=== PATIENT | male | born 1975 ===

== ENCOUNTER 2020-02-17 14:05 | Outpatient (REF) | payer OTHER, SELFPAY ==
--- NOTE | 2020-02-17 14:13 | XR_ITS ---
EXAMINATION: XR CHEST CLINICAL INFORMATION: Shortness of breath COMPARISON: None TECHNIQUE: 2 views of the chest were obtained. FINDINGS: No significant abnormality is noted involving the heart, lungs, mediastinum, bony thorax or soft tissues. XR/XR chest 2V IMPRESSION: Unremarkable examination.
--- NOTE | 2020-02-17 14:17 | US_ITS ---
EXAMINATION: US VENOUS ULTRASOUND WITH DOPPLER LOWER EXTREMITY, BILATERAL CLINICAL INFORMATION: Swelling and pain COMPARISON: None TECHNIQUE: Ultrasound of the deep veins is performed from the hip to the calf with compression sonography and color and pulse Doppler assessment. Spectral analysis with color-flow imaging is performed. FINDINGS: RIGHT: There is normal venous compression and respiratory variation and augmented flow. The visualized common femoral vein, superficial femoral vein, profunda femoral vein, popliteal vein, and the trifurcation region shows no evidence of deep venous thrombosis. There is no significant popliteal fossa cyst. There is a right inguinal lymph node. LEFT: There is normal venous compression and respiratory variation and augmented flow. The visualized common femoral vein, superficial femoral vein, profunda femoral vein, popliteal vein, and the trifurcation region shows no evidence of deep venous thrombosis. There is no significant popliteal fossa cyst. US/US venous duplex LE BI IMPRESSION: No evidence of DVT.
--- NOTE | 2020-02-17 15:27 | US_ITS ---
EXAMINATION: US ABDOMEN LIMITED CLINICAL INFORMATION: Gaseous abdominal distention. Evaluate liver and ascites. COMPARISON: None TECHNIQUE: Real-time imaging of the liver and 4 quadrants. FINDINGS: LIVER: The liver is echogenic. The liver is enlarged, right lobe measuring 24 cm and left lobe measuring 16 cm in length. No focal liver lesion is seen. There is no biliary duct dilatation. FREE FLUID: There is a small to moderate amount of ascites. US/US abdomen limited IMPRESSION: Enlarged echogenic liver. [id number] amount of ascites.
[2020-02-17 16:56] LABS: MANUAL DIFF FLAG NO
[2020-02-17 17:10] LABS: Basophils Absolute Auto 0.1 X10*3/uL (0.0-0.2); Basophils Percent Auto 1.2 % (0-2); Eosinophils Absolute Auto 0.1 X10*3/uL (0.0-0.4); Eosinophils Percent Auto 0.6 % (0-4); Hematocrit 36.4 % (42-52); Hemoglobin 13.2 g/dl (14.0-18.0); Imm Gran Abs Auto 0.04 X10*3/uL (0.00-0.03); Imm Gran Pct Auto 0.4 % (0.0-0.4); Lymphocytes Absolute Auto 2.4 X10*3/uL (1.2-4.9); Lymphocytes Percent Auto 25.3 % (20-40); Mean Corpuscular HGB Conc 36.3 g/dl (31.0-36.0); Mean Corpuscular Hemoglobin 41.6 pg (27.0-33.0); Monocytes Absolute Auto 1.1 X10*3/uL (0.1-1.2); Monocytes Percent Auto 11.5 % (2-11); Neutrophils Absolute Auto 5.7 X10*3/uL (2.0-8.3); Platelet Count 291 X10*3/uL (160-400); Red Blood Count 3.17 X10*6/uL (4.60-5.80); Red Cell Distribution Width 15.9 % (11.0-16.0); White Blood Count 9.4 X10*3/uL (4.8-10.8)
[2020-02-17 17:17] LABS: Glucose Urine UA 100 MG/DL (NEG); Leukocyte Esterase Urine NEG (NEG); Nitrite Urine POS (NEG); PH 5.5 (5.0-8.0); Specific Gravity - Urine >= 1.030 (1.005-1.025); Urine Blood NEG (NEG); Urine Ketones 5 MG/DL (NEG); Urine Protein 1+ MG/DL (NEG-TRACE)
[2020-02-17 17:24] LABS: Color Urine AMBER
[2020-02-17 17:25] LABS: Appearance Urine HAZY
[2020-02-17 17:35] LABS: Mean Corpuscular Volume 114.8 fL (80-98)
[2020-02-17 17:38] LABS: Alanine Aminotransferase 68 U/L (0-40); Albumin Level 2.6 g/dL (3.5-5.0); Alkaline Phosphatase 308 U/L (39-117); Anion Gap 19 (12-20); Aspartate Amino Transferase 209 U/L (5-37); Bilirubin Total 4.8 mg/dL (0.0-1.0); Blood Urea Nitrogen 6 mg/dL (9-16); Calcium 7.6 mg/dL (8.4-10.2); Carbon Dioxide 23 mmol/L (22-29); Chloride 94 mmol/L (96-108); Cholesterol 135 mg/dL; Estimated Glomerular Filt Rate > 60; Glucose Random 91 mg/dL (60-115); HDL Cholesterol 9 mg/dL; LDL Cholesterol Calculated 99 mg/dl; Potassium 3.5 mmol/l (3.3-5.1); Sodium 132 mmol/L (135-145); Total Protein 7.3 g/dL (6.5-8.0); Triglycerides 136 mg/dL
[2020-02-17 17:41] LABS: B Type Natriuretic Peptide 50 pg/mL (<100)
[2020-02-17 17:42] LABS: D Dimer 3513 NG/ML
[2020-02-17 17:59] LABS: Thyroid Stimulating Hormone 3.48 mIU/mL (0.32-4.0)
[2020-02-17 18:00] LABS: Bacteria Urine TRACE /LPF; Mucus Urine 3+ /LPF; RBC Urine 0 /HPF (0); Squamous Epithelial Cell Urine 1+ /LPF; WBC Urine 0 /HPF (0-4)
[2020-02-18 04:17] LABS: HBsAGNum1 0.19 S/CO (0.00-0.99); Hepatitis B Surface Antigen Negative (Negative)
[2020-02-18 04:24] LABS: Hepatitis B Core Antibody Nonreactive (Nonreactive); ~HepC Num1 0.16 S/CO (0.00-0.79); ~Hepatitis B Surface Antibody NONREACTIVE (Nonreactive); ~Hepatitis C Antibody Nonreactive (Nonreactive)
== END 2020-02-17 14:06 | disposition home or self-care (01) ==
LOC: HO.HMGCX 14:05
PROVIDERS: PCP Internal Medicine; Visit Provider Internal Medicine
DX: E78.00 Pure hypercholesterolemia, unspecified (principal); M79.89 Other specified soft tissue disorders; R06.02 Shortness of breath; R09.89 Other specified symptoms and signs involving the circulatory and respiratory systems; R18.8 Other ascites
CPT/HCPCS: 36415; 71046; 76705; 80053; 80061; 81001; 83880; 84443; 85025; 85060; 85379; 86704; 86706; 86803; 87340; 93970

== ENCOUNTER → 2020-03-07 13:00 | Outpatient (REF) | payer OTHER, SELFPAY | LOC: HO.SL 13:00 | PROVIDERS: PCP Internal Medicine; Visit Provider Internal Medicine | DX: R06.81 Apnea, not elsewhere classified (principal) | CPT/HCPCS: 95806 ==

== ENCOUNTER 2020-03-09 15:44 | Inpatient (IN) | payer OTHER, SELFPAY ==
--- NOTE | 2020-03-09 16:14 | ED_ITS ---
HPI - Abdominal Pain General Chief Complaint: Abdominal Pain Stated Complaint: abdominal pain Time Seen by Provider: 03/09/20 16:12 Source: patient and old records reviewed Mode of arrival: ambulatory Limitations: no limitations History of Present Illness HPI narrative: has been seeing his PCP for LE edema had US on 02/16 Enlarged echogenic liver. [id number] amount of ascites., negative DVT study, elevated LFTs and bili 4.8, hepatitis panel negative, patient states he is still drinking but not much took two shots before I came for nerves. notes his swelling has worsened MD elicited complaint: other (swelling of abdomen and LE) Pertinent past history: other (ETOH abuse) Onset (ago): month(s) (months) Pain Consistency: intermittent Location: none Severity: mild Radiation: none Migration to: no migration Exacerbating factors: nothing Relieving factors: nothing Associated symptoms: other (dark urine, LE swelling, fatigue, yellow eyes) Treatments prior to arrival: other (takes tylenol) Related Data Home Medications Medication Instructions Recorded Confirmed multivitamin 1 tab PO DAILY 02/15/20 03/09/20 Allergies Allergy/AdvReac Type Severity Reaction Status Date / Time No Known Allergies Allergy Verified 03/08/20 15:25 Review of Systems Review of Systems Constitutional : No Weight loss, No Fever, No Chills ENT/Mouth : No sore throat, No Rhinorrhea Eyes: No Swelling, No Redness, yellow eyes Cardiovascular : No Chest Pain, No SOB, NoEdema Respiratory : No Cough, No Sputum, No Wheezing Gastrointestinal : Positive Nausea, no Vomiting, no Diarrhea, positive abdominal Pain due to swelling, No Hematochezia, No Melena Genitourinary : No Dysuria, No Urinary Frequency, No Hematuria, No Urgency Musculoskeletal : No joint pain, No Myalgias, No Joint Swelling Skin : No Skin Lesions, pos rash Neuro : No Weakness, No Numbness, No Dizziness, No Headache Psych : No Anxiety/Panic, No Depression Heme/Lymph: No Bruising, No Lymphadenopathy Endocrine : No Polyuria, No Polydipsia All other systems reviewed and are negative. Physical Exam Vital Signs: Vital Signs: Last Vital Signs Temp 98.2 F 03/09/20 17:12 Pulse 98 03/09/20 19:10 Resp 16 03/09/20 19:10 BP 130/79 03/09/20 19:10 Pulse Ox 95 03/09/20 19:10 Body Mass Index 41.0 Appearance: Alert. Oriented X3. No acute distress. Eyes: Pupils equal, round and reactive to light. + scleral icterus ENT: Pharynx normal. Neck: Normal inspection. Neck supple. CVS: Normal heart rate and rhythm. Pulses normal. Respiratory: No respiratory distress. Breath sounds normal. Abdomen: Soft and non tender but moderate to large ascites Skin: Skin warm and dry. jaundice skin color. Normal skin turgor. Extremities: pos 4+ lower extremity edema. No calf ttp Neuro: Oriented X 3. No motor deficit. No sensory deficit. Procedures Paracentesis Time Out Performed: Yes Indication: Ascites Procedure: diagnostic paracentesis Location: RLQ Local Anesthetic: lidocaine 2% Amount of anesthesia used (mL): 5 Bedside Ultrasound Used: yes, Ascites confirmed and location marked Preparation: sterile prep and drape Fluid: clear and sent to lab for analysis Post Procedure Exam: awake, alert Patient Tolerated Procedure: well Complications: none Additional Comments: only removed 100cc of fluid, area stopped draining Course Course Course Narrative: elevated WBC count, lactic acidosis, abnormal LFTs and elevated bili are due to liver failure and not infection or severe sepsis will admit for further workup c/o nausea and anxiety - IV zofran and ativan ordered added on ceftriaxone at this time for SBP prophylaxis. MDM - Abdominal Pain MDM Narrative Medical decision making narrative: 44 yo male with regular ETOH use comes in with jaundice, LE edema, ascites concerning for worsening liver ds, he has no fevers and no overt pain to suggest SBP, just had start of workup 02/16 and he seems to have progressed - at this time will need labs, cultures, paracentesis, call to GI and admit for further workup, patient denies withdrawals or hx of seizures. Lab Data Result diagrams: 03/09/20 17:03 03/09/20 18:33 Labs: Lab Results 03/09/20 03/09/20 03/09/20 Range/Units 17:03 17:03 17:03 WBC 13.5 H (4.8-10.8) X10*3/uL RBC 2.77 L (4.60-5.80) X10*6/uL Hgb 11.9 L (14.0-18.0) g/dl Hct 31.8 L (42-52) % MCV 114.8 H (80-98) fL MCH 43.0 H (27.0-33.0) pg MCHC 37.4 H (31.0-36.0) g/dl RDW 20.7 H (11.0-16.0) % Plt Count 223 (160-400) X10*3/uL MPV 10.8 (9.4-12.4) fL Immature Gran % (Auto) 1.0 H (0.0-0.4) % Neut % (Auto) 73.9 H (45-73) % Lymph % (Auto) 15.3 L (20-40) % [place] % (Auto) 8.9 (2-11) % Eos % (Auto) 0.4 (0-4) % Baso % (Auto) 0.5 (0-2) % Lymph # (Auto) 2.1 (1.2-4.9) X10*3/uL [place] # (Auto) 1.2 (0.1-1.2) X10*3/uL Eos # (Auto) 0.1 (0.0-0.4) X10*3/uL Baso # (Auto) 0.1 (0.0-0.2) X10*3/uL Abs Immat Gran (auto) 0.14 H (0.00-0.03) X10*3/uL Absolute Neuts (auto) 10.0 H (2.0-8.3) X10*3/uL Absolute Nucleated RBC 0.050 H (0.0-0.012) X10*3/uL Nucleated RBC % (auto) 0.4 H (0.0-0.2) /100WBC PT Cancelled INR Cancelled APTT Cancelled Sodium Cancelled Potassium Cancelled Chloride Cancelled Carbon Dioxide Cancelled Anion Gap Cancelled BUN Cancelled Creatinine Cancelled Estim Creat Clear Calc Cancelled Estimated GFR Cancelled Random Glucose Cancelled Lactic Acid (0.5-2.0) mmol/L Calcium Cancelled Magnesium Cancelled Total Bilirubin Cancelled Direct Bilirubin Cancelled AST Cancelled ALT Cancelled Alkaline Phosphatase Cancelled Ammonia (13-55) umol/L Total Protein Cancelled Albumin Cancelled Lipase Cancelled Acetaminophen Ethyl Alcohol COVID-19 ([facility]IP[facility]) (Negative) COVID-19 Clin Com 11/03/09/20 03/09/20 Range/Units 17:03 17:03 17:03 WBC (4.8-10.8) X10*3/uL RBC (4.60-5.80) X10*6/uL Hgb (14.0-18.0) g/dl Hct (42-52) % MCV (80-98) fL MCH (27.0-33.0) pg MCHC (31.0-36.0) g/dl RDW (11.0-16.0) % Plt Count (160-400) X10*3/uL MPV (9.4-12.4) fL Immature Gran % (Auto) (0.0-0.4) % Neut % (Auto) (45-73) % Lymph % (Auto) (20-40) % [place] % (Auto) (2-11) % Eos % (Auto) (0-4) % Baso % (Auto) (0-2) % Lymph # (Auto) (1.2-4.9) X10*3/uL [place] # (Auto) (0.1-1.2) X10*3/uL Eos # (Auto) (0.0-0.4) X10*3/uL Baso # (Auto) (0.0-0.2) X10*3/uL Abs Immat Gran (auto) (0.00-0.03) X10*3/uL Absolute Neuts (auto) (2.0-8.3) X10*3/uL Absolute Nucleated RBC (0.0-0.012) X10*3/uL Nucleated RBC % (auto) (0.0-0.2) /100WBC PT INR APTT Sodium Potassium Chloride Carbon Dioxide Anion Gap BUN Creatinine Estim Creat Clear Calc Estimated GFR Random Glucose Lactic Acid (0.5-2.0) mmol/L Calcium Magnesium Total Bilirubin Direct Bilirubin AST ALT Alkaline Phosphatase Ammonia 79 H (13-55) umol/L Total Protein Albumin Lipase Acetaminophen Cancelled Ethyl Alcohol Cancelled COVID-19 ([facility]IP[facility]) (Negative) COVID-19 Clin Com 03/09/20 03/09/20 03/09/20 Range/Units 17:03 17:09 18:33 WBC (4.8-10.8) X10*3/uL RBC (4.60-5.80) X10*6/uL Hgb (14.0-18.0) g/dl Hct (42-52) % MCV (80-98) fL MCH (27.0-33.0) pg MCHC (31.0-36.0) g/dl RDW (11.0-16.0) % Plt Count (160-400) X10*3/uL MPV (9.4-12.4) fL Immature Gran % (Auto) (0.0-0.4) % Neut % (Auto) (45-73) % Lymph % (Auto) (20-40) % [place] % (Auto) (2-11) % Eos % (Auto) (0-4) % Baso % (Auto) (0-2) % Lymph # (Auto) (1.2-4.9) X10*3/uL [place] # (Auto) (0.1-1.2) X10*3/uL Eos # (Auto) (0.0-0.4) X10*3/uL Baso # (Auto) (0.0-0.2) X10*3/uL Abs Immat Gran (auto) (0.00-0.03) X10*3/uL Absolute Neuts (auto) (2.0-8.3) X10*3/uL Absolute Nucleated RBC (0.0-0.012) X10*3/uL Nucleated RBC % (auto) (0.0-0.2) /100WBC PT INR APTT Sodium 125 L Potassium 3.0 L Chloride 82 L Carbon Dioxide 29 Anion Gap 17 BUN 9 Creatinine 0.82 Estim Creat Clear Calc 163.5 Estimated GFR > 60 Random Glucose 104 Lactic Acid 4.6 H* (0.5-2.0) mmol/L Calcium 7.3 L Magnesium Total Bilirubin Direct Bilirubin AST ALT Alkaline Phosphatase Ammonia (13-55) umol/L Total Protein Albumin Lipase Acetaminophen 3 Ethyl Alcohol COVID-19 (PIPPA) Negative (Negative) COVID-19 Clin Com See Note 03/09/20 03/09/20 03/09/20 Range/Units 18:33 18:33 18:33 WBC (4.8-10.8) X10*3/uL RBC (4.60-5.80) X10*6/uL Hgb (14.0-18.0) g/dl Hct (42-52) % MCV (80-98) fL MCH (27.0-33.0) pg MCHC (31.0-36.0) g/dl RDW (11.0-16.0) % Plt Count (160-400) X10*3/uL MPV (9.4-12.4) fL Immature Gran % (Auto) (0.0-0.4) % Neut % (Auto) (45-73) % Lymph % (Auto) (20-40) % [place] % (Auto) (2-11) % Eos % (Auto) (0-4) % Baso % (Auto) (0-2) % Lymph # (Auto) (1.2-4.9) X10*3/uL [place] # (Auto) (0.1-1.2) X10*3/uL Eos # (Auto) (0.0-0.4) X10*3/uL Baso # (Auto) (0.0-0.2) X10*3/uL Abs Immat Gran (auto) (0.00-0.03) X10*3/uL Absolute Neuts (auto) (2.0-8.3) X10*3/uL Absolute Nucleated RBC (0.0-0.012) X10*3/uL Nucleated RBC % (auto) (0.0-0.2) /100WBC PT Cancelled INR Cancelled APTT Cancelled Sodium Potassium Chloride Carbon Dioxide Anion Gap BUN Creatinine Estim Creat Clear Calc Estimated GFR Random Glucose Lactic Acid (0.5-2.0) mmol/L Calcium Magnesium 2.1 Total Bilirubin 12.5 H Direct Bilirubin 8.8 H AST 249 H ALT 96 H Alkaline Phosphatase 218 H D Ammonia (13-55) umol/L Total Protein 7.0 Albumin 2.2 L Lipase 91 H Acetaminophen Ethyl Alcohol 10 COVID-19 (PIPPA) (Negative) COVID-19 Clin Com ECG Data Attestation: I personally reviewed and interpreted this ECG as follows: ECG interpretation date: 03/09/20 ECG interpretation time: 17:18 Interpretation: Rate: 95 Rhythm: NSR Benge: normal Normal P waves. Normal [place]. Normal QRS complex. ST T wave : non specific qTC: prolonged prior studies: no acute ischemia but artifact present The study has been interpreted contemporaneously by me. . Discharge Plan Discharge Clinical Impression: Acute alcoholic hepatitis, Elevated liver function tests, Acidosis, lactic, Hepatic encephalopathy Ascites Qualifiers: Ascites type: due to alcoholic hepatitis Qualified Code(s): K70.11 - Alcoholic hepatitis with ascites Patient Disposition: Admitted As Inpatient [facility] Past Medical History Attestation statement: The following information was validated with the patient. Medical History Obesity Tobacco abuse Family History Family History (Updated 02/15/20 @ 10:18 by Heidy Mojica MD) Maternal Grandfather CVA (cerebral vascular accident) Maternal Grandmother Pancreatic cancer Social History Social History Alcohol intake: current Smoking Status: Current every day smoker Packs Per Day: 0.5 Cigarettes Per Day: 10.0 Years Smoked: smoking since 20 years old Use of substances other than those prescribed or required for medical reasons: Yes Substance Use Type: Marijuana Advance Directives: No Advance Directives Information Provided: No
--- NOTE | 2020-03-09 16:17 | ECG_ITS ---
Test Reason : ABDOMINAL PAIN Blood Pressure : / mmHG Vent. Rate : 095 BPM Atrial Rate : 095 BPM P-R Int : 198 ms QRS Dur : 096 ms QT Int : 442 ms P-R-T Axes : 037 007 007 degrees QTc Int : 555 ms Poor data quality Normal sinus rhythm Nonspecific T wave abnormality Prolonged QT Abnormal ECG No previous ECGs available Referred By: Quin Cantor Electronically Signed By:ROHITH DOLAN MD
[2020-03-09 16:20] VITALS: BP 114/63; PULSE 97; RESP 18; TEMP 37.1; O2SAT 97; BMI 41.0
[2020-03-09 17:12] VITALS: BP 116/68; PULSE 93; RESP 21; TEMP 36.8; O2SAT 94
[2020-03-09 17:38] LABS: Basophils Absolute Auto 0.1 X10*3/uL (0.0-0.2); Basophils Percent Auto 0.5 % (0-2); Eosinophils Absolute Auto 0.1 X10*3/uL (0.0-0.4); Eosinophils Percent Auto 0.4 % (0-4); Hematocrit 31.8 % (42-52); Hemoglobin 11.9 g/dl (14.0-18.0); Imm Gran Abs Auto 0.14 X10*3/uL (0.00-0.03); Lymphocytes Absolute Auto 2.1 X10*3/uL (1.2-4.9); Lymphocytes Percent Auto 15.3 % (20-40); MANUAL DIFF FLAG NO; Mean Corpuscular HGB Conc 37.4 g/dl (31.0-36.0); Mean Platelet Volume 10.8 fL (9.4-12.4); Monocytes Absolute Auto 1.2 X10*3/uL (0.1-1.2); Monocytes Percent Auto 8.9 % (2-11); NRBC Pct Auto 0.4 /100WBC (0.0-0.2); Neutrophils Percent Auto 73.9 % (45-73); Platelet Count 223 X10*3/uL (160-400); Red Blood Count 2.77 X10*6/uL (4.60-5.80); Red Cell Distribution Width 20.7 % (11.0-16.0); White Blood Count 13.5 X10*3/uL (4.8-10.8)
[2020-03-09 17:39] LABS: Mean Corpuscular Volume 114.8 fL (80-98)
[2020-03-09 17:55] LABS: Ammonia 79 umol/L (13-55)
[2020-03-09 17:58] LABS: IDNOW Serial# 9DD0AD1C
[2020-03-09 17:59] LABS: COVID-19 Test Negative (Negative)
[2020-03-09 18:00] LABS: Lactic Acid 4.6 mmol/L (0.5-2.0)
[2020-03-09 19:02] LABS: Lipase 91 U/L (8-78)
[2020-03-09 19:03] LABS: Alanine Aminotransferase 96 U/L (0-40); Albumin Level 2.2 g/dL (3.5-5.0); Alkaline Phosphatase 218 U/L (39-117); Aspartate Amino Transferase 249 U/L (5-37); Bilirubin Direct 8.8 mg/dL (0.0-0.5); Bilirubin Total 12.5 mg/dL (0.0-1.0); Ethanol 10 mg/dL; Magnesium 2.1 mg/dL (1.6-2.6)
[2020-03-09 19:08] LABS: Acetaminophen LAB 3 mcg/mL (<30); Anion Gap 17 (12-20); Blood Urea Nitrogen 9 mg/dL (9-16); Calcium 7.3 mg/dL (8.4-10.2); Carbon Dioxide 29 mmol/L (22-29); Chloride 82 mmol/L (96-108); Creatinine Clr Calc Pharmacy 163.5; Estimated Glomerular Filt Rate > 60; Glucose Random 104 mg/dL (60-115); Sodium 125 mmol/L (135-145)
[2020-03-09 19:10] VITALS: BP 130/79; PULSE 98; RESP 16; O2SAT 95
[2020-03-09 19:21] LABS: MN% 74.2 %; PMN% 25.8 %; RBC Peritoneal Fluid < 0.002 X10*6/uL; WBC Peritoneal Fluid 0.121 X10*3/uL
[2020-03-09 19:37] LABS: Reflex Lactate? Lactic Acid Added
[2020-03-09 19:44] LABS: INTERNATIONAL NORM RATIO 1.5 (0.9-1.1); Prothrombin Time 18.2 SEC (10.8-13.0)
[2020-03-09] MEDS: Lidocaine HCl 2 % MPF 5 ML VIAL SUBCUT (19:45)
[2020-03-09] MEDS: ondansetron HCL 4 MG/2 ML VIAL IVPUSH (19:45)
[2020-03-09 19:46] LABS: BF Shift QC OK YES; Man Diluent Bkgrd OK YES
[2020-03-09 19:47] LABS: Partial Thromboplastin Time 31.1 SEC (24.1-38.0)
[2020-03-09] MEDS: LORazepam 2 MG/ML VIAL 0.5 MG IVPUSH (19:51)
[2020-03-09] MEDS: Albumin Human 25 % 100 ML IV (19:57)
[2020-03-09] MEDS: Potassium Chloride ER 20 MEQ TAB.ER.PRT 40 MEQ PO (19:58)
--- NOTE | 2020-03-09 19:59 | PM.IMHP ---
History of Present Illness Date of Service: 03/09/20 Chief Complaint: abdominal pain, distension 44-year-old male with history of alcohol abuse who presents to the hospital with complaints of abdominal pain and session. Patient reports that he started developing abdominal distension for the past 6 weeks to 2 months and started developing abdominal pain past 4 weeks. Both have been progressively Worsening over the past 3 weeks. He denies any fever, no chills. He has no diarrhea but has some sort of constipation due to the pressure of the abdominal distension. On he is also complaining of significant leg swelling this been going on for few weeks now. He has no chest pain, he has some mild shortness of breath specially when he lays down due to the abdominal pressure, he has occasional nonbloody vomiting. he also noticed skin changes for the past 3 weeks. Progressively worsened. He has no urinary symptoms, no weakness numbness or tingling. He reports that he presented to his primary care physician on the and was worked up for this distension. He was started on multivitamins at that time. He returned to his doctor's office yesterday and was told to return to the ED for the management of distension. he has been checking his temperature is daily with no fever. On arrival to the ED hemodynamically stable with Heart rate of heart rate of 97, respiratory rate of 18, blood pressure of 114/63 and 97% on room air labs are significant for WBC count of 13.5, hemoglobin of 11.9, MCV of 114, PT of 18.2, INR of 1.5, sodium of 125, potassium of 3.0, chloride of 82, lactic acid of 4.6, calcium 7.3, total bilirubin of 12.5, direct bili of 8.8, AST of 249, ALT of 96, alk-phos of 218, ammonia of 79, albumin of 2.2 paracentesis therapeutic and diagnostic was attempted but only 100 cc of fluid was able to be drained by the ED physician. Fluid has been sent to the lab with results pending past medical history: Denies Surgical history: Denies Family history: mother has diabetes, father had COPD and of visited missed disease, brother of heart disease social history: Comes from home, lives at home with his mother, smokes about half a pack a day, drinks about 2 drinks daily,denies any history of withdrawals, denies any drug use Review of Systems Review of Systems: Yes all other systems are reviewed and are negative [facility] Medical History Obesity Tobacco abuse Family History Maternal Grandfather CVA (cerebral vascular accident) Maternal Grandmother Pancreatic cancer Social History Alcohol intake: current Smoking Status: Current every day smoker Packs Per Day: 0.5 Cigarettes Per Day: 10.0 Years Smoked: smoking since 20 years old Use of substances other than those prescribed or required for medical reasons: Yes Substance Use Type: Marijuana Advance Directives: No Advance Directives Information Provided: No Meds Allergies Allergy/AdvReac Type Severity Reaction Status Date / Time No Known Allergies Allergy Verified 03/08/20 15:25 Home Medications Medication Instructions Recorded Confirmed Type multivitamin 1 tab PO DAILY 02/15/20 03/09/20 History Physical Exam Vital Signs and Narrative: Vital Signs: Last Vital Signs Temp 98.2 F 03/09/20 17:12 Pulse 98 03/09/20 19:10 Resp 16 03/09/20 19:10 BP 130/79 03/09/20 19:10 Pulse Ox 95 03/09/20 19:10 Body Mass Index 41.0 Const: General: cooperative and no acute distress Orientation/consciousness: patient oriented x3 Eyes: General: appearance normal, both eyes and all related structures Pupils: Equal, round and reactive pupils present Resp: Effort & Inspection: normal respiratory effort and able to speak in complete sentences Auscultation: clear to auscultation bilaterally Cardio: Rate: regular rate Rhythm: regular rhythm GI: Other: 3+ ascites, diffuse tenderness, worse on the right upper quadrant, Skin: General skin exam: no rashes or lesions noted and jaundice Neuro: General: patient oriented x3 Cranial nerves: Yes Equal, round and reactive pupils present Cognition (Neuro): normal cognition Extrem: Other: 3+ pitting edema bilaterally General: Yes normal to inspection Results Labs CBC and Chem 7: 03/09/20 17:03 03/09/20 18:33 Labs: Laboratory Results - last 24 hr 03/09/20 03/09/20 03/09/20 17:03 17:03 17:03 MCV 114.8 H MCH 43.0 H MCHC 37.4 H RDW 20.7 H Plt Count 223 MPV 10.8 Immature Gran % (Auto) 1.0 H Neut % (Auto) 73.9 H Lymph % (Auto) 15.3 L [place] % (Auto) 8.9 Eos % (Auto) 0.4 Baso % (Auto) 0.5 Lymph # (Auto) 2.1 [place] # (Auto) 1.2 Eos # (Auto) 0.1 Baso # (Auto) 0.1 Abs Immat Gran (auto) 0.14 H Absolute Neuts (auto) 10.0 H Absolute Nucleated RBC 0.050 H Nucleated RBC % (auto) 0.4 H PT Cancelled INR Cancelled APTT Cancelled Anion Gap Cancelled Estim Creat Clear Calc Cancelled Estimated GFR Cancelled Random Glucose Cancelled Lactic Acid Calcium Cancelled Magnesium Cancelled Total Bilirubin Cancelled Direct Bilirubin Cancelled AST Cancelled ALT Cancelled Alkaline Phosphatase Cancelled Ammonia Total Protein Cancelled Albumin Cancelled Lipase Cancelled Peritoneal WBC Peritoneal RBC Acetaminophen Ethyl Alcohol COVID-19 (PIPPA) COVID-[employer] 03/09/20 03/09/20 03/09/20 17:03 17:03 17:03 MCV MCH MCHC RDW Plt Count MPV Immature Gran % (Auto) Neut % (Auto) Lymph % (Auto) [place] % (Auto) Eos % (Auto) Baso % (Auto) Lymph # (Auto) [place] # (Auto) Eos # (Auto) Baso # (Auto) Abs Immat Gran (auto) Absolute Neuts (auto) Absolute Nucleated RBC Nucleated RBC % (auto) PT INR APTT Anion Gap Estim Creat Clear Calc Estimated GFR Random Glucose Lactic Acid Calcium Magnesium Total Bilirubin Direct Bilirubin AST ALT Alkaline Phosphatase Ammonia 79 H Total Protein Albumin Lipase Peritoneal WBC Peritoneal RBC Acetaminophen Cancelled Ethyl Alcohol Cancelled COVID-19 (PIPPA) COVID-[employer] 03/09/20 03/09/20 03/09/20 17:03 17:09 18:33 MCV MCH MCHC RDW Plt Count MPV Immature Gran % (Auto) Neut % (Auto) Lymph % (Auto) [place] % (Auto) Eos % (Auto) Baso % (Auto) Lymph # (Auto) [place] # (Auto) Eos # (Auto) Baso # (Auto) Abs Immat Gran (auto) Absolute Neuts (auto) Absolute Nucleated RBC Nucleated RBC % (auto) PT INR APTT Anion Gap 17 Estim Creat Clear Calc 163.5 Estimated GFR > 60 Random Glucose 104 Lactic Acid 4.6 H* Calcium 7.3 L Magnesium Total Bilirubin Direct Bilirubin AST ALT Alkaline Phosphatase Ammonia Total Protein Albumin Lipase Peritoneal WBC Peritoneal RBC Acetaminophen 3 Ethyl Alcohol COVID-19 (PIPPA) Negative COVID-19 Clin Com See Note 03/09/20 03/09/20 03/09/20 18:33 18:33 18:33 MCV MCH MCHC RDW Plt Count MPV Immature Gran % (Auto) Neut % (Auto) Lymph % (Auto) [place] % (Auto) Eos % (Auto) Baso % (Auto) Lymph # (Auto) [place] # (Auto) Eos # (Auto) Baso # (Auto) Abs Immat Gran (auto) Absolute Neuts (auto) Absolute Nucleated RBC Nucleated RBC % (auto) PT Cancelled INR Cancelled APTT Cancelled Anion Gap Estim Creat Clear Calc Estimated GFR Random Glucose Lactic Acid Calcium Magnesium 2.1 Total Bilirubin 12.5 H Direct Bilirubin 8.8 H AST 249 H ALT 96 H Alkaline Phosphatase 218 H D Ammonia Total Protein 7.0 Albumin 2.2 L Lipase 91 H Peritoneal WBC Peritoneal RBC Acetaminophen Ethyl Alcohol 10 COVID-19 (PIPPA) COVID-19 [employer] Com 03/09/20 03/09/20 19:03 19:29 MCV MCH MCHC RDW Plt Count MPV Immature Gran % (Auto) Neut % (Auto) Lymph % (Auto) [place] % (Auto) Eos % (Auto) Baso % (Auto) Lymph # (Auto) [place] # (Auto) Eos # (Auto) Baso # (Auto) Abs Immat Gran (auto) Absolute Neuts (auto) Absolute Nucleated RBC Nucleated RBC % (auto) PT 18.2 H INR 1.5 H APTT 31.1 Anion Gap Estim Creat Clear Calc Estimated GFR Random Glucose Lactic Acid Calcium Magnesium Total Bilirubin Direct Bilirubin AST ALT Alkaline Phosphatase Ammonia Total Protein Albumin Lipase Peritoneal WBC 0.121 Peritoneal RBC < 0.002 Acetaminophen Ethyl Alcohol COVID-19 (PIPPA) COVID-19 Clin Com Assessment and Plan (1) Alcoholic cirrhosis of liver: Status: Acute (2) Acidosis, lactic: Status: Acute (3) Transaminitis: Status: Acute (4) Coagulopathy: Status: Acute (5) Acute alcoholic hepatitis: Status: Acute (6) Ascites: Qualifiers: Ascites type: due to alcoholic hepatitis Qualified Code(s): K70.11 - Alcoholic hepatitis with ascites Status: Acute (7) Alcohol abuse: Status: Acute (8) Abdominal pain: Status: Acute (9) Leukocytosis: Status: Acute (10) Hyponatremia: Status: Acute (11) Hyperammonemia: Status: Acute this is a 44-year-old male who presents to the hospital with complaints of abdominal distension and abdominal pain found to have ascites and lower extremity edema most likely secondary to alcoholic liver cirrhosis # alcoholic liver cirrhosis - patient has significant ascites - has chronic history of alcohol abuse - workup by his PCP on 02/17/2020 shows negative hepatitis C antibody, hep B and hep a are negative - ultrasound shows enlarged echogenic liver which is most likely cirrhotic - has albumin of 2.2, transaminitis including elevated bilirubin of 12, significant ascites, coagulopathy, lactic acidosis all suggestive liver cirrhosis - Child Saxena class C with life expectancy of 1-3 years Plan: - Given his significant ascites a paracentesis was attempted in the ED but only 100 cc was obtained - will start him on furosemide and Aldactone - GI consult # ascites - has significant ascites which is most likely in the setting of alcoholic liver cirrhosis - as above therapeutic paracentesis was attempted in the ED but only 100 cc was obtained which was sent for diagnostic - patient has difficulty breathing as a result of his ascites, he also has significant lower extremity edema which is most likely secondary to low albumin / oncotic pressure plan: - Will start him on Aldactone as well as furosemide and monitor blood pressure - GI consult - IR can attempt ultrasound-guided paracentesis in am as ED was not successful # lactic acidosis - most likely in setting of acute liver cirrhosis - has abdominal pain, but afebrile, leukocytosis possibly reactive - started on ceftriaxone in the ED and cultures have been drawn - continue ceftriaxone pending results of paracentesis - will trend lactic acid # transaminitis, #coagulopathy, #hyponatremia # hyperbilirubinemia - all secondary to liver cirrhosis/ acute alcoholic hepatitis - will trend LFTs, monitor for any acute bleed, and follow BMP for the hyponatremia - given his significant ascites will hold off starting him on IV fluids at this time # hyperammonemia - patient has no confusion, no asterixis plan: - start him on lactulose t.i.d. with a goal of 3 BMs daily # leukocytosis - possibly secondary to SBP although it can also be reactive - patient received ceftriaxone in the ED, diagnostic paracentesis was done and awaiting result - will continue ceftriaxone at this time pending paracentesis results - will follow CBC DVT prophylaxis: Lovenox
[2020-03-09] MEDS: cefTRIAXone sodium 1 GM in 0.9 % Sodium Chloride 50 ML IV (20:31)
[2020-03-09 21:56] VITALS: BP 128/67; PULSE 104; RESP 18; TEMP 37.2; O2SAT 96
[2020-03-09 22:15] VITALS: BP 128/67; PULSE 104
[2020-03-09] MEDS: Folic Acid 1 MG TABLET PO (22:15)
[2020-03-09] MEDS: Spironolactone 25 MG TABLET 100 MG PO (22:15)
[2020-03-09] MEDS: Thiamine HCL 100 MG TABLET PO (22:15)
[2020-03-09] MEDS: Lactulose 20 GM/30 ML SOLUTION 30 GM PO (22:17)
[2020-03-09] MEDS: Furosemide 40 MG/4 ML VIAL IVPUSH (22:20)
[2020-03-09] MEDS: Heparin Sodium,Porcine 5,000 UNIT/ML VIAL 5000 UNIT SUBCUT (22:22)
[2020-03-09 23:09] LABS: ~Lactic Acid-LAB USE ONLY 2.6 mmol/L (0.5-2.0)
[2020-03-09 23:27] VITALS: BP 118/61; PULSE 100; RESP 17; TEMP 37.1; O2SAT 96
[2020-03-10] VITALS (8 sets, daily range): BP systolic 109–130; BP diastolic 55–75; PULSE 56–100; RESP 17–20; TEMP 36.4–37.1; O2SAT 90–95
[2020-03-10] MEDS: 0.9 % Sodium Chloride Flush 3 ML SYRINGE IVFLUSH ×3 (00:50→16:29)
[2020-03-10 00:53] LABS: Reflex Lactate? 2 Y
[2020-03-10 02:27] LABS: ~Lactic Acid-LAB USE ONLY 2.8 mmol/L (0.5-2.0)
[2020-03-10 06:59] LABS: Albumin Peritoneal Fluid 0.4; LDH Peritoneal Fluid 109; Total Protein Peritoneal Fluid 0.9
[2020-03-10 07:00] LABS: Glucose Peritoneal Fluid 126
[2020-03-10 07:02] LABS: pH Peritoneal Fluid 7.71
[2020-03-10 07:30] LABS: MANUAL DIFF FLAG NO
[2020-03-10 07:54] LABS: Blood Urea Nitrogen 11 mg/dL (9-16); Calcium 7.3 mg/dL (8.4-10.2); Creatinine Clr Calc Pharmacy 132.7; Estimated Glomerular Filt Rate > 60; Glucose Random 92 mg/dL (60-115)
[2020-03-10] MEDS: Lactulose 20 GM/30 ML SOLUTION 30 GM PO ×3 (08:12→20:01)
[2020-03-10] MEDS: Thiamine HCL 100 MG TABLET PO (08:12)
[2020-03-10] MEDS: Folic Acid 1 MG TABLET PO (08:12)
[2020-03-10] MEDS: Spironolactone 25 MG TABLET 100 MG PO (08:12)
[2020-03-10] MEDS: Furosemide 40 MG/4 ML VIAL IVPUSH (08:12)
[2020-03-10 08:35] LABS: Basophils Absolute Auto 0.1 X10*3/uL (0.0-0.2); Basophils Percent Auto 0.7 % (0-2); Eosinophils Absolute Auto 0.1 X10*3/uL (0.0-0.4); Eosinophils Percent Auto 0.8 % (0-4); Hematocrit 26.9 % (42-52); Imm Gran Abs Auto 0.11 X10*3/uL (0.00-0.03); Imm Gran Pct Auto 0.9 % (0.0-0.4); Lymphocytes Absolute Auto 2.4 X10*3/uL (1.2-4.9); Mean Corpuscular HGB Conc 37.2 g/dl (31.0-36.0); Mean Corpuscular Hemoglobin 42.7 pg (27.0-33.0); Mean Platelet Volume 10.5 fL (9.4-12.4); Monocytes Absolute Auto 1.3 X10*3/uL (0.1-1.2); Monocytes Percent Auto 10.4 % (2-11); NRBC Pct Auto 0.5 /100WBC (0.0-0.2); Neutrophils Absolute Auto 8.1 X10*3/uL (2.0-8.3); Neutrophils Percent Auto 67.2 % (45-73); Platelet Count 206 X10*3/uL (160-400); Red Blood Count 2.34 X10*6/uL (4.60-5.80); Red Cell Distribution Width 21.2 % (11.0-16.0)
[2020-03-10 08:56] LABS: Anion Gap 13 (12-20); Carbon Dioxide 34 mmol/L (22-29); Chloride 83 mmol/L (96-108); Potassium 2.7 mmol/l (3.3-5.1); Sodium 127 mmol/L (135-145)
--- NOTE | 2020-03-10 10:08 | MHC.CM.PN ---
CM met with Patient. Patient lives in a house with his Mother and he is functionally independent. Patient's goal is to return home and CM has initiated and will follow for dc planning. Patient has a diagnosis of ETOH and may benefit from a Care Team Consult. Patient's PCP is Dr. Heidy PINO.
--- NOTE | 2020-03-10 11:06 | P.PNIM_ITS ---
Subjective Subjective Date of Service: 03/10/20 Interval History: abd distension Cardiovascular Cardiovascular: Reports no additional cardiovascular complaints Respiratory Respiratory: Reports no additional respiratory complaints Physical Exam Vital Signs: Vital Signs: Last Vital Signs Temp 98.2 F 03/10/20 07:31 Pulse 92 03/10/20 07:31 Resp 20 03/10/20 07:31 BP 118/63 03/10/20 07:31 Pulse Ox 92 03/10/20 07:31 Body Mass Index 41.0 General: AO X 3, no acute distress, juandice Resp: CTA bilateral CVS: S1,S2,RRR GI: soft, distended, non tender Neuro: motor grossly intact Psych: appropriate affect Objective Data Current Medications Generic Name Dose Route Start Last Admin Trade Name Freq PRN Reason Stop Dose Admin Acetaminophen 650 mg 03/09/20 22:01 Acetaminophen 325 Mg Tablet PO Q6H PRN Pain, Mild (Pain Scale 1-3) Docusate Sodium 100 mg 03/09/20 22:01 Docusate Sodium 100 Mg Capsule PO DAILY PRN Constipation Folic Acid 1 mg 03/09/20 22:01 03/10/20 08:12 Folic Acid 1 Mg Tablet PO 1 mg DAILY [facility] Administration Heparin Sodium (Porcine) 5,000 unit 03/09/20 23:00 03/09/20 22:22 Heparin Sodium,Porcine 5,000 Unit/Ml Vial SUBCUT 5,000 unit Q12H [facility] Administration Ceftriaxone Sodium 1 gm/ 50 mls @ 100 mls/hr 03/10/20 22:00 Sodium Chloride IV Q24H [facility] Lactulose 30 gm 03/09/20 22:01 03/10/20 08:12 Lactulose 20 Gm/30 Ml Solution PO 30 gm TID SPEEDY Administration Medication 1 each 03/11/20 09:00 No Benzodiazepines MISCELLANE DAILY SPE[facility] Nicotine 14 mg 03/11/20 09:00 Nicotine 14 Mg Patch.Td24 TRANSDERMA DAILY SPEEDY Ondansetron HCl 4 mg 03/09/20 22:01 Ondansetron Hcl 4 Mg/2 Ml Vial IVPUSH Q8H PRN Nausea and Vomiting Pharmacy Consult 1 each 03/09/20 16:23 Consult Rx Perform Med Rec MISCELLANE ONCE PRN Consult order Phenobarbital 30 mg 03/12/20 21:00 Phenobarbital 30 Mg Tablet PO 03/14/20 09:01 BID [facility] Protocol Phenobarbital 30 mg 03/15/20 09:00 Phenobarbital 30 Mg Tablet PO 03/16/20 09:01 DAILY [facility] Protocol Phenobarbital 60 mg 03/10/20 21:00 Phenobarbital 30 Mg Tablet PO 03/12/20 09:01 BID [facility] Protocol Phenobarbital Sodium 181 mg 03/10/20 14:00 Phenobarbital Sodium 130 Mg/Ml Vial IM 03/10/20 17:01 1400,1700 [facility] Protocol Prednisone 40 mg 03/10/20 09:00 Prednisone 20 Mg Tablet PO DAILY [facility] Sodium Chloride 3 ml 03/10/20 00:00 03/10/20 08:13 0.9 % Sodium Chloride Flush 3 Ml Syringe IVFLUSH 3 ml QSHIFT [facility] Administration Spironolactone 100 mg 03/09/20 22:01 03/10/20 08:12 Spironolactone 25 Mg Tablet PO 100 mg DAILY [facility] Administration Protocol Thiamine HCl 100 mg 03/09/20 22:01 03/10/20 08:12 Thiamine Hcl 100 Mg Tablet PO 100 mg DAILY [facility] Administration Labs CBC & Chem 7: 03/10/20 06:03 03/10/20 06:03 Microbiology Microbiology Results: Microbiology 03/09/20 19:03 Ascites Fluid Gram Stain - Final 03/09/20 19:03 Ascites Fluid Body Fluid Culture - Preliminary No growth after 1 day Assessment and Plan (1) Alcohol dependence with uncomplicated withdrawal: Status: Acute (2) Acute alcoholic hepatitis: Status: Acute (3) Hyponatremia: Status: Acute (4) Ascites: Status: Acute Assessment and Plan: 44M presented with abdominal pain and distension acute alcoholic hepatitis with ascites, alcohol withdrawl, hyponatremia DF>32 will start prednisone check US for possible therapeutic drain continue aldactone, lasix dced for hyponatremia fluid restrict, monitor lytes mild encephalopathy, continue lactulose empiric ceftriaxone GI eval phenobarb for mild withdrawl monitor lfts
[2020-03-10] MEDS: PHENobarbitaL sodium 130 MG/ML VIAL 241 MG IM (11:22)
[2020-03-10] MEDS: Heparin Sodium,Porcine 5,000 UNIT/ML VIAL 5000 UNIT SUBCUT ×2 (11:22→22:22)
[2020-03-10] MEDS: predniSONE 20 MG TABLET 40 MG PO (11:25)
[2020-03-10] MEDS: Nicotine 14 MG PATCH.TD24 TRANSDERMA (11:42)
[2020-03-10] MEDS: PHENobarbitaL sodium 130 MG/ML VIAL 181 MG IM ×2 (14:48→17:48)
--- NOTE | 2020-03-10 16:47 | PC.NURSE ---
pt was sleeping soundly. He was woken when IV was flushed. HE reports 9/10 pain in abdomen. contacted MD, no new orders. pt has returned to sleep.
--- NOTE | 2020-03-10 18:08 | PC.NURSE ---
pt sleeping, woke with med administration. Discussed pt's drinking pattern. He states he drank significant amounts of alcohol when he was younger but only drinks a little now. He states he has 2-3 drinks a day. Pt reports he has anxiety and drinking heps. He states he has only occasional depression. Pt states understanding that he needs to stop drinking alcohol. He states he would be interrested in getting help for anxiety.
[2020-03-10] MEDS: PHENobarbitaL 30 MG TABLET 60 MG PO (20:00)
[2020-03-10] MEDS: cefTRIAXone sodium 1 GM in 0.9 % Sodium Chloride 50 ML IV (22:22)
[2020-03-11] VITALS (11 sets, daily range): BP systolic 98–131; BP diastolic 61–79; PULSE 88–97; RESP 18–20; TEMP 36.4–37; O2SAT 90–99
--- NOTE | 2020-03-11 | US_ITS ---
EXAMINATION: ULTRASOUND GUIDED PARACENTESIS. CLINICAL INFORMATION: Symptomatic ascites. COMPARISON: None TECHNIQUE: Following explaining ultrasound-guided paracentesis procedure, benefits and risk, a written consent was obtained. Preliminary ultrasound imaging was obtained through the abdomen in the right midabdomen area was selected and marked. The marked site was cleaned and draped in usual sterile manner. Lidocaine was injected puncture site. Through a small skin incision a 5 Swedish Yueh catheter was advanced into the peritoneal space. After observing fluid return, stylet was withdrawn and catheter connected to vacuum bottle via connecting cannula. After obtaining all fluid and observing no more fluid return, the Yueh catheter was removed and complete hemostasis achieved at puncture site. Simple dressing applied postprocedure. Patient tolerated procedure very well. FINDINGS: On preliminary ultrasound imaging there is moderate stool seen throughout the abdomen most localized in the right upper quadrant and right mid quadrant. Approximately 7.8 L of clear yellow fluid drained. None of this fluid was removed. US/US paracentesis abd w/image IMPRESSION: Successful ultrasound-guided paracentesis performed without immediate competitions. None of this fluid was sent to lab.
--- NOTE | 2020-03-11 | US_ITS ---
EXAMINATION: US ABDOMEN LIMITED CLINICAL INFORMATION: Evaluate for ascites. COMPARISON: Previous exam 02/17/2020 TECHNIQUE: Real-time imaging of the right upper quadrant abdominal viscera. FINDINGS: There is a moderate amount of ascites. US/US abdomen limited IMPRESSION: Moderate amount of ascites.
[2020-03-11] MEDS: 0.9 % Sodium Chloride Flush 3 ML SYRINGE IVFLUSH ×4 (00:47→23:24)
[2020-03-11 06:29] LABS: MANUAL DIFF FLAG NO
[2020-03-11 07:19] LABS: Basophils Percent Auto 0.1 % (0-2); Eosinophils Percent Auto 0.1 % (0-4); Imm Gran Abs Auto 0.18 X10*3/uL (0.00-0.03); Imm Gran Pct Auto 1.3 % (0.0-0.4); Mean Corpuscular HGB Conc 36.7 g/dl (31.0-36.0); Mean Corpuscular Hemoglobin 42.1 pg (27.0-33.0); Mean Platelet Volume 10.7 fL (9.4-12.4); Monocytes Absolute Auto 1.2 X10*3/uL (0.1-1.2); Monocytes Percent Auto 8.8 % (2-11); NRBC Pct Auto 0.3 /100WBC (0.0-0.2); Neutrophils Absolute Auto 10.1 X10*3/uL (2.0-8.3); Neutrophils Percent Auto 74.7 % (45-73); Platelet Count 242 X10*3/uL (160-400); Red Blood Count 2.61 X10*6/uL (4.60-5.80); White Blood Count 13.5 X10*3/uL (4.8-10.8)
[2020-03-11 07:26] LABS: Mean Corpuscular Volume 114.9 fL (80-98)
[2020-03-11 07:28] LABS: INTERNATIONAL NORM RATIO 1.6 (0.9-1.1); Prothrombin Time 18.6 SEC (10.8-13.0)
[2020-03-11 08:00] LABS: Alanine Aminotransferase 84 U/L (0-40); Albumin Level 2.3 g/dL (3.5-5.0); Alkaline Phosphatase 196 U/L (39-117); Anion Gap 14 (12-20); Aspartate Amino Transferase 215 U/L (5-37); Bilirubin Direct 9.4 mg/dL (0.0-0.5); Bilirubin Total 12.3 mg/dL (0.0-1.0); Blood Urea Nitrogen 13 mg/dL (9-16); Calcium 7.5 mg/dL (8.4-10.2); Carbon Dioxide 33 mmol/L (22-29); Chloride 82 mmol/L (96-108); Estimated Glomerular Filt Rate > 60; Glucose Fasting 123 mg/dL (60-99); Potassium 2.8 mmol/l (3.3-5.1); Sodium 126 mmol/L (135-145); Total Protein 6.8 g/dL (6.5-8.0)
[2020-03-11 08:38] LABS: Magnesium 2.2 mg/dL (1.6-2.6)
[2020-03-11] MEDS: Lactulose 20 GM/30 ML SOLUTION 30 GM PO ×3 (08:39→23:26)
[2020-03-11] MEDS: Nicotine 14 MG PATCH.TD24 TRANSDERMA (08:39)
[2020-03-11] MEDS: Potassium Chloride Packet 20 MEQ PACKET 40 MEQ PO (08:40)
[2020-03-11] MEDS: Spironolactone 25 MG TABLET 100 MG PO (08:40)
[2020-03-11] MEDS: PHENobarbitaL 30 MG TABLET 60 MG PO ×2 (08:40→21:32)
[2020-03-11] MEDS: Thiamine HCL 100 MG TABLET PO (08:40)
[2020-03-11] MEDS: Folic Acid 1 MG TABLET PO (08:41)
[2020-03-11] MEDS: predniSONE 20 MG TABLET 40 MG PO (08:41)
--- NOTE | 2020-03-11 09:40 | P.CDIC_ITS ---
CDI Concurrent Query Service Date: 03/11/20 Documentation Clarification: Please clarify if you are treating a proba ble/suspected/likely or confirmed: Hepatic Encephalopathy Metabolic and/or Toxic Encephalopathy Please specify if known or other Provider Response: Hepatic Encephalopathy PLEASE DO NOT DELETE/MODIFY EXISTING CONTENT Additional information is needed in order to code to the highest accuracy and appropriate Severity of Illness (SOI). Please clarify the information noted below in your progress notes and discharge summary. Risk Factors/Clinical Indicators/Treatments ED: Clinical impression Hepatic encephalopathy PN: Mild encephalopathy, continue Lactulose Ascites Alcoholic Cirrhosis of liver. Hyponatremia, hyperammonemia GI Eval. CDS: [facility], [facility] Contact Number: [phone] Please Review the information above and exercise your independent professional judgment in responding to the query. If you concur, pleas document in the PROGRESS NOTES and DISCHARGE SUMMARY. If you do not agree with the query, please document in the query above. THIS QUERY IS PART OF THE PERMANENT MEDICAL RECORD
--- NOTE | 2020-03-11 10:17 | HO.PM.IMPN ---
Subjective Subjective Date of Service: 03/11/20 Interval History: still with some pain Cardiovascular Cardiovascular: Reports no additional cardiovascular complaints Respiratory Respiratory: Reports no additional respiratory complaints Physical Exam Vital Signs: Vital Signs: Last Vital Signs Temp 97.8 F 03/11/20 08:00 Pulse 97 03/11/20 08:00 Resp 18 03/11/20 08:00 BP 131/73 03/11/20 08:00 Pulse Ox 98 03/11/20 08:00 Body Mass Index 41.0 General: AO X 3, no acute distress, juandiced Resp: CTA bilateral CVS: S1,S2,RRR GI: soft, non tender, distended but not tight Neuro: motor grossly intact Psych: appropriate affect Objective Data Current Medications Generic Name Dose Route Start Last Admin Trade Name Freq PRN Reason Stop Dose Admin Acetaminophen 650 mg 03/09/20 22:01 Acetaminophen 325 Mg Tablet PO Q6H PRN Pain, Mild (Pain Scale 1-3) Docusate Sodium 100 mg 03/09/20 22:01 Docusate Sodium 100 Mg Capsule PO DAILY PRN Constipation Folic Acid 1 mg 03/09/20 22:01 03/11/20 08:41 Folic Acid 1 Mg Tablet PO 1 mg DAILY [facility] Administration Heparin Sodium (Porcine) 5,000 unit 03/09/20 23:00 03/10/20 22:22 Heparin Sodium,Porcine 5,000 Unit/Ml Vial SUBCUT 5,000 unit Q12H [facility] Administration Ceftriaxone Sodium 1 gm/ 50 mls @ 100 mls/hr 03/10/20 22:00 03/10/20 23:50 Sodium Chloride IV Infused Q24H [facility] Infusion Lactulose 30 gm 03/09/20 22:01 03/11/20 08:39 Lactulose 20 Gm/30 Ml Solution PO 30 gm TID SPEEDY Administration Medication 1 each 03/11/20 09:00 No Benzodiazepines MISCELLANE DAILY [facility] Nicotine 14 mg 03/11/20 09:00 03/11/20 08:39 Nicotine 14 Mg Patch.Td24 TRANSDERMA 14 mg DAILY [facility] Administration Ondansetron HCl 4 mg 03/09/20 22:01 Ondansetron Hcl 4 Mg/2 Ml Vial IVPUSH Q8H PRN Nausea and Vomiting Pharmacy Consult 1 each 03/09/20 16:23 Consult Rx Perform Med Rec MISCELLANE ONCE PRN Consult order Phenobarbital 30 mg 03/12/20 21:00 Phenobarbital 30 Mg Tablet PO 03/14/20 09:01 BID [facility] Protocol Phenobarbital 30 mg 03/15/20 09:00 Phenobarbital 30 Mg Tablet PO 03/16/20 09:01 DAILY [facility] Protocol Phenobarbital 60 mg 03/10/20 21:00 03/11/20 08:40 Phenobarbital 30 Mg Tablet PO 03/12/20 09:01 60 mg BID [facility] Administration Protocol Prednisone 40 mg 03/10/20 09:00 03/11/20 08:41 Prednisone 20 Mg Tablet PO 40 mg DAILY [facility] Administration Sodium Chloride 3 ml 03/10/20 00:00 03/11/20 08:41 0.9 % Sodium Chloride Flush 3 Ml Syringe IVFLUSH 3 ml QSHIFT [facility] Administration Spironolactone 100 mg 03/09/20 22:01 03/11/20 08:40 Spironolactone 25 Mg Tablet PO 100 mg DAILY [facility] Administration Protocol Thiamine HCl 100 mg 03/09/20 22:01 03/11/20 08:40 Thiamine Hcl 100 Mg Tablet PO 100 mg DAILY [facility] Administration Labs CBC & Chem 7: 03/11/20 05:56 03/11/20 05:56 Microbiology Microbiology Results: Microbiology 03/09/20 17:20 Blood - Venous Blood Culture - Preliminary No growth after 24 hours. 03/09/20 17:20 Blood - Venous Blood Culture - Preliminary No growth after 24 hours. 03/09/20 19:03 Ascites Fluid Gram Stain - Final 03/09/20 19:03 Ascites Fluid Body Fluid Culture - Preliminary No growth after 1 day Assessment and Plan (1) Alcohol dependence with uncomplicated withdrawal: Status: Acute (2) Acute alcoholic hepatitis: Status: Acute (3) Hyponatremia: Status: Acute (4) Ascites: Status: Acute Assessment and Plan: 44M presented with abdominal pain and distension acute alcoholic hepatitis with ascites, alcohol withdrawl, hyponatremia DF>32 continue prednisone follow up US for possible therapeutic drain continue aldactone, lasix dced for hyponatremia fluid restrict mild hepatic encephalopathy, continue lactulose empiric ceftriaxone GI eval phenobarb for mild withdrawl monitor lfts hypokalemia replace and monitor
[2020-03-11] MEDS: Heparin Sodium,Porcine 5,000 UNIT/ML VIAL 5000 UNIT SUBCUT ×2 (11:17→23:26)
--- NOTE | 2020-03-11 12:25 | CONS_ITS ---
DATE OF SERVICE: 03/11/2020 REFERRING PHYSICIAN: Mookie Valle MD REASON FOR CONSULTATION: Alcoholic hepatitis and ascites. HISTORY OF PRESENT ILLNESS: The patient is a 44-year-old man with a history of alcohol abuse, who was admitted to the hospital on March 09 after presenting to the emergency room with complaints of abdominal pain and distention. He states this happened over 6 week period prior to admission and became uncomfortable. This was associated with weakness and constipation. He has also noted some lower abdominal swelling. He has a history of heavy alcohol use, drinking liquor on a daily basis. He did not quantify this, but states he has cut back. He was evaluated in the emergency room and laboratory studies showed elevations of his liver function tests with a bilirubin of 12.5, AST of 249, and ALT of 96. Paracentesis of 100 mL of fluid was done. He is scheduled for paracentesis for therapeutic relief later today. His laboratory studies on the ascites fluid showed no evidence of SBP. PAST MEDICAL HISTORY: 1. Alcohol abuse. 2. Elevated body mass index. CURRENT MEDICATIONS: Current medication list is reviewed in the chart. ALLERGIES: THERE ARE NONE REPORTED. FAMILY HISTORY: This is reviewed with the patient and is noncontributory. SOCIAL HISTORY: There is no current intravenous drug usage. He does smoke and alcohol use is as noted above. REVIEW OF SYSTEMS: SKIN: No pruritus. HEENT: Negative. CARDIOPULMONARY: He denies shortness of breath or chest pain. GASTROINTESTINAL: As above. GENITOURINARY: Negative. NEUROPSYCHIATRIC: Negative. PHYSICAL EXAMINATION: GENERAL: Shows a pleasant male, ambulating somewhat unsteadily on his feet. VITAL SIGNS: Stable. SKIN: Mild icteric. HEENT: Shows no scleral icterus. NECK: Without lymphadenopathy or thyromegaly. LUNGS: Clear. HEART: Regular rate and rhythm. S1, S2. No murmur. ABDOMEN: Obese, soft, and nontender. Bowel sounds are present. No organomegaly is noted. EXTREMITIES: Large edema. LABORATORY DATA: Reviewed. IMPRESSION: Alcoholic hepatitis with ascites. I discussed with the patient that alcohol has caused his liver to become inflamed and this is also the cause of his ascites. I discussed with him the need to avoid alcohol and if he continues to drink, he will likely . I agree with obtaining therapeutic paracentesis for relief, pending his clinical course. Diuretics can be adjusted to produce negative fluid balance by about 250 to 500 mL per day. This could include Lasix 40 mg daily along with his Aldactone 100 mg daily. If his renal function and electrolyte balance allows this, he does not have asterixis on examination today, but I would recommend continuing to watch withdrawal and continuing phenobarbital. Thanks for asking me to see him. I will follow him in the hospital with you. MD HARINDER Rich/SARI / [phone]
--- NOTE | 2020-03-11 12:33 | MHC.CM.PN ---
Home continues to be the goal for dc. Patient is here with Alcoholic Cirrhosis and Ascites and is receiving IV Ceftriaxone. CM will continue to follow for dc planning and possible need to adjust the dc plan.
[2020-03-11] MEDS: Lidocaine HCl 1 % MPF 5 ML VIAL SUBCUT (15:10)
--- NOTE | 2020-03-11 15:14 | HO.RADPN ---
RADIOLOGY Narrative Narrative: 7.7 liters of ascitic fluid drained. No fluid sent to lab.
--- NOTE | 2020-03-11 17:30 | PC.NURSE ---
Pt O2 sat 88-92% RA, c/o SOB, able to speak full sentences. Pt nearing completion of strict bedrest following paracentesis. Lung sounds clear throughout. No tenderness noted to chest. Deep breathing encouraged. SPO2 increased to 93-94%. Pt requested Oxygen. NC @ 1.5LPM started. Dr Valle notified. No new orders. Pt states that he recently had a sleep study ?Sleep apnea. Pt was sleeping prior to VS check. HOB raised. Continue to monitor.
[2020-03-11] MEDS: cefTRIAXone sodium 1 GM in 0.9 % Sodium Chloride 50 ML IV (21:31)
[2020-03-11] MEDS: ondansetron HCL 4 MG/2 ML VIAL IVPUSH (21:40)
[2020-03-12 03:48] VITALS: BP 100/54; PULSE 88; RESP 18; TEMP 36.8; O2SAT 94
[2020-03-12 06:00] VITALS: BMI 39.0
[2020-03-12 07:33] VITALS: BP 105/56; PULSE 91; RESP 18; TEMP 36.7; O2SAT 92
[2020-03-12 07:45] LABS: INTERNATIONAL NORM RATIO 1.6 (0.9-1.1); Prothrombin Time 18.9 SEC (10.8-13.0)
[2020-03-12 08:19] LABS: Basophils Percent Auto 0.2 % (0-2); Eosinophils Percent Auto 0.2 % (0-4); Hematocrit 27.8 % (42-52); Hemoglobin 10.4 g/dl (14.0-18.0); Imm Gran Abs Auto 0.18 X10*3/uL (0.00-0.03); Imm Gran Pct Auto 1.3 % (0.0-0.4); Lymphocytes Absolute Auto 2.6 X10*3/uL (1.2-4.9); Lymphocytes Percent Auto 19.2 % (20-40); MANUAL DIFF FLAG SCAN; Mean Corpuscular HGB Conc 37.4 g/dl (31.0-36.0); Mean Corpuscular Hemoglobin 43.5 pg (27.0-33.0); Mean Platelet Volume 10.7 fL (9.4-12.4); Monocytes Absolute Auto 1.5 X10*3/uL (0.1-1.2); Monocytes Percent Auto 11.5 % (2-11); NRBC Pct Auto 0.3 /100WBC (0.0-0.2); Neutrophils Absolute Auto 9.1 X10*3/uL (2.0-8.3); Neutrophils Percent Auto 67.6 % (45-73); Platelet Count 234 X10*3/uL (160-400); Red Blood Count 2.39 X10*6/uL (4.60-5.80); Red Cell Distribution Width 21.7 % (11.0-16.0); SCAN SMEAR FLAG 1; White Blood Count 13.4 X10*3/uL (4.8-10.8)
[2020-03-12 08:32] LABS: Mean Corpuscular Volume 116.3 fL (80-98)
[2020-03-12] MEDS: Lactulose 20 GM/30 ML SOLUTION 30 GM PO (08:44)
[2020-03-12] MEDS: predniSONE 20 MG TABLET 40 MG PO (08:44)
[2020-03-12] MEDS: Spironolactone 25 MG TABLET 100 MG PO (08:45)
[2020-03-12] MEDS: PHENobarbitaL 30 MG TABLET 60 MG PO (08:45)
[2020-03-12] MEDS: Nicotine 14 MG PATCH.TD24 TRANSDERMA (08:46)
[2020-03-12] MEDS: Folic Acid 1 MG TABLET PO (08:46)
[2020-03-12] MEDS: 0.9 % Sodium Chloride Flush 3 ML SYRINGE IVFLUSH (08:47)
[2020-03-12] MEDS: Thiamine HCL 100 MG TABLET PO (08:47)
[2020-03-12 09:20] LABS: Alanine Aminotransferase 67 U/L (0-40); Albumin Level 2.1 g/dL (3.5-5.0); Alkaline Phosphatase 166 U/L (39-117); Anion Gap 13 (12-20); Aspartate Amino Transferase 162 U/L (5-37); Bilirubin Direct 7.1 mg/dL (0.0-0.5); Bilirubin Total 9.6 mg/dL (0.0-1.0); Blood Urea Nitrogen 13 mg/dL (9-16); Calcium 7.4 mg/dL (8.4-10.2); Carbon Dioxide 33 mmol/L (22-29); Chloride 88 mmol/L (96-108); Creatinine Clr Calc Pharmacy 150.2; Estimated Glomerular Filt Rate > 60; Glucose Fasting 96 mg/dL (60-99); Potassium 2.8 mmol/l (3.3-5.1); Sodium 131 mmol/L (135-145)
[2020-03-12] MEDS: Potassium Chloride Packet 20 MEQ PACKET 40 MEQ PO (10:21)
[2020-03-12] MEDS: Heparin Sodium,Porcine 5,000 UNIT/ML VIAL 5000 UNIT SUBCUT (10:21)
[2020-03-12 11:26] VITALS: BP 140/57; PULSE 91; RESP 17; TEMP 36.9; O2SAT 93
--- NOTE | 2020-03-12 11:26 | PM.DS ---
DS: Providers Provider Date of admission: 03/09/20 19:58 Primary care physician: Heidy Mojica MD Consults: 03/09/20 22:01 Consult to Gastroenterology Routine Consulting Provider: Wilber Castillo Reason for consultation: Liver cirrhosis Has provider been notified: No DS: Diagnosis Discharge Diagnosis (1) Alcohol dependence with uncomplicated withdrawal: Status: Acute (2) Acute alcoholic hepatitis: Status: Acute (3) Hyponatremia: Status: Acute (4) Ascites: Status: Acute DS: Medications Discharge Medications Home Medications: Home Medications Medication Instructions Recorded Confirmed multivitamin 1 tab PO DAILY 02/15/20 03/09/20 Previous Rx's Medication Instructions Recorded furosemide [Lasix] 40 mg PO DAILY #30 tab 03/12/20 prednisone 40 mg PO DAILY #126 tab 03/12/20 spironolactone 100 mg PO DAILY #30 tab 03/12/20 DS: Summary Hospital Course Hospital Course: patient was admitted for acute alcoholic hepatitis complicated by hyponatremia, hepatic encephalopathy, hypokalemia, symptomatic ascites, alcohol dependence with withdrawal. He was treated with prednisone, fluid restriction, potassium, phenobarbital, lactulose. Patient underwent paracentesis with Interventional Radiology, 7.7 L of fluid was removed. Patient felt much better after procedure. He was given albumin with procedure. His fluid analysis was negative for SBP. Patient's sodium improved to 131 at discharge, his encephalopathy improved as well, as did his withdrawal symptoms. Patient's total bilirubin is down trending from 12 down to 9 at discharge. His INR stable at 1.6. He will be discharged on prednisone taper, Lasix, Aldactone, he should have repeat labs in 1 week and will follow-up with Gastroenterology. Time Spent with Patient Time attestation: Total time spent providing and/or coordinating discharge services: Physical Exam Vital Signs: Vital Signs: Last Vital Signs Temp 98.1 F 03/12/20 07:33 Pulse 91 03/12/20 07:33 Resp 18 03/12/20 07:33 BP 105/56 L 03/12/20 07:33 Pulse Ox 92 03/12/20 07:33 Body Mass Index 39.0 General: AO X 3, no acute distress, juadniced Resp: CTA bilateral CVS: S1,S2,RRR GI: soft, non tender, non distended Neuro: motor grossly intact Psych: appropriate affect DS: Data Data Completed and Pending Labs on day of discharge: 03/09/20 16:17 ECG 12 lead EKG Stat EKG Documentation DIRECTED 03/09/20 16:23 Albumin Human 25 % [Kedbumin 25 %] 100 ml IV ONCE 03/09/20 17:03 Ammonia Stat COVID-19 ID NOW ([place]) Stat Complete Blood Count Auto Diff Stat 03/09/20 17:09 Lactic Acid Stat 03/09/20 18:03 Lidocaine HCl 2 % MPF [Xylocaine 2 % MPF] 5 ml SUBCUT ONCE ONE 03/09/20 18:33 Acetaminophen LAB Stat Basic Metabolic Panel Stat Ethanol Stat Lipase Stat Liver Panel Stat Magnesium Stat 03/09/20 19:03 Albumin Peritoneal Fluid Stat Cell Ct wDiff Peritoneal FL Stat Glucose Peritoneal Fluid Stat LDH Peritoneal Fluid Stat Total Protein Peritoneal Fluid Stat pH Peritoneal Fluid Stat Fluid Culture + GS Stat 03/09/20 19:04 LORazepam [Ativan] 0.5 mg IVPUSH ONCE ONE ondansetron HCL [Zofran] 4 mg IVPUSH ONCE ONE 03/09/20 19:13 Potassium Chloride ER [Klor-con] 40 meq PO ONCE ONE cefTRIAXone sodium [Rocephin] 1 gm 0.9 % Sodium Chloride [Ns] 50 ml IV ONCE 03/09/20 19:29 Partial Thromboplastin Time Stat Prothrombin Time INR Stat 03/09/20 19:44 Transfer Order Routine 03/09/20 20:28 cefTRIAXone sodium [Rocephin] 1 gm .ROUTE .STK-MED ONE 03/09/20 22:01 Furosemide [Lasix] 40 mg IVPUSH DAILY 03/09/20 22:33 ~Lactic Acid-LAB USE ONLY Stat 03/10/20 01:13 ~Lactic Acid-LAB USE ONLY Stat 03/10/20 06:03 Basic Metabolic Panel Routine Complete Blood Count Auto Diff Routine 03/10/20 09:55 Consult Rx EtOH Phenob Dosing 1 each MISCELLANE ONCE ONE 03/10/20 Breakfast Regular Diet 03/10/20 10:36 PHENobarbitaL sodium 241 mg IM NOW STA 03/10/20 14:00 PHENobarbitaL sodium 181 mg IM 1400,1700 03/10/20 21:00 PHENobarbitaL 60 mg PO BID 03/10/20 22:14 cefTRIAXone sodium [Rocephin] 1 gm .ROUTE .STK-MED ONE 03/11/20 US abdomen limited Routine US paracentesis abd w/image Routine 03/11/20 05:56 BMP [Basic Metabolic Panel Fasting] Routine Complete Blood Count Auto Diff Routine Liver Panel Routine Magnesium Routine Prothrombin Time INR Routine 03/11/20 08:03 Potassium Chloride Packet [Klor-Con Packet] 40 meq PO ONCE ONE 03/11/20 08:20 Add Laboratory Test Routine 03/11/20 13:32 Lidocaine HCl 1 % MPF [Xylocaine 1 % MPF] 5 ml .ROUTE .STK-MED ONE 03/11/20 14:33 Albumin Human 25 % [Kedbumin 25 %] 100 ml IV As directed 03/11/20 14:40 Lidocaine HCl 1 % MPF [Xylocaine 1 % MPF] 5 ml SUBCUT ONCE ONE 03/11/20 21:16 cefTRIAXone sodium [Rocephin] 1 gm .ROUTE .STK-MED ONE 03/12/20 06:07 BMP [Basic Metabolic Panel Fasting] Routine Liver Panel Routine 03/12/20 06:08 Prothrombin Time INR Routine 03/12/20 09:24 Potassium Chloride Packet [Klor-Con Packet] 40 meq PO ONCE ONE Laboratory Last Values WBC 13.4 X10*3/uL (4.8-10.8) H 03/12/20 06:08 RBC 2.39 X10*6/uL (4.60-5.80) L 03/12/20 06:08 Hgb 10.4 g/dl (14.0-18.0) L 03/12/20 06:08 Hct 27.8 % (42-52) L 03/12/20 06:08 MCV 116.3 fL (80-98) H 03/12/20 06:08 MCH 43.5 pg (27.0-33.0) H 03/12/20 06:08 MCHC 37.4 g/dl (31.0-36.0) H 03/12/20 06:08 RDW 21.7 % (11.0-16.0) H 03/12/20 06:08 Plt Count 234 X10*3/uL (160-400) 03/12/20 06:08 MPV 10.7 fL (9.4-12.4) 03/12/20 06:08 Immature Gran % (Auto) 1.3 % (0.0-0.4) H 03/12/20 06:08 Neut % (Auto) 67.6 % (45-73) 03/12/20 06:08 Lymph % (Auto) 19.2 % (20-40) L 03/12/20 06:08 [place] % (Auto) 11.5 % (2-11) H 03/12/20 06:08 Eos % (Auto) 0.2 % (0-4) 03/12/20 06:08 Baso % (Auto) 0.2 % (0-2) 03/12/20 06:08 Lymph # (Auto) 2.6 X10*3/uL (1.2-4.9) 03/12/20 06:08 [place] # (Auto) 1.5 X10*3/uL (0.1-1.2) H 03/12/20 06:08 Eos # (Auto) 0.0 X10*3/uL (0.0-0.4) 03/12/20 06:08 Baso # (Auto) 0.0 X10*3/uL (0.0-0.2) 03/12/20 06:08 Abs Immat Gran (auto) 0.18 X10*3/uL (0.00-0.03) H 03/12/20 06:08 Absolute Neuts (auto) 9.1 X10*3/uL (2.0-8.3) H 03/12/20 06:08 Absolute Nucleated RBC 0.040 X10*3/uL (0.0-0.012) H 03/12/20 06:08 Nucleated RBC % (auto) 0.3 /100WBC (0.0-0.2) H 03/12/20 06:08 PT 18.9 SEC (10.8-13.0) H 03/12/20 06:08 INR 1.6 (0.9-1.1) H 03/12/20 06:08 APTT 31.1 SEC (24.1-38.0) 03/09/20 19:29 Sodium 131 mmol/L (135-145) L 03/12/20 06:07 Potassium 2.8 mmol/l (3.3-5.1) L 03/12/20 06:07 Chloride 88 mmol/L (96-108) L 03/12/20 06:07 Carbon Dioxide 33 mmol/L (22-29) H 03/12/20 06:07 Anion Gap 13 (12-20) 03/12/20 06:07 BUN 13 mg/dL (9-16) 03/12/20 06:07 Creatinine 0.87 mg/dL (0.5-1.4) 03/12/20 06:07 Estim Creat Clear Calc 150.2 03/12/20 06:07 Estimated GFR > 60 03/12/20 06:07 Random Glucose 92 mg/dL (60-115) 03/10/20 06:03 Fasting Glucose 96 mg/dL (60-99) 03/12/20 06:07 Lactic Acid 4.6 mmol/L (0.5-2.0) H* 03/09/20 17:09 Lactic Acid Fup @ 2Hr 2.6 mmol/L (0.5-2.0) H* 03/09/20 22:33 Lactic Acid Fup @ 4Hr 2.8 mmol/L (0.5-2.0) H* 03/10/20 01:13 Calcium 7.4 mg/dL (8.4-10.2) L 03/12/20 06:07 Magnesium 2.2 mg/dL (1.6-2.6) 03/11/20 05:56 Total Bilirubin 9.6 mg/dL (0.0-1.0) H 03/12/20 06:07 Direct Bilirubin 7.1 mg/dL (0.0-0.5) H 03/12/20 06:07 AST 162 U/L (5-37) H 03/12/20 06:07 ALT 67 U/L (0-40) H 03/12/20 06:07 Alkaline Phosphatase 166 U/L (39-117) H 03/12/20 06:07 Ammonia 79 umol/L (13-55) H 03/09/20 17:03 Total Protein 6.0 g/dL (6.5-8.0) L 03/12/20 06:07 Albumin 2.1 g/dL (3.5-5.0) L 03/12/20 06:07 Lipase 91 U/L (8-78) H 03/09/20 18:33 Peritoneal pH 7.71 03/09/20 19:03 Peritoneal WBC 0.121 X10*3/uL 03/09/20 19:03 Peritoneal RBC < 0.002 X10*6/uL 03/09/20 19:03 Peritoneal Tot Protein 0.9 03/09/20 19:03 Peritoneal Albumin 0.4 03/09/20 19:03 Peritoneal LDH 109 03/09/20 19:03 Peritoneal Glucose 126 03/09/20 19:03 Acetaminophen 3 mcg/mL (<30) 03/09/20 18:33 Ethyl Alcohol 10 mg/dL 03/09/20 18:33 COVID-19 (PIPPA) Negative (Negative) 03/09/20 17:03 COVID-19 Clin Com See Note 03/09/20 17:03 Preliminary micro results at discharge 03/09/20 17:20 Blood Culture - Preliminary Blood - Venous No growth after 48 hours. 03/09/20 17:20 Blood Culture - Preliminary Blood - Venous No growth after 48 hours. Discharge Plan Discharge Patient Disposition: Home, Self-Care Referrals: Wilber Castillo [Physician] - Po,Heidy Bird MD [Primary Care Provider] - Discharge Medications: New spironolactone 25 mg Tablet 100 mg PO DAILY Qty: 30 RF: 0 prednisone 10 mg tablet 40 mg PO DAILY Qty: 126 RF: 0 furosemide [Lasix] 40 mg tablet 40 mg PO DAILY Qty: 30 RF: 0 Continued multivitamin Tablet 1 tab PO DAILY RF: 0 Discharge Orders: Discharge Order (Routine); Ordered 03/12/20 Ordered By: Mookie Valle Activity on Discharge: As tolerated Other Ambulatory Orders: Comprehensive Met. Panel (Routine) Timeframe: 1 Week Facility: [facility] - Location: Laboratory Ordered By: Mookie Valle Prothrombin Time INR (Routine) Timeframe: 1 Week Facility: [facility] - Location: Laboratory Ordered By: Mookie Valle Visit Report Forms: Patient Portal Discharge page Care Plan Goals: recovery Health Concerns: alcoholic hepatitis Plan of Treatment: quit alcohol, prednisone taper, start aldactone and lasix, follow up labs in one week, follow up with GI
--- NOTE | 2020-03-12 12:01 | MHC.CM.PN ---
PT DISCHARGING HOME TODAY WITH NO SERVICES
[2020-03-12 14:23] LABS: SLIDE REVIEW VERIFIED
--- NOTE | 2020-03-12 15:16 | PM.GIPN ---
Subjective Subjective Date of Service: 03/12/20 Interval History: seen today at 11:30 feels better after paracentesis some mild discomfort at puncture site Physical Exam Vital Signs: Vital Signs: Last Vital Signs Temp 98.5 F 03/12/20 11:26 Pulse 91 03/12/20 11:26 Resp 17 03/12/20 11:26 BP 140/57 H 03/12/20 11:26 Pulse Ox 93 03/12/20 11:26 Body Mass Index 39.0 Const: General: comfortable Eyes: Other: scleral icterus Sclerae: scleral abnormal Resp: Other: lungs clear Cardio: Other: s1 s2 no murmur GI: Other: less distended, nontender Skin: Other: sallow, mild icterus Extrem: Other: edema Objective Data Labs CBC & Chem 7: 03/12/20 06:08 03/12/20 06:07 Labs: Laboratory Results - last 24 hr 03/12/20 03/12/20 03/12/20 06:07 06:08 06:08 WBC 13.4 H RBC 2.39 L Hgb 10.4 L Hct 27.8 L MCV 116.3 H MCH 43.5 H MCHC 37.4 H RDW 21.7 H Plt Count 234 MPV 10.7 Immature Gran % (Auto) 1.3 H Neut % (Auto) 67.6 Lymph % (Auto) 19.2 L [place] % (Auto) 11.5 H Eos % (Auto) 0.2 Baso % (Auto) 0.2 Lymph # (Auto) 2.6 [place] # (Auto) 1.5 H Eos # (Auto) 0.0 Baso # (Auto) 0.0 Abs Immat Gran (auto) 0.18 H Absolute Neuts (auto) 9.1 H Absolute Nucleated RBC 0.040 H Nucleated RBC % (auto) 0.3 H Smear Tech's Comments VERIFIED PT 18.9 H INR 1.6 H Sodium 131 L Potassium 2.8 L Chloride 88 L Carbon Dioxide 33 H Anion Gap 13 BUN 13 Creatinine 0.87 Estim Creat Clear Calc 150.2 Estimated GFR > 60 Fasting Glucose 96 Calcium 7.4 L Total Bilirubin 9.6 H Direct Bilirubin 7.1 H AST 162 H ALT 67 H Alkaline Phosphatase 166 H Total Protein 6.0 L Albumin 2.1 L Microbiology Microbiology Results: Microbiology 11/25/20 19:03 Ascites Fluid Gram Stain - Final 03/09/20 19:03 Ascites Fluid Body Fluid Culture - Final No growth after 2 days 03/09/20 17:20 Blood - Venous Blood Culture - Preliminary No growth after 48 hours. 03/09/20 17:20 Blood - Venous Blood Culture - Preliminary No growth after 48 hours. Progress Note: A&P Assessment and plan (1) Acute alcoholic hepatitis: Status: Acute Assessment and Plan: clinically improved no asterixis on exam discussed with patient limting Na to less than 2g/d and fluids to 1/5-2L/d add furosemide as serum Na tolerates. f/u labs as outpt with PCP pt states GI f/u already arranged. Time Spent With Patient Time: Total time spent is greater than 50% in coordination of care (as documented) at patient's floor/unit and/or counseling patient: Time with patient: 15 - 24 minutes
== END 2020-03-12 15:03 | disposition home or self-care (01) | DRG 280 ==
LOC: HO.ED 16:43 → HO.IMC 20:43
PROVIDERS: Admitting Provider Internal Medicine; Emergency Provider Emergency Medicine; PCP Internal Medicine; Visit Provider Internal Medicine
DX: K70.11 Alcoholic hepatitis with ascites (principal); K70.31 Alcoholic cirrhosis of liver with ascites; K72.90 Hepatic failure, unspecified without coma; E87.2 Acidosis; E87.1 Hypo-osmolality and hyponatremia; F17.210 Nicotine dependence, cigarettes, uncomplicated; R74.01 Elevation of levels of liver transaminase levels; Z20.828 Contact with and (suspected) exposure to other viral communicable diseases; Z71.6 Tobacco abuse counseling; Z79.899 Other long term (current) drug therapy; F10.239 Alcohol dependence with withdrawal, unspecified
CPT/HCPCS: 36415; 49083; 76705; 80048; 80076; 80320; 82042; 82140; 82945; 83605; 83615; 83690; 83735; 83986; 84157; 85025; 85610; 85730; 87040; 87070; 87205; 87635; 89051; 93005; 96365; 96367; 96375; 99285; G0480; J0696; J1940; J2060; J2405; J2560; P9047

== ENCOUNTER 2020-03-19 09:24 | Outpatient (REF) | payer OTHER, SELFPAY ==
[2020-03-19 10:40] LABS: Alanine Aminotransferase 112 U/L (0-40); Albumin Level 2.6 g/dL (3.5-5.0); Alkaline Phosphatase 246 U/L (39-117); Anion Gap 16 (12-20); Aspartate Amino Transferase 224 U/L (5-37); Bilirubin Direct 6.8 mg/dL (0.0-0.5); Bilirubin Total 9.3 mg/dL (0.0-1.0); Blood Urea Nitrogen 20 mg/dL (9-16); Calcium 8.2 mg/dL (8.4-10.2); Carbon Dioxide 26 mmol/L (22-29); Chloride 95 mmol/L (96-108); Estimated Glomerular Filt Rate > 60; Glucose Fasting 88 mg/dL (60-99); Potassium 4.9 mmol/l (3.3-5.1); Sodium 132 mmol/L (135-145); Total Protein 7.8 g/dL (6.5-8.0)
[2020-03-19 11:17] LABS: INTERNATIONAL NORM RATIO 1.1 (0.9-1.1); Prothrombin Time 13.3 SEC (10.8-13.0)
== END 2020-03-19 09:25 | disposition home or self-care (01) ==
LOC: HO.LAB 09:24
PROVIDERS: Physician Assistant; PCP Internal Medicine; Visit Provider Internal Medicine
DX: K70.10 Alcoholic hepatitis without ascites (principal); M79.89 Other specified soft tissue disorders
CPT/HCPCS: 36415; 80053; 80076; 82248; 85610

== ENCOUNTER 2020-03-30 15:57 | Outpatient (REF) | payer OTHER, SELFPAY ==
[2020-03-30 16:32] LABS: INTERNATIONAL NORM RATIO 1.1 (0.9-1.1); Prothrombin Time 13.6 SEC (10.8-13.0)
[2020-03-30 16:36] LABS: Ammonia 38 umol/L (13-55)
[2020-03-30 16:51] LABS: Alanine Aminotransferase 148 U/L (0-40); Albumin Level 2.8 g/dL (3.5-5.0); Alkaline Phosphatase 183 U/L (39-117); Anion Gap 10 (12-20); Aspartate Amino Transferase 137 U/L (5-37); Bilirubin Total 3.8 mg/dL (0.0-1.0); Blood Urea Nitrogen 13 mg/dL (9-16); Calcium 7.8 mg/dL (8.4-10.2); Carbon Dioxide 27 mmol/L (22-29); Chloride 104 mmol/L (96-108); Estimated Glomerular Filt Rate > 60; Glucose Random 145 mg/dL (60-115); Potassium 4.2 mmol/l (3.3-5.1); Sodium 137 mmol/L (135-145); Total Protein 6.7 g/dL (6.5-8.0)
[2020-03-30 17:00] LABS: Lipase 80 U/L (8-78)
[2020-03-30 17:21] LABS: Glucose Urine UA NEG (NEG); Leukocyte Esterase Urine NEG (NEG); Nitrite Urine NEG (NEG); PH 6.5 (5.0-8.0); Specific Gravity - Urine 1.015 (1.005-1.025); Urine Blood NEG (NEG); Urine Ketones NEG (NEG); Urine Protein NEG (NEG-TRACE)
[2020-03-30 17:25] LABS: Color Urine YELLOW
[2020-03-30 17:26] LABS: Appearance Urine CLEAR
[2020-03-30 17:59] LABS: RBC Urine 0 /HPF (0); WBC Urine 0 /HPF (0-4)
== END 2020-03-30 15:58 | disposition home or self-care (01) ==
LOC: HO.LAB 15:57
PROVIDERS: PCP Internal Medicine; Visit Provider Physician Assistant
DX: K70.11 Alcoholic hepatitis with ascites (principal); K72.90 Hepatic failure, unspecified without coma; R10.9 Unspecified abdominal pain; M79.89 Other specified soft tissue disorders
CPT/HCPCS: 36415; 80048; 80076; 81001; 82140; 83690; 85610

== ENCOUNTER 2020-04-29 16:50 | Outpatient (REF) | payer OTHER, SELFPAY ==
[2020-04-29 17:26] LABS: Glucose Urine UA NEG (NEG); Leukocyte Esterase Urine NEG (NEG); Nitrite Urine NEG (NEG); PH 7.5 (5.0-8.0); Specific Gravity - Urine 1.015 (1.005-1.025); Urine Blood NEG (NEG); Urine Ketones NEG (NEG); Urine Protein NEG (NEG-TRACE)
[2020-04-29 17:29] LABS: INTERNATIONAL NORM RATIO 1.2 (0.9-1.1)
[2020-04-29 17:31] LABS: Appearance Urine CLEAR; Color Urine YELLOW
[2020-04-29 17:33] LABS: Ammonia 45 umol/L (13-55)
[2020-04-29 17:55] LABS: Alanine Aminotransferase 43 U/L (0-40); Albumin Level 3.8 g/dL (3.5-5.0); Alkaline Phosphatase 159 U/L (39-117); Anion Gap 17 (12-20); Aspartate Amino Transferase 54 U/L (5-37); Bilirubin Direct 1.5 mg/dL (0.0-0.5); Bilirubin Total 2.5 mg/dL (0.0-1.0); Blood Urea Nitrogen 12 mg/dL (9-16); Calcium 8.8 mg/dL (8.4-10.2); Carbon Dioxide 26 mmol/L (22-29); Chloride 97 mmol/L (96-108); Estimated Glomerular Filt Rate > 60; Glucose Random 117 mg/dL (60-115); Sodium 136 mmol/L (135-145)
== END 2020-04-29 16:51 | disposition home or self-care (01) ==
LOC: HO.LAB 16:50
PROVIDERS: PCP Internal Medicine; Visit Provider Physician Assistant
DX: K70.10 Alcoholic hepatitis without ascites (principal); K72.90 Hepatic failure, unspecified without coma; R30.0 Dysuria
CPT/HCPCS: 36415; 80048; 80076; 81003; 82140; 85610

== ENCOUNTER 2020-07-13 10:20 | Outpatient (REF) | payer OTHER, SELFPAY ==
--- NOTE | 2020-07-13 | EMG_ITS ---
HISTORY OF PRESENT ILLNESS: This is a 44-year-old man with a 2-year history of pain and numbness from the knees down. He is currently on gabapentin and furosemide. PHYSICAL EXAMINATION: On examination, he is alert and oriented with normal intellectual functions. Cranial nerves II through XII are normal. Muscle tone and strength are normal in all 4 extremities. Deep tendon reflexes are hypoactive. IMPRESSION: Peripheral neuropathy. 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 Normal EMG of the left L4-S1 innervated muscles. MD ROSE Shah/SARI / [id number]
== END 2020-07-13 10:21 | disposition home or self-care (01) ==
LOC: HO.NEURO 10:20
PROVIDERS: Visit Provider Physician Assistant
DX: G57.90 Unspecified mononeuropathy of unspecified lower limb (principal)
CPT/HCPCS: 95885; 95912

== ENCOUNTER 2020-07-25 14:42 | Outpatient (REF) | payer OTHER, SELFPAY ==
[2020-07-25 15:19] LABS: MANUAL DIFF FLAG NO
[2020-07-25 15:32] LABS: Basophils Absolute Auto 0.1 X10*3/uL (0.0-0.2); Basophils Percent Auto 0.6 % (0-2); Eosinophils Absolute Auto 0.2 X10*3/uL (0.0-0.4); Eosinophils Percent Auto 1.9 % (0-4); Hematocrit 45.2 % (42-52); Hemoglobin 15.4 g/dl (14.0-18.0); Imm Gran Abs Auto 0.03 X10*3/uL (0.00-0.03); Imm Gran Pct Auto 0.4 % (0.0-0.4); Immature Retic Fraction 6.3 % (2.3-13.4); Lymphocytes Absolute Auto 2.3 X10*3/uL (1.2-4.9); Lymphocytes Percent Auto 27.6 % (20-40); Mean Corpuscular HGB Conc 34.1 g/dl (31.0-36.0); Mean Corpuscular Hemoglobin 33.7 pg (27.0-33.0); Mean Corpuscular Volume 98.9 fL (80-98); Mean Platelet Volume 10.6 fL (9.4-12.4); Monocytes Absolute Auto 0.9 X10*3/uL (0.1-1.2); Monocytes Percent Auto 10.5 % (2-11); Neutrophils Absolute Auto 4.9 X10*3/uL (2.0-8.3); Platelet Count 244 X10*3/uL (160-400); Red Blood Count 4.57 X10*6/uL (4.60-5.80); Red Cell Distribution Width 15.7 % (11.0-16.0); Reticulocyte Percent 1.2 % (0.5-1.8); Reticulocytes Absolute 0.055 X10*6/uL (0.026-0.095); White Blood Count 8.3 X10*3/uL (4.8-10.8)
[2020-07-25 15:41] LABS: INTERNATIONAL NORM RATIO 1.1 (0.9-1.1); Prothrombin Time 12.6 SEC (10.8-13.0)
[2020-07-25 15:53] LABS: Alanine Aminotransferase 22 U/L (0-40); Albumin Level 3.9 g/dL (3.5-5.0); Alkaline Phosphatase 90 U/L (39-117); Anion Gap 14 (12-20); Aspartate Amino Transferase 31 U/L (5-37); Bilirubin Total 1.5 mg/dL (0.0-1.0); Blood Urea Nitrogen 10 mg/dL (9-16); Calcium 9.2 mg/dL (8.4-10.2); Carbon Dioxide 26 mmol/L (22-29); Chloride 103 mmol/L (96-108); Cholesterol 179 mg/dL; Estimated Glomerular Filt Rate > 60; Glucose Random 111 mg/dL (60-115); HDL Cholesterol 51 mg/dL; Iron 171 mcg/dL (45-160); LDL Cholesterol Calculated 109 mg/dl; Percent Iron Saturation 54 % (15-50); Potassium 4.6 mmol/L (3.3-5.1); Sodium 138 mmol/L (135-145); Total Iron Binding Capacity 318 mcg/dL (228-428); Total Protein 7.5 g/dL (6.5-8.0); Triglycerides 96 mg/dL; Unsaturated Iron Binding 147 ug/dL
[2020-07-25 16:14] LABS: Ferritin 135 ng/mL (20-250); Free T4 (Free Thyroxine) 0.84 ng/dL (0.71-1.85); Thyroid Stimulating Hormone 1.27 uIU/mL (0.32-4.0)
[2020-07-25 16:27] LABS: Folate 2.1 ng/mL (> or = 4.0); Vitamin B12 < 146 pg/mL (200-900)
[2020-07-29 11:37] LABS: Testosterone, Total 1385 ng/dL (250-1100)
== END 2020-07-25 14:43 | disposition home or self-care (01) ==
LOC: HO.LAB 14:42
PROVIDERS: Absent Provider Internal Medicine; PCP Internal Medicine; Visit Provider Internal Medicine Gastroenterology
DX: D64.9 Anemia, unspecified (principal); E78.00 Pure hypercholesterolemia, unspecified; G57.93 Unspecified mononeuropathy of bilateral lower limbs; K70.11 Alcoholic hepatitis with ascites
CPT/HCPCS: 36415; 80053; 80061; 82607; 82728; 82746; 83540; 84403; 84439; 84443; 85025; 85045; 85610

== ENCOUNTER 2020-07-26 07:47 | Day surgery (SDC) | payer OTHER, SELFPAY ==
--- NOTE | ~2020-07-26 | US_ITS ---
EXAMINATION: US ABDOMEN LIMITED CLINICAL INFORMATION: Alcoholic hepatitis. COMPARISON: Ultrasound abdomen limited 03/11/2020 and 02/17/2020. TECHNIQUE: 4 quadrant abdominal ultrasound FINDINGS: No ascites is seen. US/US abdomen limited IMPRESSION: No ascites is seen.
[2020-07-26 07:40] VITALS: BMI 31.8
[2020-07-26 07:58] VITALS: BP 130/81; PULSE 89; RESP 18; TEMP 36.1; O2SAT 97
[2020-07-26 08:17] LABS: MANUAL DIFF FLAG NO
[2020-07-26 08:21] LABS: Basophils Absolute Auto 0.1 X10*3/uL (0.0-0.2); Basophils Percent Auto 0.8 % (0-2); Eosinophils Absolute Auto 0.3 X10*3/uL (0.0-0.4); Eosinophils Percent Auto 2.9 % (0-4); Hematocrit 45.1 % (42-52); Hemoglobin 15.3 g/dl (14.0-18.0); Imm Gran Abs Auto 0.03 X10*3/uL (0.00-0.03); Imm Gran Pct Auto 0.3 % (0.0-0.4); Lymphocytes Absolute Auto 4.2 X10*3/uL (1.2-4.9); Lymphocytes Percent Auto 40.2 % (20-40); Mean Corpuscular HGB Conc 33.9 g/dl (31.0-36.0); Mean Corpuscular Hemoglobin 33.6 pg (27.0-33.0); Mean Corpuscular Volume 98.9 fL (80-98); Mean Platelet Volume 10.2 fL (9.4-12.4); Monocytes Absolute Auto 1.2 X10*3/uL (0.1-1.2); Monocytes Percent Auto 11.1 % (2-11); Neutrophils Absolute Auto 4.6 X10*3/uL (2.0-8.3); Neutrophils Percent Auto 44.7 % (45-73); Platelet Count 268 X10*3/uL (160-400); Red Blood Count 4.56 X10*6/uL (4.60-5.80); Red Cell Distribution Width 15.6 % (11.0-16.0); White Blood Count 10.4 X10*3/uL (4.8-10.8)
[2020-07-26 08:27] LABS: Prothrombin Time 12.3 SEC (10.8-13.0)
[2020-07-26 08:30] LABS: Partial Thromboplastin Time 25.8 SEC (24.1-38.0)
[2020-07-26 09:38] VITALS: BP 109/63; PULSE 82; RESP 16; O2SAT 98
== END 2020-07-26 09:47 | disposition home or self-care (01) ==
LOC: HO.SSS 07:47
PROVIDERS: Radiology Diagnostic Radiology; PCP Internal Medicine; Visit Provider Radiology Diagnostic Radiology
DX: K70.11 Alcoholic hepatitis with ascites (principal); Z53.8 Procedure and treatment not carried out for other reasons; Z79.899 Other long term (current) drug therapy
CPT/HCPCS: 36415; 76705; 85025; 85610; 85730

== ENCOUNTER 2020-08-18 14:35 | Outpatient (REF) | payer OTHER, SELFPAY ==
--- NOTE | ~2020-08-18 | MM_ITS ---
EXAMINATION: MM DIAGNOSTIC DIGITAL BREAST TOMOSYNTHESIS, BILATERAL US DIAGNOSTIC ULTRASOUND BREAST, LEFT CLINICAL INFORMATION: 45-year-old male with pain in fullness subareolar left breast for months. No discharge. No prior breast imaging. COMPARISON: None (current study represents initial baseline exam). TECHNIQUE: Digital breast tomosynthesis is performed in both the craniocaudal and mediolateral oblique views along with computer-aided detection (CAD). Synthesized 2D images are generated from the tomosynthesis. Additional left spot CC and left spot ML views are obtained. Ultrasound left breast is targeted to the retroareolar and periareolar region. Grayscale imaging and color Doppler are performed without and with harmonics. FINDINGS: There are scattered areas of fibroglandular density (ACR BI-RADS breast composition Category b). There is asymmetric retroareolar gynecomastia type parenchymal pattern, mild right and moderate to prominent on the left. There is no focal mass or architectural abnormality. No abnormal calcifications. No skin thickening or coarsening of the stromal markings. No adenopathy. Ultrasound left breast demonstrates typical retroareolar gynecomastia type ultrasound pattern. There is no cystic or solid mass or architectural abnormality. No skin thickening or edema tracking in soft tissue planes. No hyperemia on color Doppler. Results are discussed with the patient at time of visit. Findings appear to represent asymmetric gynecomastia, more prominent on left. Clinical follow-up discussed. If findings are progressive or suspicious, then surgical consult would be recommended. MM/MM tomosynthesis diagnostic BI IMPRESSION: Asymmetric retroareolar gynecomastia parenchymal pattern, mild on right and moderate to prominent on left. ASSESSMENT: BI-RADS 2: Benign RECOMMENDATION: Patient should be managed based on the clinical impression with clinical follow-up as needed. If clinically indicated, further evaluation may be considered with surgical consult. Decision to proceed with biopsy should be based on clinical grounds and degree of clinical concern.
== END 2020-08-18 14:36 | disposition home or self-care (01) ==
LOC: HO.MAMMO 14:35
PROVIDERS: PCP Internal Medicine; Visit Provider Internal Medicine
DX: N64.4 Mastodynia (principal)
CPT/HCPCS: 76642; 77062; 77066

== ENCOUNTER → 2020-09-22 15:17 | Outpatient (BNVA) | payer OTHER, SELFPAY | PROVIDERS: PCP Internal Medicine; Referring Provider Internal Medicine; Visit Provider Surgery | DX: R10.31 Right lower quadrant pain (principal) | CPT/HCPCS: 99202 ==

== ENCOUNTER 2020-10-12 14:07 | Outpatient (REF) | payer OTHER, SELFPAY ==
--- NOTE | ~2020-10-12 | CT_ITS ---
EXAMINATION: CT ABDOMEN AND PELVIS WITHOUT CONTRAST CLINICAL INFORMATION: Right lower quadrant pain COMPARISON: None TECHNIQUE: Multidetector volumetric imaging was performed from the superior aspect of the liver through the pubic symphysis. Sagittal and coronal reformatted images were obtained on the technologist's workstation. This CT examination was performed using dose optimization techniques as appropriate, variously including the following: *Automated exposure control *Adjustment of mA and/or kV according to patient size (this includes techniques or standardized protocols for targeted exams where dose is matched to indication/reason for exam; i.e. extremities or head) *Use of iterative reconstruction technique DLP: 932 mGy-cm FINDINGS: LUNG BASES: The visualized lung bases are unremarkable. LIVER, GALLBLADDER, AND BILIARY TREE: The liver is low in attenuation suggestive of fatty infiltration. There are 2 focal low-attenuation areas in the liver in the caudate lobe measuring 3.5 cm and in the medial segment of the left lobe and anterior the gallbladder measuring 2 x 3 cm axial image 12 and 24 series 3. It is uncertain what these areas represent an areas of more focal fatty infiltration. The contour of the liver is appears slightly irregular and there is hypertrophy of the left lobe and caudate lobe questionable for mild cirrhosis. There are gallstones in the gallbladder. There is no biliary duct dilatation. PANCREAS: Unremarkable. SPLEEN: Unremarkable. ADRENAL GLANDS: Unremarkable. KIDNEYS AND URETERS: The kidneys are normal in size, shape, and attenuation. No hydronephrosis, hydroureter, or calculi seen. No perinephric stranding. BLADDER: Not distended. GASTROINTESTINAL TRACT: There is diverticulosis of the colon. The small and large bowel are otherwise unremarkable. The appendix is unremarkable. ABDOMINAL WALL: No significant hernia is appreciated. LYMPH NODES: There are small periportal lymph nodes. No enlarged lymph nodes are seen. There is no ascites. VASCULAR: Unremarkable. PELVIC VISCERA: Unremarkable. OSSEOUS STRUCTURES: There is degenerative disc disease at L5-S1 and degenerative change at the hip joints. CT/CT abdomen pelvis wo con IMPRESSION: Fatty liver with question of cirrhosis. There are 2 focal low-attenuation areas in the caudate lobe and in the medial segment of the left lobe anterior to the gallbladder questionable for areas of focally focal fatty infiltration. Follow-up liver MRI should be considered. Gallstones. Diverticulosis.
== END 2020-10-12 14:08 | disposition home or self-care (01) ==
LOC: HO.CT 14:07
PROVIDERS: Visit Provider Surgery
DX: R10.31 Right lower quadrant pain (principal)
CPT/HCPCS: 74176

== ENCOUNTER → 2020-11-07 14:54 | Outpatient (BNVA) | payer OTHER, SELFPAY | PROVIDERS: PCP Internal Medicine; Visit Provider Surgery | DX: R10.31 Right lower quadrant pain (principal); E66.01 Morbid (severe) obesity due to excess calories; F17.210 Nicotine dependence, cigarettes, uncomplicated | CPT/HCPCS: 99212 ==

== ENCOUNTER 2020-12-27 12:05 | Outpatient (REF) | payer OTHER, SELFPAY ==
[2020-12-27 13:33] LABS: COVID-19 Test Negative (Negative)
== END 2020-12-27 12:06 | disposition home or self-care (01) ==
LOC: HO.LAB 12:05
PROVIDERS: PCP Internal Medicine; Visit Provider Internal Medicine
DX: Z20.822 Contact with and (suspected) exposure to COVID-19 (principal)
CPT/HCPCS: 36415; 87635; C9803

== ENCOUNTER 2021-04-19 14:14 | Outpatient (RCR) | payer OTHER, SELFPAY ==
--- NOTE | 2021-05-03 08:51 | MHC.PT.EP ---
[facility] [place] Office [place] Office [place] Office [address] Terri Guy [address] [phone] F: [phone] F: [phone] F: [phone] F: [phone] Physical Therapy Plan of Care Date of Evaluation: Date of Surgery: n/a Diagnosis: R lower quadrant pain Assessment: Patient is a 45 year old R handed male who presents with s/s consistent with R lower flank pain. 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 He lost 70 lbs in the last year and wants to get healthier. Patient past medical history includes alcholocism, anxiety, obesity. Current impairments include pain, posture, ROM, strength, activity tolerance and functional mobility. Functional limitations include decreased ability to walk, stand, lift, push, carry, transfer, and exercise. Patient is motivated with good rehab potential. Skilled PT will address impairments and functional limitations in order to achieve goals. Frequency and Duration: The patient will be seen 2x/week for 5 weeks Short Term Goals: I with HEP - 2 weeks Able to bike/walk > 20 minutes without increased pain - 3 weeks Intermediate Goals: LE strength 4+/5 grossly - 5 weeks LEFS 54/80 - 5 weeks Able to perform 30 minutes of aerobic activity 4x/week - 5 weeks Treatment Plan: Modalities to reduce pain, spasms and effusion. Manual therapy to restore motion and function. Therapeutic exercise to improve strength and flexibility. Neuromuscular re-education for posture and balance. Therapeutic activities to return to functional activities of daily living. Electronically signed by: Pako Siegel, PT Please sign and return to therapist. Thank you for your referral.
--- NOTE | 2022-01-04 08:22 | MHC.PT.DC ---
[facility] [place] Office [place] Office [place] Office [address] Terri Guy [address] [phone] F: [phone] F: [phone] F: [phone] F: [phone] Physical Therapy Discharge Report Diagnosis: R lower quadrant pain Date of Surgery: n/a Date of Evaluation: 04/19/21 Date of Discharge: 06/08/21 Treatments to Date: 1 Cancellations to Date: 0 No Shows to Date: 0 Discharge Status: Patient Elected to Stop Discharge Summary: Pt did not return after evaluation. Patient is a 45 year old R handed male who presents with s/s consistent with R lower flank pain. 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 He lost 70 lbs in the last year and wants to get healthier. Patient past medical history includes alcholocism, anxiety, obesity. Current impairments include pain, posture, ROM, strength, activity tolerance and functional mobility. Functional limitations include decreased ability to walk, stand, lift, push, carry, transfer, and exercise. Patient is motivated with good rehab potential. Skilled PT will address impairments and functional limitations in order to achieve goals. Electronically signed by: Pkao Siegel, PT Please sign and return to therapist. Thank you for your referral.
== END 2022-01-04 08:23 | disposition home or self-care (01) ==
LOC: HO.PTCHIC 14:14
PROVIDERS: PCP Internal Medicine; Visit Provider Internal Medicine
DX: R10.31 Right lower quadrant pain (principal)
CPT/HCPCS: 97110; 97162

== ENCOUNTER 2022-01-05 09:27 | Outpatient (REF) | payer OTHER, SELFPAY ==
--- NOTE | ~2022-01-05 | US_ITS ---
EXAMINATION: US COMPLETE ABDOMEN WITH LIVER ELASTOGRAPHY CLINICAL INFORMATION: Alcoholic hepatitis and ascites COMPARISON: Previous CT of the abdomen and pelvis September 2020 and limited abdominal ultrasound most recent July 2020 TECHNIQUE: Real-time imaging of the abdominal viscera. Noninvasive ultrasound liver fibrosis assessment is performed using Lepidio ElastPQ point quantification shear wave elastography (2D-SWE) with a C5-2 MHz transducer. Multiple elastography samples are obtained. FINDINGS: PANCREAS: Not well visualized due to overlying bowel gas. ABDOMINAL AORTA: The proximal, middle, and distal aortic segments are normal in caliber. INFERIOR VENA CAVA: Not well visualized. LIVER: Liver echotexture is increased and heterogeneous suggestive of hepatocellular disease. The contour of the liver is slightly irregular suggestive of mild cirrhosis. No focal liver lesion or biliary duct dilatation. The right lobe measures 19 cm in length. The left lobe measures 14 cm in length. Portal flow is normal/hepatopedal Shear wave liver elastography median stiffness is 2.1 m/s (reference: normal median stiffness is 1.3 m/s or less). IQR/median stiffness to assess sampling precision is 0.07 (reference: good quality data set is IQR/median stiffness of 0.15 or less). GALLBLADDER: The gallbladder is normal in size. There are gallstones. The gallbladder wall appears thickened measuring 6 mm. This may be related to liver disease. COMMON BILE DUCT: Normal in caliber measuring 0.4 cm in diameter. RIGHT KIDNEY: Normal. No hydronephrosis. No renal calculi or focal parenchymal lesions. The kidney measures 9.5 cm in maximum dimension. LEFT KIDNEY: Normal. No hydronephrosis. No renal calculi or focal parenchymal lesions. The kidney measures 11.2 cm in maximum dimension. SPLEEN: Normal. The spleen measures 10.8 cm in maximum dimension. FREE FLUID: None. US/US abdomen comp w elastography IMPRESSION: 1. Impression: Slightly enlarged heterogeneous liver with mild cirrhotic changes. Gallstones. Thickened gallbladder wall. This may be related to liver disease. No ascites. Pancreas not visualized. 2. Liver elastography: Adequate liver sampling. Increased liver stiffness suggestive of compensated advanced chronic liver disease. REFERENCE: Society of Radiologists in Ultrasound Liver Stiffness Thresholds (2020): LIVER STIFFNESS THRESHOLDS: *Liver Stiffness equal or less than 1.3 m/s: High probability of being normal. *Liver Stiffness less than 1.7 m/s: In the absence of other known clinical signs, rules out compensated advanced chronic liver disease. *Liver Stiffness 1.7-2.1 m/s: Suggestive of compensated advanced chronic liver disease but need further test for confirmation. *Liver Stiffness over 2.1 m/s: Rules in compensated advanced chronic liver disease. *Liver Stiffness over 2.4 m/s: Suggestive of clinically significant portal hypertension. QUALITY OF DATA SET: *IQR/Median value equal or less than 0.15 implies a quality data set. *IQR/Median value over 0.15 implies a poor quality data set. SIGNIFICANT CHANGE FROM PRIOR EXAM: Significant change if liver stiffness measurement is 10% or greater from prior exam. OTHER CONSIDERATIONS: The stage of liver fibrosis may be overestimated in the setting of acute hepatitis, liver inflammation, elevated liver function tests, hepatic vascular congestion, obstructive cholestasis, non-fasting state, and infiltrative diseases such as amyloidosis and lymphoma. In some patients with NAFLD, the liver stiffness thresholds for compensated advanced chronic liver disease may be lower. In causes other than viral hepatitis and NAFLD, liver stiffness thresholds are not well established.
== END 2022-01-05 09:28 | disposition home or self-care (01) ==
LOC: HO.US 09:27
PROVIDERS: Visit Provider Internal Medicine Gastroenterology
DX: K70.11 Alcoholic hepatitis with ascites (principal)
CPT/HCPCS: 76705; 76981

== ENCOUNTER 2022-01-18 10:40 | Outpatient (REF) | payer OTHER, SELFPAY ==
[2022-01-18 12:25] LABS: Estimated Average Glucose 100 mg/dL; Hemoglobin A1c % 5.1 %
[2022-01-18 12:57] LABS: Alanine Aminotransferase 67 U/L (0-40); Alkaline Phosphatase 101 U/L (39-117); Anion Gap 16 (12-20); Aspartate Amino Transferase 114 U/L (5-37); Bilirubin Total 0.9 mg/dL (0.0-1.0); Blood Urea Nitrogen 10 mg/dL (9-16); Calcium 8.9 mg/dL (8.4-10.2); Carbon Dioxide 28 mmol/L (22-29); Chloride 95 mmol/L (96-108); Cholesterol 172 mg/dL; Estimated Glomerular Filt Rate > 60; Glucose Random 114 mg/dL (60-115); HDL Cholesterol 73 mg/dL; Iron 53 mcg/dL (45-160); LDL Cholesterol Calculated 84 mg/dl; Percent Iron Saturation 19 % (15-50); Potassium 3.2 mmol/L (3.3-5.1); Sodium 136 mmol/L (135-145); Total Iron Binding Capacity 277 mcg/dL (228-428); Total Protein 7.6 g/dL (6.5-8.0); Triglycerides 77 mg/dL; Unsaturated Iron Binding 224 ug/dL
[2022-01-18 13:21] LABS: Folate 12.8 ng/mL (> or = 4.0); Vitamin B12 987 pg/mL (200-900)
[2022-01-18 13:22] LABS: Ferritin 380 ng/mL (20-250); Free T4 (Free Thyroxine) 1.18 ng/dL (0.71-1.85); Thyroid Stimulating Hormone 1.64 uIU/mL (0.32-4.0)
[2022-01-18 19:33] LABS: Basophils Absolute Auto 0.1 X10*3/uL (0.0-0.2); Eosinophils Absolute Auto 0.3 X10*3/uL (0.0-0.4); Eosinophils Percent Auto 3.1 % (0-4); Hematocrit 39.4 % (42.0-52.0); Hemoglobin 13.4 g/dl (14.0-18.0); Imm Gran Abs Auto 0.02 X10*3/uL (0.00-0.03); Imm Gran Pct Auto 0.3 % (0.0-0.4); Immature Retic Fraction 13.9 % (2.3-13.4); Lymphocytes Absolute Auto 2.9 X10*3/uL (1.2-4.9); Lymphocytes Percent Auto 36.8 % (20-40); MANUAL DIFF FLAG SCAN; Mean Corpuscular Hemoglobin 34.9 pg (27.0-33.0); Mean Corpuscular Volume 102.6 fL (80.0-98.0); Mean Platelet Volume 11.8 fL (9.4-12.4); Monocytes Absolute Auto 0.9 X10*3/uL (0.1-1.2); Monocytes Percent Auto 10.7 % (2-11); Neutrophils Absolute Auto 3.8 x10*3/uL (2.0-8.3); Neutrophils Percent Auto 48.1 % (45-73); PLT CLUMP 1; Red Blood Count 3.84 X10*6/uL (4.60-5.80); Red Cell Distribution Width 14.4 % (11.0-16.0); Retic HGB Equivalent 39.7 pg (30.0-35.0); Reticulocyte Percent 2.3 % (0.5-1.8); Reticulocytes Absolute 0.087 X10*6/uL (0.026-0.095); SCAN SMEAR FLAG 1
[2022-01-18 20:14] LABS: SLIDE REVIEW VERIFIED
[2022-01-20 08:26] LABS: Follicle Stimulating Hormone 3.9 mIU/mL (1.6-8.0); Lutenizing Hormone 4.3 mIU/mL (1.5-9.3)
[2022-01-22 20:52] LABS: Intrinsic Factor Antibodies Negative (Negative)
[2022-01-23 18:11] LABS: Testosterone, Free 29.9 pg/mL (35.0-155.0); Testosterone, Total 398 ng/dL (250-1100)
[2022-01-25 22:56] LABS: Parietal Cell Antibody <=20.0 Unit (<=20.0)
== END 2022-01-18 10:41 | disposition home or self-care (01) ==
LOC: HO.LAB 10:40
PROVIDERS: PCP Internal Medicine; Visit Provider Internal Medicine
DX: E53.8 Deficiency of other specified B group vitamins (principal); M79.673 Pain in unspecified foot; R73.01 Impaired fasting glucose; E78.00 Pure hypercholesterolemia, unspecified; D64.9 Anemia, unspecified
CPT/HCPCS: 36415; 80053; 80061; 82607; 82728; 82746; 83001; 83002; 83036; 83516; 83540; 84146; 84402; 84403; 84439; 84443; 85025; 85045; 86340

== ENCOUNTER 2022-03-28 14:17 | Outpatient (REF) | payer OTHER, SELFPAY ==
--- NOTE | ~2022-03-28 | XR_ITS ---
EXAMINATION: XR LUMBOSACRAL SPINE CLINICAL INFORMATION: Pain COMPARISON: None TECHNIQUE: Three views of the lumbosacral spine. FINDINGS: The vertebral bodies and posterior elements are normal. The disc spaces are preserved and the vertebral alignment is normal. The paraspinal soft tissues are normal. XR/XR lumbar spine 2-3V IMPRESSION: Unremarkable examination.
--- NOTE | ~2022-03-28 | XR_ITS ---
EXAMINATION: XR HIP, LEFT CLINICAL INFORMATION: Left hip effusion COMPARISON: None TECHNIQUE: Two views of the left hip and one view of the pelvis. FINDINGS: No fracture or dislocation. Bilateral hip arthritis with joint space narrowing and osteophyte formation, right greater than left. No left hip joint effusion is evident by x-ray. Bones of the pelvis are normal. Soft tissues are normal. XR/XR hip LT w PEL1V IMPRESSION: Bilateral hip arthritis, right greater than left.
== END 2022-03-28 14:18 | disposition home or self-care (01) ==
LOC: HO.XRAY 14:17
PROVIDERS: PCP Internal Medicine; Visit Provider Internal Medicine
DX: M25.452 Effusion, left hip (principal); M54.50 Low back pain, unspecified
CPT/HCPCS: 72100; 73502

== ENCOUNTER 2022-04-06 16:22 | Outpatient (REF) | payer OTHER, SELFPAY | END 2022-04-06 16:23 | disposition home or self-care (01) | LOC: HO.US 16:22 | PROVIDERS: PCP Internal Medicine; Visit Provider Internal Medicine | DX: R60.0 Localized edema (principal); M79.89 Other specified soft tissue disorders | CPT/HCPCS: 93971 ==

== ENCOUNTER 2022-04-24 13:41 | Outpatient (REF) | payer OTHER, SELFPAY ==
[2022-04-24 13:50] LABS: MANUAL DIFF FLAG NO
[2022-04-24 15:12] LABS: Basophils Absolute Auto 0.1 X10*3/uL (0.0-0.2); Basophils Percent Auto 0.8 % (0-2); Eosinophils Absolute Auto 0.2 X10*3/uL (0.0-0.4); Eosinophils Percent Auto 1.8 % (0-4); Hematocrit 42.4 % (42.0-52.0); Hemoglobin 14.1 g/dl (14.0-18.0); Imm Gran Abs Auto 0.02 X10*3/uL (0.00-0.03); Imm Gran Pct Auto 0.2 % (0.0-0.4); Lymphocytes Absolute Auto 2.5 X10*3/uL (1.2-4.9); Lymphocytes Percent Auto 25.6 % (20-40); Mean Corpuscular HGB Conc 33.3 g/dl (31.0-36.0); Mean Corpuscular Hemoglobin 33.3 pg (27.0-33.0); Mean Platelet Volume 10.8 fL (9.4-12.4); Monocytes Absolute Auto 1.3 X10*3/uL (0.1-1.2); Monocytes Percent Auto 13.1 % (2-11); Neutrophils Absolute Auto 5.7 x10*3/uL (2.0-8.3); Neutrophils Percent Auto 58.5 % (45-73); Platelet Count 218 X10*3/uL (160-400); Red Blood Count 4.24 X10*6/uL (4.60-5.80); Red Cell Distribution Width 12.7 % (11.0-16.0); White Blood Count 9.7 X10*3/uL (4.8-10.8)
[2022-04-24 16:13] LABS: Alanine Aminotransferase 49 U/L (0-40); Albumin Level 4.3 g/dL (3.5-5.0); Alkaline Phosphatase 104 U/L (39-117); Anion Gap 15 (12-20); Aspartate Amino Transferase 67 U/L (5-37); Bilirubin Total 1.1 mg/dL (0.0-1.0); Blood Urea Nitrogen 11 mg/dL (9-16); Calcium 9.7 mg/dL (8.4-10.2); Carbon Dioxide 29 mmol/L (22-29); Chloride 99 mmol/L (96-108); Estimated Glomerular Filt Rate > 60; Glucose Random 118 mg/dL (60-115); Potassium 4.2 mmol/L (3.3-5.1); Sodium 139 mmol/L (135-145); Total Protein 8.4 g/dL (6.5-8.0)
== END 2022-04-24 13:42 | disposition home or self-care (01) ==
LOC: HO.LAB 13:41
PROVIDERS: PCP Internal Medicine; Visit Provider Internal Medicine
DX: E87.6 Hypokalemia (principal)
CPT/HCPCS: 36415; 80053; 85025

== ENCOUNTER 2022-08-07 14:45 | Outpatient (RCR) | payer OTHER, SELFPAY | END 2022-09-21 14:11 | disposition home or self-care (01) | LOC: HO.WCC 14:45 | PROVIDERS: PCP Internal Medicine; Visit Provider Physician Assistant | DX: T21.21XD Burn of second degree of chest wall, subsequent encounter (principal); T20.27XD Burn of second degree of neck, subsequent encounter; T20.21 Burn of second degree of ear [any part, except ear drum]; T31.0 Burns involving less than 10% of body surface; F17.210 Nicotine dependence, cigarettes, uncomplicated; G62.9 Polyneuropathy, unspecified | CPT/HCPCS: 16020; 99212; 99213 ==

== ENCOUNTER 2023-01-10 13:41 | Outpatient (AMB) | payer OTHER, SELFPAY ==
[2023-01-10 13:49] VITALS: BP 130/72; PULSE 77; O2SAT 96; BMI 33.7
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
== END 2023-01-10 14:17 | disposition home or self-care (01) ==
PROVIDERS: PCP Internal Medicine; Visit Provider Internal Medicine
DX: R73.01 Impaired fasting glucose (principal); E66.01 Morbid (severe) obesity due to excess calories; F33.9 Major depressive disorder, recurrent, unspecified; Z68.41 Body mass index [BMI] 40.0-44.9, adult; Z12.11 Encounter for screening for malignant neoplasm of colon; F10.10 Alcohol abuse, uncomplicated; F41.1 Generalized anxiety disorder; Z72.0 Tobacco use
CPT/HCPCS: 99214

== ENCOUNTER 2023-05-27 14:27 | Outpatient (AMB) | payer OTHER, SELFPAY ==
--- NOTE | 2023-05-27 14:28 | MHC.PC.OV ---
Vital Signs 05/27/23 14:31 Height 5 ft 11 in Weight 235 lb BMI 32.8 Intake Visit Reasons: depression 6 week f/u, Visual Training Aide Required: No Allergies No Known Allergies Allergy (Verified 01/10/23 13:50) Tobacco use date assessed: 05/27/23 Dental Screening Dental Screen Date: 05/27/23 Was dental information given to patient?: Patient has dentist HPI depression 6 week f/u, HPI Details 47-year-old obese male smoker with a history of alcohol abuse generalized anxiety disorder impaired glucose tolerance recurrent depression last seen in December 2022. Patient was advised to get blood work done. Otherwise has not heard anything from counseling and would like to have a counselor. As for blood work reminded patient about the blood work. No nausea no vomiting no chest pains right PFSH Medical History (Updated 05/27/23 @ 15:09 by Heidy Mojica MD) Abdominal pain Lower extremity edema Tinea pedis Chemical burn Cellulitis of right leg Right leg swelling Swelling of left hip joint Right groin pain Tobacco abuse Obesity Family History (Updated 09/24/22 @ 17:15 by Erendira Mckeon CMA) Maternal Grandfather CVA (cerebral vascular accident) Maternal Grandmother Pancreatic cancer Social History Household Members: Family Housing: House Alcohol intake: former Comment: pt refuses bed alarm Patient Tobacco Use Status: Current everyday Tobacco user Tobacco use type: Cigarette Cigarette Packs Per Day: 0.5 Cigarettes Per Day: 13.0 Years Smoked: smoking since 20 years old e-Cigarette/Vaping Use: Never Used Second Hand Smoke Exposure: Yes Substance Use Type: Marijuana service: No Current occupational status: unemployed Cognitive needs: No Hearing needs: No Vision needs: No Questionnaire PHQ-9 Over the last 2 weeks, how often have you been bothered by any of the following problems? 1. Little interest or pleasure in doing things: several days 2. Feeling down, depressed, or hopeless: more than half the days 3. Trouble falling or staying asleep, or sleeping too much: more than half the days 4. Feeling tired or having little energy: several days 5. Poor appetite or overeating: several days (poor appetite ) 6. Feeling bad about yourself - or that you are a failure or have let yourself or your family down: not at all 7. Trouble concentrating on things, such as reading the newspaper or watching television: several days 8. Moving or speaking so slowly that other people could have noticed. Or the opposite - being so fidgety or restless that you have been moving around a lot more than usual: not at all 9. Thoughts that you would be better off or of hurting yourself in some way: not at all Total score: 8 Depression Screening Interpretation: Positive Depression Screening Follow-up: Existing condition Depression Screening Done: Yes Source: Developed by Drs. Errol Hull, Morenita Harrison, Lance Kothari and colleagues, with an educational edward from [employer]. Thrive Questionnaire Date Thrive assessed: 05/27/23 I am a: Patient What is your living situation today?: I have a steady place to live Within the past 12 months, did the food you bought not last and you didn't have the money to get more?: Never true Within the past 12 months, did you worry whether your food would run out before you got money to buy more?: Never true Do you have trouble paying for medicines?: No Do you have trouble getting transportation to medical appointments?: No Do you have trouble paying your heating and electricity bill?: No Do you have trouble taking care of your child, family member or friend?: No Do you have trouble with day-to-day activities such as bathing, preparing meals, shopping, managing finances, etc.?: No Are you currently unemployed and looking for a job?: No Are you interested in more education?: No Please select the resources that you would like help with: None THRIVE Score: 0 WINIFRED-7 AMB Questionnaire WINIFRED-7 Date WINIFRED - 7 assessed: 05/27/23 Feeling nervous, anxious, or on edge: 0 = Not at all Not being able to stop or control worryin = Several days Worrying too much about different things: 1 = Several days Trouble relaxin = Several days Being so restless that it is hard to sit still: 1 = Several days Becoming easily annoyed or irritable: 1 = Several days Feeling afraid as if something awful might happen: 1 = Several days Total WINIFRED-7 score (0-4 normal; 5-9 mild; 10-14 moderate; 15-21 severe): 6 Source: Developed by Drs. Errol Hull, Morenita Harrison, Lance Kothari and colleagues, with an educational edward from [employer]. Physical exam (Primary Care) BMI result Body Mass Index 32.8 Tobacco/Smoking Status: Tobacco use Status Tobacco use date assessed 05/27/23 05/27/23 14:34 Patient Tobacco Use Status Current everyday Tobacco 05/27/23 14:34 Tobacco use type Cigarette 05/27/23 14:34 e-Cigarette/Vaping Use Never Used 05/27/23 14:34 PHQ-9: PHQ-9 Score PHQ-9: Total score 8 05/27/23 14:34 Depression Screening Interpretation: Positive Depression Screening Follow-up: Existing condition Thrive Assessment: Date of Thrive Assessment Date Thrive assessed 05/27/23 05/27/23 14:34 Telehealth Telehealth Location of provider rendering services: practice address Location of patient: address on file Patient Identification confirmed using: Name, : Yes Telehealth method: voice only (android // [phone]) Patient verbally consented to treatment: Yes Patient verbally consented to billing insurance company: Yes Patient informed of any privacy concerns related to visit: Yes Minutes spent on Phone/Video with Pt.: 25 Assessment and Plan Assessment & Plan (1) Tobacco abuse: Code(s): Z72.0 - Tobacco use Plan: Patient has been strongly advised to stop smoking (2) Obesity: Code(s): E66.9 - Obesity, unspecified Qualifiers: Obesity type: due to excess calories Obesity classification: adult class 3 (BMI >= 40) Serious obesity comorbidity presence: unspecified whether serious comorbidity present Body mass index: BMI 40.0-44.9 Qualified Code(s): E66.01 - Morbid (severe) obesity due to excess calories; Z68.41 - Body mass index [BMI]40.0-44.9, adult Plan: Diet and exercise (3) Impaired fasting blood sugar: Code(s): R73.01 - Impaired fasting glucose Plan: Decrease the amount of carbohydrate intake, pasta, bread, rice and potatoes are all sugar and that is aside from all the sweet stuff, remember that fruits are good but they are Sweet also. (4) Recurrent depression: Code(s): F33.9 - Major depressive disorder, recurrent, unspecified (5) Colon cancer screening: Code(s): Z12.11 - Encounter for screening for malignant neoplasm of colon Plan: Reminded about colonoscopy (6) Nasal congestion: Code(s): R09.81 - Nasal congestion Plan: having coughing on walking up, adivsed to take allergy problem Coding Level of Care Code Tele Est Pt Level 4 (52712) Diagnoses Tobacco abuse Z72.0 Class 3 severe obesity due to excess calories with body mass index (BMI) of 40.0 to 44.9 in adult, unspecified whether serious comorbidity present E66.01; Z68.41 Obesity type: due to excess calories Obesity classification: adult class 3 (BMI >= 40) Serious obesity comorbidity presence: unspecified whether serious comorbidity present Body mass index: BMI 40.0-44.9 Impaired fasting blood sugar R73.01 Recurrent depression F33.9 Colon cancer screening Z12.11 Nasal congestion R09.81
[2023-05-27 14:31] VITALS: BMI 32.8
== END 2023-05-27 17:44 | disposition home or self-care (01) ==
LOC: HO.HMGH 14:27
PROVIDERS: PCP Internal Medicine; Visit Provider Internal Medicine
DX: F33.9 Major depressive disorder, recurrent, unspecified (principal); E66.01 Morbid (severe) obesity due to excess calories; Z68.41 Body mass index [BMI] 40.0-44.9, adult; R73.01 Impaired fasting glucose; R09.81 Nasal congestion
CPT/HCPCS: 99214

== ENCOUNTER 2023-08-23 13:33 | Outpatient (AMB) | payer OTHER, SELFPAY ==
--- NOTE | 2023-08-23 13:33 | A.OFFPC_ITS ---
Intake Visit Reasons: IGT, depression , WINIFRED Allergies No Known Allergies Allergy (Verified 08/23/23 13:34) Tobacco use date assessed: 05/27/23 Dental Screening Dental Screen Date: 05/27/23 HPI IGT, depression , WINIFRED HPI Details 48-year-old obese male with impaired glu cose tolerance recurrent depression last seen in May 2023 comes in for follow-up through Telehealth patient is wanting refill on some of the medications. With the can depression did approve of getting psychiatry referral. And as for the water pills needed refill discussed with the patient that with this though will need blood work to monitor electrolytes and kidney function. Patient continues to smoke. Has occasional constipation but does have senna. [facility] Medical History (Updated 08/23/23 @ 16:43 by Heidy Mojica MD) Abdominal pain Lower extremity edema Tinea pedis Chemical burn Cellulitis of right leg Right leg swelling Swelling of left hip joint Right groin pain Tobacco abuse Obesity Family History (Updated 09/24/22 @ 17:15 by Erendira Mckeon CMA) Maternal Grandfather CVA (cerebral vascular accident) Maternal Grandmother Pancreatic cancer Social History Household Members: Family Housing: House Alcohol intake: former Comment: pt refuses bed alarm Patient Tobacco Use Status: Current everyday Tobacco user Tobacco use type: Cigarette Cigarette Packs Per Day: 0.5 Cigarettes Per Day: 13.0 Years Smoked: smoking since 20 years old e-Cigarette/Vaping Use: Never Used Second Hand Smoke Exposure: Yes Substance Use Type: Marijuana service: No Current occupational status: unemployed Cognitive needs: No Hearing needs: No Vision needs: No Questionnaire PHQ-9 Over the last 2 weeks, how often have you been bothered by any of the following problems? 1. Little interest or pleasure in doing things: several days 2. Feeling down, depressed, or hopeless: more than half the days 3. Trouble falling or staying asleep, or sleeping too much: more than half the days 4. Feeling tired or having little energy: several days 5. Poor appetite or overeating: several days (poor appetite ) 6. Feeling bad about yourself - or that you are a failure or have let yourself or your family down: not at all 7. Trouble concentrating on things, such as reading the newspaper or watching television: several days 8. Moving or speaking so slowly that other people could have noticed. Or the opposite - being so fidgety or restless that you have been moving around a lot more than usual: not at all 9. Thoughts that you would be better off or of hurting yourself in some way: not at all Total score: 8 Depression Screening Interpretation: Positive Depression Screening Follow-up: Existing condition Depression Screening Done: Yes Source: Developed by Drs. Errol Hull, Lance Hall and colleagues, with an educational edward from [employer]. Thrive Questionnaire Date Thrive assessed: 05/27/23 AUDIT C Alcohol Use Questionnaire (AUDIT-C) 1. How often do you have a drink containing alcohol?: Never 2. How many drinks containing alcohol do you have on a typical day when you are drinking?: 1 or 2 3. How often do you have six or more drinks on one occasion?: Never Total Score: 0 WINIFRED-7 AMB Questionnaire WINIFRED-7 Date WINIFRED - 7 assessed: 05/27/23 Source: Developed by Drs. Errol Hull, Lance Hall and colleagues, with an educational edward from [employer]. Physical exam (Primary Care) Tobacco/Smoking Status: Tobacco use Status Tobacco use date assessed 05/27/23 08/23/23 13:35 Patient Tobacco Use Status Current everyday Tobacco 08/23/23 13:35 Tobacco use type Cigarette 08/23/23 13:35 e-Cigarette/Vaping Use Never Used 08/23/23 13:35 PHQ-9: PHQ-9 Score PHQ-9: Total score 8 08/23/23 13:35 Depression Screening Interpretation: Positive Depression Screening Follow-up: Existing condition Thrive Assessment: Date of Thrive Assessment Date Thrive assessed 05/27/23 08/23/23 13:35 Telehealth Telehealth Location of provider rendering services: practice address Location of patient: address on file Patient Identification confirmed using: Name, : Yes Telehealth method: voice only (android // [phone]) Patient verbally consented to treatment: Yes Patient verbally consented to billing insurance company: Yes Patient informed of any privacy concerns related to visit: Yes Minutes spent on Phone/Video with Pt.: 25 Assessment and Plan Assessment & Plan (1) Recurrent depression: Code(s): F33.9 - Major depressive disorder, recurrent, unspecified Plan: referral to psychiatry (2) Tobacco abuse: Code(s): Z72.0 - Tobacco use Plan: advised to stop smoking 1/2 pack a day (3) Colon cancer screening: Code(s): Z12.11 - Encounter for screening for malignant neoplasm of colon Plan: cologuard testing requested again (4) Leg swelling: Code(s): M79.89 - Other specified soft tissue disorders Plan: on diuretics and advisd to get blood work Orders: Referrals Cologuard Test Z12.11 - Encounter for screening for malignant neoplasm of colon, Z12.12 - Encounter for screening for malignant neoplasm of rectum Psychiatry Referral F33.9 - Major depressive disorder, recurrent, unspecified Medications: Refilled furosemide 40 mg PO DAILY 90 tabs 1RF K70.11 - Alcoholic hepatitis with ascites spironolactone 25 mg PO DAILY 90 tabs 1RF K70.11 - Alcoholic hepatitis with ascites cyanocobalamin (vitamin B-12) 1,000 mcg PO DAILY 90 caps 1RF E53.8 - Deficiency of other specified B group vitamins folic acid 1 mg PO DAILY 90 tabs 2RF E53.8 - Deficiency of other specified B group vitamins gabapentin 300 mg PO BID 90 days 180 caps 1RF G57.90 - Unspecified mononeuropathy of unspecified lower limb Coding Level of Care Code Tele Est Pt Level 4 (66795) Diagnoses Recurrent depression F33.9 Tobacco abuse Z72.0 Colon cancer screening Z12.11 Leg swelling M79.89
== END 2023-08-23 16:51 | disposition home or self-care (01) ==
LOC: HO.HMGH 13:33
PROVIDERS: PCP Internal Medicine; Visit Provider Internal Medicine
DX: F33.9 Major depressive disorder, recurrent, unspecified (principal); Z72.0 Tobacco use; Z12.11 Encounter for screening for malignant neoplasm of colon; M79.89 Other specified soft tissue disorders
CPT/HCPCS: 99214

== ENCOUNTER 2023-12-04 13:50 | Outpatient (AMB) | payer OTHER, SELFPAY ==
[2023-12-04 14:04] VITALS: BP 148/88; PULSE 80; O2SAT 98; BMI 32.6
--- NOTE | 2023-12-04 14:04 | MHC.PC.OV ---
Vital Signs 12/04/23 14:04 12/04/23 14:16 Height 5 ft 11 in Weight 106.141 kg BMI 32.6 BP 148/88 H 128/70 Blood Pressure Location Lt brachial Lt brachial Position Sitting Sitting Pulse 80 Pulse Source Pulse Oximeter Pulse Oximetry (%) 98 Oxygen Delivery Method Room Air Intake Visit Reasons: DEPRESSION 3 MONTH Allergies No Known Allergies Allergy (Verified 08/23/23 13:34) Medication List - Last Reconciled 12/04/23 by Heidy Mojica MD comp.stocking,thigh,long,large As directed cyanocobalamin (vitamin B-12) 1,000 mcg PO DAILY folic acid 1 mg PO DAILY furosemide 40 mg PO DAILY gabapentin 300 mg PO BID 90 days lidocaine 5% 1 appl topical DAILY PRN multivitamin 1 tab PO DAILY sennosides-docusate sodium 8.6-50 mg (Senna-S) 2 tab-caps (2 x 8.6-50 mg) PO BEDTIME 30 days spironolactone 25 mg PO DAILY triamcinolone acetonide 0.5% 1 appl topical DAILY 5 days Tobacco use date assessed: 05/27/23 Dental Screening Dental Screen Date: 05/27/23 HPI DEPRESSION 3 MONTH HPI Details 48-year-old obese male smoker with depression coming in for follow-up. Last seen in 09/02/2023. Patient was advised Cologuard testing for colon cancer screening.. This was not done. Patient has seen gastroenterology before has alcoholic hepatitis and fatty liver. counselling - wait list for psychiatrist [facility] Medical History (Updated 12/04/23 @ 14:10 by Heidy Mojica MD) Abdominal pain Lower extremity edema Tinea pedis Chemical burn Cellulitis of right leg Right leg swelling Swelling of left hip joint Right groin pain Tobacco abuse Obesity Family History (Updated 09/24/22 @ 17:15 by Erendira Mckeon CMA) Maternal Grandfather CVA (cerebral vascular accident) Maternal Grandmother Pancreatic cancer Social History Household Members: Family Housing: House Alcohol intake: former Comment: pt refuses bed alarm Patient Tobacco Use Status: Current everyday Tobacco user Tobacco use type: Cigarette Cigarette Packs Per Day: 0.5 Cigarettes Per Day: 13.0 Years Smoked: smoking since 20 years old e-Cigarette/Vaping Use: Never Used Second Hand Smoke Exposure: Yes Substance Use Type: Marijuana service: No Current occupational status: unemployed Cognitive needs: No Hearing needs: No Vision needs: No Questionnaire PHQ-9 Over the last 2 weeks, how often have you been bothered by any of the following problems? 1. Little interest or pleasure in doing things: several days 2. Feeling down, depressed, or hopeless: more than half the days 3. Trouble falling or staying asleep, or sleeping too much: more than half the days 4. Feeling tired or having little energy: several days 5. Poor appetite or overeating: several days (poor appetite ) 6. Feeling bad about yourself - or that you are a failure or have let yourself or your family down: not at all 7. Trouble concentrating on things, such as reading the newspaper or watching television: several days 8. Moving or speaking so slowly that other people could have noticed. Or the opposite - being so fidgety or restless that you have been moving around a lot more than usual: not at all 9. Thoughts that you would be better off or of hurting yourself in some way: not at all Total score: 8 Depression Screening Interpretation: Positive Depression Screening Follow-up: Existing condition Depression Screening Done: Yes Source: Developed by Drs. Errol Hull, Morenita Harrison, Lance Kothari and colleagues, with an educational edward from [employer]. Thrive Questionnaire Date Thrive assessed: 05/27/23 AUDIT C Alcohol Use Questionnaire (AUDIT-C) 1. How often do you have a drink containing alcohol?: Never 2. How many drinks containing alcohol do you have on a typical day when you are drinking?: 1 or 2 3. How often do you have six or more drinks on one occasion?: Never Total Score: 0 WINIFRED-7 AMB Questionnaire WINIFRED-7 Date WINIFRED - 7 assessed: 05/27/23 Source: Developed by Drs. Errol Hull, Morenita Harrison, Lance Kothari and colleagues, with an educational edward from [employer]. Physical exam (Primary Care) Vital Signs: Last Vital Signs Pulse 80 12/04/23 14:04 BP 128/70 12/04/23 14:16 Pulse Ox 98 12/04/23 14:04 Oxygen Delivery Method Room Air 12/04/23 14:04 BMI result Body Mass Index 32.6 Tobacco/Smoking Status: Tobacco use Status Tobacco use date assessed 05/27/23 12/04/23 14:08 Patient Tobacco Use Status Current everyday Tobacco 12/04/23 14:08 Tobacco use type Cigarette 12/04/23 14:08 e-Cigarette/Vaping Use Never Used 12/04/23 14:08 PHQ-9: PHQ-9 Score PHQ-9: Total score 8 12/04/23 14:08 Depression Screening Interpretation: Positive Depression Screening Follow-up: Existing condition Thrive Assessment: Date of Thrive Assessment Date Thrive assessed 05/27/23 12/04/23 14:08 Const General: alert; No acute distress Eyes Conjunctivae: conjunctivae normal Resp Auscultation: clear to auscultation bilaterally Cardio Rate: regular rate Rhythm: regular rhythm GI Inspection: Yes normal to inspection Extrem General: Yes normal to inspection and No edema Immunizations pneumoc 20-christopher conj-dip cr(PF) 0.5 mL IM syringe Performing Provider: Heidy Mojica MD Performing Location: [facility] Administered by: Erendira Mckeon CMA on 12/04/23 14:29 Dose Route Admin Location Dispensed Lot Number Expiration Date NDC Shipping Supervisor 0.5 mL IM Left Deltoid 0.5 mL [id number] 09/13/24 7292-6430-09 [employer] VIS Given Date VIS Provided VIS Publication Date 12/04/23 Single Vaccine 21 Eligibility Eligibility Date Funding Source Not [facility] Eligible 12/04/23 Private Assessment and Plan Assessment & Plan (1) Cirrhosis: Code(s): K74.60 - Unspecified cirrhosis of liver Plan: Continue to abstain from alcohol, eat healthy (2) Tobacco abuse: Code(s): Z72.0 - Tobacco use Plan: Strongly advised to stop smoking! (3) Obesity: Code(s): E66.9 - Obesity, unspecified Qualifiers: Body mass index: BMI 40.0-44.9 Obesity classification: adult class 3 (BMI >= 40) Obesity type: due to excess calories Serious obesity comorbidity presence: unspecified whether serious comorbidity present Qualified Code(s): E66.01 - Morbid (severe) obesity due to excess calories; Z68.41 - Body mass index [BMI]40.0-44.9, adult Plan: Diet and exercise (4) Impaired fasting blood sugar: Code(s): R73.01 - Impaired fasting glucose Plan: Decrease the amount of carbohydrate intake, pasta, bread, rice and potatoes are all sugar and that is aside from all the sweet stuff, remember that fruits are good but they are Sweet also. (5) Generalized anxiety disorder: Code(s): F41.1 - Generalized anxiety disorder Plan: Discussed about counseling and therapy. (6) Colon cancer screening: Code(s): Z12.11 - Encounter for screening for malignant neoplasm of colon Plan: Will repeat request for Cologuard Orders: Orders Complete Blood Count Auto Diff Today K74.60 - Unspecified cirrhosis of liver Free T4 (Free Thyroxine) Today K74.60 - Unspecified cirrhosis of liver Pneumococcal 20 Immunization Today Z23 - Encounter for immunization Hemoglobin A1c Today R73.01 - Impaired fasting glucose Comprehensive Met. Panel Today R73.01 - Impaired fasting glucose Lipid Panel Today E78.00 - Pure hypercholesterolemia, unspecified, K74.60 - Unspecified cirrhosis of liver Thyroid Stimulating Hormone Today K74.60 - Unspecified cirrhosis of liver Vitamin B12 and Folate Today K74.60 - Unspecified cirrhosis of liver Referrals Cologuard Test Z12.11 - Encounter for screening for malignant neoplasm of colon Medications: New sertraline 25 mg PO DAILY 30 tabs 3RF F41.1 - Generalized anxiety disorder nicotine 1 patch transdermal DAILY 28 ea 0RF Z72.0 - Tobacco use pneumoc 20-christopher conj-dip cr(PF) 0.5 mL IM ONCE 0.5 mL 0RF Z23 - Encounter for immunization Refilled comp.stocking,thigh,long,large As directed 2 ea 0RF R60.0 - Localized edema Coding Level of Care Code Est Pt Level 4 (30731) Complex EM visit Add On G2211 Diagnoses Cirrhosis K74.60 Tobacco abuse Z72.0 Class 3 severe obesity due to excess calories with body mass index (BMI) of 40.0 to 44.9 in adult, unspecified whether serious comorbidity present E66.01; Z68.41 Body mass index: BMI 40.0-44.9 Obesity classification: adult class 3 (BMI >= 40) Obesity type: due to excess calories Serious obesity comorbidity presence: unspecified whether serious comorbidity present Impaired fasting blood sugar R73.01 Generalized anxiety disorder F41.1 Colon cancer screening Z12.11
[2023-12-04 14:16] VITALS: BP 128/70
== END 2023-12-04 14:38 | disposition home or self-care (01) ==
PROVIDERS: PCP Internal Medicine; Visit Provider Internal Medicine
DX: K74.60 Unspecified cirrhosis of liver (principal); E66.01 Morbid (severe) obesity due to excess calories; F17.210 Nicotine dependence, cigarettes, uncomplicated; Z23 Encounter for immunization; Z68.41 Body mass index [BMI] 40.0-44.9, adult; R73.01 Impaired fasting glucose; F41.1 Generalized anxiety disorder; Z12.11 Encounter for screening for malignant neoplasm of colon
CPT/HCPCS: 90471; 90677; 99214

== ENCOUNTER 2024-03-18 14:15 | Outpatient (REF) | payer OTHER, SELFPAY ==
[2024-03-18 14:36] LABS: MANUAL DIFF FLAG NO
[2024-03-18 15:29] LABS: Basophils Absolute Auto 0.1 X10*3/uL (0.0-0.2); Basophils Percent Auto 1.5 % (0-2); Eosinophils Absolute Auto 0.2 X10*3/uL (0.0-0.4); Eosinophils Percent Auto 2.1 % (0-4); Hematocrit 40.3 % (42.0-52.0); Hemoglobin 13.9 g/dl (14.0-18.0); Imm Gran Abs Auto 0.03 X10*3/uL (0.00-0.03); Imm Gran Pct Auto 0.4 % (0.0-0.4); Lymphocytes Absolute Auto 2.2 X10*3/uL (1.2-4.9); Lymphocytes Percent Auto 30.9 % (20-40); Mean Corpuscular HGB Conc 34.5 g/dl (31.0-36.0); Mean Corpuscular Volume 101.5 fL (80.0-98.0); Monocytes Absolute Auto 0.8 X10*3/uL (0.1-1.2); Monocytes Percent Auto 11.1 % (2-11); Neutrophils Absolute Auto 3.9 x10*3/uL (2.0-8.3); Red Blood Count 3.97 X10*6/uL (4.60-5.80); Red Cell Distribution Width 15.6 % (11.0-16.0); White Blood Count 7.2 X10*3/uL (4.8-10.8)
[2024-03-18 15:32] LABS: Platelet Count 84 X10*3/uL (160-400)
[2024-03-18 15:34] LABS: Estimated Average Glucose 97 mg/dL; Hemoglobin A1C 109.3139 umol/L; Total Hemoglobin (HGBA1C) 3543.7147 umol/L
[2024-03-18 15:44] LABS: Alanine Aminotransferase 57 U/L (0-40); Albumin Level 3.3 g/dL (3.5-5.0); Alkaline Phosphatase 154 U/L (39-117); Anion Gap 18 (12-20); Aspartate Amino Transferase 182 U/L (5-37); Bilirubin Total 6.3 mg/dL (0.0-1.0); Blood Urea Nitrogen 6 mg/dL (9-16); Calcium 8.9 mg/dL (8.4-10.2); Carbon Dioxide 23 mmol/L (22-29); Chloride 100 mmol/L (96-108); Cholesterol 102 mg/dL (<200); Estimated Glomerular Filt Rate > 60; Glucose Random 105 mg/dL (60-115); HDL Cholesterol 24 mg/dL (>40); LDL Cholesterol Calculated 61 mg/dL (<100); Magnesium 1.5 mg/dL (1.6-2.6); Potassium 3.1 mmol/L (3.3-5.1); Sodium 138 mmol/L (135-145); Total Protein 8.3 g/dL (6.5-8.0); Triglycerides 87 mg/dL (<150)
[2024-03-18 16:00] LABS: Free T4 (Free Thyroxine) 1.29 ng/dL (0.71-1.85); Thyroid Stimulating Hormone 2.24 uIU/mL (0.32-4.0)
[2024-03-18 16:32] LABS: Folate 4.3 ng/mL (> or = 4.0); Vitamin B12 > 2000 pg/mL (200-900)
--- OUTSIDE RECORDS SUMMARY | 2024-03-24 20:45 | XMS_ITS ---
Author Organization [facility] Address [address] [place] [phone] Care Team Providers Care Learning And Development Associate Name Role Phone Po Heidy PALMER Primary Care Provider Wilber Prater Jr REASON FOR VISIT Patient presents today for liver Encounters Encounter Location Date Provider Diagnosis [facility] [address] [place] [phone] 12/03/2022 Wilber Castillo Jr PLAN OF TREATMENT No Information
--- OUTSIDE RECORDS SUMMARY | 2024-03-24 20:45 | XMS_ITS ---
Author Organization [facility] Address [address] [place] [phone] Care Team Providers Care Sinker Winder Name Role Phone Po Heidy PALMER Primary Care Provider Wilber Prater Jr [phone] REASON FOR VISIT liver Encounters Encounter Location Date Provider Diagnosis [facility] [address] [place] [phone] 11/26/2022 Wilber Castillo Jr PLAN OF TREATMENT No Information
--- OUTSIDE RECORDS SUMMARY | 2024-03-24 20:45 | XMS_ITS ---
Author Organization [facility] Address [address] [place] [phone] Care Team Providers Care Asbestos Coverer Name Role Phone Po Heidy PALMER Primary Care Provider Wilber Prater Jr REASON FOR VISIT canceling todays appt Encounters Encounter Location Date Provider Diagnosis [facility] [address] [place] [phone] 12/03/2022 Wilber Castillo Jr PLAN OF TREATMENT No Information
--- OUTSIDE RECORDS SUMMARY | 2024-03-24 20:46 | XMS_ITS | Patient Health Record ---
Author Organization [facility] Address [address] [place] [phone] Care Team Providers Care Outsole Paraffiner Name Role Phone Heidy Mojica MD Primary Care Provider Wilber Prater Jr Unavailable [phone] ALLERGIES No Known Allergies REASON FOR REFERRAL No Information MEDICATIONS Medication SIG (Take, Route, Fr equency, Duration) Notes Start Date End Date Status Furosemide 40 MG 1 tablet Orally Once a day for 30 day(s) Active Vitamin B-12 1000 MCG TAKE 1 TABLET BY M OUTH EVERY DAY Oral for 30 Active Gabapentin 300 MG TAKE 1 CAPSULE BY MO UTH TWICE A DAY Oral three times a day Act julia Multivitamin Adults - as directed Orally Active Spironolactone 25 MG 1 tablet Orally for 30 day(s) Active Folic Acid 1 MG TAKE 1 TABLET BY MUKUND TH EVERY DAY Oral for 90 Active IMMUNIZATIONS Vaccine Route Administration Date Status Comme nts Influenza Unknown 01/14/2020 Administered Influenza Unknown 12/14/2020 Administered SOCIAL HISTORY Tobacco Use: Social History Observation Description Date Details (start date - stop date) Current Smoker NA - NA Sex Assigned At : Social History Observation Description Sex Assigned At Unknown Tobacco Use/Smoking Question Answer Notes Patient is a current smoker How often do you smoke cigarettes? every day How many cigarettes a day do you smoke? 11-20 Alcohol Screen Question Answer Notes Did you have a drink containing alcohol in the p ast year? No Points 0 Interpretation Negative PROBLEMS Problem Type ICD Code Onset Dates Problem Status W/U Status Risk SNOMED Code Notes Problem Alcoholic hepatitis with ascites (K70.11) Active confirmed [id number] PLAN OF TREATMENT Pending Test Test Name Order Date CHEM 7 PROFILE 11/16/2021 LIVER PROFILE 11/16/2021 CBC with MANUAL DIFFERENTIAL 11/16/2021 CBC w/o DIFF 07/13/2020 PROTHROMBIN TIME (PT, INR) 11/16/2021 PROTHROMBIN TIME (PT, INR) 07/13/2020 HEMOCHROMATOSIS (C282Y) 11/16/2021 PARACENTESIS W GUIDANCE 07/13/2020 US ABDOMEN COMP WITH ELASTOGRAPHY 2021 Liver Fibrosis Pnl 11/16/2021 Insurance Providers Payer Name Payer Address Payer Phone Subscriber Number Group Number Insured Name Patient Relationship to Insured Coverage Start Date Coverage End Date [facility] [address] [address] [place], [place] [id number] ANA TREJO Self - patient is the insured MEDICAL (GENERAL) HISTORY Medical History History ICD Code alcoholic hepatitis with ascites nephrolithiasis childhood asthma Neuropathy Surgical History Surgery Date(Month/Year) susan put in shoulder right 2011
== END 2024-03-18 14:16 | disposition home or self-care (01) ==
LOC: HO.LAB 14:15
PROVIDERS: PCP Internal Medicine; Visit Provider Internal Medicine
DX: K70.10 Alcoholic hepatitis without ascites (principal); K74.60 Unspecified cirrhosis of liver; R73.01 Impaired fasting glucose; E78.00 Pure hypercholesterolemia, unspecified
CPT/HCPCS: 36415; 80053; 80061; 82607; 82746; 83036; 83735; 84439; 84443; 85025

== ENCOUNTER 2024-03-19 16:08 | Outpatient (AMB) | payer OTHER, SELFPAY ==
--- NOTE | 2024-03-19 16:13 | MHC.PC.OV ---
Vital Signs 03/19/24 16:14 Height 5 ft 11 in Weight 224 lb 8 oz BMI 31.3 BP 132/60 Blood Pressure Location Lt brachial Position Sitting Pulse 86 Pulse Source Pulse Oximeter Pulse Oximetry (%) 98 Oxygen Delivery Method Room Air Intake Visit Reasons: cirrhosis, tobacco abuse Intake Note: Patient is here to follow up on Cirrhosis, Tobacco abuse. Claim Benefit Specialist Required: No Sander Machine: Not Required per policy Accompanied by: Self / Same As Patient Allergies No Known Allergies Allergy (Verified 03/19/24 16:14) Tobacco use date assessed: 03/19/24 Dental Screening Dental Screen Date: 05/27/23 HPI cirrhosis, tobacco abuse HPI Details bilateral eye discharge, feeling dizzy and nausea, vomiting, concern on getting dehydrated as patient is on diuretics. The patient is a 48-year-old male presenting for follow-up on multiple chronic conditions and discussion of recent laboratory findings. Notably, the patient has a history of obesity and is an active smoker. He has been previously diagnosed with alcoholic hepatitis and cirrhosis, with a history of stopping but recently consuming alcohol again due to stress related to personal circumstances. The patient has obstructive sleep apnea, reportedly mild according to a 2020 sleep study, although no formal CPAP therapy has been established since the study. Previously noted conditions include cholelithiasis and impaired glucose tolerance with current laboratory findings indicating slightly elevated blood glucose at 105, while hemoglobin A1c remains normal. Alcoholic hepatitis and cirrhosis persist, evidenced by abnormal liver function tests; AST is elevated at 182, and ALT is 57, alongside an alkaline phosphatase level of 154. Thrombocytopenia is new, reported with a platelet count of 84. The patient experiences hypokalemia, recently presenting at 3.1, likely related to medication management with diuretics, spironolactone, and furosemide. The patient reports migraines, for which he has been prescribed medication, and complains of waking with caked eyes and congestion, suspected allergy-related. There is expressed concern about recent nausea episodes upon waking, which are associated with dizziness. Osteoarthritis of the hips is an established condition, acknowledged as persistent with pain symptoms, and currently managed with non-pharmacological measures. Laboratory findings highlight mild anemia with a hemoglobin of 13.9 and signs of macrocytosis, as well as an excessive level of vitamin B12 over 1999, leading to recommendations for adjustment in supplementation frequency. [facility] Medical History (Updated 03/19/24 @ 17:46 by Heidy Mojica MD) Abdominal pain Lower extremity edema Tinea pedis Chemical burn Cellulitis of right leg Right leg swelling Swelling of left hip joint Right groin pain Tobacco abuse Obesity Surgical History (Updated 03/19/24 @ 16:18 by JOEY Bermudez) No pertinent past surgical history Family History Maternal Grandfather CVA (cerebral vascular accident) Maternal Grandmother Pancreatic cancer Social History Household Members: Family Housing: House Alcohol intake: former Comment: pt refuses bed alarm Patient Tobacco Use Status: Current everyday Tobacco user Tobacco use type: Cigarette Cigarette Packs Per Day: 0.5 Cigarettes Per Day: 9 Years Smoked: smoking since 20 years old e-Cigarette/Vaping Use: Never Used Second Hand Smoke Exposure: Yes Substance Use Type: Marijuana service: No Current occupational status: unemployed Cognitive needs: No Hearing needs: No Vision needs: No Questionnaire Thrive Questionnaire Date Thrive assessed: 05/27/23 WINIFRED-7 AMB Questionnaire WINIFRED-7 Date WINIFRED - 7 assessed: 05/27/23 Source: Developed by Drs. Errol Hull, Morenita Harrison, Lance Kothari and colleagues, with an educational edward from [employer]. Physical exam (Primary Care) Vital Signs: Last Vital Signs Pulse 86 03/19/24 16:14 BP 132/60 03/19/24 16:14 Pulse Ox 98 03/19/24 16:14 Oxygen Delivery Method Room Air 03/19/24 16:14 BMI result Body Mass Index 31.3 Tobacco/Smoking Status: Tobacco use Status Tobacco use date assessed 03/19/24 03/19/24 16:19 Patient Tobacco Use Status Current everyday Tobacco 03/19/24 16:19 Tobacco use type Cigarette 03/19/24 16:19 e-Cigarette/Vaping Use Never Used 03/19/24 16:19 Thrive Assessment: Date of Thrive Assessment Date Thrive assessed 05/27/23 03/19/24 16:19 Const General: alert; No acute distress Eyes Conjunctivae: conjunctivae normal Resp Auscultation: clear to auscultation bilaterally Cardio Rate: regular rate Rhythm: regular rhythm GI Inspection: Yes normal to inspection Extrem General: Yes normal to inspection and No edema Office Procedures Flu Questionnaire Does the patient have a severe egg allergy?: No Does the patient have severe life threatening allergies?: No Does the patient have a fever or illness today?: No Has the patient ever had Guillain-Brantley Syndrome?: No Has the patient ever had any past reaction to a flu shot?: No Immunizations Fluarix Triv [id number] (PF) 45 mcg (15 mcg x 3)/0.5 mL IM syringe Performing Provider: Heidy Mojica MD [facility] Administered by: JOEY Echevarria on 03/19/24 17:06 Dose Route Admin Location Dispensed Lot Number Expiration Date [facility] Track Inspector 0.5 mL IM Left Deltoid 0.5 mL [id number] 10/12/24 [id number] [employer] VIS Given Date VIS Provided VIS Publication Date 03/19/24 Single Vaccine 20 Eligibility Eligibility Date Funding Source Not [facility] Eligible 03/19/24 Private Coding Level of Care Code Est Pt Level 4 (34630) Complex EM visit Add On G2211 Diagnoses Alcoholic cirrhosis of liver with ascites K70.31 Hepatic cirrhosis type: alcoholic cirrhosis Ascites presence: with ascites Alcohol abuse F10.10 Tobacco abuse Z72.0 Class 3 severe obesity due to excess calories with body mass index (BMI) of 40.0 to 44.9 in adult, unspecified whether serious comorbidity present E66.01; Z68.41 Body mass index: BMI 40.0-44.9 Obesity classification: adult class 3 (BMI >= 40) Obesity type: due to excess calories Serious obesity comorbidity presence: unspecified whether serious comorbidity present Ascites K70.11 Ascites type: due to alcoholic hepatitis Impaired fasting blood sugar R73.01 Obstructive sleep apnea G47.33 Colon cancer screening Z12.11 Recurrent depression F33.9 Hypokalemia E87.6 Bilateral hip pain M25.551; M25.552 Erectile dysfunction, unspecified erectile dysfunction type N52.9 Erectile dysfunction type: unspecified Thrombocytopenia D69.6 Assessment & Plan Assessment & Plan (1) Cirrhosis: Code(s): K74.60 - Unspecified cirrhosis of liver Category: Medical Qualifiers: Hepatic cirrhosis type: alcoholic cirrhosis Ascites presence: with ascites Qualified Code(s): K70.31 - Alcoholic cirrhosis of liver with ascites Plan: Patient is strongly advised to abstain from alcohol. Continue with diuretics presently. Long discussion about the problem of continuing to drink alcohol (2) Alcohol abuse: Comment: quit 02/2020 Code(s): F10.10 - Alcohol abuse, uncomplicated Category: Social Hx Plan: Patient was advised to abstain from alcohol (3) Tobacco abuse: Code(s): Z72.0 - Tobacco use Category: Medical Plan: Patient was advised to stop smoking! (4) Obesity: Code(s): E66.9 - Obesity, unspecified Category: Medical Qualifiers: Body mass index: BMI 40.0-44.9 Obesity classification: adult class 3 (BMI >= 40) Obesity type: due to excess calories Serious obesity comorbidity presence: unspecified whether serious comorbidity present Qualified Code(s): E66.01 - Morbid (severe) obesity due to excess calories; Z68.41 - Body mass index [BMI]40.0-44.9, adult Plan: Continue with diet and exercise (5) Ascites: Code(s): R18.8 - Other ascites Category: Medical Qualifiers: Ascites type: due to alcoholic hepatitis Qualified Code(s): K70.11 - Alcoholic hepatitis with ascites Plan: Continuing with the diuretic but needs to have blood work done (6) Impaired fasting blood sugar: Code(s): R73.01 - Impaired fasting glucose Category: Medical Plan: Decrease the amount of carbohydrate intake, pasta, bread, rice and potatoes are all sugar and that is aside from all the sweet stuff, remember that fruits are good but they are Sweet also. (7) Obstructive sleep apnea: Code(s): G47.33 - Obstructive sleep apnea (adult) (pediatric) Category: Medical Plan: Discussed about sleep apnea treatments. willget sleep medicine (8) Colon cancer screening: Code(s): Z12.11 - Encounter for screening for malignant neoplasm of colon Category: Medical Plan: Reminded about the Cologuard testing (9) Recurrent depression: Code(s): F33.9 - Major depressive disorder, recurrent, unspecified Category: Medical Plan: Patient has been placed on sertraline and advised to have counseling (10) Hypokalemia: Code(s): E87.6 - Hypokalemia Category: Medical Plan: Replacement done and will continue to monitor (11) Bilateral hip pain: Code(s): M25.551 - Pain in right hip; M25.552 - Pain in left hip Category: Medical Plan: will send in NSAID and take with food (12) Erectile dysfunction: Code(s): N52.9 - Male erectile dysfunction, unspecified Category: Medical Qualifiers: Erectile dysfunction type: unspecified Qualified Code(s): N52.9 - Male erectile dysfunction, unspecified Plan: Sildenafil script sent (13) Thrombocytopenia: Code(s): D69.6 - Thrombocytopenia, unspecified Category: Medical Plan: referral to hematology done Plan 1. Obesity and Smoking: Continue to encourage lifestyle modifications including weight management and smoking cessation. 2. Alcoholic Hepatitis and Cirrhosis: Advise on abstaining from alcohol consumption. Monitor liver function with a repeat test in one month. 3. Obstetric Sleep Apnea: Refer to a sleep specialist for further evaluation of apnea and possible CPAP setup. 4. Anemia and Thrombocytopenia: Referral to a fine chemicals operator is warranted for further evaluation of thrombocytopenia. Continue monitoring complete blood count. 5. Hypokalemia: Adjust furosemide dosage with reduction and initiate potassium supplements for five days, advising the inclusion of potassium-rich foods. 6. Elevated Blood Glucose and Impaired Glucose Tolerance: Maintain regular monitoring; no pharmacological intervention necessary at present. 7. Migraine: Continue prescribed medication for management. Report if symptoms persist. 8. Congestive Symptoms: Consider trial of non-sedating antihistamines like Claritin or Melisa for presumed allergy-related congestion and eye symptoms. 9. Osteoarthritis of the Hips: Prescribe Celebrex for pain management, ensuring administration with food. Avoid NSAIDs with liver concerns. 10. Preventative Care: Schedule pneumonia and flu vaccines as discussed, and patient to arrange COVID-19 booster dose with a pharmacy. Orders: Orders Complete Blood Count Auto Diff Today K70.10 - Alcoholic hepatitis without ascites Comprehensive Met. Panel Today K70.10 - Alcoholic hepatitis without ascites Thyroid Stimulating Hormone Today K70.10 - Alcoholic hepatitis without ascites Free T4 (Free Thyroxine) Today K70.10 - Alcoholic hepatitis without ascites Influenza 8200-1205 Immunization Today Z23 - Encounter for immunization Referrals Podiatry Referral M79.673 - Pain in unspecified foot Hematology & Oncology Referral D69.6 - Thrombocytopenia, unspecified Sleep Medicine Referral G47.33 - Obstructive sleep apnea (adult) (pediatric) Medications: New potassium chloride ER (Klor-Con M) 20 mEq PO BID 10 tabs 0RF E87.6 - Hypokalemia celecoxib (Celebrex) 200 mg PO DAILY 30 caps 0RF M25.551 - Pain in right hip, M25.552 - Pain in left hip sildenafil administer 30 minutes to 4 hours before activity 50 mg PO DAILY PRN 10 tabs 0RF sexual activity N52.9 - Male erectile dysfunction, unspecified Changed From furosemide 40 mg PO DAILY 90 tabs 1RF K70.11 - Alcoholic hepatitis with ascites To furosemide 20 mg (1/2 x 40 mg) PO DAILY 90 tabs 1RF K70.11 - Alcoholic hepatitis with ascites
[2024-03-19 16:14] VITALS: BP 132/60; PULSE 86; O2SAT 98; BMI 31.3
--- OUTSIDE RECORDS SUMMARY | 2024-03-25 04:24 | XMS_ITS ---
Author Organization [facility] Address [address] [place] [phone] Care Team Providers Care Employment Law Attorney Name Role Phone Po Heidy PALMER Primary Care Provider Wilber Prater Jr REASON FOR VISIT canceling todays appt Encounters Encounter Location Date Provider Diagnosis [facility] [address] [place] [phone] 12/03/2022 Wilber Castillo Jr PLAN OF TREATMENT No Information
--- OUTSIDE RECORDS SUMMARY | 2024-03-25 04:25 | XMS_ITS | Patient Health Record ---
Author Organization [facility] Address [address] [place] [phone] Care Team Providers Care Dredge Deckhand Name Role Phone Heidy Mojica MD Primary Care Provider Wilber Prater Jr Unavailable [phone] ALLERGIES No Known Allergies REASON FOR REFERRAL [...] Alcoholic hepatitis with ascites (K70.11) Active confirmed [id number] PLAN OF TREATMENT Pending Test Test Name [...] Insured Coverage Start Date Coverage End Date [facility] [address] [address] [place], [place] [id number] ANA TREJO Self - patient is the insured MEDICAL (GENERAL) HISTORY Medical History History ICD Code alcoholic hepatitis with ascites nephrolithiasis childhood asthma Neuropathy Surgical History Surgery Date(Month/Year) susan put in shoulder right 2011
--- OUTSIDE RECORDS SUMMARY | 2024-03-25 04:25 | XMS_ITS ---
Author Organization [facility] Address [address] [place] [phone] Care Team Providers Care Transportation Aide Name Role Phone Po Heidy PALMER Primary Care Provider Wilber Prater Jr [phone] REASON FOR VISIT Patient presents today for liver Encounters Encounter Location Date Provider Diagnosis [facility] [address] [place] [phone] 12/03/2022 Wilber Castillo Jr PLAN OF TREATMENT No Information
--- OUTSIDE RECORDS SUMMARY | 2024-03-25 04:25 | XMS_ITS ---
Author Organization [facility] Address [address] [place] [phone] Care Team Providers Care Well Logger Name Role Phone Po Heidy PALMER Primary Care Provider Wilber Prater Jr REASON FOR VISIT liver Encounters Encounter Location Date Provider Diagnosis [facility] [address] [place] [phone] 11/26/2022 Wilber Castillo Jr PLAN OF TREATMENT No Information
== END 2024-03-19 16:58 | disposition home or self-care (01) ==
PROVIDERS: PCP Internal Medicine; Visit Provider Internal Medicine
DX: K70.31 Alcoholic cirrhosis of liver with ascites (principal); E66.01 Morbid (severe) obesity due to excess calories; Z68.41 Body mass index [BMI] 40.0-44.9, adult; K70.11 Alcoholic hepatitis with ascites; F33.9 Major depressive disorder, recurrent, unspecified; D69.6 Thrombocytopenia, unspecified; F10.10 Alcohol abuse, uncomplicated; Z72.0 Tobacco use; R73.01 Impaired fasting glucose; G47.33 Obstructive sleep apnea (adult) (pediatric); Z12.11 Encounter for screening for malignant neoplasm of colon

== ENCOUNTER → 2024-03-19 16:08 | Outpatient (BNVA) | payer OTHER, SELFPAY | PROVIDERS: PCP Internal Medicine; Visit Provider Internal Medicine | DX: Z23 Encounter for immunization (principal); K70.31 Alcoholic cirrhosis of liver with ascites; F10.10 Alcohol abuse, uncomplicated; E66.01 Morbid (severe) obesity due to excess calories; Z68.41 Body mass index [BMI] 40.0-44.9, adult; K70.11 Alcoholic hepatitis with ascites; R73.01 Impaired fasting glucose; F33.9 Major depressive disorder, recurrent, unspecified; E87.6 Hypokalemia; M25.552 Pain in left hip; M25.551 Pain in right hip; N52.9 Male erectile dysfunction, unspecified; D69.6 Thrombocytopenia, unspecified; Z72.0 Tobacco use | CPT/HCPCS: 90471; 90656; 99212 ==

== ENCOUNTER 2024-06-10 14:06 | Outpatient (AMB) | payer OTHER, SELFPAY ==
--- NOTE | 2024-06-10 14:18 | MHC.PC.OV ---
Vital Signs 06/10/24 14:21 Height 5 ft 11 in Weight 216 lb 4 oz BMI 30.2 BP 120/64 Blood Pressure Location Lt brachial Position Sitting Pulse 91 Pulse Source Pulse Oximeter Temp 97.5 F Temp Source Temporal Artery Scan Pulse Oximetry (%) 97 Oxygen Delivery Method Room Air Intake Visit Reasons: swelling of legs, bilateral Intake Note: Patient is here to follow up on Bilateral leg swelling, unsteady gait. Pricing/Signage Team Member Required: No Seafood Fisherman: Not Required per policy Accompanied by: Self / Same As Patient Allergies No Known Allergies Allergy (Verified 06/10/24 14:20) Medication List - Last Reconciled 06/10/24 by Evelin aMrtinez PA-C celecoxib (Celebrex) 200 mg PO DAILY comp.stocking,thigh,long,large As directed cyanocobalamin (vitamin B-12) 1,000 mcg PO DAILY folic acid 1 mg PO DAILY furosemide 20 mg (1/2 x 40 mg) PO DAILY gabapentin 300 mg PO BID 90 days lidocaine 5% 1 appl topical DAILY PRN multivitamin 1 tab PO DAILY nicotine 1 patch transdermal DAILY potassium chloride ER (Klor-Con M) 20 mEq PO BID sennosides-docusate sodium 8.6-50 mg (Senna-S) 2 tab-caps (2 x 8.6-50 mg) PO BEDTIME 30 days sertraline 25 mg PO DAILY sildenafil 50 mg PO DAILY PRN spironolactone 25 mg PO DAILY sumatriptan succinate (Imitrex) 100 mg orally QD PRN; 30 days triamcinolone acetonide 0.5% 1 appl topical DAILY 5 days Tobacco use date assessed: 06/10/24 Dental Screening Dental Screen Date: 06/10/24 Did you have a dental visit in the last 12 months?: No Did you have a dental problem in the last 6 months where you did not have access to dental care?: No Was dental information given to patient?: Patient has dentist HPI swelling of legs, bilateral HPI Details 48-year-old male with past medical history of obesity, tobacco abuse, hepatic encephalopathy, alcohol dependence, impaired glucose tolerance, obstructive sleep apnea, generalized anxiety disorder, depression, cirrhosis last seen 03/2024 coming in for acute problem. Has been experiencing edema in the legs for the past few weeks. Recent significant weight loss noted due to family loss. Past medical history includes cirrhosis and ascites. Reports compliance with potassium supplementation and diuretics, spironolactone and furosemide. Noted peripheral neuropathy in the toes managed with gabapentin. An observed cut on the leg presents risk of infection, with skin hydration issues and itchiness. He has not seen his GI specialist Dr. Castillo in over a year and has no follow up scheduled. [facility] Medical History Abdominal pain Lower extremity edema Tinea pedis Chemical burn Cellulitis of right leg Right leg swelling Swelling of left hip joint Right groin pain Tobacco abuse Obesity Surgical History No pertinent past surgical history Family History Maternal Grandfather CVA (cerebral vascular accident) Maternal Grandmother Pancreatic cancer Social History Household Members: Family Housing: House Alcohol intake: former Comment: pt refuses bed alarm Patient Tobacco Use Status: Current everyday Tobacco user Tobacco use type: Cigarette Cigarette Packs Per Day: 0.5 Cigarettes Per Day: 7 Years Smoked: smoking since 20 years old e-Cigarette/Vaping Use: Never Used Second Hand Smoke Exposure: Yes Substance Use Type: Marijuana service: No Current occupational status: unemployed Cognitive needs: No Hearing needs: No Vision needs: No Questionnaire PHQ-9 Over the last 2 weeks, how often have you been bothered by any of the following problems? 1. Little interest or pleasure in doing things: not at all 2. Feeling down, depressed, or hopeless: not at all 3. Trouble falling or staying asleep, or sleeping too much: not at all 4. Feeling tired or having little energy: not at all 5. Poor appetite or overeating: not at all 6. Feeling bad about yourself - or that you are a failure or have let yourself or your family down: not at all 7. Trouble concentrating on things, such as reading the newspaper or watching television: not at all 8. Moving or speaking so slowly that other people could have noticed. Or the opposite - being so fidgety or restless that you have been moving around a lot more than usual: not at all 9. Thoughts that you would be better off or of hurting yourself in some way: not at all Total score: 0 Depression Screening Interpretation: Negative Depression Screening Done: Yes Source: Developed by Drs. Errol Hull, Morenita Harrison, Lance Kothari and colleagues, with an educational edward from [employer]. Thrive Questionnaire Date Thrive assessed: 06/10/24 I am a: Patient What is your living situation today?: I have a steady place to live Within the past 12 months, did the food you bought not last and you didn't have the money to get more?: Never true Within the past 12 months, did you worry whether your food would run out before you got money to buy more?: Never true Do you have trouble paying for medicines?: No Do you have trouble getting transportation to medical appointments?: No Do you have trouble paying your heating and electricity bill?: No Do you have trouble taking care of your child, family member or friend?: No Do you have trouble with day-to-day activities such as bathing, preparing meals, shopping, managing finances, etc.?: No Are you currently unemployed and looking for a job?: No Are you interested in more education?: No Please select the resources that you would like help with: None Currently or been in a relationship where the following occur: No concerns reported THRIVE Score: 0 AUDIT C Alcohol Use Questionnaire (AUDIT-C) 1. How often do you have a drink containing alcohol?: Never Total Score: 0 WINIFRED-7 AMB Questionnaire WINIFRED-7 Date WINIFRED - 7 assessed: 06/10/24 Feeling nervous, anxious, or on edge: 0 = Not at all Not being able to stop or control worryin = Not at all Worrying too much about different things: 0 = Not at all Trouble relaxin = Not at all Being so restless that it is hard to sit still: 0 = Not at all Becoming easily annoyed or irritable: 0 = Not at all Feeling afraid as if something awful might happen: 0 = Not at all Total WINIFRED-7 score (0-4 normal; 5-9 mild; 10-14 moderate; 15-21 severe): 0 Source: Developed by Morenita WhitneyW. Hunter, Lance Kothari and colleagues, with an educational edward from [employer]. Review of Systems Const Denies body aches, Denies chills, Denies fever(s), Denies headache(s) and Denies poor appetite Eyes Reports no additional complaints ENT Denies dysphagia, Denies dizziness, Denies headache(s) and Denies odynophagia Card Denies chest pain, Denies syncope, Denies edema, Denies irregular heart rhythm, Denies lightheadedness and Denies dyspnea Resp Denies cough and Denies dyspnea GI Denies abdominal pain, Denies constipation, Denies dysphagia, Denies diarrhea, Denies nausea, Denies odynophagia and Denies vomiting Reports no additional complaints Musc Reports no additional complaints and Denies abnormal gait Skin/Breast Reports system reviewed and no additional complaints, except as documented Neuro Denies abnormal gait, Denies dizziness, Denies syncope and Denies headache(s) Psych Reports no additional complaints Physical exam (Primary Care) Vital Signs: Last Vital Signs Temp 97.5 F 06/10/24 14:21 Pulse 91 06/10/24 14:21 BP 120/64 06/10/24 14:21 Pulse Ox 97 06/10/24 14:21 Oxygen Delivery Method Room Air 06/10/24 14:21 BMI result Body Mass Index 30.2 Tobacco/Smoking Status: Tobacco use Status Tobacco use date assessed 06/10/24 06/10/24 14:21 Patient Tobacco Use Status Current everyday Tobacco 06/10/24 14:18 Tobacco use type Cigarette 06/10/24 14:18 e-Cigarette/Vaping Use Never Used 06/10/24 14:18 PHQ-9: PHQ-9 Score PHQ-9: Total score 0 06/10/24 14:21 Depression Screening Interpretation: Negative Thrive Assessment: Date of Thrive Assessment Date Thrive assessed 06/10/24 06/10/24 14:21 Currently or been in a relationship where the following occur: No concerns reported Const General: cooperative, healthy appearing, comfortable and no acute distress Orientation/consciousness: patient oriented x3 HENMT Head: Yes normocephalic Ears: hearing grossly normal bilaterally General nose exam: Normal external nose present Eyes General: appearance normal, both eyes and all related structures Conjunctivae: conjunctivae normal Neck Neck: Yes full ROM and Yes no lymphadenopathy Resp Effort & Inspection: normal respiratory effort Auscultation: clear to auscultation bilaterally, no crackles, no rales, no rhonchi and no wheezes Cardio Rate: regular rate Rhythm: regular rhythm GI Other: large bruise on the right side of the abdomen Inspection: No Abdominal wall edema, No distended and No caput medusae present Palpation (GI): Soft to palpation, not firm, nontender, no guarding and not rigid Skin Other: LLE with multiple excoriations and surrounding erythema without purulence or drainage General skin exam: no rashes or lesions noted Neuro General: patient oriented x3 Gait exam (Neuro): Normal gait present Extrem Other: bilateral lower extremities with 2+ pitting edema with intact sensation and pulses. General: Yes normal to inspection, Yes full ROM and No edema Psych Affect: normal affect Attitude: cooperative Insight: Good insight present (Psych) Judgement: Good judgement present (Psych) Coding Level of Care Code Est Pt Level 3 (97153) Diagnoses Alcoholic cirrhosis of liver with ascites K70.31 Ascites presence: with ascites Hepatic cirrhosis type: alcoholic cirrhosis Impaired fasting blood sugar R73.01 Class 3 severe obesity due to excess calories with body mass index (BMI) of 40.0 to 44.9 in adult, unspecified whether serious comorbidity present E66.01; Z68.41 Body mass index: BMI 40.0-44.9 Obesity classification: adult class 3 (BMI >= 40) Obesity type: due to excess calories Serious obesity comorbidity presence: unspecified whether serious comorbidity present Leg swelling M79.89 Cellulitis L03.90 Assessment & Plan Assessment & Plan (1) Cirrhosis: Code(s): K74.60 - Unspecified cirrhosis of liver Category: Medical Qualifiers: Ascites presence: with ascites Hepatic cirrhosis type: alcoholic cirrhosis Qualified Code(s): K70.31 - Alcoholic cirrhosis of liver with ascites Plan: Strongly advised patient to follow up with GI specialist to make an appointment. Patient has large bruise on the right side of his abdomen concerning for clotting issues likely related to cirrhosis. Blood work ordered. No evidence of ascites on exam today and patient denies recent weight gain. (2) Impaired fasting blood sugar: Code(s): R73.01 - Impaired fasting glucose Category: Medical Plan: Decrease the amount of carbohydrates such as pasta, bread, rice, and potatoes and limit the amount of sweets. Although fruits are generally healthy they should be eaten in moderation as they are still high in sugar. (3) Obesity: Code(s): E66.9 - Obesity, unspecified Category: Medical Qualifiers: Body mass index: BMI 40.0-44.9 Obesity classification: adult class 3 (BMI >= 40) Obesity type: due to excess calories Serious obesity comorbidity presence: unspecified whether serious comorbidity present Qualified Code(s): E66.01 - Morbid (severe) obesity due to excess calories; Z68.41 - Body mass index [BMI]40.0-44.9, adult Plan: Healthy diet and regular exercise is encouraged. (4) Leg swelling: Code(s): M79.89 - Other specified soft tissue disorders Category: Medical Plan: During the evaluation, I prescribed an antibiotic for the potential infection observed on the leg cut. The patient will continue with furosemide and spironolactone to twice daily for one week. Reminded patient about blood work to recheck potassium levels. Denies any SOB or chest pain and no pain to palpation of the calves. Low suspicion for DVT at this time. (5) Cellulitis: Code(s): L03.90 - Cellulitis, unspecified Category: Medical Plan: I advised using a moisturizer to maintain skin hydration and prevent worsening cutaneous symptoms. Will also treat cellulitis with amoxicillin BID x 7 days. Reviewed with patient red flag symptoms and when to present for re-evaluation. Plan Patient was informed and verbally consented to the use of an ambient scribe for clinic note documentation during this visit. This note was constructed using voice recognition software. While every effort has been made to ensure accuracy and electronic integrated systems mechanic, still areas may have been included sometimes these areas may affect the content or meeting of the given symptoms. Total time spent caring for the patient today was 20 minutes. This includes time spent before the visit reviewing the chart, time spent during the visit, and time spent after the visit and documentation. Orders: Orders Comprehensive Met. Panel Today Z00.00 - Encounter for general adult medical examination without abnormal findings Complete Blood Count Auto Diff Today Z00.00 - Encounter for general adult medical examination without abnormal findings Mixing Study (PT/PTT) Today K70.31 - Alcoholic cirrhosis of liver with ascites Medications: New spironolactone 25 mg PO DAILY 7 tabs 0RF amoxicillin 875 mg PO BID 14 tabs 0RF
[2024-06-10 14:21] VITALS: BP 120/64; PULSE 91; TEMP 36.4; O2SAT 97; BMI 30.2
--- OUTSIDE RECORDS SUMMARY | 2024-06-10 17:23 | XMS_ITS | Clinical Summary ---
Author Organization [facility] Address [address] [place] [address] Phone Care Team Providers Care Director Of Plant Operations Name Role Phone Heidy Mojica MD Primary Care Provider [phone] Social History Tobacco Use Types Packs/Day Years Used Date Smoking Tobacco: Never Assessed Sex and Gender Information Value Date Recorded Sex Assigned at Not on file Legal Sex Male 3:19 PM EST Gender Identity Not on file Sexual Orientation Not on file Plan of Treatment Health Maintenance Due Date Last Done Comments DTaP,Tdap,and Td Vaccines (1 - Tdap) 1996 Hepatitis B Vaccines (1 of 3 - 19+ 3-dose series) 1996 Cholesterol Screening (Lipid Panel) 05/14/2023 Colorectal Cancer Screening: Colonoscopy 05/14/2023 Depression Screening 05/14/2023 HIV Screening 05/14/2023 Hepatitis C Screening 05/14/2023 Social Influencers of Health Screening 05/14/2023 COVID-19 Vaccine ( - 2023-2 5 season) 2023 Influenza Vaccine (#1) 2023 HIB Vaccines Aged Out No longer eligi ble based on patient's age to complete this topic HPV Vaccines Aged Out No longer eligi ble based on patient's age to complete this topic Hepatitis A Vaccines Aged Out No long er eligible based on patient's age to complete this topic IPV Vaccines Aged Out No longer eligi ble based on patient's age to complete this topic MMR Vaccines Aged Out No longer eligi ble based on patient's age to complete this topic Meningococcal ACWY Vaccine Aged Out N o longer eligible based on patient's age to complete this topic Meningococcal B Vacine Aged Out No lo nger eligible based on patient's age to complete this topic Pneumococcal Vaccine: Pediat rics (0 to 5 Years) and At-Risk Patients (6 to 64 Years) Aged Out No longer eligible b ased on patient's age to complete this topic RSV Immunization Patients Un casey 20 months Aged Out No longer eligible b ased on patient's age to complete this topic Varicella Vaccines Aged Out No longer eligible based on patient's age to complete this topic Insurance [employer] Care Teams Director Of Plant Operations Relationship Specialty Start Date End Date Heidy Mojica MD [address] [place] [address] [address] [facility] [place] [address] PCP - General Internal Medicine 03/31/24
--- OUTSIDE RECORDS SUMMARY | 2024-06-10 17:23 | XMS_ITS | Patient Health Record ---
Author Organization [facility] Address [address] [place] [id number] Care Team Providers Care Auto Rental Clerk Name Role Phone Heidy Mojica MD Primary Care Provider Wilber Prater Jr Unavailable [phone] ALLERGIES No Known Allergies REASON FOR [...] Alcoholic hepatitis with ascites (K70.11) Active confirmed [id number] PLAN OF TREATMENT Pending Test Test Name Order Date CHEM 7 PROFILE 11/16/2021 LIVER PROFILE 11/16/2021 CBC with MANUAL DIFFERENTIAL 11/16/2021 CBC w/o DIFF 07/13/2020 PROTHROMBIN TIME (PT, INR) 07/13/2020 PROTHROMBIN TIME (PT, INR) 11/16/2021 HEMOCHROMATOSIS (C282Y) 11/16/2021 PARACENTESIS W GUIDANCE 07/13/2020 US ABDOMEN COMP WITH ELASTOGRAPHY 2021 Liver Fibrosis Pnl 11/16/2021 Insurance Providers Payer Name Payer Address Payer Phone Subscriber Number Group Number Insured Name Patient Relationship to Insured Coverage Start Date Coverage End Date [facility] [address] [address] [place], [place] [id number] ANA TREJO Self - patient is the insured MEDICAL (GENERAL) HISTORY Medical History History ICD Code alcoholic hepatitis with ascites nephrolithiasis childhood asthma Neuropathy Surgical History Surgery Date(Month/Year) susan put in shoulder right 2011
== END 2024-06-10 14:47 | disposition home or self-care (01) ==
PROVIDERS: PCP Internal Medicine
DX: K70.31 Alcoholic cirrhosis of liver with ascites (principal); R73.01 Impaired fasting glucose; E66.01 Morbid (severe) obesity due to excess calories; Z68.41 Body mass index [BMI] 40.0-44.9, adult; M79.89 Other specified soft tissue disorders; L03.90 Cellulitis, unspecified

== ENCOUNTER → 2024-06-10 14:06 | Outpatient (BNVA) | payer OTHER, SELFPAY | PROVIDERS: PCP Internal Medicine | DX: K70.31 Alcoholic cirrhosis of liver with ascites (principal); R73.01 Impaired fasting glucose; E66.01 Morbid (severe) obesity due to excess calories; Z68.41 Body mass index [BMI] 40.0-44.9, adult; R60.0 Localized edema; L03.90 Cellulitis, unspecified; Z71.3 Dietary counseling and surveillance | CPT/HCPCS: 99212 ==

== ENCOUNTER 2024-07-03 09:57 | Inpatient (IN) | payer OTHER, SELFPAY ==
[2024-07-03] VITALS (10 sets, daily range): BP systolic 91–118; BP diastolic 42–57; PULSE 79–102; RESP 12–20; TEMP 36.3–37.1; O2SAT 93–100; BMI 30.5
--- NOTE | ~2024-07-03 | US_ITS ---
CLINICAL HISTORY: cirrhosis,leg edema; ?portal vain thrombosis US abdomen limited Comparison: US/SR - US ABDOMEN COMP W ELASTOGRAPHY - 01/05/22 10:00 EDT Findings: Pancreas is not well visualized. Hepatic steatosis with nodular contour. There is no intrahepatic bile duct dilatation. The common duct is 4 mm in diameter. Cholelithiasis. Gallbladder is distended with wall thickening and edema. Positive sonographic Oliveira's sign. The main portal vein is retrograde/hepatofugal. Trace ascites in the right upper quadrant. IMPRESSION: Cholelithiasis with gallbladder wall thickening and edema concerning for acute cholecystitis. Cirrhotic liver with reversal flow in the main portal vein and trace ascites in the right upper quadrant. This document has been electronically signed by: Noe Resendiz MD on 07/03/2024 19:00:44
--- NOTE | ~2024-07-03 | NM_ITS ---
EXAMINATION: NM HEPATOBILIARY WITH PHARM HISTORY: elevated LFTs, ?acute cholecystitis. TECHNIQUE: An hepatobiliary scan was performed following intravenous administration of 5 mCi technetium 99m-mebrofenin. Images were obtained to 1 hour. Subsequently, the patient received 2.08 mcg IV CCK over 30 minutes. Additional scanning was performed. COMPARISON: Correlation is made with an abdominal ultrasound dated 07/03/2024. FINDINGS: There is normal uptake and excretion of the radiopharmaceutical by the liver. Gallbladder activity is noted at 24 minutes. Common bile duct activity is seen at 30 minutes. Small bowel activity is noted at 48 minutes. After the administration of intravenous CCK, the estimated gallbladder ejection fraction is 28%, which is abnormally low. NM/NM hepatobiliary w pharm IMPRESSION: Abnormally low gallbladder ejection fraction of 28%, compatible with biliary dyskinesia. Electronically signed by: Errol Feliz MD 07/06/2024 03:51 PM EDT
--- NOTE | ~2024-07-03 | US_ITS ---
EXAMINATION: US TRIPLEX LOWER EXTREMITY, BILATERAL CLINICAL INFORMATION: Edema, lower extremities. COMPARISON: None available. TECHNIQUE: Color-flow triplex imaging with spectral analysis and compression Doppler were performed on the bilateral lower extremities. FINDINGS: Respiratory variation, normal compression and augmented flow are noted throughout the bilateral common femoral vein, superficial femoral vein, profunda femoral vein, popliteal vein and midcalf peroneal and posterior tibial venous segments . There is no Ferrari's cyst. Edema pattern without fluid collections in the soft tissues of the lower extremities. US/US venous duplex LE BI IMPRESSION: No acute deep venous thrombosis involving the bilateral lower extremities. Negative for DVT. Electronically signed by: Rj Holcomb MD 07/03/2024 02:59 PM EDT
--- NOTE | ~2024-07-03 | XR_ITS ---
EXAMINATION: XR TIBIA FIBULA 2 VIEWS LEFT HISTORY: eval FB COMPARISON: There are no prior studies available for comparison. FINDINGS: AP and lateral views of the left tibia and fibula are submitted. Osseous mineralization is normal. There is no fracture or dislocation. The joint spaces are preserved. The soft tissues are unremarkable. No radiopaque foreign body is identified. XR/XR tibia fibula LT 2V IMPRESSION: No radiopaque foreign body is identified. Electronically signed by: Errol Feliz MD 07/03/2024 02:28 PM EDT
--- NOTE | ~2024-07-03 | XR_ITS ---
EXAMINATION: XR CHEST CLINICAL INFORMATION: weakness COMPARISON: February 17, 2020 TECHNIQUE: Frontal view of the chest was obtained. FINDINGS: No consolidation, pleural effusion or pneumothorax. No hyperinflation. Cardiomediastinal silhouette size appears normal. Mild multilevel thoracic spondylosis. XR/XR chest 1V IMPRESSION: No acute airspace disease. Electronically signed by: Rj Holcomb MD 07/03/2024 03:37 PM EDT
[2024-07-03 10:55] LABS: INTERNATIONAL NORM RATIO 1.5 (0.9-1.1); Prothrombin Time 17.1 SEC (10.9-12.4)
[2024-07-03 11:04] LABS: Ethanol 355 mg/dL
[2024-07-03 11:15] LABS: Alanine Aminotransferase 41 U/L (0-40); Albumin Level 2.9 g/dL (3.5-5.0); Alkaline Phosphatase 109 U/L (39-117); Anion Gap 18 (12-20); Aspartate Amino Transferase 165 U/L (5-37); Bilirubin Direct 2.3 mg/dL (0.0-0.5); Bilirubin Total 4.2 mg/dL (0.0-1.0); Blood Urea Nitrogen 12 mg/dL (9-16); Calcium 8.3 mg/dL (8.4-10.2); Carbon Dioxide 18 mmol/L (22-29); Chloride 103 mmol/L (96-108); Creatinine Clr Calc Pharmacy 124.5; Estimated Glomerular Filt Rate > 60; Glucose Random 129 mg/dL (60-115); Lipase 39 U/L (8-78); Potassium 4.4 mmol/L (3.3-5.1); Sodium 135 mmol/L (135-145); Total Protein 8.7 g/dL (6.5-8.0)
[2024-07-03 13:39] LABS: Magnesium 1.8 mg/dL (1.6-2.6)
[2024-07-03 13:41] LABS: Basophils Absolute Auto 0.1 X10*3/uL (0.0-0.2); Basophils Percent Auto 0.9 % (0-2); Eosinophils Percent Auto 0.1 % (0-4); Hematocrit 26.9 % (42.0-52.0); Hemoglobin 9.5 g/dl (14.0-18.0); Imm Gran Abs Auto 0.05 X10*3/uL (0.00-0.03); Imm Gran Pct Auto 0.5 % (0.0-0.4); Lymphocytes Absolute Auto 1.4 X10*3/uL (1.2-4.9); Lymphocytes Percent Auto 13.9 % (20-40); Mean Corpuscular HGB Conc 35.3 g/dl (31.0-36.0); Mean Corpuscular Hemoglobin 38.2 pg (27.0-33.0); Mean Platelet Volume 11.1 fL (9.4-12.4); Monocytes Absolute Auto 0.8 X10*3/uL (0.1-1.2); Monocytes Percent Auto 7.8 % (2-11); Neutrophils Absolute Auto 7.5 x10*3/uL (2.0-8.3); Neutrophils Percent Auto 76.8 % (45-73); Platelet Count 104 X10*3/uL (160-400); Red Blood Count 2.49 X10*6/uL (4.60-5.80); Red Cell Distribution Width 14.5 % (11.0-16.0); White Blood Count 9.8 X10*3/uL (4.8-10.8)
--- NOTE | 2024-07-03 13:41 | ED.GENADULT ---
HPI - General Adult General Chief complaint: General Medical Stated complaint: Swelling both legs, L leg lac Time Seen by Provider: 07/03/24 13:12 Source: patient and old records reviewed Mode of arrival: ambulatory Limitations: no limitations History of Present Illness ED Provider: KING DUNCAN narrative: 48 yo male with PMH of cellulitis, heavy ETOH abuse disorder reports prior seizures, ETOH hepatitis, gallstones, GLEN, anemia who is very vague but states he fell off the wagon some time back but has not given me the exact timeline. He is having nausea, leg edema, feels tired. Denies UGIB/LGIB symptoms. He states he tripped and cut his L leg on glass last night but no fall or headstrike. He reports his last drink was yesterday. He is not eating or drinking. He has no fevers or abdominal pain. He is very anxious. He notes his skin is yellow. Again he is very vague about noticing these things - ultimately he came in as his leg suffered a laceration and it is too big to care for at home. MD complaint: weakness, left leg laceration - laceration occurred 07/02 Onset (ago): week(s) Location: left and lower extremity Radiation: non-radiation Severity: moderate Relieving factors: rest Exacerbating factors: eating, movement and other (exertion) Associated symptoms: loss of appetite, malaise, nausea/vomiting and weakness Treatments prior to arrival: none Related Data Home Medications ?Medication ?Instructions ?Recorded ?Confirmed multivitamin 1 tab PO DAILY 02/15/20 06/10/24 Previous Rx's ?Medication ?Instructions ?Recorded lidocaine 5 % topical ointment 1 appl topical DAILY PRN pain 09/24/22 #35.44 grams triamcinolone acetonide 0.5 % 1 appl topical DAILY 5 days #45 01/10/23 topical cream grams sennosides 8.6 mg-docusate sodium 2 tab-cap (2 x 8.6-50 mg) PO 05/15/23 50 mg tablet (Senna-S) BEDTIME 30 days #60 tabs cyanocobalamin (vitamin B-12) 1,000 mcg PO DAILY #90 caps 08/23/23 1,000 mcg capsule folic acid 1 mg tablet 1 mg PO DAILY #90 tabs 08/23/23 gabapentin 300 mg capsule 300 mg PO BID 90 days #180 caps 08/23/23 spironolactone 25 mg tablet 25 mg PO DAILY #90 tabs 08/23/23 comp.stocking,thigh,long,large #2 ea 12/04/23 nicotine 14 mg/24 hr daily 1 patch transdermal DAILY #28 ea 12/04/23 transdermal patch sertraline 25 mg tablet 25 mg PO DAILY #30 tabs 12/04/23 furosemide 40 mg tablet 20 mg (1/2 x 40 mg) PO DAILY #90 03/19/24 tabs potassium chloride 20 mEq 20 meq PO BID #10 tabs 03/19/24 tablet,extended release(part/cryst) (Klor-Con M) sildenafil 50 mg tablet 50 mg PO DAILY PRN sexual activity 03/19/24 #10 tabs amoxicillin 875 mg tablet 875 mg PO BID #14 tabs 06/10/24 spironolactone 25 mg tablet 25 mg PO DAILY #7 tabs 06/10/24 celecoxib 200 mg capsule (Celebrex) 200 mg PO DAILY #30 caps 06/18/24 sumatriptan succinate 100 mg 100 mg PO .COMPLEX PRN migraine 06/18/24 tablet (Imitrex) headache 30 days #10 tabs Allergies Allergy/AdvReac Type Severity Reaction Status Date / Time No Known Allergies Allergy Verified 07/03/24 10:19 Review of Systems Review of Systems: Constitutional : No Fever, No Chills, pos Fatigue ENT/Mouth : No sore throat, No Rhinorrhea Eyes: No Eye Pain, No Swelling, No Redness Cardiovascular : No Chest Pain, No SOB, No Dyspnea on Exertion, pos edema Respiratory : No Cough, No Sputum Gastrointestinal : pos Nausea, No Vomiting, No Diarrhea, No abdominal Pain Genitourinary : No Dysuria, No Urinary Frequency, No Hematuria, Musculoskeletal : No joint pain, pos Myalgias, No Joint Swelling Skin : No Skin Lesions, No rash, pos laceration Neuro : pos Weakness, No Numbness, No Dizziness, positive Headache Psych : pos Anxiety/Panic, No Depression All other systems reviewed and are negative PMFSH Past Medical History Attestation statement: The following information was validated with the patient. Source: old records reviewed Medical History Abdominal pain Lower extremity edema Tinea pedis Chemical burn Cellulitis of right leg Right leg swelling Swelling of left hip joint Right groin pain Tobacco abuse Obesity Surgical History No pertinent past surgical history Family History Family History Maternal Grandfather CVA (cerebral vascular accident) Maternal Grandmother Pancreatic cancer Social History Social History Household Members: Family Housing: House Alcohol intake: former Comment: pt refuses bed alarm Patient Tobacco Use Status: Current everyday Tobacco user Tobacco use type: Cigarette Cigarette Packs Per Day: 0.5 Cigarettes Per Day: 7 Years Smoked: smoking since 20 years old e-Cigarette/Vaping Use: Never Used Second Hand Smoke Exposure: Yes Substance Use Type: Marijuana Advance Directives: No Advance Directives Information Provided: No service: No Current occupational status: unemployed Cognitive needs: No Hearing needs: No Vision needs: No Physical Exam ED Vital Signs: Vital Signs - 24 hr 07/03/24 10:16 07/03/24 13:09 Temperature 98 F 97.4 F Pulse Rate 102 H 92 Respiratory Rate 20 19 Blood Pressure 118/57 L 110/51 L Pulse Oximetry 98 100 Oxygen Delivery Method Room Air Room Air BMI result Body Mass Index 30.5 Appearance: Alert. Oriented X3. Mild acute distress. Eyes: Pupils equal, round and reactive to light. scleral icterus ENT: Pharynx very dry, has brown material in teeth Neck: Normal inspection. Neck supple. CVS: Normal heart rate and rhythm. Pulses normal. Respiratory: No respiratory distress. Breath sounds normal. Abdomen: Soft and nontender. Skin: Skin warm and dry. jaundiced skin color. Extremities: 3+ symmetric pitting edema, L lateral leg 6cm open subq laceration distal NV intact Neuro: Oriented X 3. No motor deficit. No sensory deficit. CN2-12 intact Medications Administered Generic Name Dose Route Start Last Admin Trade Name Freq PRN Reason Stop Dose Admin Furosemide 40 mg 07/03/24 16:30 07/03/24 16:54 Furosemide 40 Mg/4 Ml Vial IVPUSH 40 mg DAILY SPEEDY Administration Protocol Nicotine 21 mg 07/03/24 16:15 07/03/24 16:53 Nicotine 21 Mg Patch.Td24 TRANSDERMA 21 mg DAILY SPEEDY Administration Discontinued Medications Generic Name Dose Route Start Last Admin Trade Name Jeffq PRN Reason Stop Dose Admin Diphtheria/Tetanus/Acell Pertussis 0.5 ml 07/03/24 13:22 07/03/24 15:37 Diphth,Pertus(Acell),Tet Adult 0.5 Ml Syringe IM 07/03/24 13:23 0.5 ml .ONCE ONE Administration Thiamine HCl 200 mg/ Sodium 102 mls @ 204 mls/hr 07/03/24 13:14 07/03/24 15:37 Chloride IV 07/03/24 13:43 Infused ONCE ONE Infusion Magnesium Sulfate 2 gm in 50 mls @ 25 mls/hr 07/03/24 13:14 07/03/24 15:06 Magnesium Sulfate/H2o IV 07/03/24 15:13 25 mls/hr ONCE ONE Administration Albumin Human 100 mls @ 133.333 mls/hr 07/03/24 13:30 07/03/24 16:53 Kedbumin 25 % IV 07/03/24 15:14 133.33 mls/hr Q1H SPEEDY Administration Lidocaine HCl 5 ml 07/03/24 13:24 07/03/24 14:54 Lidocaine Hcl 1 % Mpf 5 Ml Vial SUBCUT 07/03/24 13:25 5 ml ONCE ONE Administration Lidocaine HCl 20 ml 07/03/24 14:46 07/03/24 16:33 Lidocaine Hcl 1 % 20 Ml Vial SUBCUT 07/03/24 14:47 Not Given ONCE ONE Pantoprazole Sodium 40 mg 07/03/24 13:22 07/03/24 14:54 Pantoprazole Sodium 40 Mg/10 Ml Vial IVPUSH 07/03/24 13:23 40 mg ONCE ONE Administration Phenobarbital Sodium 301 mg 07/03/24 14:00 07/03/24 15:16 Phenobarbital Sodium 130 Mg/Ml Im Once IM 07/03/24 14:01 301 mg ONCE ONE Administration Protocol Procedures Laceration Laceration 1: Site: lower extremity Side (If applicable): left Size (cm): 6 Description: linear Depth: simple, single layer (but due to edema is stretched open) Local Anesthetic: lidocaine 1% Amount of anesthesia used (mL): 5 Pre-repair: wound explored, irrigated extensively and deep structures intact Skin layer closed with: nylon Size (cm): 3-0 Number of sutures: 12 Technique: simple, interrupted (9), horizontal mattress (1) and other (2 vertical mattress) Medical Decision Making Medical Decision Making [facility] Narrative: 48 yo male with PMH of cellulitis, heavy ETOH abuse disorder reports prior seizures, ETOH hepatitis, gallstones, GLEN, anemia here with c/o nausea, malaise and not feeling well - based of presentation and appearance the patient has ETOH hepatitis, ETOH withdrawal, dehydration. I have ordered thiamine, albumin, magnesium, phenobarb. He needs DVT studies though I suspect 3rd spacing. He denies GIB symptoms but has dried brown material on his teeth. IV protonix ordered. Planned admit. Will update Tdap and suture his leg with mattress stitch. No CT head ordered no signs of trauma and adamantly denies striking head. He has no abdominal pain WBC count or fevers to suggest SBP Differential Diagnosis Differential Diagnoses: The differential diagnosis associated with the presentation includes ETOH withdrawal, lyte abnormality, laceration, hepatitis Admission/Observation Consideration of admission/observation: Escalation of care including admission/observation considered admit for further management REMOVE SUTURES IN 10 DAYS Lab Data [facility] Lab Attestation statement: I reviewed the patient's lab results. 07/03/24 13:32 07/03/24 10:42 Labs: Lab Results 07/03/24 07/03/24 Range/Units 10:42 13:32 WBC 9.8 (4.8-10.8) X10*3/uL RBC 2.49 L D (4.60-5.80) X10*6/uL Hgb 9.5 L D (14.0-18.0) g/dl Hct 26.9 L D (42.0-52.0) % MCV 108.0 H (80.0-98.0) fL MCH 38.2 H (27.0-33.0) pg MCHC 35.3 (31.0-36.0) g/dl RDW 14.5 (11.0-16.0) % Plt Count 104 L (160-400) X10*3/uL MPV 11.1 (9.4-12.4) fL Immature Gran % (Auto) 0.5 H (0.0-0.4) % Neut % (Auto) 76.8 H (45-73) % Lymph % (Auto) 13.9 L (20-40) % [place] % (Auto) 7.8 (2-11) % Eos % (Auto) 0.1 (0-4) % Baso % (Auto) 0.9 (0-2) % Lymph # (Auto) 1.4 (1.2-4.9) X10*3/uL [place] # (Auto) 0.8 (0.1-1.2) X10*3/uL Eos # (Auto) 0.0 (0.0-0.4) X10*3/uL Baso # (Auto) 0.1 (0.0-0.2) X10*3/uL Abs Immat Gran (auto) 0.05 H (0.00-0.03) X10*3/uL Absolute Neuts (auto) 7.5 (2.0-8.3) x10*3/uL Absolute Nucleated RBC 0.000 (0.0-0.012) X10*3/uL Nucleated RBC % (auto) 0.0 (0.0-0.2) /100WBC PT 17.1 H (10.9-12.4) SEC INR 1.5 H (0.9-1.1) Sodium 135 (135-145) mmol/L Potassium 4.4 D (3.3-5.1) mmol/L Chloride 103 (96-108) mmol/L Carbon Dioxide 18 L (22-29) mmol/L Anion Gap 18 (12-20) BUN 12 (9-16) mg/dL Creatinine 0.89 (0.5-1.4) mg/dL Estim Creat Clear Calc 124.5 Estimated GFR > 60 Random Glucose 129 H (60-115) mg/dL Calcium 8.3 L D (8.4-10.2) mg/dL Magnesium 1.8 (1.6-2.6) mg/dL Total Bilirubin 4.2 H (0.0-1.0) mg/dL Direct Bilirubin 2.3 H (0.0-0.5) mg/dL AST 165 H (5-37) U/L ALT 41 H (0-40) U/L Alkaline Phosphatase 109 (39-117) U/L Total Protein 8.7 H (6.5-8.0) g/dL Albumin 2.9 L (3.5-5.0) g/dL Lipase 39 (8-78) U/L Ethyl Alcohol 355 H* mg/dL Independent Interpretation I performed an independent interpretation of an: EKG, Plain X-Ray (normal ) and Ultrasound (no DVT) Interpretation: Rate: 89 Rhythm: NSR [place]: normal Normal P waves. Normal [place]. Normal QRS complex. ST T wave : nonspecific ST T wave changes, no MUSA qTC: 489 prior studies: no acute ischemia The study has been interpreted contemporaneously by me. . Radiology Impression Discussion of test interpretation with radiology: I have reviewed the radiologist's reading. External Record Review External record reviewed: Inpatient record and Outpatient record Discharge Plan Discharge Clinical Impression: Leg edema Alcoholic hepatitis Qualifiers: Ascites presence: with ascites Qualified Code(s): K70.11 - Alcoholic hepatitis with ascites Laceration of leg, left Qualifiers: Encounter type: initial encounter Qualified Code(s): S81.812A - Laceration without foreign body, left lower leg, initial encounter Patient Disposition: Admitted As Inpatient
[2024-07-03 13:43] LABS: MANUAL DIFF FLAG NO
--- NOTE | 2024-07-03 14:10 | ECG_ITS ---
Test Reason : QTC CHECK Blood Pressure : */* mmHG Vent. Rate : 89 BPM Atrial Rate : 89 BPM P-R Int : 134 ms QRS Dur : 98 ms QT Int : 402 ms P-R-T Axes : 36 5 46 degrees QTcB Int : 489 ms Normal sinus rhythm Prolonged QT Abnormal ECG When compared with ECG of 09-Mar-2020 17:13, QT has shortened Referred By: Ximena Cantor Electronically Signed By: Dom Martinez
[2024-07-03] MEDS: Lidocaine HCl 1 % MPF 5 ML VIAL SUBCUT (14:54)
[2024-07-03] MEDS: Pantoprazole Sodium 40 MG/10 ML VIAL IVPUSH (14:54)
[2024-07-03] MEDS: Thiamine HCL 200 MG in 0.9 % Sodium Chloride 100 ML 204 MG IV (14:59)
[2024-07-03] MEDS: Magnesium Sulfate/H2O 2 GM/50 ML PIGGYBACK IV (15:06)
[2024-07-03] MEDS: PHENobarbitaL sodium 130 MG/ML IM ONCE 301 MG IM (15:16)
[2024-07-03] MEDS: Albumin Human 25 % 100 ML 133.33 ML IV ×4 (15:36→22:20)
[2024-07-03] MEDS: Diphth,Pertus(ACell),Tet Adult 0.5 ML SYRINGE IM (15:37)
--- NOTE | 2024-07-03 16:25 | PM.IMHP ---
History of Present Illness Date of Service: 07/03/24 Attending physician on admission: Kushal Davies Chief Complaint: leg laceration This is a 48-year-old male with history of alcoholic liver cirrhosis who presents to the emergency department due to a left lower extremity laceration. He sustained the laceration yesterday at his mother's house. This was evaluated and repaired in the emergency department. In addition he is reporting significant lower extremity swelling over the past 1 month. He was seen by his PCP approximately 1 month ago and was told to increase his dose of Aldactone to twice daily which he reports he has been compliant with. Lower extremity Doppler ultrasound in the emergency department was negative for blood clot. He denies any shortness of breath. He continues to drink a half a pt of vodka daily. In the emergency department LFTs were elevated although at the patient's baseline. Alcohol level was 355. He was started on phenobarbital protocol, treated with albumin, IV ppi, IV magnesium, IV thiamine. Review of Systems Review of Systems: Yes all other systems are reviewed and are negative Constitutional: Constitutional: Denies chills and Denies fever(s) Cardiovascular: Cardiovascular: Denies chest pain and Denies palpitations Respiratory: Respiratory: Denies cough Gastrointestinal: Gastrointestinal: Denies abdominal pain, Denies nausea and Denies vomiting Endocrine: Endocrine: Denies palpitations [facility] Medical History Abdominal pain Lower extremity edema Tinea pedis Chemical burn Cellulitis of right leg Right leg swelling Swelling of left hip joint Right groin pain Tobacco abuse Obesity Family History Maternal Grandfather CVA (cerebral vascular accident) Maternal Grandmother Pancreatic cancer Surgical History No pertinent past surgical history Social History Household Members: Family Housing: House Alcohol intake: former Comment: pt refuses bed alarm Patient Tobacco Use Status: Current everyday Tobacco user Tobacco use type: Cigarette Cigarette Packs Per Day: 0.5 Cigarettes Per Day: 7 Years Smoked: smoking since 20 years old e-Cigarette/Vaping Use: Never Used Second Hand Smoke Exposure: Yes Substance Use Type: Marijuana Advance Directives: No Advance Directives Information Provided: No service: No Current occupational status: unemployed Cognitive needs: No Hearing needs: No Vision needs: No Meds Allergies Allergy/AdvReac Type Severity Reaction Status Date / Time No Known Allergies Allergy Verified 07/03/24 10:19 Active Medications: Current Medications Acetaminophen (Acetaminophen 325 Mg Tablet) 650 mg PO Q6H PRN PRN Reason: Pain, Mild 1-3,fever,headache Calcium Carbonate (Calcium Carbonate 750 Mg Tab.Chew) 750 mg PO Q4H PRN PRN Reason: Heartburn Magnesium Hydroxide (Milk Of Magnesia 30 Ml Oral.Susp) 30 ml PO DAILY PRN PRN Reason: Constipation Melatonin (Melatonin 3 Mg Tablet) 6 mg PO BEDTIME PRN PRN Reason: Insomnia Nicotine (Nicotine 21 Mg Patch.Td24) 21 mg TRANSDERMA DAILY [facility] Pharmacy Consult (Consult Rx Etoh Phenob Im/Po) 1 each MISCELLANE ONCE PRN; Protocol PRN Reason: Consult order Phenobarbital (Phenobarbital 30 Mg Tablet) 60 mg PO BID [facility]; Protocol Stop: 07/05/24 21:01 Phenobarbital (Phenobarbital 30 Mg Tablet) 30 mg PO BID [facility]; Protocol Stop: 07/07/24 21:01 Phenobarbital (Phenobarbital 30 Mg Tablet) 30 mg PO DAILY [facility]; Protocol Stop: 07/09/24 09:01 Phenobarbital Sodium (Phenobarbital Sodium 130 Mg/Ml Vial Im Q3hx2) 226 mg IM Q3H [facility]; Protocol Stop: 07/03/24 20:01 Sodium Chloride (0.9 % Sodium Chloride Flush 3 Ml Syringe) 3 ml IVFLUSH QSHIFT [facility] Home Medications ?Medication ?Instructions ?Recorded ?Confirmed ?Last Taken ?Type multivitamin 1 tab PO DAILY 02/15/20 06/10/24 Unknown History Physical Exam Vital Signs and Narrative: Vital Signs: Last Vital Signs Temp 97.4 F 07/03/24 13:09 Pulse 92 07/03/24 13:09 Resp 19 07/03/24 13:09 BP 110/51 L 07/03/24 13:09 Pulse Ox 100 07/03/24 13:09 O2 Del Method Room Air 07/03/24 13:09 BMI result Body Mass Index 30.5 Const: Other: chronically ill appearing General: awake, Physically active and poor hygiene HEENT: Teeth and gingiva: poor dentition Resp: Effort & Inspection: normal respiratory effort, able to speak in complete sentences, no respiratory distress and no use of accessory muscles Cardio: Rate: regular rate GI: Inspection: No distended Palpation (GI): Soft to palpation and nontender Neuro: General: moves all extremities and CN's II-XI intact bilaterally Extrem: Other: significant edema b/l lower extremities left leg wrapped in shelly bandage to cover left leg wound -recently dressed, did not unwrap Results Labs 07/03/24 13:32 07/03/24 10:42 Labs: Laboratory Results - last 24 hr 07/03/24 07/03/24 10:42 13:32 MCV 108.0 H MCH 38.2 H MCHC 35.3 RDW 14.5 Plt Count 104 L MPV 11.1 Immature Gran % (Auto) 0.5 H Neut % (Auto) 76.8 H Lymph % (Auto) 13.9 L [place] % (Auto) 7.8 Eos % (Auto) 0.1 Baso % (Auto) 0.9 Lymph # (Auto) 1.4 [place] # (Auto) 0.8 Eos # (Auto) 0.0 Baso # (Auto) 0.1 Abs Immat Gran (auto) 0.05 H Absolute Neuts (auto) 7.5 Absolute Nucleated RBC 0.000 Nucleated RBC % (auto) 0.0 PT 17.1 H INR 1.5 H Anion Gap 18 Estim Creat Clear Calc 124.5 Estimated GFR > 60 Random Glucose 129 H Calcium 8.3 L D Magnesium 1.8 Total Bilirubin 4.2 H Direct Bilirubin 2.3 H AST 165 H ALT 41 H Alkaline Phosphatase 109 Total Protein 8.7 H Albumin 2.9 L Lipase 39 Ethyl Alcohol 355 H* Imaging Radiologist's Impressions: Impressions Venous Duplex 07/03/24 13:22 IMPRESSION: No acute deep venous thrombosis involving the bilateral lower extremities. Negative for DVT. Electronically signed by: Rj Holcomb MD 07/03/2024 02:59 PM EDT RP Tibia/Fibula X-Ray 07/03/24 13:40 IMPRESSION: No radiopaque foreign body is identified. Electronically signed by: Errol Feliz MD 07/03/2024 02:28 PM EDT RP Chest X-Ray 07/03/24 15:20 IMPRESSION: No acute airspace disease. Electronically signed by: Rj Holcomb MD 07/03/2024 03:37 PM EDT RP Assessment and Plan (1) Leg edema: Status: Acute (2) Laceration of leg, left: Qualifiers: Encounter type: initial encounter Qualified Code(s): S81.812A - Laceration without foreign body, left lower leg, initial encounter Status: Acute Plan This is a 48-year-old male history of alcoholic liver cirrhosis who presents to the emergency room today with left leg laceration found to be acutely intoxicated, with significant lower extremity edema and at risk for alcohol withdrawal Alcohol use disorder with higher risk for withdrawal etoh level 355 on arrival; h/o etoh withdawal seizures Started on phenobarbital protocol Declines evaluation by addiction Medicine Service Supplementation with folic acid, thiamine Follow CIWA score Follow electrolytes Alcoholic liver cirrhosis with thrombocytopenia LFTs chronically elevated Platelets chronically low INR 1.5 GI consult pending, has not followed up outpatient for several years Lower extremity edema Likely due to above cirrhosis and hypoalbuminemia b/l dopper negative for DVT albumin 2.9 - received albumin in ED will treat with IV lasix check abdominal US to rule out portal vain thrombus LLE laceration repaired with 12 sutures in ED (07/03) will need to be removed after 7-10 days Tobacco dependence Smoking cessation advised NRT Chronic macrocytic anemia H/H lower then previous baseline but denies active bleeding Continue IV PPI for now Trend CBC DVT prophylaxis-avoid chemoprophylaxis due to anemia, elevated INR; avoid mechanical prophylaxis due to significant lower extremity edema Patient will likely require 2 midnight stay in the hospital for management of alcohol withdrawal, liver cirrhosis requiring specialist evaluation Quality Stroke Does the patient have a stroke diagnosis?: No VTE Prior VTE?: No VTE Risk Level:: Medical - moderate - high VTE Device Contraindication: Treatment Not Indicated VTE Drug Contraindication: Treatment Not Indicated
[2024-07-03 16:46] LABS: INTERNATIONAL NORM RATIO 1.8 (0.9-1.1); Prothrombin Time 20.8 SEC (10.9-12.4)
[2024-07-03] MEDS: Nicotine 21 MG PATCH.TD24 TRANSDERMA (16:53)
[2024-07-03] MEDS: Furosemide 40 MG/4 ML VIAL IVPUSH (16:54)
[2024-07-03] MEDS: PHENobarbitaL sodium 130 MG/ML VIAL IM Q3Hx2 226 MG IM (18:34)
--- NOTE | 2024-07-03 19:24 | PHA.MEDREC ---
Addendum entered by Mitchell Foster [facility] 07/03/24 19:43: med rec reviewed Original Note: Pharmacy Consult ? Medication Reconciliation Pharmacy has completed the medication reconciliation. Spoke to patient to confirm med list. Patient states he no longer takes Amoxicillin 875 mg, Celecoxib 200 mg, Lidocaine 5 % ointment, Potassium chlor 20 mEq 20 mg, Sildenafil 50 mg, and Triamcinolone acet 0.5% cream. Patient states he takes Gabapentin 300 mg TID, however there are no claims. So, left off med rec.
--- NOTE | 2024-07-03 19:52 | MHC.EDTECH ---
This pct assumed care of Patient at 1900 ,vitals taken ,Patient in great sprits watching television ,Call hassan within Pt reach .Patient was re hooked to monitoring specialist ,warm blanket given .
--- NOTE | 2024-07-03 21:20 | PC.NURSE ---
BP's 87-97/40's, HR in 80's, sinus rhythm. Dr. Rich notified, per MD hold Phenobarb IM for low BP's.
[2024-07-03] MEDS: 0.9 % Sodium Chloride Flush 3 ML SYRINGE IVFLUSH (23:24)
[2024-07-03] MEDS: Albumin Human 25 % 100 ML IV (23:47)
--- NOTE | 2024-07-03 23:50 | PC.NURSE ---
Dr. Rich informed of BP's remaining soft after 2 bags of Albumin 92/51, P 79, RR 13, O2 Sat 95% RA. Patient asymptomatic, denies dizziness, lightheadedness, shortness of breath, chest pain. Patient currently resting in stretcher bed, watching TV, call hassan in reach, plan of care ongoing.
--- NOTE | 2024-07-03 23:53 | PC.NURSE ---
3 rd bag of Albumin IV hung and infusing via 20 IV line in right forearm, patient tolerating IV infusion well, currently offers no complaints, call patient's reach.
[2024-07-04] VITALS (14 sets, daily range): BP systolic 88–128; BP diastolic 47–79; PULSE 80–91; RESP 13–29; TEMP 36.8–37.2; O2SAT 95–99; BMI 32.2
--- NOTE | 2024-07-04 01:37 | MHC.EDTECH ---
Patient does not want us to remove dinner tray from his room,rn aware .
--- NOTE | 2024-07-04 01:58 | PM.EVENT ---
Event Note Date of Service: 07/04/24 Event Note: Nurse reported hypotension. Will resuscitate with IV colloids. No sepsis. Time Spent With Patient Time: Total time managing care of this patient today ____ minutes.
[2024-07-04] MEDS: Lactated Ringers 1,000 ML 999 ML IV (02:04)
[2024-07-04 02:41] LABS: Lactic Acid 2.6 mmol/L (0.5-2.0)
--- NOTE | 2024-07-04 02:45 | PC.NURSE ---
Dr. Rich informed of critical lactic acid 2.6, no new orders at this time.
[2024-07-04 03:15] LABS: Folate 5.8 ng/mL (> or = 4.0); Vitamin B12 1610 pg/mL (200-900)
[2024-07-04 03:39] LABS: Hematocrit 21.4 % (42.0-52.0); Hemoglobin 7.7 g/dl (14.0-18.0); Mean Corpuscular Hemoglobin 38.9 pg (27.0-33.0); Mean Corpuscular Volume 108.1 fL (80.0-98.0); Red Blood Count 1.98 X10*6/uL (4.60-5.80); Red Cell Distribution Width 14.5 % (11.0-16.0); White Blood Count 5.1 X10*3/uL (4.8-10.8)
[2024-07-04 03:44] LABS: Platelet Count 59 X10*3/uL (160-400)
[2024-07-04 03:55] LABS: Alanine Aminotransferase 33 U/L (0-40); Albumin Level 3.4 g/dL (3.5-5.0); Alkaline Phosphatase 73 U/L (39-117); Anion Gap 14 (12-20); Aspartate Amino Transferase 109 U/L (5-37); Bilirubin Direct 1.9 mg/dL (0.0-0.5); Bilirubin Total 4.1 mg/dL (0.0-1.0); Blood Urea Nitrogen 13 mg/dL (9-16); Calcium 8.3 mg/dL (8.4-10.2); Carbon Dioxide 25 mmol/L (22-29); Chloride 100 mmol/L (96-108); Creatinine Clr Calc Pharmacy 109.7; Estimated Glomerular Filt Rate > 60; Glucose Random 96 mg/dL (60-115); Potassium 3.8 mmol/L (3.3-5.1); Sodium 135 mmol/L (135-145); Total Protein 7.4 g/dL (6.5-8.0)
[2024-07-04 04:17] LABS: Reflex Lactate? Lactic Acid Added
--- NOTE | 2024-07-04 05:09 | PC.NURSE ---
BP 113/57, patient reports pain in left lower 4/10-at tolerable level. Patient offered Tylenol for pain management, patient refused Tylenol. Patient not in distress, watching TV, call placed within patient's reach.
[2024-07-04] MEDS: Albumin Human 25 % 100 ML IV (05:37)
[2024-07-04] MEDS: Pantoprazole Sodium 40 MG/10 ML VIAL IVPUSH ×2 (05:38→16:32)
[2024-07-04 06:00] LABS: ~Lactic Acid-LAB USE ONLY 3.7 mmol/L (0.5-2.0)
--- NOTE | 2024-07-04 06:17 | PC.NURSE ---
Patient away to CT scan.
[2024-07-04 07:38] LABS: Reflex Lactate? 2 Y
[2024-07-04 08:25] LABS: ~Lactic Acid-LAB USE ONLY 3.1 mmol/L (0.5-2.0)
[2024-07-04] MEDS: Folic Acid 1 MG TABLET PO (08:55)
[2024-07-04] MEDS: Nicotine 21 MG PATCH.TD24 TRANSDERMA (08:55)
[2024-07-04] MEDS: Thiamine HCL 100 MG TABLET PO (08:55)
[2024-07-04] MEDS: Sertraline HCL 25 MG TABLET PO (08:55)
[2024-07-04] MEDS: Multivitamin TABLET 1 TAB PO (08:55)
[2024-07-04] MEDS: 0.9 % Sodium Chloride Flush 3 ML SYRINGE IVFLUSH ×2 (08:56→16:32)
[2024-07-04 09:04] LABS: Cancel Lactic Acid Canceled
--- NOTE | 2024-07-04 09:39 | PM.CNGS ---
History of Present Illness Consult details Consult date: 07/04/24 Narrative: 48-year-old male patient noted to have markedly elevated LFTs and possible gallstones on ultrasound. He was a past history significant for heavy alcohol abuse and has been drinking a half pt of vodka daily. He reports that he relapsed with his alcohol after the of family members. He was previously noted to have elevated LFTs and gallstones going back several years ago. He apparently had a fall at his mother's house resulting in a laceration in his left leg which was repaired by the emergency room physician. Alcohol level at that time was noted to be 355. Repeat LFTs again noted a elevation. Ultrasound of the abdomen indicates a distended gallbladder with gallstones and thickened gallbladder wall. No evidence of intrahepatic ductal dilatation or common bile duct dilatation was noted. Wall thickness appears less than the previous ultrasound in 2021. Surgical consultation was requested for management of gallstones. Patient denies a history of abdominal pain but does report some nausea with eating. Review of Systems Constitutional: Constitutional: Reports body ache(s) and Reports poor appetite Cardiovascular: Cardiovascular: Reports Abdominal Distension, Denies chest pain, Denies irregular heart rhythm and Reports dyspnea on exertion Respiratory: Respiratory: Denies chest congestion, Denies cough, Denies pain with cough and Reports dyspnea on exertion Gastrointestinal: Gastrointestinal: Denies abdominal pain, Reports bloating, Denies hematochezia, Reports nausea and Denies vomiting Integumentary/Breasts: Skin/Breast: Reports change in pigmentation Psychiatric: Psychiatric: Reports depression PMFSH Past Medical History Medical History Abdominal pain Lower extremity edema Tinea pedis Chemical burn Cellulitis of right leg Right leg swelling Swelling of left hip joint Right groin pain Tobacco abuse Obesity Family History Family History Maternal Grandfather CVA (cerebral vascular accident) Maternal Grandmother Pancreatic cancer Surgical History Surgical History No pertinent past surgical history Social History Social History Household Members: Family Housing: House Alcohol intake: current Alcohol intake frequency: 3 or more drinks per day Alcohol type: hard liquor Comment: pt refuses bed alarm Patient Tobacco Use Status: Current everyday Tobacco user Tobacco use type: Cigarette Cigarette Packs Per Day: 0.5 Cigarettes Per Day: 7 Years Smoked: smoking since 20 years old Smoked in Last 30 Days: Yes e-Cigarette/Vaping Use: Never Used Second Hand Smoke Exposure: Yes Use of substances other than those prescribed or required for medical reasons: Yes Substance Use Type: Marijuana Substance Use Frequency: Socially Advance Directives: No Advance Directives Information Provided: No Do you have a plan to hurt others: No Plan Nutrition Risks: No Nutritional Risk service: No Current occupational status: unemployed Cognitive needs: No Hearing needs: No Vision needs: No Meds Allergies Allergy/AdvReac Type Severity Reaction Status Date / Time No Known Allergies Allergy Verified 07/03/24 10:19 Active Medications: Current Medications Acetaminophen (Acetaminophen 325 Mg Tablet) 650 mg PO Q6H PRN PRN Reason: Pain, Mild 1-3,fever,headache Calcium Carbonate (Calcium Carbonate 750 Mg Tab.Chew) 750 mg PO Q4H PRN PRN Reason: Heartburn Folic Acid (Folic Acid 1 Mg Tablet) 1 mg PO DAILY [facility] Last Admin: 07/04/24 08:55 Dose: 1 mg Magnesium Hydroxide (Milk Of Magnesia 30 Ml Oral.Susp) 30 ml PO DAILY PRN PRN Reason: Constipation Melatonin (Melatonin 3 Mg Tablet) 6 mg PO BEDTIME PRN PRN Reason: Insomnia Multivitamins/Vitamin C (Multivitamin Tablet) 1 tab PO DAILY [facility] Last Admin: 07/04/24 08:55 Dose: 1 tab Nicotine (Nicotine 21 Mg Patch.Td24) 21 mg TRANSDERMA DAILY [facility] Last Admin: 07/04/24 08:55 Dose: 21 mg Pantoprazole Sodium (Pantoprazole Sodium 40 Mg/10 Ml Vial) 40 mg IVPUSH DAILY@0630 [facility] Last Admin: 07/04/24 05:38 Dose: 40 mg Pharmacy Consult (Consult Rx Etoh Phenob Im/Po) 1 each MISCELLANE ONCE PRN; Protocol PRN Reason: Consult order Phenobarbital (Phenobarbital 30 Mg Tablet) 60 mg PO BID [facility]; Protocol Stop: 07/05/24 21:01 Phenobarbital (Phenobarbital 30 Mg Tablet) 30 mg PO BID [facility]; Protocol Stop: 07/07/24 21:01 Phenobarbital (Phenobarbital 30 Mg Tablet) 30 mg PO DAILY [facility]; Protocol Stop: 07/09/24 09:01 Sertraline HCl (Sertraline Hcl 25 Mg Tablet) 25 mg PO DAILY [facility] Last Admin: 07/04/24 08:55 Dose: 25 mg Sodium Chloride (0.9 % Sodium Chloride Flush 3 Ml Syringe) 3 ml IVFLUSH QSHIFT [facility] Last Admin: 07/04/24 08:56 Dose: 3 ml Thiamine HCl (Thiamine Hcl 100 Mg Tablet) 100 mg PO DAILY [facility] Last Admin: 07/04/24 08:55 Dose: 100 mg Home Medications ?Medication ?Instructions ?Recorded ?Confirmed ?Last Taken ?Type multivitamin 1 tab PO DAILY 02/15/20 07/03/24 07/02/24 History cyanocobalamin (vitamin B-12) 1,000 mcg PO FR 07/03/24 07/03/24 06/26/24 History 1,000 mcg capsule Physical Exam Vital Signs: Vital Signs: Last Vital Signs Temp 98.3 F 07/04/24 06:14 Pulse 90 07/04/24 06:43 Resp 13 07/04/24 06:43 BP 102/64 07/04/24 06:43 Pulse Ox 95 07/04/24 06:43 O2 Del Method Room Air 07/04/24 06:43 BMI result Body Mass Index 30.5 Const: General: no acute distress and tired appearing Nutritional Appearance: well nourished Orientation/consciousness: patient oriented x3 HEENT: Head: Yes normocephalic and Yes atraumatic Resp: Effort & Inspection: normal respiratory effort, no audible wheezes, no cough and no respiratory distress GI: Inspection: Yes normal to inspection Palpation (GI): Soft to palpation, nontender, no guarding and not rigid Percussion: Yes normal to percussion and No Fluid wave present Rectal Exam - Male: Yes deferred Skin: General skin exam: no rashes or lesions noted and jaundice Neuro: General: patient oriented x3 Extrem: General: Yes edema (Bilateral lower extremities) Results Labs 07/04/24 02:13 07/04/24 02:13 Labs: Abnormal lab results 07/03/24 07/03/24 07/03/24 Range/Units 10:42 13:32 16:26 RBC 2.49 L D (4.60-5.80) X10*6/uL Hgb 9.5 L D (14.0-18.0) g/dl Hct 26.9 L D (42.0-52.0) % MCV 108.0 H (80.0-98.0) fL MCH 38.2 H (27.0-33.0) pg Plt Count 104 L (160-400) X10*3/uL Immature Gran % (Auto) 0.5 H (0.0-0.4) % Neut % (Auto) 76.8 H (45-73) % Lymph % (Auto) 13.9 L (20-40) % Abs Immat Gran (auto) 0.05 H (0.00-0.03) X10*3/uL PT 17.1 H 20.8 H D (10.9-12.4) SEC INR 1.5 H 1.8 H (0.9-1.1) Carbon Dioxide 18 L (22-29) mmol/L Random Glucose 129 H (60-115) mg/dL Lactic Acid (0.5-2.0) mmol/L Lactic Acid F/U @ 2Hr (0.5-2.0) mmol/L Lactic Acid F/U @ 4Hr (0.5-2.0) mmol/L Calcium 8.3 L D (8.4-10.2) mg/dL Total Bilirubin 4.2 H (0.0-1.0) mg/dL Direct Bilirubin 2.3 H (0.0-0.5) mg/dL AST 165 H (5-37) U/L ALT 41 H (0-40) U/L Total Protein 8.7 H (6.5-8.0) g/dL Albumin 2.9 L (3.5-5.0) g/dL Vitamin B12 (200-900) pg/mL Ethyl Alcohol 355 H* mg/dL 07/04/24 07/04/24 07/04/24 Range/Units 02:13 05:29 07:58 RBC 1.98 L D (4.60-5.80) X10*6/uL Hgb 7.7 L (14.0-18.0) g/dl Hct 21.4 L D (42.0-52.0) % MCV 108.1 H (80.0-98.0) fL MCH 38.9 H (27.0-33.0) pg Plt Count 59 L D (160-400) X10*3/uL Immature Gran % (Auto) (0.0-0.4) % Neut % (Auto) (45-73) % Lymph % (Auto) (20-40) % Abs Immat Gran (auto) (0.00-0.03) X10*3/uL PT (10.9-12.4) SEC INR (0.9-1.1) Carbon Dioxide (22-29) mmol/L Random Glucose (60-115) mg/dL Lactic Acid 2.6 H* (0.5-2.0) mmol/L Lactic Acid F/U @ 2Hr 3.7 H* (0.5-2.0) mmol/L Lactic Acid F/U @ 4Hr 3.1 H* (0.5-2.0) mmol/L Calcium 8.3 L (8.4-10.2) mg/dL Total Bilirubin 4.1 H (0.0-1.0) mg/dL Direct Bilirubin 1.9 H (0.0-0.5) mg/dL AST 109 H (5-37) U/L ALT (0-40) U/L Total Protein (6.5-8.0) g/dL Albumin 3.4 L (3.5-5.0) g/dL Vitamin B12 1610 H (200-900) pg/mL Ethyl Alcohol mg/dL Short CBC 07/03/24 07/04/24 Range/Units 13:32 02:13 WBC 9.8 5.1 (4.8-10.8) X10*3/uL Hgb 9.5 L D 7.7 L (14.0-18.0) g/dl Hct 26.9 L D 21.4 L D (42.0-52.0) % Plt Count 104 L 59 L D (160-400) X10*3/uL BMP 07/03/24 07/04/24 10:42 02:13 Sodium 135 135 Potassium 4.4 D 3.8 Chloride 103 100 Carbon Dioxide 18 L 25 BUN 12 13 Creatinine 0.89 1.01 Calcium 8.3 L D 8.3 L Liver Function 07/03/24 07/04/24 Range/Units 10:42 02:13 Total Bilirubin 4.2 H 4.1 H (0.0-1.0) mg/dL Direct Bilirubin 2.3 H 1.9 H (0.0-0.5) mg/dL AST 165 H 109 H (5-37) U/L ALT 41 H 33 (0-40) U/L Alkaline Phosphatase 109 73 (39-117) U/L Albumin 2.9 L 3.4 L (3.5-5.0) g/dL All other labs normal. Assessment and Plan (1) Acute alcoholic hepatitis: Status: Acute (2) Cholelithiasis: Qualifiers: Cholelithiasis location: gallbladder Cholecystitis presence: without cholecystitis Biliary obstruction: without biliary obstruction Qualified Code(s): K80.20 - Calculus of gallbladder without cholecystitis without obstruction Status: Acute Plan 48-year-old male patient with a history of alcohol abuse and alcoholic liver disease presenting with elevated LFTs. Ultrasound indicates distended gallbladder with thickened gallbladder wall and cholelithiasis. Sonographic Oliveira sign was indicated by the certified pest control technician. Patient has had a history of elevated LFTs was seen most likely to be due to his alcoholic liver disease rather than cholelithiasis, especially with his current active alcohol use. We will await gastroenterology evaluation. HIDA scan may help to differentiate between the liver and gallbladder disease. Procedures Date of Service Date of Service: 07/04/24
--- NOTE | 2024-07-04 10:03 | PC.NURSE ---
PA made aware of patient parameters for pheno PO dosing this AM and patient BP diastolic soft 49 and will be confirming with pharmacy dosing is ok to give.
[2024-07-04] MEDS: PHENobarbitaL 30 MG TABLET 60 MG PO ×2 (10:09→21:46)
--- NOTE | 2024-07-04 11:06 | HO.PM.IMPN ---
Subjective Subjective Date of Service: 07/04/24 Interval History: seen and examined this morning follow up for left leg laceration, liver cirrhosis, anemia denies bleeding, dark stools, denies abdominal pain Review of Systems Review of Systems: Yes all other systems are reviewed and are negative Constitutional Constitutional: Denies chills and Denies fever(s) Physical Exam Vital Signs: Vital Signs: Last Vital Signs Temp 98.3 F 07/04/24 06:14 Pulse 87 07/04/24 10:00 Resp 18 07/04/24 10:00 BP 103/49 L 07/04/24 10:00 Pulse Ox 95 07/04/24 10:00 O2 Del Method Room Air 07/04/24 10:00 BMI result Body Mass Index 30.5 Const: Other: chronically ill appearing General: awake, Physically active and poor hygiene HEENT: Teeth and gingiva: poor dentition Resp: Effort & Inspection: normal respiratory effort, able to speak in complete sentences, no respiratory distress and no use of accessory muscles Cardio: Rate: regular rate GI: Inspection: No distended Palpation (GI): Soft to palpation and nontender Neuro: General: moves all extremities and CN's II-XI intact bilaterally Extrem: Other: significant edema b/l lower extremities left leg wrapped in shelly bandage to cover left leg wound -recently dressed, did not unwrap Objective Data Active Medications Acetaminophen (Acetaminophen 325 Mg Tablet) 650 mg PO Q6H PRN PRN Reason: Pain, Mild 1-3,fever,headache Calcium Carbonate (Calcium Carbonate 750 Mg Tab.Chew) 750 mg PO Q4H PRN PRN Reason: Heartburn Folic Acid (Folic Acid 1 Mg Tablet) 1 mg PO DAILY [facility] Last Admin: 07/04/24 08:55 Dose: 1 mg Documented By: SAL Magnesium Hydroxide (Milk Of Magnesia 30 Ml Oral.Susp) 30 ml PO DAILY PRN PRN Reason: Constipation Melatonin (Melatonin 3 Mg Tablet) 6 mg PO BEDTIME PRN PRN Reason: Insomnia Multivitamins/Vitamin C (Multivitamin Tablet) 1 tab PO DAILY [facility] Last Admin: 07/04/24 08:55 Dose: 1 tab Documented By: SAL Nicotine (Nicotine 21 Mg Patch.Td24) 21 mg TRANSDERMA DAILY [facility] Last Admin: 07/04/24 08:55 Dose: 21 mg Documented By: SAL Pantoprazole Sodium (Pantoprazole Sodium 40 Mg/10 Ml Vial) 40 mg IVPUSH DAILY@0630 [facility] Last Admin: 07/04/24 05:38 Dose: 40 mg Documented By: ALIREZA Pharmacy Consult (Consult Rx Etoh Phenob Im/Po) 1 each MISCELLANE ONCE PRN; Protocol PRN Reason: Consult order Phenobarbital (Phenobarbital 30 Mg Tablet) 60 mg PO BID [facility]; Protocol Stop: 07/05/24 21:01 Last Admin: 07/04/24 10:09 Dose: 60 mg Documented By: SAL Phenobarbital (Phenobarbital 30 Mg Tablet) 30 mg PO BID [facility]; Protocol Stop: 07/07/24 21:01 Phenobarbital (Phenobarbital 30 Mg Tablet) 30 mg PO DAILY [facility]; Protocol Stop: 07/09/24 09:01 Sertraline HCl (Sertraline Hcl 25 Mg Tablet) 25 mg PO DAILY [facility] Last Admin: 07/04/24 08:55 Dose: 25 mg Documented By: SAL Sodium Chloride (0.9 % Sodium Chloride Flush 3 Ml Syringe) 3 ml IVFLUSH QSHIFT [facility] Last Admin: 07/04/24 08:56 Dose: 3 ml Documented By: SAL Thiamine HCl (Thiamine Hcl 100 Mg Tablet) 100 mg PO DAILY [facility] Last Admin: 07/04/24 08:55 Dose: 100 mg Documented By: SAL Labs 07/04/24 02:13 07/04/24 02:13 Labs: Laboratory Results - last 24 hr 07/03/24 07/03/24 07/03/24 10:42 13:32 16:26 MCV 108.0 H MCH 38.2 H MCHC 35.3 RDW 14.5 Plt Count 104 L MPV 11.1 Immature Gran % (Auto) 0.5 H Neut % (Auto) 76.8 H Lymph % (Auto) 13.9 L Bland % (Auto) 7.8 Eos % (Auto) 0.1 Baso % (Auto) 0.9 Lymph # (Auto) 1.4 Bland # (Auto) 0.8 Eos # (Auto) 0.0 Baso # (Auto) 0.1 Abs Immat Gran (auto) 0.05 H Absolute Neuts (auto) 7.5 Absolute Nucleated RBC 0.000 Nucleated RBC % (auto) 0.0 Hold Purple Top PT 20.8 H D INR 1.8 H Anion Gap 18 Estim Creat Clear Calc 124.5 Estimated GFR > 60 Random Glucose 129 H Lactic Acid Lactic Acid F/U @ 2Hr Lactic Acid F/U @ 4Hr Calcium 8.3 L D Magnesium 1.8 Total Bilirubin 4.2 H Direct Bilirubin 2.3 H AST 165 H ALT 41 H Alkaline Phosphatase 109 Total Protein 8.7 H Albumin 2.9 L Lipase 39 Vitamin B12 Folate Blood Type AB Positive Antibody Screen NEGATIVE 07/04/24 07/04/24 07/04/24 02:13 05:29 07:58 MCV 108.1 H MCH 38.9 H MCHC 36.0 RDW 14.5 Plt Count 59 L D MPV 11.0 Immature Gran % (Auto) Neut % (Auto) Lymph % (Auto) Bland % (Auto) Eos % (Auto) Baso % (Auto) Lymph # (Auto) Bland # (Auto) Eos # (Auto) Baso # (Auto) Abs Immat Gran (auto) Absolute Neuts (auto) Absolute Nucleated RBC 0.000 Nucleated RBC % (auto) 0.0 Hold Purple Top SEE NOTE PT INR Anion Gap 14 Estim Creat Clear Calc 109.7 Estimated GFR > 60 Random Glucose 96 Lactic Acid 2.6 H* Lactic Acid F/U @ 2Hr 3.7 H* Lactic Acid F/U @ 4Hr 3.1 H* Calcium 8.3 L Magnesium Total Bilirubin 4.1 H Direct Bilirubin 1.9 H AST 109 H ALT 33 Alkaline Phosphatase 73 Total Protein 7.4 Albumin 3.4 L Lipase Vitamin B12 1610 H Folate 5.8 Blood Type Antibody Screen Assessment and Plan (1) Leg edema: Status: Acute (2) Alcoholic hepatitis: Status: Acute (3) Thrombocytopenia: Status: Acute (4) Cirrhosis: Status: Acute Plan This is a 48-year-old male history of alcoholic liver cirrhosis who presents to the emergency room today with left leg laceration found to be acutely intoxicated, with significant lower extremity edema and at risk for alcohol withdrawal Alcohol use disorder with alcohol withdrawal etoh level 355 on arrival; h/o etoh withdawal seizures continue phenobarbital protocol Declines evaluation by addiction Medicine Service Supplementation with folic acid, thiamine Follow CIWA score Follow electrolytes Alcoholic liver cirrhosis with thrombocytopenia LFTs chronically elevated Platelets chronically low, trending down INR trending up to 1.8 GI consult pending, has not followed up outpatient for several years on lasix and aldactone at baseline, bp soft overnight will hold abdominal US with trace ascites no abdominal pain, leukocytosis or fever, but will cover with empiric ceftriaxone for now Chronic macrocytic anemia H/H trending down, denies active bleeding possible component of dilution, received IVF and albumin Declines blood transfusion at this time, we will repeat H/H B12, folic acid within normal limits. Iron studies pending Continue IV PPI for now Trend CBC possible acute cholecystitis abdominal US done to eval for ascites and portal vein thrombosis - revealed cholelithiasis with possible acute cholecystitis Patient denies any significant abdominal pain LFTs chronically elevated, thought to be due to chronic liver disease Seen by General surgery. Await GI evaluation, consider HIDA scan acute lactic acidosis likely due to decreased clearance from liver dz no sepsis, no acute infection identified Lower extremity edema Likely due to above cirrhosis and hypoalbuminemia b/l doppler negative for DVT albumin 2.9 - received albumin in ED got one dose of IV lasix, bp soft echo pending LLE laceration repaired with 12 sutures in ED (07/03) will need to be removed after 7-10 days Tobacco dependence Smoking cessation advised NRT DVT prophylaxis-avoid chemoprophylaxis due to anemia/thrombocytopenia/ elevated INR; avoid mechanical prophylaxis due to significant lower extremity edema Patient requires ongoing stay in the hospital for management of alcohol withdrawal, liver cirrhosis, anemia investigation and possible acute cholecystitis requiring specialist evaluation Quality Stroke Does the patient have a stroke diagnosis?: No VTE Prior VTE?: No VTE Risk Level:: Medical - moderate - high VTE Device Contraindication: Treatment Not Indicated VTE Drug Contraindication: Treatment Not Indicated
[2024-07-04 11:34] LABS: Immature Retic Fraction 8.2 % (2.3-13.4); Retic HGB Equivalent 38.4 pg (30.0-35.0); Reticulocyte Percent 1.2 % (0.5-1.8); Reticulocytes Absolute 0.025 X10*6/uL (0.026-0.095)
--- NOTE | 2024-07-04 11:34 | PM.GICN ---
History of Present Illness Data of Consult Service Date: 07/04/24 Requesting physician: Erendira Dean Primary Care Provider: Heidy Mojica MD HPI Reason for consult: liver cirrhosis; leg swelling; etoh 48 YM with alcoholic liver cirrhosis seen at [facility] ED on 07/03/24 with aleft lower extremity laceration which he sustained the day prior at his mother's house. Pt was seen in the ED and laceration was repaired. Pt complained of lower extremity swelling over the past 1 month and was advised to increase the Aldactone to twice daily which he reports he has been compliant with. Lower extremity Doppler ultrasound in the emergency department was negative for blood clot. Pt complains of feeling weak over the past week and scratching himself. Pt complains of nausea and mild constipation and denies abdominal pain, heartburn or dysphagia He states his last BM was on 07/02 and was brown ((not black) without any blood. Patient complains of weight loss of 10-15 lb over the past several weeks Patient admits to snoring and sleep apnea denies cardiac or pulmonary problems. Pt complains of having some phlegm lately denied any shortness of breath He admits to history of anxiety. He takes gabapentin for Neuropathy which helps with tingling and not with pain Pt smokes 1/2 to 1 PPD and denies hx of drug abuse He reports he was a social drinker which slowly turned into a problem - drinks 1/2 pint of Vodka daily Last drink was on the evening of 07/02/24 He quitted drinking for a few years and resumes over the holidays last year. He admits to drinking a half a pt of vodka daily. 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 He has 2 step children and a 25 year old daughter. He is staying with different family members A cousin Phani Tony is his Medical Proxy. Labs in the ED revealed elevated LFTs (without significant change from baseline). Alcohol level was 355. Pt was started on phenobarbital protocol, treated with albumin, IV ppi, IV magnesium, IV thiamine and admitted for further management. 07/03/24 ABD US SHOWED: Cholelithiasis with gallbladder wall thickening and edema concerning for acute cholecystitis. Cirrhotic liver with reversal flow in the main portal vein and trace ascites in the right upper quadrant. Review of Systems Constitutional: Constitutional: Reports body ache(s) and Reports poor appetite Cardiovascular: Cardiovascular: Reports Abdominal Distension, Denies chest pain, Denies irregular heart rhythm and Reports dyspnea on exertion Respiratory: Respiratory: Denies chest congestion, Denies cough, Denies pain with cough and Reports dyspnea on exertion Gastrointestinal: Gastrointestinal: Denies abdominal pain, Reports bloating, Denies hematochezia, Reports nausea and Denies vomiting Integumentary/Breasts: Skin/Breast: Reports change in pigmentation Psychiatric: Psychiatric: Reports depression [facility] Past Medical History Medical History Abdominal pain Lower extremity edema Tinea pedis Chemical burn Cellulitis of right leg Right leg swelling Swelling of left hip joint Right groin pain Tobacco abuse Obesity Family History Family History Maternal Grandfather CVA (cerebral vascular accident) Maternal Grandmother Pancreatic cancer Surgical History Surgical History No pertinent past surgical history Social History Social History Household Members: Family Housing: House Alcohol intake: current Alcohol intake frequency: 3 or more drinks per day Alcohol type: hard liquor Comment: pt refuses bed alarm Patient Tobacco Use Status: Current everyday Tobacco user Tobacco use type: Cigarette Cigarette Packs Per Day: 0.5 Cigarettes Per Day: 7 Years Smoked: smoking since 20 years old Smoked in Last 30 Days: Yes e-Cigarette/Vaping Use: Never Used Second Hand Smoke Exposure: Yes Use of substances other than those prescribed or required for medical reasons: Yes Substance Use Type: Marijuana Substance Use Frequency: Socially Advance Directives: No Advance Directives Information Provided: No Do you have a plan to hurt others: No Plan Nutrition Risks: No Nutritional Risk service: No Current occupational status: unemployed Cognitive needs: No Hearing needs: No Vision needs: No Meds Allergies Allergy/AdvReac Type Severity Reaction Status Date / Time No Known Allergies Allergy Verified 07/03/24 10:19 Active Medications: Current Medications Acetaminophen (Acetaminophen 325 Mg Tablet) 650 mg PO Q6H PRN PRN Reason: Pain, Mild 1-3,fever,headache Calcium Carbonate (Calcium Carbonate 750 Mg Tab.Chew) 750 mg PO Q4H PRN PRN Reason: Heartburn Folic Acid (Folic Acid 1 Mg Tablet) 1 mg PO DAILY [facility] Last Admin: 07/04/24 08:55 Dose: 1 mg Lactulose (Lactulose 20 Gm/30 Ml Solution) 10 gm PO BID [facility] Magnesium Hydroxide (Milk Of Magnesia 30 Ml Oral.Susp) 30 ml PO DAILY PRN PRN Reason: Constipation Melatonin (Melatonin 3 Mg Tablet) 6 mg PO BEDTIME PRN PRN Reason: Insomnia Multivitamins/Vitamin C (Multivitamin Tablet) 1 tab PO DAILY [facility] Last Admin: 07/04/24 08:55 Dose: 1 tab Nicotine (Nicotine 21 Mg Patch.Td24) 21 mg TRANSDERMA DAILY [facility] Last Admin: 07/04/24 08:55 Dose: 21 mg Pantoprazole Sodium (Pantoprazole Sodium 40 Mg/10 Ml Vial) 40 mg IVPUSH BID@0630,1630 [facility] Pharmacy Consult (Consult Rx Etoh Phenob Im/Po) 1 each MISCELLANE ONCE PRN; Protocol PRN Reason: Consult order Phenobarbital (Phenobarbital 30 Mg Tablet) 60 mg PO BID [facility]; Protocol Stop: 07/05/24 21:01 Last Admin: 07/04/24 10:09 Dose: 60 mg Phenobarbital (Phenobarbital 30 Mg Tablet) 30 mg PO BID [facility]; Protocol Stop: 07/07/24 21:01 Phenobarbital (Phenobarbital 30 Mg Tablet) 30 mg PO DAILY [facility]; Protocol Stop: 07/09/24 09:01 Sertraline HCl (Sertraline Hcl 25 Mg Tablet) 25 mg PO DAILY [facility] Last Admin: 07/04/24 08:55 Dose: 25 mg Sodium Chloride (0.9 % Sodium Chloride Flush 3 Ml Syringe) 3 ml IVFLUSH QSHIFT [facility] Last Admin: 07/04/24 08:56 Dose: 3 ml Thiamine HCl (Thiamine Hcl 100 Mg Tablet) 100 mg PO DAILY [facility] Last Admin: 07/04/24 08:55 Dose: 100 mg Home Medications ?Medication ?Instructions ?Recorded ?Confirmed ?Last Taken ?Type multivitamin 1 tab PO DAILY 02/15/20 07/03/24 07/02/24 History cyanocobalamin (vitamin B-12) 1,000 mcg PO FR 07/03/24 07/03/24 06/26/24 History 1,000 mcg capsule Physical Exam Vital Signs: Vital Signs: Last Vital Signs Temp 98.3 F 07/04/24 06:14 Pulse 87 07/04/24 10:00 Resp 18 07/04/24 10:00 BP 103/49 L 07/04/24 10:00 Pulse Ox 95 07/04/24 10:00 O2 Del Method Room Air 07/04/24 10:00 BMI result Body Mass Index 30.5 Const: Other: chronically ill appearing General: awake, Physically active, anxious, ill appearing (Chronically ill-appearing), poor hygiene and other (Tremors in both upper extremities) Nutritional Appearance: obese Orientation/consciousness: patient oriented x3 HEENT: Mouth: Normal oral and palatal mucosa present Teeth and gingiva: poor dentition Resp: Effort & Inspection: normal respiratory effort, able to speak in complete sentences, no respiratory distress and no use of accessory muscles Cardio: Rate: regular rate GI: Inspection: No distended Palpation (GI): Soft to palpation and nontender Skin: General skin exam: spider nevi (On anterior chest ) Neuro: General: patient oriented x3, moves all extremities and CN's II-XI intact bilaterally Extrem: Other: left leg wrapped in shelly bandage to cover left leg wound -recently dressed, did not unwrap General: Yes no pedal edema (2-3 + pitting edema bilaterally) Psych: Affect: Anxious affect present Results Labs 07/04/24 11:52 07/04/24 02:13 Labs: Short CBC 07/03/24 07/04/24 Range/Units 13:32 02:13 WBC 9.8 5.1 (4.8-10.8) X10*3/uL Hgb 9.5 L D 7.7 L (14.0-18.0) g/dl Hct 26.9 L D 21.4 L D (42.0-52.0) % Plt Count 104 L 59 L D (160-400) X10*3/uL BMP 07/04/24 02:13 Sodium 135 Potassium 3.8 Chloride 100 Carbon Dioxide 25 BUN 13 Creatinine 1.01 Calcium 8.3 L Liver Function 07/04/24 Range/Units 02:13 Total Bilirubin 4.1 H (0.0-1.0) mg/dL Direct Bilirubin 1.9 H (0.0-0.5) mg/dL AST 109 H (5-37) U/L ALT 33 (0-40) U/L Alkaline Phosphatase 73 (39-117) U/L Albumin 3.4 L (3.5-5.0) g/dL Assessment and Plan (1) Leg edema: Status: Acute (2) Thrombocytopenia: Status: Acute (3) Alcohol abuse: Status: Acute (4) Cirrhosis: Qualifiers: Ascites presence: with ascites Hepatic cirrhosis type: alcoholic cirrhosis Qualified Code(s): K70.31 - Alcoholic cirrhosis of liver with ascites Status: Acute Plan 48 YM with alcoholic liver cirrhosis admitted to [facility] ED 07/03/24 with a left lower extremity laceration which he sustained the day prior at his mother's house. Pt has alcoholic cirrhosis complicated by anemia, lower extremity edema, ascites and a hx of hepatic encephalopathy and is followed by Dr Castillo. Pattern of LFT elevation is consistent with alcohol related liver disease. MELDNa score is 19 Iron studies suggestive of anemia of chronic disease with iron saturation of 82% and ferritin of 1097 Hepatitis serologies were negative in the past A cousin Phani Tony is his Medical Proxy. Labs in the ED revealed elevated LFTs (without significant change from baseline). Alcohol level was 355. Repeat labs today showed a decline in H & H from 9.5 & 26.9 yesterday to 7.7 & 21.4 this am without over bleeding. No significant change on FU labs 10 hrs later RECOMMENDATIONS: 1. Agree with IV PPI, IV albumin, IV thiamine and CIWA protocol for ETOH withdrawl 2. Continue lactulose for hepatic encephalopathy 3. Follow CBC twice daily x 24 hours and once a day if stable Pt refused a blood transfusion due to concern for adverse effects - willing to reconsider if he has further decline in his hematocrit. 4. Genetic screen for hereditary hemochromatosis with a.m. labs - order placed 5. Needs to follow up with ETOH rehab to stop drinking Dr Castillo to FU on Saturday Procedures Date of Service Date of Service: 07/04/24
[2024-07-04 11:50] LABS: Iron 115 mcg/dL (45-160); Lactate Dehydrogenase 280 U/L (118-273); Percent Iron Saturation 82 % (15-50); Total Iron Binding Capacity 140 mcg/dL (228-428); Unsaturated Iron Binding < 25 ug/dL
[2024-07-04 12:00] LABS: Hematocrit 21.3 % (42.0-52.0); Hemoglobin 7.7 g/dl (14.0-18.0)
[2024-07-04 12:07] LABS: Ferritin 1097 ng/mL (20-250)
[2024-07-04] MEDS: cefTRIAXone sodium 2 GM VIAL IVPUSH (12:12)
[2024-07-04 12:17] LABS: Ammonia 65 umol/L (13-55)
[2024-07-04] MEDS: Lactulose 20 GM/30 ML SOLUTION PO ×2 (12:58→21:52)
--- NOTE | 2024-07-04 16:29 | MHC.CM.PN ---
CM ATTEMPTED TO MEET WITH PT WHO INDICATED HE WAS TOO ILL TO ANSWER QUESTIONS AT THIS TIME CM TO RETURN
[2024-07-04 23:30] LABS: Hematocrit 22.1 % (42.0-52.0); Hemoglobin 8.1 g/dl (14.0-18.0)
[2024-07-05] MEDS: PHENobarbitaL sodium 65 MG/ML VIAL IM (00:04)
[2024-07-05] MEDS: 0.9 % Sodium Chloride Flush 3 ML SYRINGE IVFLUSH ×3 (00:06→15:32)
[2024-07-05 03:55] VITALS: BP 137/64; PULSE 85; RESP 16; TEMP 37.2; O2SAT 92
[2024-07-05] MEDS: Pantoprazole Sodium 40 MG/10 ML VIAL IVPUSH ×2 (06:26→15:32)
[2024-07-05 06:59] VITALS: BP 116/66; PULSE 86; RESP 19; TEMP 36.7; O2SAT 93
[2024-07-05 07:07] LABS: Hemoglobin 7.8 g/dl (14.0-18.0); Mean Corpuscular Volume 105.5 fL (80.0-98.0); Mean Platelet Volume 11.2 fL (9.4-12.4); PLT CLUMP 1
[2024-07-05 07:08] LABS: Hematocrit 21.2 % (42.0-52.0); Mean Corpuscular HGB Conc 36.8 g/dl (31.0-36.0); Mean Corpuscular Hemoglobin 38.8 pg (27.0-33.0); Red Blood Count 2.01 X10*6/uL (4.60-5.80); Red Cell Distribution Width 13.9 % (11.0-16.0)
[2024-07-05 07:13] LABS: Platelet Count 55 X10*3/uL (160-400); White Blood Count 6.1 X10*3/uL (4.8-10.8)
[2024-07-05 07:58] LABS: Alanine Aminotransferase 23 U/L (0-40); Albumin Level 3.1 g/dL (3.5-5.0); Alkaline Phosphatase 69 U/L (39-117); Anion Gap 14 (12-20); Aspartate Amino Transferase 94 U/L (5-37); Bilirubin Direct 2.2 mg/dL (0.0-0.5); Bilirubin Total 7.3 mg/dL (0.0-1.0); Blood Urea Nitrogen 11 mg/dL (9-16); Calcium 8.5 mg/dL (8.4-10.2); Carbon Dioxide 23 mmol/L (22-29); Chloride 99 mmol/L (96-108); Creatinine Clr Calc Pharmacy 145.7; Estimated Glomerular Filt Rate > 60; Glucose Random 114 mg/dL (60-115); Potassium 3.9 mmol/L (3.3-5.1); Sodium 132 mmol/L (135-145)
[2024-07-05] MEDS: Lactulose 20 GM/30 ML SOLUTION PO ×2 (09:44→19:46)
[2024-07-05] MEDS: Nicotine 21 MG PATCH.TD24 TRANSDERMA (09:44)
[2024-07-05] MEDS: PHENobarbitaL 30 MG TABLET 60 MG PO ×2 (09:45→19:46)
[2024-07-05] MEDS: Folic Acid 1 MG TABLET PO (09:45)
[2024-07-05] MEDS: Multivitamin TABLET 1 TAB PO (09:45)
[2024-07-05] MEDS: Sertraline HCL 25 MG TABLET PO (09:45)
[2024-07-05] MEDS: Thiamine HCL 100 MG TABLET PO (09:46)
--- NOTE | 2024-07-05 09:49 | HO.PM.IMPN ---
Subjective Subjective Date of Service: 07/05/24 Interval History: seen and examined this morning follow up for etoh withdrawal no overnight events awake, alert denies abdominal pain Review of Systems Constitutional : No Fever, No Chills, pos Fatigue ENT/Mouth : No sore throat, No Rhinorrhea Eyes: No Eye Pain, No Swelling, No Redness Cardiovascular : No Chest Pain, No SOB, No Dyspnea on Exertion, pos edema Respiratory : No Cough, No Sputum Gastrointestinal : pos Nausea, No Vomiting, No Diarrhea, No abdominal Pain Genitourinary : No Dysuria, No Urinary Frequency, No Hematuria, Musculoskeletal : No joint pain, pos Myalgias, No Joint Swelling Skin : No Skin Lesions, No rash, pos laceration Neuro : pos Weakness, No Numbness, No Dizziness, positive Headache Psych : pos Anxiety/Panic, No Depression All other systems reviewed and are negative Review of Systems: Yes all other systems are reviewed and are negative Constitutional Constitutional: Denies chills and Denies fever(s) Cardiovascular Cardiovascular: Denies chest pain, Denies palpitations and Denies dyspnea Respiratory Respiratory: Denies cough and Denies dyspnea Gastrointestinal Gastrointestinal: Denies abdominal pain Integumentary/Breasts Skin/Breast: Reports change in pigmentation Neurologic Neurologic: Reports confusion Psychiatric Psychiatric: Reports confusion and Reports depression Endocrine Endocrine: Denies palpitations Physical Exam Vital Signs: Vital Signs: Last Vital Signs Temp 98.1 F 07/05/24 06:59 Pulse 86 07/05/24 06:59 Resp 19 07/05/24 06:59 BP 116/66 07/05/24 06:59 Pulse Ox 93 07/05/24 06:59 O2 Del Method Room Air 07/05/24 06:59 BMI result Body Mass Index 32.2 Const: Other: chronically ill appearing General: awake, Physically active, confusion and poor hygiene Nutritional Appearance: overweight Orientation/consciousness: confusion HEENT: Teeth and gingiva: poor dentition Resp: Effort & Inspection: normal respiratory effort, able to speak in complete sentences, no respiratory distress and no use of accessory muscles Cardio: Rate: regular rate GI: Inspection: No distended Palpation (GI): Soft to palpation and nontender Skin: General skin exam: jaundice Neuro: General: moves all extremities, CN's II-XI intact bilaterally and confusion Extrem: Other: significant edema b/l lower extremities left leg wrapped in shelly bandage to cover left leg wound Objective Data Active Medications Acetaminophen (Acetaminophen 325 Mg Tablet) 650 mg PO Q6H PRN PRN Reason: Pain, Mild 1-3,fever,headache Calcium Carbonate (Calcium Carbonate 750 Mg Tab.Chew) 750 mg PO Q4H PRN PRN Reason: Heartburn Folic Acid (Folic Acid 1 Mg Tablet) 1 mg PO DAILY [facility] Last Admin: 07/05/24 09:45 Dose: 1 mg Documented By: ROBI Lactulose (Lactulose 20 Gm/30 Ml Solution) 20 gm PO BID [facility] Last Admin: 07/05/24 09:44 Dose: 20 gm Documented By: ROBI Magnesium Hydroxide (Milk Of Magnesia 30 Ml Oral.Susp) 30 ml PO DAILY PRN PRN Reason: Constipation Melatonin (Melatonin 3 Mg Tablet) 6 mg PO BEDTIME PRN PRN Reason: Insomnia Multivitamins/Vitamin C (Multivitamin Tablet) 1 tab PO DAILY [facility] Last Admin: 07/05/24 09:45 Dose: 1 tab Documented By: RBOI Nicotine (Nicotine 21 Mg Patch.Td24) 21 mg TRANSDERMA DAILY [facility] Last Admin: 07/05/24 09:44 Dose: 21 mg Documented By: ROBI Pantoprazole Sodium (Pantoprazole Sodium 40 Mg/10 Ml Vial) 40 mg IVPUSH BID@0630,1630 [facility] Last Admin: 07/05/24 06:26 Dose: 40 mg Documented By: MILLER Pharmacy Consult (Consult Rx Etoh Phenob Im/Po) 1 each MISCELLANE ONCE PRN; Protocol PRN Reason: Consult order Phenobarbital (Phenobarbital 30 Mg Tablet) 60 mg PO BID [facility]; Protocol Stop: 07/05/24 21:01 Last Admin: 07/05/24 09:45 Dose: 60 mg Documented By: ROBI Phenobarbital (Phenobarbital 30 Mg Tablet) 30 mg PO BID [facility]; Protocol Stop: 07/07/24 21:01 Phenobarbital (Phenobarbital 30 Mg Tablet) 30 mg PO DAILY [facility]; Protocol Stop: 07/09/24 09:01 Sertraline HCl (Sertraline Hcl 25 Mg Tablet) 25 mg PO DAILY [facility] Last Admin: 07/05/24 09:45 Dose: 25 mg Documented By: ROBI Sodium Chloride (0.9 % Sodium Chloride Flush 3 Ml Syringe) 3 ml IVFLUSH QSHIFT [facility] Last Admin: 07/05/24 09:46 Dose: 3 ml Documented By: ROBI Thiamine HCl (Thiamine Hcl 100 Mg Tablet) 100 mg PO DAILY [facility] Last Admin: 07/05/24 09:46 Dose: 100 mg Documented By: ROBI Labs 07/05/24 06:44 07/05/24 06:44 Labs: Laboratory Results - last 24 hr 07/04/24 07/04/24 07/04/24 02:13 11:52 23:23 MCV MCH MCHC RDW Plt Count MPV Absolute Nucleated RBC Nucleated RBC % (auto) Absolute Retic 0.025 L Percent Retic 1.2 Immature Retic Fraction 8.2 Retic Hgb Equivalent 38.4 H Anion Gap Estim Creat Clear Calc Estimated GFR Random Glucose Calcium Iron 115 TIBC 140 L % Saturation 82 H Unsat Iron Binding < 25 Ferritin 1097 H Total Bilirubin Direct Bilirubin AST ALT Alkaline Phosphatase Ammonia 65 H Lactate Dehydrogenase 280 H Total Protein Albumin Hold Green Top See Note 07/05/24 06:44 MCV 105.5 H MCH 38.8 H MCHC 36.8 H RDW 13.9 Plt Count 55 L MPV 11.2 Absolute Nucleated RBC 0.000 Nucleated RBC % (auto) 0.0 Absolute Retic Percent Retic Immature Retic Fraction Retic Hgb Equivalent Anion Gap 14 Estim Creat Clear Calc 145.7 Estimated GFR > 60 Random Glucose 114 Calcium 8.5 Iron TIBC % Saturation Unsat Iron Binding Ferritin Total Bilirubin 7.3 H Direct Bilirubin 2.2 H AST 94 H ALT 23 Alkaline Phosphatase 69 Ammonia Lactate Dehydrogenase Total Protein 7.0 Albumin 3.1 L Hold Green Top Assessment and Plan (1) Laceration of leg, left: Status: Acute (2) Thrombocytopenia: Status: Acute (3) Cirrhosis: Status: Acute Plan This is a 48-year-old male history of alcoholic liver cirrhosis who presents to the emergency room today with left leg laceration found to be acutely intoxicated, with significant lower extremity edema and at risk for alcohol withdrawal Alcohol use disorder with alcohol withdrawal etoh level 355 on arrival; h/o etoh withdawal seizures continue phenobarbital protocol Declines evaluation by addiction Medicine Service Supplementation with folic acid, thiamine CIWA score 10 Follow electrolytes Alcoholic liver cirrhosis with thrombocytopenia LFTs chronically elevated, tbili trending up Platelets chronically low, trending down INR trending up to 1.8 GI consult pending, has not followed up outpatient for several years on lasix and aldactone at baseline, bp soft overnight will hold abdominal US with trace ascites toxic metabolic encephalopathy Due to hepatic encephalopathy and alcohol withdrawal Continue lactulose continue treatment for etoh withdrawal Acute on Chronic macrocytic anemia H/H trending down, denies active bleeding possible component of dilution, received IVF and albumin Declines blood transfusion B12, folic acid within normal limits, iron level wnl, ferritin elevated at 1097 bili, LDH somewhat jorge, but retic count low, less likely hemolysis Screening for hereditary hemochromatosis pending Continue IV PPI for now Trend CBC possible acute cholecystitis abdominal US revealed cholelithiasis with possible acute cholecystitis Patient denies any significant abdominal pain LFTs chronically elevated, thought to be due to chronic liver disease Seen by General surgery plan for hida scan acute lactic acidosis likely due to decreased clearance from liver dz no sepsis, no acute infection identified Lower extremity edema Likely due to above cirrhosis and hypoalbuminemia b/l doppler negative for DVT albumin 2.9 - received albumin in ED got one dose of IV lasix, bp soft echo pending LLE laceration repaired with 12 sutures in ED (07/03) will need to be removed after 7-10 days Tobacco dependence Smoking cessation advised NRT morbid obesity BMI 32.2 DVT prophylaxis-avoid chemoprophylaxis due to anemia/thrombocytopenia/ elevated INR; avoid mechanical prophylaxis due to significant lower extremity edema/leg laceration Patient requires ongoing stay in the hospital for management of alcohol withdrawal, liver cirrhosis, anemia investigation and possible acute cholecystitis requiring specialist evaluation Quality Stroke Does the patient have a stroke diagnosis?: No VTE Prior VTE?: No VTE Risk Level:: Medical - moderate - high VTE Device Contraindication: Treatment Not Indicated VTE Drug Contraindication: Treatment Not Indicated
--- NOTE | 2024-07-05 10:29 | P.PNGS_ITS ---
Subjective Subjective Date of Service: 07/05/24 Interval history: Killian reports feeling improved today with no abdominal pain. Denies nausea or vomiting. Physical Exam 2 Vital Signs: Vital Signs: Last Vital Signs Temp 98.1 F 07/05/24 06:59 Pulse 86 07/05/24 06:59 Resp 19 07/05/24 06:59 BP 116/66 07/05/24 06:59 Pulse Ox 93 07/05/24 06:59 O2 Del Method Room Air 07/05/24 06:59 BMI result Body Mass Index 32.2 Const: General: no acute distress Orientation/consciousness: patient oriented x3 Resp: Effort & Inspection: normal respiratory effort GI: Other: Negative Oliveira sign Inspection: Yes normal to inspection Palpation (GI): Soft to palpation, nontender, no guarding and not rigid Skin: Other: Jaundice Neuro: General: patient oriented x3 Extrem: General: Yes edema Objective Data Active Medications Acetaminophen (Acetaminophen 325 Mg Tablet) 650 mg PO Q6H PRN PRN Reason: Pain, Mild 1-3,fever,headache Calcium Carbonate (Calcium Carbonate 750 Mg Tab.Chew) 750 mg PO Q4H PRN PRN Reason: Heartburn Folic Acid (Folic Acid 1 Mg Tablet) 1 mg PO DAILY [facility] Last Admin: 07/05/24 09:45 Dose: 1 mg Documented By: ROBI Thiamine HCl 200 mg/ Sodium (Chloride) 102 mls @ 204 mls/hr IV Q12H [facility] Lactulose (Lactulose 20 Gm/30 Ml Solution) 20 gm PO BID [facility] Last Admin: 07/05/24 09:44 Dose: 20 gm Documented By: ROBI Magnesium Hydroxide (Milk Of Magnesia 30 Ml Oral.Susp) 30 ml PO DAILY PRN PRN Reason: Constipation Melatonin (Melatonin 3 Mg Tablet) 6 mg PO BEDTIME PRN PRN Reason: Insomnia Multivitamins/Vitamin C (Multivitamin Tablet) 1 tab PO DAILY [facility] Last Admin: 07/05/24 09:45 Dose: 1 tab Documented By: ROBI Nicotine (Nicotine 21 Mg Patch.Td24) 21 mg TRANSDERMA DAILY [facility] Last Admin: 07/05/24 09:44 Dose: 21 mg Documented By: ROBI Pantoprazole Sodium (Pantoprazole Sodium 40 Mg/10 Ml Vial) 40 mg IVPUSH BID@0630,1630 [facility] Last Admin: 07/05/24 06:26 Dose: 40 mg Documented By: MILLER Pharmacy Consult (Consult Rx Etoh Phenob Im/Po) 1 each MISCELLANE ONCE PRN; Protocol PRN Reason: Consult order Phenobarbital (Phenobarbital 30 Mg Tablet) 60 mg PO BID [facility]; Protocol Stop: 07/05/24 21:01 Last Admin: 07/05/24 09:45 Dose: 60 mg Documented By: ROBI Phenobarbital (Phenobarbital 30 Mg Tablet) 30 mg PO BID [facility]; Protocol Stop: 07/07/24 21:01 Phenobarbital (Phenobarbital 30 Mg Tablet) 30 mg PO DAILY [facility]; Protocol Stop: 07/09/24 09:01 Sertraline HCl (Sertraline Hcl 25 Mg Tablet) 25 mg PO DAILY [facility] Last Admin: 07/05/24 09:45 Dose: 25 mg Documented By: ROBI Sodium Chloride (0.9 % Sodium Chloride Flush 3 Ml Syringe) 3 ml IVFLUSH QSHIFT [facility] Last Admin: 07/05/24 09:46 Dose: 3 ml Documented By: ROBI Labs 07/05/24 06:44 07/05/24 06:44 Labs: Laboratory Results - last 24 hr 07/04/24 07/04/24 07/04/24 02:13 11:52 23:23 MCV MCH MCHC RDW Plt Count MPV Absolute Nucleated RBC Nucleated RBC % (auto) Absolute Retic 0.025 L Percent Retic 1.2 Immature Retic Fraction 8.2 Retic Hgb Equivalent 38.4 H Anion Gap Estim Creat Clear Calc Estimated GFR Random Glucose Calcium Iron 115 TIBC 140 L % Saturation 82 H Unsat Iron Binding < 25 Ferritin 1097 H Total Bilirubin Direct Bilirubin AST ALT Alkaline Phosphatase Ammonia 65 H Lactate Dehydrogenase 280 H Total Protein Albumin Hold Green Top See Note 07/05/24 06:44 MCV 105.5 H MCH 38.8 H MCHC 36.8 H RDW 13.9 Plt Count 55 L MPV 11.2 Absolute Nucleated RBC 0.000 Nucleated RBC % (auto) 0.0 Absolute Retic Percent Retic Immature Retic Fraction Retic Hgb Equivalent Anion Gap 14 Estim Creat Clear Calc 145.7 Estimated GFR > 60 Random Glucose 114 Calcium 8.5 Iron TIBC % Saturation Unsat Iron Binding Ferritin Total Bilirubin 7.3 H Direct Bilirubin 2.2 H AST 94 H ALT 23 Alkaline Phosphatase 69 Ammonia Lactate Dehydrogenase Total Protein 7.0 Albumin 3.1 L Hold Green Top Procedures Date of Service Date of Service: 07/05/24 Progress Note: A&P Assessment and plan (1) Acute alcoholic hepatitis: Status: Acute Plan 48-year-old male patient with alcoholic hepatitis. Appreciate Dr. Colby's input. Patient's abdominal exam is improved today. No surgical intervention recommended at this time. I will sign off; please reconsult for new concerns. Time Spent With Patient Time: Total time managing care of this patient today ____ minutes. Quality Stroke Does the patient have a stroke diagnosis?: No VTE Prior VTE?: No VTE Risk Level:: Medical - moderate - high VTE Device Contraindication: Treatment Not Indicated VTE Drug Contraindication: Treatment Not Indicated
[2024-07-05 12:00] VITALS: BP 118/60; PULSE 65; RESP 20; TEMP 36.8; O2SAT 98
[2024-07-05] MEDS: Thiamine HCL 200 MG in 0.9 % Sodium Chloride 100 ML 204 MG IV ×2 (15:32→22:32)
[2024-07-05 15:45] VITALS: BP 119/56; PULSE 94; RESP 18; TEMP 37; O2SAT 99
[2024-07-05 19:11] VITALS: BP 122/57; PULSE 91; RESP 18; TEMP 37.7; O2SAT 97
[2024-07-05] MEDS: Melatonin 3 MG TABLET 6 MG PO (19:45)
[2024-07-05 22:26] VITALS: BP 120/62; PULSE 83; RESP 18; TEMP 37.7; O2SAT 96
[2024-07-06 03:21] VITALS: BP 113/56; PULSE 87; RESP 18; TEMP 37.7; O2SAT 94
[2024-07-06] MEDS: Pantoprazole Sodium 40 MG/10 ML VIAL IVPUSH ×2 (05:12→16:46)
--- NOTE | 2024-07-06 07:00 | CA_ITS ---
Transthoracic Echocardiogram Patient (Last, First, Middle): Killian Geiger J Gender: Male Date of : 1975 Age: 48 Procedure Date: 07/06/2024 Procedure Type: Transthoracic Echocardiogram Location: [facility] [place] Height: 180.34 cm Weight: 97.52 kg BSA: 2.17 m2 Heart Rate: bpm BP: 107 / 56 mmHg Instrumentation Supervisor: Referring MD: Erendira STEPHENSON Psychometrician: Rich Arzola MD Symptoms: fluid overload Study Quality: Adequate ECG Rhythm: Sinus Conclusions: - 1. Normal LV ejection fraction of 65-70% 2. Moderately dilated left atrium and mildly dilated right atrium 3. Normal measured RV systolic pressure but mildly elevated right atrial pressures 4. No gross pericardial effusion Findings Left Ventricle Normal left ventricular size, thickness, and systolic function. The visually estimated ejection fraction is between 65-70%. Spectral Doppler is indicative of a normal filling pattern. Right Ventricle Normal right ventricular cavity size and systolic function. Atria The left atrium is moderately dilated. Interatrial shunt cannot be excluded. The right atrium is mildly dilated. Aortic Valve Normal aortic valve structure and function. There is no aortic valve stenosis. There is no aortic valve regurgitation. Mitral Valve Normal mitral valve structure and function. There is trace mitral valve regurgitation. There is no mitral valve stenosis. Pulmonic Valve The pulmonic valve is likely normal. Tricuspid Valve Normal tricuspid valve structure. There is mild tricuspid valve regurgitation. The right ventricular systolic pressure is 31 mmHg. Mildly elevated right atrial pressure. There is no evidence of pulmonary hypertension. Great Vessels All visible segments of the aorta are normal in size. The pulmonary artery was not well visualized. There is no dilatation of the ascending aorta measuring 3.00 cm. Venous The inferior vena cava is severely dilated and collapses greater than 50% with inspiration. Pericardium/Pleural There is no evidence of pericardial effusion. There is a left sided pleural effusion. Prior Study Comparison No prior study available for comparison. Measurements 2D Linear Measurements IVSd: 1.09 0.6-0.9/0.6-1.0 cm LVIDd: 5.37 3.9-5.3/4.2-5.9 cm LVIDd Index: 2.47 2.4-3.2/2.2-3.1 cm/m2 LVIDs: 2.92 2.0-3.6 cm LVPWd: 1.06 0.7-1.1 cm Ao Root: 3.50 2.1-3.5 cm LA Diam: 4.50 2.7-3.8/3.0-4.0 cm LAIDs Index: 2.07 1.5-2.3 cm/m2 LV Mass: 281.22 67-162/88-224 g LV Mass Index: 129.59 43-95/49-115 g/m2 LVOT Diam: 2.30 3.0+(-)1.3 cm 2D Systolic Function EF 4C: 58.20 >55% EF 2C: 75.40 >55% EF BiP: 66.80 >55% Mitral Valve MV Pk E: 1.33 MV PK A: 0.91 MV Decel Time: 225.00 E/A: 1.50 E'Lateral: 13.20 E'Medial: 8.92 E/E' Med: 14.90 E/E' Lat: 10.10 PHT: 66.00 MVA PHT: 3.33 Decel Kay: 5.92 Aortic Valve AoV Pk Jhonatan: 1.98 AoV Mn Jhonatan: 1.33 AoV VTI: 0.41 AoV Pk Grad: 16.00 Aov Mn Grad: 8.00 SHANAE Cont.VTI: 3.50 LVOT LVOT Pk Jhonatan: 1.55 LVOT Mn Jhonatan: 1.06 LVOT VTI: 0.35 LVOT Pk Grad: 10.00 LVOT Mn Grad: 5.00 LVOT Diam: 2.30 LVOT Area: 4.15 Diastolic Function MV Pk E: 1.33 MV Pk A: 0.91 E/A: 1.50 E'Medial: 8.92 E/E' Med: 14.90 E' Laterial: 13.20 E/E' Lat: 10.10 Right Ventricle TAPSE (mm): 40.00 Tricuspid Valve TR Pk Jhonatan: 2.40 TR Pk Grad: 23.00 RA Press: 8.00 RVSP: 31.00 Great Vessels Aorta Ao Root-2D: 3.50 2.0-3.7 cm Ao Asc: 3.00 2.1-3.4 cm Pulmonary Valve PV Pk Jhonatan: 1.26 Peak PV Grad: 6.00 Updated in Other Vendor System with Status of Final Rich Arzola MD electronically signed on 07/07/2024 1:39:25 PM with status of Final
[2024-07-06 07:02] LABS: MANUAL DIFF FLAG NO
[2024-07-06 07:09] LABS: Basophils Percent Auto 0.5 % (0-2); Eosinophils Absolute Auto 0.1 X10*3/uL (0.0-0.4); Eosinophils Percent Auto 0.9 % (0-4); Hematocrit 23.1 % (42.0-52.0); Imm Gran Abs Auto 0.03 X10*3/uL (0.00-0.03); Imm Gran Pct Auto 0.4 % (0.0-0.4); Lymphocytes Absolute Auto 1.4 X10*3/uL (1.2-4.9); Lymphocytes Percent Auto 19.1 % (20-40); Mean Corpuscular HGB Conc 34.6 g/dl (31.0-36.0); Mean Corpuscular Hemoglobin 37.6 pg (27.0-33.0); Mean Corpuscular Volume 108.5 fL (80.0-98.0); Mean Platelet Volume 11.9 fL (9.4-12.4); Monocytes Absolute Auto 0.8 X10*3/uL (0.1-1.2); Monocytes Percent Auto 10.4 % (2-11); Neutrophils Absolute Auto 5.1 x10*3/uL (2.0-8.3); Neutrophils Percent Auto 68.7 % (45-73); Red Blood Count 2.13 X10*6/uL (4.60-5.80); White Blood Count 7.4 X10*3/uL (4.8-10.8)
[2024-07-06 07:11] LABS: Platelet Count 51 X10*3/uL (160-400)
[2024-07-06 07:17] LABS: INTERNATIONAL NORM RATIO 2.4 (0.9-1.1); Prothrombin Time 27.5 SEC (10.9-12.4)
[2024-07-06 07:29] LABS: Alanine Aminotransferase 23 U/L (0-40); Alkaline Phosphatase 69 U/L (39-117); Anion Gap 12 (12-20); Aspartate Amino Transferase 81 U/L (5-37); Bilirubin Direct 2.4 mg/dL (0.0-0.5); Bilirubin Total 6.9 mg/dL (0.0-1.0); Blood Urea Nitrogen 10 mg/dL (9-16); Calcium 8.5 mg/dL (8.4-10.2); Carbon Dioxide 23 mmol/L (22-29); Chloride 102 mmol/L (96-108); Creatinine Clr Calc Pharmacy 133.7; Estimated Glomerular Filt Rate > 60; Glucose Random 115 mg/dL (60-115); Potassium 3.7 mmol/L (3.3-5.1); Sodium 133 mmol/L (135-145); Total Protein 7.1 g/dL (6.5-8.0)
[2024-07-06 07:56] VITALS: BP 107/56; PULSE 87; RESP 16; TEMP 36.9; O2SAT 95
[2024-07-06] MEDS: Sertraline HCL 25 MG TABLET PO (09:13)
[2024-07-06] MEDS: Lactulose 20 GM/30 ML SOLUTION PO ×2 (09:13→20:15)
[2024-07-06] MEDS: PHENobarbitaL 30 MG TABLET PO ×2 (09:13→20:15)
[2024-07-06] MEDS: Multivitamin TABLET 1 TAB PO (09:14)
[2024-07-06] MEDS: Nicotine 21 MG PATCH.TD24 TRANSDERMA (09:14)
[2024-07-06] MEDS: Folic Acid 1 MG TABLET PO (09:15)
[2024-07-06] MEDS: 0.9 % Sodium Chloride Flush 3 ML SYRINGE IVFLUSH (09:15)
[2024-07-06] MEDS: ondansetron HCL 4 MG/2 ML VIAL IVPUSH (10:25)
[2024-07-06] MEDS: Thiamine HCL 200 MG in 0.9 % Sodium Chloride 100 ML 204 MG IV ×2 (10:25→22:07)
--- NOTE | 2024-07-06 10:32 | P.PNIM_ITS ---
Subjective Subjective Date of Service: 07/06/24 Interval History: follow up for etoh withdrawal no overnight events awake, alert, sweaty and shaky denies abdominal pain Review of Systems Review of Systems: Yes all other systems are reviewed and are negative Constitutional Constitutional: Denies chills and Denies fever(s) Cardiovascular Cardiovascular: Denies chest pain, Denies palpitations and Denies dyspnea Respiratory Respiratory: Denies cough and Denies dyspnea Gastrointestinal Gastrointestinal: Denies abdominal pain Integumentary/Breasts Skin/Breast: Reports change in pigmentation Neurologic Neurologic: Reports confusion Psychiatric Psychiatric: Reports confusion and Reports depression Endocrine Endocrine: Denies palpitations Physical Exam 2 Vital Signs: Vital Signs: Last Vital Signs Temp 98.4 F 07/06/24 07:56 Pulse 87 07/06/24 07:56 Resp 16 07/06/24 07:56 BP 107/56 L 07/06/24 07:56 Pulse Ox 95 07/06/24 07:56 O2 Del Method Room Air 07/06/24 07:56 BMI result Body Mass Index 32.2 Appearing in no acute distress lung sounds are clear to auscultation heart regular rate rhythm, clear S1, S2 positive bowel sounds, abdomen is soft, nontender neuro patient is alert x3, no focal deficits Const: General: confusion Orientation/consciousness: confusion Neuro: General: confusion Objective Data Active Medications Acetaminophen (Acetaminophen 325 Mg Tablet) 650 mg PO Q6H PRN PRN Reason: Pain, Mild 1-3,fever,headache Calcium Carbonate (Calcium Carbonate 750 Mg Tab.Chew) 750 mg PO Q4H PRN PRN Reason: Heartburn Folic Acid (Folic Acid 1 Mg Tablet) 1 mg PO DAILY [facility] Last Admin: 07/06/24 09:15 Dose: 1 mg Documented By: YOLA Thiamine HCl 200 mg/ Sodium (Chloride) 102 mls @ 204 mls/hr IV Q12H [facility] Last Infusion: 07/05/24 23:02 Dose: Infused Documented By: JOSE Dextrose/Sodium Chloride (D5ns) 1,000 mls @ 100 mls/hr IVCONT .Q10H [facility] Lactulose (Lactulose 20 Gm/30 Ml Solution) 20 gm PO BID [facility] Last Admin: 07/06/24 09:13 Dose: 20 gm Documented By: YOLA Magnesium Hydroxide (Milk Of Magnesia 30 Ml Oral.Susp) 30 ml PO DAILY PRN PRN Reason: Constipation Melatonin (Melatonin 3 Mg Tablet) 6 mg PO BEDTIME PRN PRN Reason: Insomnia Last Admin: 07/05/24 19:45 Dose: 6 mg Documented By: JOSE Multivitamins/Vitamin C (Multivitamin Tablet) 1 tab PO DAILY [facility] Last Admin: 07/06/24 09:14 Dose: 1 tab Documented By: YOLA Nicotine (Nicotine 21 Mg Patch.Td24) 21 mg TRANSDERMA DAILY [facility] Last Admin: 07/06/24 09:14 Dose: 21 mg Documented By: YOLA Ondansetron HCl (Ondansetron Hcl 4 Mg/2 Ml Vial) 4 mg IVPUSH Q6H PRN PRN Reason: Nausea and Vomiting Pantoprazole Sodium (Pantoprazole Sodium 40 Mg/10 Ml Vial) 40 mg IVPUSH BID@0630,1630 [facility] Last Admin: 07/06/24 05:12 Dose: 40 mg Documented By: JOSE Pharmacy Consult (Consult Rx Etoh Phenob Im/Po) 1 each MISCELLANE ONCE PRN; Protocol PRN Reason: Consult order Phenobarbital (Phenobarbital 30 Mg Tablet) 30 mg PO BID [facility]; Protocol Stop: 07/07/24 21:01 Last Admin: 07/06/24 09:13 Dose: 30 mg Documented By: YOLA Phenobarbital (Phenobarbital 30 Mg Tablet) 30 mg PO DAILY [facility]; Protocol Stop: 07/09/24 09:01 Sertraline HCl (Sertraline Hcl 25 Mg Tablet) 25 mg PO DAILY [facility] Last Admin: 07/06/24 09:13 Dose: 25 mg Documented By: YOLA Sodium Chloride (0.9 % Sodium Chloride Flush 3 Ml Syringe) 3 ml IVFLUSH QSHIFT [facility] Last Admin: 07/06/24 09:15 Dose: 3 ml Documented By: YOLA Labs 07/06/24 06:48 07/06/24 06:48 Labs: Laboratory Results - last 24 hr 07/06/24 06:48 MCV 108.5 H MCH 37.6 H MCHC 34.6 RDW 14.0 Plt Count 51 L MPV 11.9 Immature Gran % (Auto) 0.4 Neut % (Auto) 68.7 Lymph % (Auto) 19.1 L [place] % (Auto) 10.4 Eos % (Auto) 0.9 Baso % (Auto) 0.5 Lymph # (Auto) 1.4 [place] # (Auto) 0.8 Eos # (Auto) 0.1 Baso # (Auto) 0.0 Abs Immat Gran (auto) 0.03 Absolute Neuts (auto) 5.1 Absolute Nucleated RBC 0.000 Nucleated RBC % (auto) 0.0 PT 27.5 H D INR 2.4 H Anion Gap 12 Estim Creat Clear Calc 133.7 Estimated GFR > 60 Random Glucose 115 Calcium 8.5 Total Bilirubin 6.9 H Direct Bilirubin 2.4 H AST 81 H ALT 23 Alkaline Phosphatase 69 Total Protein 7.1 Albumin 3.0 L Microbiology Microbiology Results: Microbiology 07/04/24 11:52 Blood Culture - Preliminary Blood - Venous No growth after 24 hours. 07/04/24 11:52 Blood Culture - Preliminary Blood - Venous No growth after 24 hours. Assessment and Plan (1) Laceration of leg, left: Status: Acute (2) Thrombocytopenia: Status: Acute (3) Cirrhosis: Status: Acute Plan 48-year-old male history of alcoholic liver cirrhosis who presents to the emergency room today with left leg laceration found to be acutely intoxicated, with significant lower extremity edema and at risk for alcohol withdrawal Alcohol use disorder with alcohol withdrawal etoh level 355 on arrival; h/o etoh withdrawal seizures continue phenobarbital protocol Declines evaluation by addiction Medicine Service Supplementation with folic acid, IVthiamine extra dose of IM phenobarb given D5NS @100 Alcoholic liver cirrhosis with thrombocytopenia LFTs chronically elevated, tbili trending up Platelets chronically low, trending down INR trending up to 2.4, oral vitamin k x1 GI consult pending, has not followed up outpatient for several years on lasix and aldactone at baseline, bp soft overnight will hold abdominal US with trace ascites toxic metabolic encephalopathy Due to hepatic encephalopathy and alcohol withdrawal Continue lactulose continue treatment for etoh withdrawal Acute on Chronic macrocytic anemia H/H trending down, denies active bleeding possible component of dilution, received IVF and albumin Declines blood transfusion B12, folic acid within normal limits, iron level wnl, ferritin elevated at 1097 bili, LDH somewhat high, but retic count low, less likely hemolysis Screening for hereditary hemochromatosis pending Continue IV PPI for now Trend CBC possible acute cholecystitis abdominal US revealed cholelithiasis with possible acute cholecystitis Patient denies any significant abdominal pain LFTs chronically elevated, thought to be due to chronic liver disease Seen by General surgery plan for hida scan acute lactic acidosis likely due to decreased clearance from liver dz no sepsis, no acute infection identified Lower extremity edema Likely due to above cirrhosis and hypoalbuminemia b/l doppler negative for DVT s/p albumin in ED got one dose of IV lasix, bp soft echo pending LLE laceration repaired with 12 sutures in ED (07/03) will need to be removed after 7-10 days Tobacco dependence Smoking cessation advised NRT morbid obesity. BMI 32.2 weight management DVT prophylaxis-avoid chemoprophylaxis due to anemia/thrombocytopenia/ elevated INR; avoid mechanical prophylaxis due to significant lower extremity edema/leg laceration Patient requires ongoing stay in the hospital for management of alcohol withdrawal, liver cirrhosis, anemia investigation and possible acute cholecystitis requiring specialist evaluation Quality Stroke Does the patient have a stroke diagnosis?: No VTE Prior VTE?: No VTE Risk Level:: Medical - moderate - high VTE Device Contraindication: Treatment Not Indicated VTE Drug Contraindication: Treatment Not Indicated
[2024-07-06] MEDS: Dextrose 5 % and 0.9 % NaCl 1,000 ML 100 ML IVCONT ×2 (11:05→22:19)
[2024-07-06] MEDS: Phytonadione (Vit K1) Oral 10 MG/ML AMPUL 2.5 MG PO (11:07)
[2024-07-06] MEDS: PHENobarbitaL sodium 130 MG/ML VIAL IM (11:09)
--- NOTE | 2024-07-06 11:19 | MHC.CM.PN ---
Per ROUNDS, Patient is actively withdrawing and not yet medically cleared for dc; home is the goal and CM will follow.
[2024-07-06 12:00] VITALS: BP 108/57; PULSE 84; RESP 20; TEMP 36.7; O2SAT 95
[2024-07-06 16:00] VITALS: BP 137/63; PULSE 81; RESP 18; TEMP 37.5; O2SAT 93
--- NOTE | 2024-07-06 16:01 | P.PNGI_ITS ---
Subjective Subjective Date of Service: 07/06/24 Interval History: Patient is alert and oriented x 3. He denies pain. He is toleration po's. He denies any signs of GI bleeding. Critical Care Time (minutes): 0 Physical Exam 2 Vital Signs: Vital Signs: Last Vital Signs Temp 98.1 F 07/06/24 12:00 Pulse 84 07/06/24 12:00 Resp 20 07/06/24 12:00 BP 108/57 L 07/06/24 12:00 Pulse Ox 95 07/06/24 12:00 O2 Del Method Room Air 07/06/24 12:00 BMI result Body Mass Index 32.2 Const: General: cooperative, comfortable, no acute distress, well developed, alert, awake, anxious, ill appearing chronically and poor hygiene O rientation/consciousness: oriented to person, oriented to place and oriented to time Eyes: Sclerae: scleral abnormal (Icteric) GI: Other: Abd-Nondistended, +BS, soft, NT, no significant ascites Neuro: Other: Mild asterixis Pressured speech General: oriented to person, oriented to place and oriented to time Extrem: Other: Pretibial edema Objective Data Labs 07/06/24 06:48 07/06/24 06:48 Labs: Laboratory Results - last 24 hr 07/06/24 06:48 WBC 7.4 RBC 2.13 L Hgb 8.0 L Hct 23.1 L MCV 108.5 H MCH 37.6 H MCHC 34.6 RDW 14.0 Plt Count 51 L MPV 11.9 Immature Gran % (Auto) 0.4 Neut % (Auto) 68.7 Lymph % (Auto) 19.1 L [place] % (Auto) 10.4 Eos % (Auto) 0.9 Baso % (Auto) 0.5 Lymph # (Auto) 1.4 [place] # (Auto) 0.8 Eos # (Auto) 0.1 Baso # (Auto) 0.0 Abs Immat Gran (auto) 0.03 Absolute Neuts (auto) 5.1 Absolute Nucleated RBC 0.000 Nucleated RBC % (auto) 0.0 PT 27.5 H D INR 2.4 H Sodium 133 L Potassium 3.7 Chloride 102 Carbon Dioxide 23 Anion Gap 12 BUN 10 Creatinine 0.85 Estim Creat Clear Calc 133.7 Estimated GFR > 60 Random Glucose 115 Calcium 8.5 Total Bilirubin 6.9 H Direct Bilirubin 2.4 H AST 81 H ALT 23 Alkaline Phosphatase 69 Total Protein 7.1 Albumin 3.0 L Microbiology Microbiology Results: Microbiology 07/04/24 11:52 Blood - Venous Blood Culture - Preliminary No growth after 48 hours. 07/04/24 11:52 Blood - Venous Blood Culture - Preliminary No growth after 48 hours. Procedures Date of Service Date of Service: 07/06/24 Progress Note: A&P Assessment and plan (1) Alcoholic hepatitis: Status: Acute (2) Cirrhosis: Status: Acute Assessment and Plan: Imp/Recs: EtOH-induced liver disease with associated cirrhosis, some associated EtOH- induced hepatitis, slightly elevated ammonia level with mild asterixis, small amount of ascites on U/S, and other complications including coagulopathy and thrombocytopenia. He does have anemia but there has been no overt GI bleeding. His hyperbilirubinemia is predominantly indirect raising a possibility of hemolysis. I doubt he has cholecystitis given a benign abdominal exam at the present time. I suspect the U/S findings regarding the gallbladder wall edema are due to his significant liver disease as opposed to cholecystitis. He does not appear to have SBP given the benign abdominal exam and just minimal amount of ascites. I would recommend supportive care and F/U labs as you are doing. I ordered a dose of IV Vit K to see if that can help correct the elevated PT/INR. Hold off on po prednisolone for the EtOH-induced hepatitis for now until we see tomorrow's labs, including a PT/INR and Liver profile. Continue IV PPI for now. If the indirect bilirubin continues to rise along with a drop in Hgb, I would recommemnd a Hematology consult as well so as to assess for any hemolysisis, D/W patient. Thanks Time Spent With Patient Time: Total time managing care of this patient today ____ minutes. Quality Stroke Does the patient have a stroke diagnosis?: No VTE Prior VTE?: No VTE Risk Level:: Medical - moderate - high VTE Device Contraindication: Treatment Not Indicated VTE Drug Contraindication: Treatment Not Indicated
[2024-07-06] MEDS: Phytonadione (Vit K1) 10 MG in 0.9 % Sodium Chloride 50 ML 51 MG IV (16:46)
[2024-07-06 19:16] VITALS: BP 120/60; PULSE 78; RESP 18; TEMP 37.4; O2SAT 96
[2024-07-06] MEDS: Melatonin 3 MG TABLET 6 MG PO (22:05)
[2024-07-06 23:23] VITALS: BP 124/63; PULSE 74; RESP 18; TEMP 37.2; O2SAT 98
[2024-07-07 04:34] VITALS: BP 110/55; PULSE 84; RESP 18; TEMP 36.9; O2SAT 93
[2024-07-07] MEDS: Pantoprazole Sodium 40 MG/10 ML VIAL IVPUSH (05:25)
--- NOTE | 2024-07-07 05:45 | PC.NURSE ---
Pt bit his mouth and had some amount of bleeding. Pressure dressings applied for a few minute and bleeding stopped. Pt cleaned and changed into a new gown. He was educated not to pick his mouth and nose. His medications administered as ordered by MD, safety precautions in place, camera in pt room, bed alarm on , call hassan and personal items within reach of pt and bed in lowest position for safety. Frequent rounding maintain.
[2024-07-07 06:54] LABS: Hematocrit 21.4 % (42.0-52.0); Hemoglobin 7.5 g/dl (14.0-18.0); Mean Corpuscular Hemoglobin 38.3 pg (27.0-33.0); Mean Corpuscular Volume 109.2 fL (80.0-98.0); Mean Platelet Volume 12.6 fL (9.4-12.4); Red Blood Count 1.96 X10*6/uL (4.60-5.80); Red Cell Distribution Width 14.2 % (11.0-16.0); White Blood Count 6.7 X10*3/uL (4.8-10.8)
[2024-07-07 06:59] LABS: Platelet Count 50 X10*3/uL (160-400)
[2024-07-07 07:00] LABS: INTERNATIONAL NORM RATIO 2.2 (0.9-1.1); Prothrombin Time 25.1 SEC (10.9-12.4)
[2024-07-07 07:13] LABS: Alanine Aminotransferase 21 U/L (0-40); Albumin Level 2.7 g/dL (3.5-5.0); Alkaline Phosphatase 63 U/L (39-117); Anion Gap 7 (12-20); Aspartate Amino Transferase 56 U/L (5-37); Bilirubin Direct 2.1 mg/dL (0.0-0.5); Bilirubin Total 5.6 mg/dL (0.0-1.0); Blood Urea Nitrogen 9 mg/dL (9-16); Calcium 8.1 mg/dL (8.4-10.2); Carbon Dioxide 22 mmol/L (22-29); Chloride 107 mmol/L (96-108); Creatinine Clr Calc Pharmacy 143.8; Estimated Glomerular Filt Rate > 60; Glucose Random 148 mg/dL (60-115); Potassium 3.1 mmol/L (3.3-5.1); Sodium 133 mmol/L (135-145); Total Protein 6.2 g/dL (6.5-8.0)
[2024-07-07 08:00] VITALS: BP 127/58; PULSE 76; RESP 16; TEMP 37; O2SAT 96
[2024-07-07] MEDS: Dextrose 5 % and 0.9 % NaCl 1,000 ML 100 ML IVCONT (08:38)
[2024-07-07] MEDS: Nicotine 21 MG PATCH.TD24 TRANSDERMA (08:39)
[2024-07-07] MEDS: Sertraline HCL 25 MG TABLET PO (08:40)
[2024-07-07] MEDS: Potassium Chloride ER 20 MEQ TAB.ER.PRT 40 MEQ PO (08:40)
[2024-07-07] MEDS: PHENobarbitaL 30 MG TABLET PO ×2 (08:40→20:49)
[2024-07-07] MEDS: Lactulose 20 GM/30 ML SOLUTION PO ×2 (08:40→20:50)
[2024-07-07] MEDS: Multivitamin TABLET 1 TAB PO (08:40)
[2024-07-07] MEDS: Folic Acid 1 MG TABLET PO (08:40)
[2024-07-07] MEDS: Thiamine HCL 200 MG in 0.9 % Sodium Chloride 100 ML 204 MG IV ×2 (10:35→20:57)
[2024-07-07] MEDS: Phytonadione (Vit K1) Oral 10 MG/ML AMPUL 5 MG PO (10:36)
--- NOTE | 2024-07-07 11:22 | P.PNIM_ITS ---
Subjective Subjective Date of Service: 07/07/24 Interval History: follow up for etoh withdrawal no overnight events awake, alert still sweaty and shaky denies abdominal pain Review of Systems Constitutional : No Fever, No Chills, pos Fatigue ENT/Mouth : No sore throat, No Rhinorrhea Eyes: No Eye Pain, No Swelling, No Redness Cardiovascular : No Chest Pain, No SOB, No Dyspnea on Exertion, pos edema Respiratory : No Cough, No Sputum Gastrointestinal : pos Nausea, No Vomiting, No Diarrhea, No abdominal Pain Genitourinary : No Dysuria, No Urinary Frequency, No Hematuria, Musculoskeletal : No joint pain, pos Myalgias, No Joint Swelling Skin : No Skin Lesions, No rash, pos laceration Neuro : pos Weakness, No Numbness, No Dizziness, positive Headache Psych : pos Anxiety/Panic, No Depression All other systems reviewed and are negative Review of Systems: Yes all other systems are reviewed and are negative Constitutional Constitutional: Denies chills and Denies fever(s) Cardiovascular Cardiovascular: Denies chest pain, Denies palpitations and Denies dyspnea Respiratory Respiratory: Denies cough and Denies dyspnea Gastrointestinal Gastrointestinal: Denies abdominal pain Integumentary/Breasts Skin/Breast: Reports change in pigmentation Neurologic Neurologic: Reports confusion Psychiatric Psychiatric: Reports confusion and Reports depression Endocrine Endocrine: Denies palpitations Physical Exam 2 Vital Signs: Vital Signs: Last Vital Signs Temp 98.6 F 07/07/24 08:00 Pulse 76 07/07/24 08:00 Resp 16 07/07/24 08:00 BP 127/58 L 07/07/24 08:00 Pulse Ox 96 07/07/24 08:00 O2 Del Method Room Air 07/07/24 08:00 BMI result Body Mass Index 32.2 Appearing in no acute distress, jaundice lung sounds are clear to auscultation heart regular rate rhythm, clear S1, S2 positive bowel sounds, abdomen is soft, nontender neuro patient is alert x3, no focal deficits Const: General: confusion Orientation/consciousness: confusion Neuro: General: confusion Objective Data Active Medications Acetaminophen (Acetaminophen 325 Mg Tablet) 650 mg PO Q6H PRN PRN Reason: Pain, Mild 1-3,fever,headache Calcium Carbonate (Calcium Carbonate 750 Mg Tab.Chew) 750 mg PO Q4H PRN PRN Reason: Heartburn Folic Acid (Folic Acid 1 Mg Tablet) 1 mg PO DAILY [facility] Last Admin: 07/07/24 08:40 Dose: 1 mg Documented By: YOLA Thiamine HCl 200 mg/ Sodium (Chloride) 102 mls @ 204 mls/hr IV Q12H [facility] Last Admin: 07/07/24 10:35 Dose: 204 mls/hr Documented By: YOLA Dextrose/Sodium Chloride (D5ns) 1,000 mls @ 100 mls/hr IVCONT .Q10H [facility] Last Admin: 07/07/24 08:38 Dose: 100 mls/hr Documented By: YOLA Lactulose (Lactulose 20 Gm/30 Ml Solution) 20 gm PO BID [facility] Last Admin: 07/07/24 08:40 Dose: 20 gm Documented By: YOLA Magnesium Hydroxide (Milk Of Magnesia 30 Ml Oral.Susp) 30 ml PO DAILY PRN PRN Reason: Constipation Melatonin (Melatonin 3 Mg Tablet) 6 mg PO BEDTIME PRN PRN Reason: Insomnia Last Admin: 07/06/24 22:05 Dose: 6 mg Documented By: JOSE Multivitamins/Vitamin C (Multivitamin Tablet) 1 tab PO DAILY [facility] Last Admin: 07/07/24 08:40 Dose: 1 tab Documented By: YOLA Nicotine (Nicotine 21 Mg Patch.Td24) 21 mg TRANSDERMA DAILY [facility] Last Admin: 07/07/24 08:39 Dose: 21 mg Documented By: YOLA Ondansetron HCl (Ondansetron Hcl 4 Mg/2 Ml Vial) 4 mg IVPUSH Q6H PRN PRN Reason: Nausea and Vomiting Last Admin: 07/06/24 10:25 Dose: 4 mg Documented By: YOLA Pantoprazole Sodium (Pantoprazole Sodium 40 Mg/10 Ml Vial) 40 mg IVPUSH BID@0630,1630 [facility] Last Admin: 07/07/24 05:25 Dose: 40 mg Documented By: JOSE Pharmacy Consult (Consult Rx Etoh Phenob Im/Po) 1 each MISCELLANE ONCE PRN; Protocol PRN Reason: Consult order Phenobarbital (Phenobarbital 30 Mg Tablet) 30 mg PO BID [facility]; Protocol Stop: 07/07/24 21:01 Last Admin: 07/07/24 08:40 Dose: 30 mg Documented By: YOLA Phenobarbital (Phenobarbital 30 Mg Tablet) 30 mg PO DAILY [facility]; Protocol Stop: 07/09/24 09:01 Sertraline HCl (Sertraline Hcl 25 Mg Tablet) 25 mg PO DAILY [facility] Last Admin: 07/07/24 08:40 Dose: 25 mg Documented By: YOLA Sodium Chloride (0.9 % Sodium Chloride Flush 3 Ml Syringe) 3 ml IVFLUSH QSHIFT [facility] Last Admin: 07/07/24 08:41 Dose: Not Given Documented By: YOLA Non-Admin Reason: IV Running Labs 07/07/24 06:03 07/07/24 06:03 Labs: Laboratory Results - last 24 hr 07/07/24 06:03 MCV 109.2 H MCH 38.3 H MCHC 35.0 RDW 14.2 Plt Count 50 L MPV 12.6 H Absolute Nucleated RBC 0.000 Nucleated RBC % (auto) 0.0 PT 25.1 H INR 2.2 H Anion Gap 7 L Estim Creat Clear Calc 143.8 Estimated GFR > 60 Random Glucose 148 H Calcium 8.1 L Total Bilirubin 5.6 H Direct Bilirubin 2.1 H AST 56 H ALT 21 Alkaline Phosphatase 63 Total Protein 6.2 L Albumin 2.7 L Microbiology Microbiology Results: Microbiology 07/04/24 11:52 Blood Culture - Preliminary Blood - Venous No growth after 48 hours. 07/04/24 11:52 Blood Culture - Preliminary Blood - Venous No growth after 48 hours. Assessment and Plan (1) Cirrhosis: Status: Acute (2) Laceration of leg, left: Status: Acute (3) Thrombocytopenia: Status: Acute Plan 48-year-old male history of alcoholic liver cirrhosis who presents to the emergency room today with left leg laceration found to be acutely intoxicated, with significant lower extremity edema and at risk for alcohol withdrawal Alcohol use disorder with alcohol withdrawal etoh level 355 on arrival; h/o etoh withdrawal seizures continue phenobarbital protocol Declines evaluation by addiction Medicine Service Supplementation with folic acid, IV thiamine extra dose of IM phenobarb given s/p D5NS @100 Alcoholic liver cirrhosis with thrombocytopenia LFTs chronically elevated, tbili trending up Platelets chronically low, trending down oral vitamin k x2 and one dose IV GI Following> IV vit K x 1, hold off on prednisone for now, continue IV PPI, heme consult if ind bili increases and HH drops abdominal US with trace ascites toxic metabolic encephalopathy. Improving Due to hepatic encephalopathy and alcohol withdrawal Continue lactulose continue treatment for etoh withdrawal Acute on Chronic macrocytic anemia H/H trending down, denies active bleeding possible component of dilution, received IVF and albumin Declines blood transfusion B12, folic acid within normal limits, iron level wnl, ferritin elevated at 1097 bili, LDH somewhat high, but retic count low, less likely hemolysis Screening for hereditary hemochromatosis pending Continue IV PPI for now Trend CBC possible acute cholecystitis abdominal US revealed cholelithiasis with possible acute cholecystitis Patient denies any significant abdominal pain LFTs chronically elevated, thought to be due to chronic liver disease Seen by General surgery plan for hida scan acute lactic acidosis likely due to decreased clearance from liver dz no sepsis, no acute infection identified Lower extremity edema Likely due to above cirrhosis and hypoalbuminemia b/l doppler negative for DVT s/p albumin in ED got one dose of IV lasix, bp soft echo pending LLE laceration repaired with 12 sutures in ED (07/03) will need to be removed after 7-10 days Tobacco dependence Smoking cessation advised NRT morbid obesity. BMI 32.2 weight management DVT prophylaxis-avoid chemoprophylaxis due to anemia/thrombocytopenia/ elevated INR; avoid mechanical prophylaxis due to significant lower extremity edema/leg laceration Patient requires ongoing stay in the hospital for management of alcohol withdrawal, liver cirrhosis, anemia investigation and possible acute cholecystitis requiring specialist evaluation Quality Stroke Does the patient have a stroke diagnosis?: No VTE Prior VTE?: No VTE Risk Level:: Medical - moderate - high VTE Device Contraindication: Treatment Not Indicated VTE Drug Contraindication: Treatment Not Indicated
[2024-07-07 11:59] VITALS: BP 128/64; PULSE 65; RESP 16; TEMP 37.4; O2SAT 96
[2024-07-07 16:00] VITALS: BP 140/67; PULSE 85; RESP 18; TEMP 37.1; O2SAT 98
[2024-07-07 19:13] VITALS: BP 98/53; PULSE 83; RESP 20; TEMP 36.9; O2SAT 98
[2024-07-07] MEDS: 0.9 % Sodium Chloride Flush 3 ML SYRINGE IVFLUSH (20:59)
[2024-07-07 23:28] VITALS: BP 113/63; PULSE 104; RESP 20; TEMP 36.7; O2SAT 99
[2024-07-08] VITALS (8 sets, daily range): BP systolic 100–135; BP diastolic 52–78; PULSE 75–87; RESP 18–20; TEMP 36.1–37.6; O2SAT 92–98
--- NOTE | 2024-07-08 08:04 | HO.PM.IMPN ---
Subjective Subjective Date of Service: 07/08/24 Interval History: Seen and examined this morning Interval history: No complaints. Remains jaundice. 2-3 BMs, still somewhat encephalopathic Review of Systems Review of Systems: Yes all other systems are reviewed and are negative Physical Exam Vital Signs: Vital Signs: Last Vital Signs Temp 99.1 F 07/08/24 07:16 Pulse 78 07/08/24 07:16 Resp 18 07/08/24 07:16 BP 135/78 07/08/24 07:16 Pulse Ox 98 07/08/24 07:16 O2 Del Method Room Air 07/08/24 07:16 O2 Flow Rate 2 07/08/24 03:30 BMI result Body Mass Index 32.2 Constitutional - Awake and Alert, No apparent distress Eyes - PERRLA, EOMI , + scleral icterus Cardiovascular - S1S2, RRR, No edema Respiratory - Normal lung expansion, Normal respiratory effort, No respiratory distress, CTA bilaterally Gastrointestinal - NT / ND; +BS; No rebound or guarding Extremities - no calf tenderness bilaterally, no swelling Skin - Warm/Dry . Jaundice. Twelve intact simple interrupted sutures left lower extremity, no surrounding erythema or warmth. No drainage except for small amount of dried blood Neurological - Alert & oriented x3, but slow in speech and hyperfixating on subjects Objective Data Active Medications Acetaminophen (Acetaminophen 325 Mg Tablet) 650 mg PO Q6H PRN PRN Reason: Pain, Mild 1-3,fever,headache Calcium Carbonate (Calcium Carbonate 750 Mg Tab.Chew) 750 mg PO Q4H PRN PRN Reason: Heartburn Folic Acid (Folic Acid 1 Mg Tablet) 1 mg PO DAILY [facility] Last Admin: 07/07/24 08:40 Dose: 1 mg Documented By: YOLA Thiamine HCl 200 mg/ Sodium (Chloride) 102 mls @ 204 mls/hr IV Q12H [facility] Last Infusion: 07/07/24 21:48 Dose: Infused Documented By: AFSHAN Lactulose (Lactulose 20 Gm/30 Ml Solution) 20 gm PO BID [facility] Last Admin: 07/07/24 20:50 Dose: 20 gm Documented By: AFSHAN Magnesium Hydroxide (Milk Of Magnesia 30 Ml Oral.Susp) 30 ml PO DAILY PRN PRN Reason: Constipation Melatonin (Melatonin 3 Mg Tablet) 6 mg PO BEDTIME PRN PRN Reason: Insomnia Last Admin: 07/06/24 22:05 Dose: 6 mg Documented By: JOSE Multivitamins/Vitamin C (Multivitamin Tablet) 1 tab PO DAILY [facility] Last Admin: 07/07/24 08:40 Dose: 1 tab Documented By: YOLA Nicotine (Nicotine 21 Mg Patch.Td24) 21 mg TRANSDERMA DAILY [facility] Last Admin: 07/07/24 08:39 Dose: 21 mg Documented By: YOLA Ondansetron HCl (Ondansetron Hcl 4 Mg/2 Ml Vial) 4 mg IVPUSH Q6H PRN PRN Reason: Nausea and Vomiting Last Admin: 07/06/24 10:25 Dose: 4 mg Documented By: YOLA Pharmacy Consult (Consult Rx Etoh Phenob Im/Po) 1 each MISCELLANE ONCE PRN; Protocol PRN Reason: Consult order Phenobarbital (Phenobarbital 30 Mg Tablet) 30 mg PO DAILY [facility]; Protocol Stop: 07/09/24 09:01 Sertraline HCl (Sertraline Hcl 25 Mg Tablet) 25 mg PO DAILY [facility] Last Admin: 07/07/24 08:40 Dose: 25 mg Documented By: YOLA Sodium Chloride (0.9 % Sodium Chloride Flush 3 Ml Syringe) 3 ml IVFLUSH QSHIFT [facility] Last Admin: 07/07/24 20:59 Dose: 3 ml Documented By: BERTHA Labs 07/08/24 07:57 07/08/24 07:57 Assessment and Plan (1) Cirrhosis: Status: Acute (2) Laceration of leg, left: Status: Acute (3) Thrombocytopenia: Status: Acute Plan 48-year-old male history of alcoholic liver cirrhosis who presents to the emergency room today with left leg laceration found to be acutely intoxicated, with significant lower extremity edema and at risk for alcohol withdrawal Alcohol use disorder with alcohol withdrawal etoh level 355 on arrival; h/o etoh withdrawal seizures continue phenobarbital protocol Declines evaluation by addiction Medicine Service Supplementation with folic acid, IV thiamine extra dose of IM phenobarb given s/p D5NS @100 Alcoholic liver cirrhosis with thrombocytopenia LFTs chronically elevated, tbili trending up Platelets chronically low, trending down oral vitamin k x2 and one dose IV GI Following> IV vit K x 1, hold off on prednisone for now, continue IV PPI, heme consult if ind bili increases and HH drops abdominal US with trace ascites toxic metabolic encephalopathy. Improving Due to hepatic encephalopathy and alcohol withdrawal Continue lactulose-titrate with goal of 2-3 bowel movements per day continue treatment for etoh withdrawal Acute on Chronic macrocytic anemia H/H trending down, denies active bleeding possible component of dilution, received IVF and albumin Declines blood transfusion B12, folic acid within normal limits, iron level wnl, ferritin elevated at 1097 bili, LDH somewhat high, but retic count low, less likely hemolysis Screening for hereditary hemochromatosis pending Continue IV PPI for now Trend CBC Gastroenterology input appreciated possible acute cholecystitis abdominal US revealed cholelithiasis with possible acute cholecystitis Patient denies any significant abdominal pain LFTs chronically elevated, thought to be due to chronic liver disease Seen by General surgery HIDA scan showing biliary dyskinesia acute lactic acidosis likely due to decreased clearance from liver dz no sepsis, no acute infection identified Lower extremity edema Likely due to above cirrhosis and hypoalbuminemia b/l doppler negative for DVT s/p albumin in ED got one dose of IV lasix, bp soft echo pending LLE laceration repaired with 12 sutures in ED (07/03) will need to be removed after 7-10 days dressing cleaned at bedside, clean no evidence of infection Tobacco dependence Smoking cessation advised NRT morbid obesity. BMI 32.2 weight management DVT prophylaxis-avoid chemoprophylaxis due to anemia/thrombocytopenia/ elevated INR; avoid mechanical prophylaxis due to significant lower extremity edema/leg laceration Patient requires ongoing stay in the hospital for management of alcohol withdrawal, liver cirrhosis, anemia investigation and possible acute cholecystitis requiring specialist evaluation Quality Stroke Does the patient have a stroke diagnosis?: No VTE Prior VTE?: No VTE Risk Level:: Medical - moderate - high VTE Device Contraindication: Treatment Not Indicated VTE Drug Contraindication: Treatment Not Indicated
[2024-07-08 08:18] LABS: Hematocrit 25.4 % (42.0-52.0); Hemoglobin 8.8 g/dl (14.0-18.0); Mean Corpuscular HGB Conc 34.6 g/dl (31.0-36.0); Mean Corpuscular Hemoglobin 38.3 pg (27.0-33.0); Mean Corpuscular Volume 110.4 fL (80.0-98.0); Mean Platelet Volume 12.4 fL (9.4-12.4); Platelet Count 65 X10*3/uL (160-400); Red Cell Distribution Width 14.5 % (11.0-16.0); White Blood Count 6.5 X10*3/uL (4.8-10.8)
[2024-07-08 08:24] LABS: Ammonia 46 umol/L (13-55)
[2024-07-08 08:27] LABS: Prothrombin Time 23.1 SEC (10.9-12.4)
[2024-07-08 08:38] LABS: Alanine Aminotransferase 18 U/L (0-40); Albumin Level 2.9 g/dL (3.5-5.0); Alkaline Phosphatase 71 U/L (39-117); Anion Gap 10 (12-20); Aspartate Amino Transferase 59 U/L (5-37); Bilirubin Direct 2.1 mg/dL (0.0-0.5); Bilirubin Total 5.2 mg/dL (0.0-1.0); Blood Urea Nitrogen 11 mg/dL (9-16); Calcium 8.4 mg/dL (8.4-10.2); Carbon Dioxide 22 mmol/L (22-29); Chloride 105 mmol/L (96-108); Creatinine Clr Calc Pharmacy 153.5; Estimated Glomerular Filt Rate > 60; Glucose Random 97 mg/dL (60-115); Potassium 3.4 mmol/L (3.3-5.1); Sodium 134 mmol/L (135-145); Total Protein 6.7 g/dL (6.5-8.0)
[2024-07-08] MEDS: Lactulose 20 GM/30 ML SOLUTION PO ×2 (09:02→22:00)
[2024-07-08] MEDS: 0.9 % Sodium Chloride Flush 3 ML SYRINGE IVFLUSH ×2 (09:02→22:05)
[2024-07-08] MEDS: Folic Acid 1 MG TABLET PO (09:02)
[2024-07-08] MEDS: Nicotine 21 MG PATCH.TD24 TRANSDERMA (09:02)
[2024-07-08] MEDS: PHENobarbitaL 30 MG TABLET PO (09:03)
[2024-07-08] MEDS: Sertraline HCL 25 MG TABLET PO (09:03)
[2024-07-08] MEDS: Multivitamin TABLET 1 TAB PO (09:03)
--- NOTE | 2024-07-08 10:33 | MHC.CM.PN ---
Per ROUNDS discussion, Patient is not yet medically cleared for dc (still Jaundice); home is the goal and CM will continue to follow.
[2024-07-08] MEDS: Thiamine HCL 200 MG in 0.9 % Sodium Chloride 100 ML 204 MG IV ×2 (11:16→21:53)
--- NOTE | 2024-07-08 19:14 | PC.NURSE ---
Patient alert and oriented, talkative, anxious. Using call hassan appropriately, stand by assist to the bathroom, able to tolerated meals, reports pain to the left leg only with activity. Dressing to the left lower leg changed by the provider.
[2024-07-08] MEDS: Melatonin 3 MG TABLET 6 MG PO (23:59)
[2024-07-09 03:07] VITALS: BP 100/54; PULSE 79; RESP 20; TEMP 36.7; O2SAT 94
[2024-07-09 05:40] LABS: Basophils Absolute Auto 0.1 X10*3/uL (0.0-0.2); Basophils Percent Auto 0.9 % (0-2); PLT CLUMP 1; SCAN SMEAR FLAG 1
[2024-07-09 05:42] LABS: Eosinophils Absolute Auto 0.2 X10*3/uL (0.0-0.4); Eosinophils Percent Auto 2.8 % (0-4); Hematocrit 22.4 % (42.0-52.0); Imm Gran Abs Auto 0.01 X10*3/uL (0.00-0.03); Imm Gran Pct Auto 0.2 % (0.0-0.4); Lymphocytes Absolute Auto 1.6 X10*3/uL (1.2-4.9); MANUAL DIFF FLAG SCAN; Mean Corpuscular HGB Conc 35.7 g/dl (31.0-36.0); Mean Corpuscular Hemoglobin 38.6 pg (27.0-33.0); Mean Corpuscular Volume 108.2 fL (80.0-98.0); Mean Platelet Volume 11.7 fL (9.4-12.4); Monocytes Absolute Auto 0.7 X10*3/uL (0.1-1.2); Monocytes Percent Auto 13.3 % (2-11); Neutrophils Absolute Auto 2.9 x10*3/uL (2.0-8.3); Neutrophils Percent Auto 53.8 % (45-73); Red Blood Count 2.07 X10*6/uL (4.60-5.80); Red Cell Distribution Width 14.4 % (11.0-16.0); White Blood Count 5.4 X10*3/uL (4.8-10.8)
[2024-07-09 05:43] LABS: Platelet Count 64 X10*3/uL (160-400)
[2024-07-09 05:49] LABS: INTERNATIONAL NORM RATIO 2.1 (0.9-1.1); Prothrombin Time 24.7 SEC (10.9-12.4)
[2024-07-09 06:02] LABS: SLIDE REVIEW VERIFIED
[2024-07-09 06:04] LABS: Alanine Aminotransferase 15 U/L (0-40); Albumin Level 2.4 g/dL (3.5-5.0); Anion Gap 10 (12-20); Aspartate Amino Transferase 50 U/L (5-37); Bilirubin Direct 1.7 mg/dL (0.0-0.5); Bilirubin Total 3.8 mg/dL (0.0-1.0); Blood Urea Nitrogen 11 mg/dL (9-16); Calcium 8.4 mg/dL (8.4-10.2); Carbon Dioxide 20 mmol/L (22-29); Chloride 108 mmol/L (96-108); Creatinine Clr Calc Pharmacy 155.7; Estimated Glomerular Filt Rate > 60; Glucose Random 94 mg/dL (60-115); Potassium 3.5 mmol/L (3.3-5.1); Sodium 134 mmol/L (135-145); Total Protein 5.9 g/dL (6.5-8.0)
[2024-07-09 06:08] LABS: Alkaline Phosphatase 72 U/L (39-117)
[2024-07-09 07:40] VITALS: BP 100/53; PULSE 80; RESP 17; TEMP 36.1; O2SAT 95
[2024-07-09] MEDS: Sertraline HCL 25 MG TABLET PO (09:53)
[2024-07-09] MEDS: PHENobarbitaL 30 MG TABLET PO (09:53)
[2024-07-09] MEDS: Multivitamin TABLET 1 TAB PO (09:53)
[2024-07-09] MEDS: 0.9 % Sodium Chloride Flush 3 ML SYRINGE IVFLUSH ×2 (09:53→21:36)
[2024-07-09] MEDS: Folic Acid 1 MG TABLET PO (09:53)
[2024-07-09] MEDS: Nicotine 21 MG PATCH.TD24 TRANSDERMA (09:54)
[2024-07-09] MEDS: ondansetron HCL 4 MG/2 ML VIAL IVPUSH ×2 (11:43→21:41)
[2024-07-09] MEDS: Thiamine HCL 200 MG in 0.9 % Sodium Chloride 100 ML 204 MG IV ×2 (11:43→21:30)
[2024-07-09 12:00] VITALS: BP 136/67; PULSE 77; RESP 16; TEMP 37.1; O2SAT 97
--- NOTE | 2024-07-09 12:52 | MHC.CM.PN ---
JERMAINE spoke with Primary Contact/Mother/Zeenat @ [phone] to request that she provide [facility] with a copy of Patient's HCP; Mother is the Primary Agent and Cousin/Phani is the Secondary Agent. Mother is agreeable to bring in a copy of the HCP and SACHIN/Erendira has been made aware.
--- NOTE | 2024-07-09 13:32 | HO.PM.IMPN ---
Subjective Subjective Date of Service: 07/09/24 Interval History: seen and examined this morning follow up for etoh withdrawal less tremulous, ciwa low; alert and oriented but still with anxiety, mild confusion Review of Systems Review of Systems: Yes all other systems are reviewed and are negative Constitutional Constitutional: Denies chills and Denies fever(s) Cardiovascular Cardiovascular: Denies chest pain Gastrointestinal Gastrointestinal: Denies abdominal pain Physical Exam Vital Signs: Vital Signs: Last Vital Signs Temp 98.8 F 07/09/24 12:00 Pulse 77 07/09/24 12:00 Resp 16 07/09/24 12:00 BP 136/67 07/09/24 12:00 Pulse Ox 97 07/09/24 12:00 O2 Del Method Room Air 07/09/24 12:00 O2 Flow Rate 2 07/08/24 03:30 BMI result Body Mass Index 32.2 Const: Other: chronically ill appearing General: awake, Physically active and poor hygiene Nutritional Appearance: overweight HEENT: Teeth and gingiva: poor dentition Resp: Effort & Inspection: normal respiratory effort, able to speak in complete sentences, no respiratory distress and no use of accessory muscles Cardio: Rate: regular rate GI: Inspection: No distended Palpation (GI): Soft to palpation and nontender Skin: General skin exam: jaundice Neuro: General: moves all extremities and CN's II-XI intact bilaterally Extrem: Other: lower extremity edema improving Objective Data Active Medications Acetaminophen (Acetaminophen 325 Mg Tablet) 650 mg PO Q6H PRN PRN Reason: Pain, Mild 1-3,fever,headache Calcium Carbonate (Calcium Carbonate 750 Mg Tab.Chew) 750 mg PO Q4H PRN PRN Reason: Heartburn Folic Acid (Folic Acid 1 Mg Tablet) 1 mg PO DAILY [facility] Last Admin: 07/09/24 09:53 Dose: 1 mg Documented By: TIA Thiamine HCl 200 mg/ Sodium (Chloride) 102 mls @ 204 mls/hr IV Q12H [facility] Last Infusion: 07/09/24 12:23 Dose: Infused Documented By: TIA Lactulose (Lactulose 20 Gm/30 Ml Solution) 20 gm PO BID [facility] Last Admin: 07/09/24 09:59 Dose: Not Given Documented By: TIA Non-Admin Reason: Patient Refused Magnesium Hydroxide (Milk Of Magnesia 30 Ml Oral.Susp) 30 ml PO DAILY PRN PRN Reason: Constipation Melatonin (Melatonin 3 Mg Tablet) 6 mg PO BEDTIME PRN PRN Reason: Insomnia Last Admin: 07/08/24 23:59 Dose: 6 mg Documented By: AFSHAN Multivitamins/Vitamin C (Multivitamin Tablet) 1 tab PO DAILY [facility] Last Admin: 07/09/24 09:53 Dose: 1 tab Documented By: TIA Nicotine (Nicotine 21 Mg Patch.Td24) 21 mg TRANSDERMA DAILY [facility] Last Admin: 07/09/24 09:54 Dose: 21 mg Documented By: TIA Ondansetron HCl (Ondansetron Hcl 4 Mg/2 Ml Vial) 4 mg IVPUSH Q6H PRN PRN Reason: Nausea and Vomiting Last Admin: 07/09/24 11:43 Dose: 4 mg Documented By: TIA Pharmacy Consult (Consult Rx Etoh Phenob Im/Po) 1 each MISCELLANE ONCE PRN; Protocol PRN Reason: Consult order Sertraline HCl (Sertraline Hcl 25 Mg Tablet) 25 mg PO DAILY [facility] Last Admin: 07/09/24 09:53 Dose: 25 mg Documented By: TIA Sodium Chloride (0.9 % Sodium Chloride Flush 3 Ml Syringe) 3 ml IVFLUSH QSHIFT [facility] Last Admin: 07/09/24 09:53 Dose: 3 ml Documented By: TIA Spironolactone (Spironolactone 25 Mg Tablet) 25 mg PO DAILY [facility]; Protocol Labs 07/09/24 05:21 07/09/24 05:21 Labs: Laboratory Results - last 24 hr 07/09/24 05:21 MCV 108.2 H MCH 38.6 H MCHC 35.7 RDW 14.4 Plt Count 64 L MPV 11.7 Immature Gran % (Auto) 0.2 Neut % (Auto) 53.8 Lymph % (Auto) 29.0 Ector % (Auto) 13.3 H Eos % (Auto) 2.8 Baso % (Auto) 0.9 Lymph # (Auto) 1.6 Ector # (Auto) 0.7 Eos # (Auto) 0.2 Baso # (Auto) 0.1 Abs Immat Gran (auto) 0.01 Absolute Neuts (auto) 2.9 Absolute Nucleated RBC 0.000 Nucleated RBC % (auto) 0.0 Smear Tech's Comments VERIFIED PT 24.7 H INR 2.1 H Anion Gap 10 L Estim Creat Clear Calc 155.7 Estimated GFR > 60 Random Glucose 94 Calcium 8.4 Total Bilirubin 3.8 H Direct Bilirubin 1.7 H AST 50 H ALT 15 Alkaline Phosphatase 72 Total Protein 5.9 L Albumin 2.4 L Assessment and Plan (1) Leg edema: Status: Acute (2) Alcoholic hepatitis: Status: Acute (3) Thrombocytopenia: Status: Acute Plan 48-year-old male history of alcoholic liver cirrhosis who presents to the emergency room today with left leg laceration found to be acutely intoxicated, with significant lower extremity edema and at risk for alcohol withdrawal Alcohol use disorder with alcohol withdrawal etoh level 355 on arrival; h/o etoh withdrawal seizures continue phenobarbital protocol, po taper seen by addiction Medicine Service, resources provided Supplementation with folic acid, IV thiamine Alcoholic liver cirrhosis with thrombocytopenia LFTs chronically elevated, bili trending down Platelets chronically low, stable oral vitamin k x2 and one dose IV GI Following> hold off on prednisone for now, continue IV PPI, heme consult if ind bili increases and HH drops abdominal US with trace ascites resume aldactone, lasix on hold toxic metabolic encephalopathy Due to hepatic encephalopathy and alcohol withdrawal Continue lactulose-titrate with goal of 2-3 bowel movements per day psych consult pending Acute on Chronic macrocytic anemia H/H stable, denies active bleeding possible component of dilution, received IVF and albumin Declines blood transfusion B12, folic acid within normal limits, iron level wnl, ferritin elevated at 1097 bili, LDH somewhat high, but retic count low, less likely hemolysis Screening for hereditary hemochromatosis pending Trend CBC Gastroenterology input appreciated possible acute cholecystitis abdominal US revealed cholelithiasis with possible acute cholecystitis Patient denies any significant abdominal pain LFTs chronically elevated, thought to be due to chronic liver disease Seen by General surgery HIDA scan showing biliary dyskinesia acute lactic acidosis likely due to decreased clearance from liver dz no sepsis, no acute infection identified Lower extremity edema Likely due to above cirrhosis and hypoalbuminemia b/l doppler negative for DVT s/p albumin in ED got one dose of IV lasix, bp soft echo with preserved EF LLE laceration repaired with 12 sutures in ED (07/03) will need to be removed after 7-10 days dressing cleaned at bedside, clean no evidence of infection Tobacco dependence Smoking cessation advised NRT morbid obesity. BMI 32.2 weight management DVT prophylaxis-avoid chemoprophylaxis due to anemia/thrombocytopenia/ elevated INR; avoid mechanical prophylaxis due to significant lower extremity edema/leg laceration pt eval - pending has been ambulating in room with stand by assistance Patient requires ongoing stay in the hospital for management of alcohol withdrawal, liver cirrhosis, anemia investigation and possible acute cholecystitis requiring specialist evaluation Quality Stroke Does the patient have a stroke diagnosis?: No VTE Prior VTE?: No VTE Risk Level:: Medical - moderate - high VTE Device Contraindication: Treatment Not Indicated VTE Drug Contraindication: Treatment Not Indicated
[2024-07-09 15:19] VITALS: BP 136/66; PULSE 77; RESP 18; TEMP 37.1; O2SAT 99
--- NOTE | 2024-07-09 18:53 | PC.NURSE ---
Patient alert, oriented VSS, RA sats above 95%. Able to ambulate to the bathroom, reported multiple bowel movements. Refused morning dose of lactulose. Patient started c/o nausea and abdominal discomfort after breakfast. Anti nausea medication administered with minimal effect. Patient spent most of the shift in bed, refused lunch and dinner. C/o increased anxiety asking for additional medication, provider notified.
[2024-07-09 19:15] VITALS: BP 123/60; PULSE 77; RESP 18; TEMP 36.7; O2SAT 97
[2024-07-09] MEDS: Lactulose 20 GM/30 ML SOLUTION PO (21:29)
[2024-07-09 23:29] VITALS: BP 128/62; PULSE 76; RESP 20; TEMP 37.9; O2SAT 99
[2024-07-10] MEDS: Melatonin 3 MG TABLET 6 MG PO (01:11)
[2024-07-10 03:05] VITALS: BP 131/67; PULSE 73; RESP 18; TEMP 37.3; O2SAT 99
[2024-07-10 07:17] LABS: INTERNATIONAL NORM RATIO 2.1 (0.9-1.1); Prothrombin Time 24.2 SEC (10.9-12.4)
[2024-07-10 07:51] VITALS: BP 149/69; PULSE 76; RESP 20; TEMP 36.3; O2SAT 99
--- NOTE | 2024-07-10 07:55 | PC.NURSE ---
On start of shift notice patient's vitals from 0300 stated patient using 8L via oxymask, per patient's report and room inspection, there was no oxymask in the room, no order or need for supplemental oxygen. VS taken at 0800 on RA sat's 99%
[2024-07-10 08:55] VITALS: BP 149/69; PULSE 76; O2SAT 99
[2024-07-10] MEDS: Lactulose 20 GM/30 ML SOLUTION PO (10:20)
[2024-07-10] MEDS: 0.9 % Sodium Chloride Flush 3 ML SYRINGE IVFLUSH (10:21)
[2024-07-10] MEDS: Multivitamin TABLET 1 TAB PO (10:22)
[2024-07-10] MEDS: Nicotine 21 MG PATCH.TD24 TRANSDERMA (10:22)
[2024-07-10] MEDS: Sertraline HCL 25 MG TABLET PO (10:22)
[2024-07-10] MEDS: Spironolactone 25 MG TABLET PO (10:22)
[2024-07-10] MEDS: Folic Acid 1 MG TABLET PO (10:22)
[2024-07-10] MEDS: Thiamine HCL 200 MG in 0.9 % Sodium Chloride 100 ML 204 MG IV (10:30)
--- NOTE | 2024-07-10 10:58 | P.DS_ITS ---
DS: Providers Provider Date of Service: 07/10/24 Date of admission: 07/03/24 16:12 Date of discharge: 07/10/24 Primary care physician: Heidy Mojica MD Consults: 07/03/24 16:11 Consult to Gastroenterology Routine Consulting Provider: Wilber Castillo Reason for consultation: liver cirrhosis; leg swelling; etoh Has provider been notified: No 07/04/24 07:50 Consult to General Surgery Routine Consulting Provider: [facility] General Surgeons Reason for consultation: ?acute cholecystitis Has provider been notified: No 07/04/24 23:39 Addiction Medicine Provider Routine Consulting Provider: Addiction Covering Reason for consultation: Agreed for consult - etoh abuse 07/09/24 13:25 Consult to Psychiatry Routine Consulting Provider: [facility] Psych Covering Reason for consultation: increased anxiety, mood; tangential Has provider been notified: No Attending physician on discharge: Rich Dalal Discharging clinician: Erendira Dean DS: Diagnosis Discharge Diagnosis (1) Leg edema: Status: Acute (2) Alcoholic hepatitis: Status: Acute (3) Thrombocytopenia: Status: Acute DS: Summary Hospital Course Hospital Course: From H&P on the day of admission This is a 48-year-old male with history of alcoholic liver cirrhosis who presents to the emergency department due to a left lower extremity laceration. He sustained the laceration yesterday at his mother's house. This was evaluated and repaired in the emergency department. In addition he is reporting significant lower extremity swelling over the past 1 month. He was seen by his PCP approximately 1 month ago and was told to increase his dose of Aldactone to twice daily which he reports he has been compliant with. Lower extremity Doppler ultrasound in the emergency department was negative for blood clot. He denies any shortness of breath. He continues to drink a half a pt of vodka daily. In the emergency department LFTs were elevated although at the patient's baseline. Alcohol level was 355. He was started on phenobarbital protocol, treated with albumin, IV ppi, IV magnesium, IV thiamine. Alcohol use disorder with alcohol withdrawal etoh level 355 on arrival; h/o etoh withdrawal seizures. Treated with phenobarbital protocol. Was supplemented with folic acid and thiamine. Was seen by addiction Medicine Service, resources provided. Alcoholic liver cirrhosis with thrombocytopenia LFTs chronically elevated, bili trending down. Platelets chronically low, stable. abdominal US with trace ascites. Seen by GI, we will need outpatient follow-up. toxic metabolic encephalopathy Due to hepatic encephalopathy and alcohol withdrawal. Resolved. Continue lactulose-titrate with goal of 2-3 bowel movements per day Acute on Chronic macrocytic anemia H/H stable, denies active bleeding. Declines blood transfusion B12 high, folic acid within normal limits, iron level wnl, ferritin elevated at 1097 bili, LDH somewhat high, but retic count low, less likely hemolysis. Screening for hereditary hemochromatosis pending possible acute cholecystitis abdominal US revealed cholelithiasis with possible acute cholecystitis Patient denies any significant abdominal pain. LFTs chronically elevated, thought to be due to chronic liver disease. Seen by General surgery. HIDA scan showing biliary dyskinesia. No surgical intervention at this time. acute lactic acidosis likely due to decreased clearance from liver dz. no sepsis, no acute infection identified Lower extremity edema Likely due to above cirrhosis and hypoalbuminemia. b/l doppler negative for DVT. echo with preserved EF LLE laceration repaired with 12 sutures in ED (07/03). ED recommends sutures remain for 10 days. Will need sutures removed outpatient. Patient was seen by psychiatric team, no SI. Offered resources including referral to dual diagnosis program for management of substance abuse and anxiety, patient has declined at this time. He has a follow-up appointment with his PCP scheduled in the middle of the week, he is encouraged to discuss further treatment options with his PCP. Time Attestation Discharge Coordination Time (in mins): 40 Quality: Safe Use of Opioids Does Pt have an Active Cancer Diagnosis on the Problem List?: No Quality: Stroke Does the patient have a stroke diagnosis?: No Physical Exam Vital Signs: Vital Signs: Last Vital Signs Temp 97.3 F 07/10/24 07:51 Pulse 76 07/10/24 08:55 Resp 20 07/10/24 07:51 BP 149/69 H 07/10/24 08:55 Pulse Ox 99 07/10/24 08:55 O2 Del Method Room Air 07/10/24 07:51 O2 Flow Rate 8 07/10/24 03:05 BMI result Body Mass Index 32.2 Const: General: cooperative, comfortable, no acute distress, alert and awake Nutritional Appearance: overweight Orientation/consciousness: patient oriented x3 Resp: Effort & Inspection: normal respiratory effort, able to speak in complete sentences, no respiratory distress and no use of accessory muscles Cardio: Rate: regular rate Neuro: Other: no asterixis General: patient oriented x3, moves all extremities and CN's II-XI intact bilaterally Extrem: Other: b/l leg edema improving; left leg with [address] no surrounding erythema DS: Data Data Completed and Pending Completed studies during hospitalization [Text1]: Procedures Detoxification Services for Substance Abuse Treatment (03/09/20) Drainage of Peritoneal Cavity, Percutaneous Approach (03/09/20) Labs on day of discharge: Laboratory Results - last 24 hr 07/10/24 05:38 PT 24.2 H INR 2.1 H Discharge Plan Discharge Anticipated Discharge Date/Time: 07/10/24 11:18 Patient Disposition: Home, Self-Care Discharge Diagnosis: Alcohol withdrawal Liver cirrhosis with anemia/thrombocytopenia Lower extremity edema Toxic metabolic encephalopathy/hepatic encephalopathy Left leg laceration Referrals: Wilber Castillo MD [Physician] - 1 Week Po,Heidy Bird MD [Primary Care Provider] - 1 Week Discharge Medications: New lactulose 10 gram/15 mL Solution 20 g PO BID Qty: 3000 0RF Continued sumatriptan succinate [Imitrex] 100 mg tablet 100 mg PO .COMPLEX PRN (Reason: migraine headache) 30 Days Qty: 10 1RF Rx Instructions: 100 mg orally QD PRN; multivitamin Tablet 1 tab PO DAILY folic acid 1 mg tablet 1 mg PO DAILY Qty: 90 2RF spironolactone 25 mg tablet 25 mg PO DAILY Qty: 90 1RF sertraline 25 mg tablet 25 mg PO DAILY Qty: 30 3RF nicotine 14 mg/24 hr patch 24 hour 1 patch transdermal DAILY Qty: 28 0RF furosemide 40 mg tablet 20 mg PO DAILY Qty: 90 1RF Held cyanocobalamin (vitamin B-12) 1,000 mcg capsule 1,000 mcg PO FR Hold Instructions: b12 level high, hold until follow up with PCP No Action (DME) comp.stocking,thigh,long,large Misc See Rx Instructions .ROUTE .MEDSUPPLY Qty: 2 0RF Rx Instructions: As directed Discharge Orders: Discharge Order (Routine); Ordered 07/10/24 Ordered By: Erendira Dean Activity on Discharge: As tolerated Stand Alone Forms: Patient Portal Discharge page Print Language: Sami Care Plan Goals: See below Health Concerns: Alcohol dependence with Alcohol withdrawal Liver cirrhosis with anemia/thrombocytopenia Left lower extremity laceration Bilateral lower extremity edema Plan of Treatment: Take Lasix and spironolactone as previously prescribed for management cirrhosis, leg edema Left lower leg sutures we will need to be removed in 3 days-call PCP or return to ED for suture removal Avoid drinking alcohol Keep your follow up appointment with your primary care provider- shceduled for saturday. you need monitoring of INR, CBC and LFTs Call to schedule follow-up appointment with your supervisor [employer] Take lactulose to prevent ammonia buildup Assessment: See discharge summary
[2024-07-10 11:04] VITALS: BP 149/70; PULSE 77; RESP 18; TEMP 36.7; O2SAT 97
[2024-07-10 15:16] VITALS: BP 123/60; PULSE 81; RESP 18; TEMP 36.6; O2SAT 99
--- NOTE | 2024-07-10 15:37 | P.CNPS_ITS ---
History of Present Illness Date of Service: 07/10/2024 Chief Complaint: etoh abuse with withdrawl; leg edema Discussed with referring provider: Yes Sources of Information: patient interviewed, chart reviewed and crisis/core team assessment reviewed HPI Narrative: Mr. Geiger is a 48 year-old male with hx of alcohol use disorder, liver cirrhosis who was admitted for alcohol withdrawal, complicated by hyperammonemia, elevated indirect billirubin, coagulopathy and thrombocytopenia s/s to liver cirrhosis. Psychiatry was asked to meet with pt due to increase anxiety, mood changes, other concerns his mother had reported in terms of increased confusion and possible hallucinations. Pt seen in his room. He reports he recently relapsed on alcohol after uncle back in February of 2024. He expressed concern in terms of deteriorating health and liver condition. He reported initially wanting help with prevent him from relapsing from alcohol use. He denied SI/HI. No signs of visual or hallucinations. No overt delusional content. He did at times presented with some derailment in that he would respond with answers unrelated to question asked and did not seem to see that topics were not connected. However, most of conversation was coherent and pertinent to topic at hand. He expressed desired to get better physically and mentally. He reported most distressing symptoms especially as he stops drinking is severe anxiety. This underwriter provided education on underlying mechanism by which abrupt discontinuation of alcohol causes increased anxious mood. He reported he was not able to go to his mother's house as she would be at risk of losing housing as he is not in the lease. He also reported he did not have a place to stay and is physically uncomfortable, in pain due to liver disease. We discussed different options including referral to dual diagnosis inpatient unit. However, pt declined. [facility] Medical History Abdominal pain Lower extremity edema Tinea pedis Chemical burn Cellulitis of right leg Right leg swelling Swelling of left hip joint Right groin pain Tobacco abuse Obesity Surgical History No pertinent past surgical history Social History: pt . He has children in their 20's Substance History: alcohol use for several years on and off Trauma History: not disclosed Diagnostics Vital Signs (24Hr): Vital Signs - 24 hr 07/09/24 19:15 07/09/24 23:29 07/10/24 03:05 Temperature 98.0 F 100.2 F 99.2 F Pulse Rate 77 76 73 Respiratory Rate 18 20 18 Blood Pressure 123/60 128/62 131/67 Pulse Oximetry 97 99 99 Oxygen Delivery Method Room Air Room Air Oxymask Oxygen Flow Rate 8 07/10/24 07:51 07/10/24 08:55 07/10/24 11:04 Temperature 97.3 F 98.0 F Pulse Rate 76 76 77 Respiratory Rate 20 18 Blood Pressure 149/69 H 149/69 H 149/70 H Pulse Oximetry 99 99 97 Oxygen Delivery Method Room Air Room Air Oxygen Flow Rate 07/10/24 15:16 Temperature 97.9 F Pulse Rate 81 Respiratory Rate 18 Blood Pressure 123/60 Pulse Oximetry 99 Oxygen Delivery Method Room Air Oxygen Flow Rate BMI result Body Mass Index 32.2 Labs 07/09/24 05:21 07/09/24 05:21 Labs: Laboratory Results - last 48 hr 07/09/24 07/10/24 05:21 05:38 WBC 5.4 RBC 2.07 L Hgb 8.0 L Hct 22.4 L MCV 108.2 H MCH 38.6 H MCHC 35.7 RDW 14.4 Plt Count 64 L MPV 11.7 Immature Gran % (Auto) 0.2 Neut % (Auto) 53.8 Lymph % (Auto) 29.0 [place] % (Auto) 13.3 H Eos % (Auto) 2.8 Baso % (Auto) 0.9 Lymph # (Auto) 1.6 [place] # (Auto) 0.7 Eos # (Auto) 0.2 Baso # (Auto) 0.1 Abs Immat Gran (auto) 0.01 Absolute Neuts (auto) 2.9 Absolute Nucleated RBC 0.000 Nucleated RBC % (auto) 0.0 Smear Tech's Comments VERIFIED PT 24.7 H 24.2 H INR 2.1 H 2.1 H Sodium 134 L Potassium 3.5 Chloride 108 Carbon Dioxide 20 L Anion Gap 10 L BUN 11 Creatinine 0.73 Estim Creat Clear Calc 155.7 Estimated GFR > 60 Random Glucose 94 Calcium 8.4 Total Bilirubin 3.8 H Direct Bilirubin 1.7 H AST 50 H ALT 15 Alkaline Phosphatase 72 Total Protein 5.9 L Albumin 2.4 L Imaging Radiology Impressions: ITS Impressions Venous Duplex 07/03/24 13:22 IMPRESSION: No acute deep venous thrombosis involving the bilateral lower extremities. Negative for DVT. Electronically signed by: Rj Holcomb MD 07/03/2024 02:59 PM EDT RP Tibia/Fibula X-Ray 07/03/24 13:40 IMPRESSION: No radiopaque foreign body is identified. Electronically signed by: Errol Feliz MD 07/03/2024 02:28 PM EDT RP Chest X-Ray 07/03/24 15:20 IMPRESSION: No acute airspace disease. Electronically signed by: Rj Holcomb MD 07/03/2024 03:37 PM EDT RP Hepatobiliary Scan Nuclear Medicine 07/06/24 14:06 IMPRESSION: Abnormally low gallbladder ejection fraction of 28%, compatible with biliary dyskinesia. Electronically signed by: Errol Feliz MD 07/06/2024 03:51 PM EDT RP Mental Status Exam Mental Status Exam Narrative: Appearance: wearing hospital gown, fair hygiene, jaundice look, in some physical distressed when repositioning Behavior: initially cooperative but later more dismissive Psychomotor: mild tremors bilat Speech: clear, regular rate/rhythm/volume, spontaneous TP: at times some derailment, but most conversation was related to topic at hand TC: initially asking for help, but later asking to be discharged to community Mood: anxious Affect: brightens at times ,some physical distress SI: denies HI: denies VH/AH: no overt signs Delusions: no overt delusions Insight/judgment: poor x 2. memory/cog: alert, oriented x 3, not formally tested. Medications Medications Current Medications Acetaminophen (Acetaminophen 325 Mg Tablet) 650 mg PO Q6H PRN PRN Reason: Pain, Mild 1-3,fever,headache Calcium Carbonate (Calcium Carbonate 750 Mg Tab.Chew) 750 mg PO Q4H PRN PRN Reason: Heartburn Folic Acid (Folic Acid 1 Mg Tablet) 1 mg PO DAILY [facility] Last Admin: 07/10/24 10:22 Dose: 1 mg Thiamine HCl 200 mg/ Sodium (Chloride) 102 mls @ 204 mls/hr IV Q12H [facility] Last Infusion: 07/10/24 11:00 Dose: Infused Lactulose (Lactulose 20 Gm/30 Ml Solution) 20 gm PO BID [facility] Last Admin: 07/10/24 10:20 Dose: 20 gm Magnesium Hydroxide (Milk Of Magnesia 30 Ml Oral.Susp) 30 ml PO DAILY PRN PRN Reason: Constipation Melatonin (Melatonin 3 Mg Tablet) 6 mg PO BEDTIME PRN PRN Reason: Insomnia Last Admin: 07/10/24 01:11 Dose: 6 mg Multivitamins/Vitamin C (Multivitamin Tablet) 1 tab PO DAILY [facility] Last Admin: 07/10/24 10:22 Dose: 1 tab Nicotine (Nicotine 21 Mg Patch.Td24) 21 mg TRANSDERMA DAILY [facility] Last Admin: 07/10/24 10:22 Dose: 21 mg Ondansetron HCl (Ondansetron Hcl 4 Mg/2 Ml Vial) 4 mg IVPUSH Q6H PRN PRN Reason: Nausea and Vomiting Last Admin: 07/09/24 21:41 Dose: 4 mg Pharmacy Consult (Consult Rx Etoh Phenob Im/Po) 1 each MISCELLANE ONCE PRN; Protocol PRN Reason: Consult order Sertraline HCl (Sertraline Hcl 25 Mg Tablet) 25 mg PO DAILY [facility] Last Admin: 07/10/24 10:22 Dose: 25 mg Sodium Chloride (0.9 % Sodium Chloride Flush 3 Ml Syringe) 3 ml IVFLUSH QSHIFT [facility] Last Admin: 07/10/24 10:21 Dose: 3 ml Spironolactone (Spironolactone 25 Mg Tablet) 25 mg PO DAILY [facility]; Protocol Last Admin: 07/10/24 10:22 Dose: 25 mg Allergies Allergies Allergy/AdvReac Type Severity Reaction Status Date / Time No Known Allergies Allergy Verified 07/03/24 10:19 Assessment & Plan Assessment & Plan (1) Generalized anxiety disorder: Status: Acute Code(s): F41.1 - Generalized anxiety disorder (2) Alcohol use disorder, severe, dependence: Status: Acute Code(s): F10.20 - Alcohol dependence, uncomplicated Plan Mr. Geiger is a 48 year-old male with hx of alcohol use disorder, anxious mood, depressed mood. Pt admitted for alcohol withdrawal and complications related to liver cirrhosis. Psychiatry asked to see patient due to increase anxiety, and also concerns that mother had relay to team related to pt presenting as more confused. Pt does not appears delirious. He also did not present with s/s of psychosis nor delusions. He does at times presents with derailment in thought process in that he will respond to question with unrelated topics but most of conversation is logical and related to topic at hand. He had initially asked for help with referral to substance use treatment program but later reported he did not want to go to any facility. He declined further assistance. Total time managing care of this patient today _30___ minutes.
--- NOTE | 2024-07-10 16:17 | MHC.CM.PN ---
Pt is medically cleared for discharge home self-care, his friend will be picking him up today and he will be staying with him.
== END 2024-07-10 17:30 | disposition home or self-care (01) | DRG 280 ==
LOC: HO.ED 15:18 → HO.EDOVER 16:20 → HO.IMC 07-04 22:48
PROVIDERS: Internal Medicine Gastroenterology; Nurse Practitioner Acute Care; Student in an Organized Health Care Education/Training Program; Admitting Provider Physician Assistant Medical; Emergency Provider Emergency Medicine; PCP Internal Medicine; Visit Provider Physician Assistant Medical
DX: K70.11 Alcoholic hepatitis with ascites (principal); K70.31 Alcoholic cirrhosis of liver with ascites; G92.8 Other toxic encephalopathy; K80.00 Calculus of gallbladder with acute cholecystitis without obstruction; E87.21 Acute metabolic acidosis; D69.6 Thrombocytopenia, unspecified; I95.9 Hypotension, unspecified; S81.812A Laceration without foreign body, left lower leg, initial encounter; D63.8 Anemia in other chronic diseases classified elsewhere; F10.139 Alcohol abuse with withdrawal, unspecified; F17.210 Nicotine dependence, cigarettes, uncomplicated; K76.82 Hepatic encephalopathy; E66.01 Morbid (severe) obesity due to excess calories; Z68.32 Body mass index [BMI] 32.0-32.9, adult; Z71.3 Dietary counseling and surveillance; Z71.6 Tobacco abuse counseling; F10.129 Alcohol abuse with intoxication, unspecified; F41.1 Generalized anxiety disorder; Z63.4 Disappearance and death of family member; D53.9 Nutritional anemia, unspecified; Y90.8 Blood alcohol level of 240 mg/100 ml or more; X58.XXXA Exposure to other specified factors, initial encounter; Z79.899 Other long term (current) drug therapy
CPT/HCPCS: 36415; 71045; 73590; 76705; 78227; 80048; 80053; 80076; 80307; 82140; 82248; 82607; 82728; 82746; 83540; 83605; 83615; 83690; 83735; 85014; 85018; 85025; 85027; 85045; 85610; 86850; 86900; 86901; 87040; 90715; 93005; 93306; 93970; 97162; 99285; A9537; J0696; J1940; J2003; J2405; J2470; J2560; J2805; J3411; J3430; J3475; J7120; P9047; Q9957; S9485

== ENCOUNTER → 2024-07-03 13:22 | Outpatient (BNV) | payer OTHER, SELFPAY | PROVIDERS: Emergency Provider Emergency Medicine; PCP Internal Medicine; Visit Provider Radiology Diagnostic Radiology | DX: R60.1 Generalized edema (principal); K74.60 Unspecified cirrhosis of liver; R53.1 Weakness; S81.802A Unspecified open wound, left lower leg, initial encounter | CPT/HCPCS: 71045; 73590; 76705; 93970 ==

== ENCOUNTER → 2024-07-03 14:10 | Outpatient (BNV) | payer OTHER, SELFPAY | PROVIDERS: Admitting Provider Physician Assistant Medical; Emergency Provider Emergency Medicine; PCP Internal Medicine; Visit Provider Internal Medicine Cardiovascular Disease | DX: R94.31 Abnormal electrocardiogram [ECG] [EKG] (principal) | CPT/HCPCS: 93010 ==

== ENCOUNTER 2024-07-03 16:12 | Outpatient (BNV) | payer OTHER, SELFPAY | END 2024-07-06 14:06 | PROVIDERS: Admitting Provider Physician Assistant Medical; Emergency Provider Emergency Medicine; PCP Internal Medicine; Visit Provider Radiology Diagnostic Radiology | DX: R74.01 Elevation of levels of liver transaminase levels (principal) | CPT/HCPCS: 78227 ==

== ENCOUNTER 2024-07-03 16:12 | Outpatient (BNV) | payer OTHER, SELFPAY | END 2024-07-06 07:00 | PROVIDERS: Admitting Provider Physician Assistant Medical; Emergency Provider Emergency Medicine; PCP Internal Medicine; Visit Provider Internal Medicine Cardiovascular Disease | DX: I51.7 Cardiomegaly (principal); I36.1 Nonrheumatic tricuspid (valve) insufficiency | CPT/HCPCS: 93306 ==

== ENCOUNTER → 2024-07-03 16:12 | Outpatient (BNV) | payer OTHER, SELFPAY | PROVIDERS: Admitting Provider Physician Assistant Medical; Emergency Provider Emergency Medicine; PCP Internal Medicine; Visit Provider Internal Medicine Gastroenterology | DX: K70.31 Alcoholic cirrhosis of liver with ascites (principal); F10.10 Alcohol abuse, uncomplicated; D69.6 Thrombocytopenia, unspecified; R60.0 Localized edema | CPT/HCPCS: 99222 ==

== ENCOUNTER → 2024-07-03 16:12 | Outpatient (BNV) | payer OTHER, SELFPAY | PROVIDERS: Admitting Provider Physician Assistant Medical; Emergency Provider Emergency Medicine; PCP Internal Medicine; Visit Provider Physician Assistant Medical | DX: S81.812A Laceration without foreign body, left lower leg, initial encounter (principal); D69.6 Thrombocytopenia, unspecified; K70.31 Alcoholic cirrhosis of liver with ascites | CPT/HCPCS: 99223; 99232; 99233; 99499 ==

== ENCOUNTER → 2024-07-03 16:12 | Outpatient (BNV) | payer OTHER, SELFPAY | PROVIDERS: Admitting Provider Physician Assistant Medical; Emergency Provider Emergency Medicine; PCP Internal Medicine; Visit Provider Surgery | DX: K70.10 Alcoholic hepatitis without ascites (principal) | CPT/HCPCS: 99222; 99232 ==

== ENCOUNTER → 2024-07-03 16:12 | Outpatient (BNV) | payer OTHER, SELFPAY | PROVIDERS: Admitting Provider Physician Assistant Medical; Emergency Provider Emergency Medicine; PCP Internal Medicine; Visit Provider Social Worker | DX: F10.20 Alcohol dependence, uncomplicated (principal); F41.1 Generalized anxiety disorder | CPT/HCPCS: 99232 ==

== ENCOUNTER 2024-07-15 16:00 | Outpatient (AMB) | payer OTHER, SELFPAY ==
--- NOTE | 2024-07-15 16:01 | MHC.PC.OV ---
Vital Signs 07/15/24 16:02 Height 5 ft 11 in Weight 204 lb 6 oz BMI 28.5 BP 116/78 Blood Pressure Location Lt brachial Position Sitting Pulse 89 Pulse Source Pulse Oximeter Pulse Oximetry (%) 98 Oxygen Delivery Method Room Air Intake Visit Reasons: Follow up Leg problems Credentialing Assistant Required: No Change Booth Attendant: Not Required per policy Accompanied by: Self / Same As Patient Allergies No Known Allergies Allergy (Verified 07/15/24 16:25) Medication List - Last Reconciled 07/15/24 by DAWN Taylor comp.stocking,thigh,long,large As directed cyanocobalamin (vitamin B-12) 1,000 mcg PO FR folic acid 1 mg PO DAILY furosemide 20 mg (1/2 x 40 mg) PO DAILY lactulose 20 grams (30 mL) PO BID multivitamin 1 tab PO DAILY nicotine 1 patch transdermal DAILY sertraline 25 mg PO DAILY spironolactone 25 mg PO DAILY sumatriptan succinate (Imitrex) 100 mg orally QD PRN; 30 days Tobacco use date assessed: 07/15/24 Dental Screening Dental Screen Date: 07/15/24 Did you have a dental visit in the last 12 months?: No Did you have a dental problem in the last 6 months where you did not have access to dental care?: No Was dental information given to patient?: Patient has dentist HPI Follow up Leg problems HPI Details The patient is 48 years old male with significant past medical history of alcohol use disorder severe dependence, alcoholic hepatitis, thrombocytopenia, cirrhosis Patient is presenting today for left lower leg laceration suture removal Counted 11 sutures, no signs or symptoms infection Sutures removed without any complaints or complications The area was cleansed, disinfected and redressed He denies shortness of breath, chest pain, heart palpitation [facility] Medical History Abdominal pain Lower extremity edema Tinea pedis Chemical burn Cellulitis of right leg Right leg swelling Swelling of left hip joint Right groin pain Tobacco abuse Obesity Surgical History No pertinent past surgical history Family History Maternal Grandfather CVA (cerebral vascular accident) Maternal Grandmother Pancreatic cancer Social History Household Members: Family Housing: House Do you presently have visiting nurse or other home services: No Alcohol intake: current Alcohol intake frequency: 3 or more drinks per day Alcohol type: hard liquor Comment: pt refuses bed alarm Patient Tobacco Use Status: Current everyday Tobacco user Tobacco use type: Cigarette Cigarette Packs Per Day: 0.5 Cigarettes Per Day: 7 Years Smoked: smoking since 20 years old e-Cigarette/Vaping Use: Never Used Second Hand Smoke Exposure: Yes Substance Use Type: Marijuana service: No Current occupational status: unemployed Cognitive needs: No Hearing needs: No Vision needs: No Questionnaire PHQ-9 Over the last 2 weeks, how often have you been bothered by any of the following problems? 1. Little interest or pleasure in doing things: not at all 2. Feeling down, depressed, or hopeless: not at all 3. Trouble falling or staying asleep, or sleeping too much: not at all 4. Feeling tired or having little energy: not at all 5. Poor appetite or overeating: not at all 6. Feeling bad about yourself - or that you are a failure or have let yourself or your family down: not at all 7. Trouble concentrating on things, such as reading the newspaper or watching television: not at all 8. Moving or speaking so slowly that other people could have noticed. Or the opposite - being so fidgety or restless that you have been moving around a lot more than usual: not at all 9. Thoughts that you would be better off or of hurting yourself in some way: not at all Total score: 0 Depression Screening Interpretation: Negative Depression Screening Done: Yes Source: Developed by Drs. Errol Hull, Morenita Harrison, Lance Kothari and colleagues, with an educational edward from [employer]. Thrive Questionnaire Date Thrive assessed: 07/15/24 I am a: Patient What is your living situation today?: I have a steady place to live Within the past 12 months, did the food you bought not last and you didn't have the money to get more?: Never true Within the past 12 months, did you worry whether your food would run out before you got money to buy more?: Never true Do you have trouble paying for medicines?: No Do you have trouble getting transportation to medical appointments?: No Do you have trouble paying your heating and electricity bill?: No Do you have trouble taking care of your child, family member or friend?: No Do you have trouble with day-to-day activities such as bathing, preparing meals, shopping, managing finances, etc.?: No Are you currently unemployed and looking for a job?: No Are you interested in more education?: No Please select the resources that you would like help with: None Currently or been in a relationship where the following occur: No concerns reported THRIVE Score: 0 AUDIT C Alcohol Use Questionnaire (AUDIT-C) 1. How often do you have a drink containing alcohol?: Never 3. How often do you have six or more drinks on one occasion?: Never Total Score: 0 WINIFRED-7 AMB Questionnaire WINIFRED-7 Date WINIFRED - 7 assessed: 07/15/24 Feeling nervous, anxious, or on edge: 0 = Not at all Not being able to stop or control worryin = Not at all Worrying too much about different things: 0 = Not at all Trouble relaxin = Not at all Being so restless that it is hard to sit still: 0 = Not at all Becoming easily annoyed or irritable: 0 = Not at all Feeling afraid as if something awful might happen: 0 = Not at all Total WINIFRED-7 score (0-4 normal; 5-9 mild; 10-14 moderate; 15-21 severe): 0 Source: Developed by Drs. Errol Hull, Morenita Harrison, Lance Kothari and colleagues, with an educational edward from [employer]. Review of Systems ENT Denies sore throat Card Denies chest pain, Denies leg edema and Denies lightheadedness Resp Denies cough and Denies hemoptysis Musc Reports other Skin/Breast Reports wounds (left lower lateral leg laceration) and Reports jaundice Neuro Denies Abnormal speech present Physical exam (Primary Care) Vital Signs: Last Vital Signs Pulse 89 07/15/24 16:02 BP 116/78 07/15/24 16:02 Pulse Ox 98 07/15/24 16:02 Oxygen Delivery Method Room Air 07/15/24 16:02 BMI result Body Mass Index 28.5 Tobacco/Smoking Status: Tobacco use Status Tobacco use date assessed 07/15/24 07/15/24 16:15 Patient Tobacco Use Status Current everyday Tobacco 07/15/24 16:15 Tobacco use type Cigarette 07/15/24 16:15 e-Cigarette/Vaping Use Never Used 07/15/24 16:15 PHQ-9: PHQ-9 Score PHQ-9: Total score 0 07/15/24 16:28 Depression Screening Interpretation: Negative Thrive Assessment: Date of Thrive Assessment Date Thrive assessed 07/15/24 07/15/24 16:15 Currently or been in a relationship where the following occur: No concerns reported Const General: no acute distress, alert and awake Nutritional Appearance: Edematous Orientation/consciousness: oriented to person, oriented to place and oriented to time HENMT Ears: external ears normal General nose exam: Normal external nose present Eyes Conjunctivae: conjunctivae normal Sclerae: sclerae normal Pupils: Equal, round and reactive pupils present Neck Neck: Yes no lymphadenopathy and Yes no JVD Thyroid: Thyroid normal Carotids: no bruits Resp Effort & Inspection: normal respiratory effort and not tachypneic Auscultation: no crackles, no rales, no rhonchi and no wheezes Cardio Rate: regular rate Rhythm: regular rhythm Heart sounds: no murmurs and normal S1 and S2 Skin General skin exam: dry skin and jaundice Trauma: laceration (left lateral lower leg-sutures removed) Neuro General: oriented to person, oriented to place and oriented to time Cranial nerves: Yes Equal, round and reactive pupils present Speech: No Abnormal speech present Gait exam (Neuro): Normal gait present Motor exam (neuro): no tremor noted Extrem Right lower extremity: full ROM and edema Left lower extremity: full ROM and edema Psych Speech and movement: Normal speech and movement present Affect: normal affect Attitude: cooperative Thought process: Normal thought process present Coding Level of Care Code Procedure Only Diagnoses Laceration of left lower extremity, subsequent encounter S81.812D Encounter type: subsequent encounter Time Spent (min) 20 Assessment & Plan Assessment & Plan (1) Laceration of leg, left: Code(s): S81.812A - Laceration without foreign body, left lower leg, initial encounter Category: Medical Qualifiers: Encounter type: subsequent encounter Qualified Code(s): S81.812D - Laceration without foreign body, left lower leg, subsequent encounter Plan: Patient reports that he was drunk, fell in sustained in-patient to the left leg that would not stop bleeding. Patient ended up in the ER and the area was sutured. He has an office today for suture removal. No signs or symptoms of infection, no bleeding at site. The site is clean dry and intact 11 sutures removed. The area was cleansed and redressed without any pain or distress
[2024-07-15 16:02] VITALS: BP 116/78; PULSE 89; O2SAT 98; BMI 28.5
--- OUTSIDE RECORDS SUMMARY | 2024-07-15 17:57 | XMS_ITS | Patient Health Record ---
Author Organization [facility] Address [address] [place] [id number] Care Team Providers Care Nuclear Physicist Name Role Phone Heidy Mojica MD Primary Care Provider Wilber Prater Jr Unavailable Allergies No Known Allergies Reason For Referral No Information Medications Medication SIG (Take, Route, Fr equency, Duration) [...] TH EVERY DAY Oral for 90 Active Immunizations Vaccine Route Administration Date Status Comme nts Influenza Unknown 01/14/2020 Administered Influenza Unknown 12/14/2020 Administered Social History Tobacco Use: Social History Observation Description Date Details (start date - stop date) Current Smoker NA - NA Tobacco Use/Smoking Question Answer Notes Patient is a current smoker How often do you smoke cigarettes? every day How many cigarettes a day do you smoke? 11-20 Alcohol Screen Question Answer Notes Did you have a drink containing alcohol in the p ast year? No Points 0 Interpretation Negative Problems Problem Type SNOMED Code ICD Code Onset Dates Problem Status W/U Status Risk Notes Problem [id number] Alcoholic hepatitis with ascites (K70.11) Active confirmed Plan Of Treatment Pending Test Test Name Order Date CHEM [...] Insured Coverage Start Date Coverage End Date [facility] [address] [address] [place], [place] [id number] ANA TREJO Self - patient is the insured Medical (General) History Medical History History ICD Code alcoholic hepatitis with ascites nephrolithiasis childhood asthma Neuropathy Surgical History Surgery Date(Month/Year) susan put in shoulder right 2011
--- OUTSIDE RECORDS SUMMARY | 2024-07-15 17:57 | XMS_ITS | Clinical Summary ---
Author Organization [address] [facility] Address [address] [place] [address] Phone Care Team Providers Care Intake Worker Name Role Phone Heidy Mojica MD Primary Care Provider [phone] Social History Tobacco Use Types Packs/Day Years [...] [employer] [facility] Health Screening 05/14/2023 COVID-19 Vaccine (2023-2 5 season) 2023 Influenza Vaccine (#1) 2023 [...] patient's age to complete this topic Insurance [facility] Care Teams Intake Worker Relationship Specialty Start Date End Date Heidy Mojica MD [address] [place] [address] [address] [facility] [place] [address] PCP - General Internal Medicine 03/31/24
== END 2024-07-15 17:05 | disposition home or self-care (01) ==
LOC: HO.HMCH 16:01
PROVIDERS: PCP Internal Medicine
DX: S81.812A Laceration without foreign body, left lower leg, initial encounter (principal)

== ENCOUNTER → 2024-07-15 16:00 | Outpatient (BNVA) | payer OTHER, SELFPAY | PROVIDERS: PCP Internal Medicine | DX: S81.812D Laceration without foreign body, left lower leg, subsequent encounter (principal) | CPT/HCPCS: 99212 ==

== ENCOUNTER 2024-07-24 14:46 | Outpatient (AMB) | payer OTHER, SELFPAY ==
[2024-07-24 14:48] VITALS: BP 122/62; PULSE 101; O2SAT 95; BMI 31.1
--- NOTE | 2024-07-24 14:48 | MHC.PC.OV ---
Vital Signs 07/24/24 14:48 Height 5 ft 11 in Weight 223 lb BMI 31.1 BP 122/62 Blood Pressure Location Lt brachial Position Sitting Pulse 101 H Pulse Source Pulse Oximeter Pulse Oximetry (%) 95 Oxygen Delivery Method Room Air Int[place] [facility] [place]ies No Known Allergies Allergy (Verified 07/24/24 14:48) Medication List - Last Reconciled 07/24/24 by Heidy Mojica MD comp.stocking,thigh,long,large As directed jakob.stocking,knee,reg,xlrg As directed 20-30 mm HG cyanocobalamin (vitamin B-12) 1,000 mcg PO FR folic acid 1 mg PO DAILY furosemide 20 mg (1/2 x 40 mg) PO DAILY lactulose 20 grams (30 mL) PO BID multivitamin 1 tab PO DAILY nicotine 1 patch transdermal DAILY sertraline 25 mg PO DAILY spironolactone 25 mg PO DAILY sumatriptan succinate (Imitrex) 100 mg orally QD PRN; 30 days Tobacco use date assessed: 07/15/24 Dental Screening Dental Screen Date: 07/15/24 [place] [facility] [place] Stopped July 02/2025 [facility] Medical History Abdominal pain Lower extremity edema Tinea pedis Chemical burn Cellulitis of right leg Right leg swelling Swelling of left hip joint Right groin pain Tobacco abuse Obesity Surgical History No pertinent past surgical history Family History Maternal Grandfather CVA (cerebral vascular accident) Maternal Grandmother Pancreatic cancer Social History Household Members: Family Housing: House Do you presently have visiting nurse or other home services: No Alcohol intake: current Alcohol intake frequency: 3 or more drinks per day Alcohol type: hard liquor Comment: pt refuses bed alarm Patient Tobacco Use Status: Current everyday Tobacco user Tobacco use type: Cigarette Cigarette Packs Per Day: 0.5 Cigarettes Per Day: 7 Years Smoked: smoking since 20 years old Packs Per Year: 0 Packs per year/per ci.00 e-Cigarette/Vaping Use: Never Used Second Hand Smoke Exposure: Yes Substance Use Type: Marijuana service: No Current occupational status: unemployed Cognitive needs: No Hearing needs: No Vision needs: No Questionnaire PHQ-9 Over the last 2 weeks, how often have you been bothered by any of the following problems? 1. Little interest or pleasure in doing things: not at all 2. Feeling down, depressed, or hopeless: not at all 3. Trouble falling or staying asleep, or sleeping too much: not at all 4. Feeling tired or having little energy: not at all 5. Poor appetite or overeating: not at all 6. Feeling bad about yourself - or that you are a failure or have let yourself or your family down: not at all 7. Trouble concentrating on things, such as reading the newspaper or watching television: not at all 8. Moving or speaking so slowly that other people could have noticed. Or the opposite - being so fidgety or restless that you have been moving around a lot more than usual: not at all 9. Thoughts that you would be better off or of hurting yourself in some way: not at all Total score: 0 Depression Screening Interpretation: Negative Depression Screening Done: Yes Source: Developed by Drs. Errol Hull, Morenita Harrison, Lance Kothari and colleagues, with an educational edward from [employer]. Thrive Questionnaire Date Thrive assessed: 07/15/24 AUDIT C Alcohol Use Questionnaire (AUDIT-C) 1. How often do you have a drink containing alcohol?: Never 3. How often do you have six or more drinks on one occasion?: Never Total Score: 0 WINIFRED-7 AMB Questionnaire WINIFRED-7 Date WINIFRED - 7 assessed: 07/15/24 Source: Developed by Drs. Errol Hull, Lance Hall and colleagues, with an educational edward from [employer]. Physical exam (Primary Care) Vital Signs: Last Vital Signs Pulse 101 H 07/24/24 14:48 BP 122/62 07/24/24 14:48 Pulse Ox 95 07/24/24 14:48 Oxygen Delivery Method Room Air 07/24/24 14:48 BMI result Body Mass Index 31.1 Tobacco/Smoking Status: Tobacco use Status Tobacco use date assessed 07/15/24 07/24/24 14:54 Patient Tobacco Use Status Current everyday Tobacco 07/24/24 14:54 Tobacco use type Cigarette 07/24/24 14:54 e-Cigarette/Vaping Use Never Used 07/24/24 14:54 PHQ-9: PHQ-9 Score PHQ-9: Total score 0 07/24/24 15:08 Depression Screening Interpretation: Negative Thrive Assessment: Date of Thrive Assessment Date Thrive assessed 07/15/24 07/24/24 14:54 Const General: alert; No acute distress Eyes Conjunctivae: conjunctivae normal Resp Auscultation: clear to auscultation bilaterally Cardio Rate: regular rate Rhythm: regular rhythm GI Inspection: Yes normal to inspection Extrem General: Yes normal to inspection and No edema Coding Level of Care Code Est Pt Level 4 (74360) Complex EM visit Add On G2211 Diagnoses Alcohol use disorder, severe, dependence F10.20 Alcoholic cirrhosis of liver with ascites K70.31 Ascites presence: with ascites Hepatic cirrhosis type: alcoholic cirrhosis Generalized anxiety disorder F41.1 Anemia D64.9 Tobacco abuse Z72.0 Class 3 severe obesity due to excess calories with body mass index (BMI) of 40.0 to 44.9 in adult, unspecified whether serious comorbidity present E66.01; Z68.41 Body mass index: BMI 40.0-44.9 Obesity classification: adult class 3 (BMI >= 40) Obesity type: due to excess calories Serious obesity comorbidity presence: unspecified whether serious comorbidity present Assessment & Plan Assessment & Plan (1) Alcohol use disorder, severe, dependence: Code(s): F10.20 - Alcohol dependence, uncomplicated Category: Medical Plan: Patient is advised to abstain from alcohol and this is the only chance (2) Cirrhosis: Code(s): K74.60 - Unspecified cirrhosis of liver Category: Medical Qualifiers: Ascites presence: with ascites Hepatic cirrhosis type: alcoholic cirrhosis Qualified Code(s): K70.31 - Alcoholic cirrhosis of liver with ascites Plan: Abstain from alcohol, eat healthy (3) Generalized anxiety disorder: Code(s): F41.1 - Generalized anxiety disorder Category: Medical Plan: On sertraline 25 mg once a day (4) Anemia: Code(s): D64.9 - Anemia, unspecified Category: Medical Plan: Continue to follow-up with blood count (5) Tobacco abuse: Code(s): Z72.0 - Tobacco use Category: Medical Plan: Patient is strongly advised to stop! (6) Obesity: Code(s): E66.9 - Obesity, unspecified Category: Medical Qualifiers: Body mass index: BMI 40.0-44.9 Obesity classification: adult class 3 (BMI >= 40) Obesity type: due to excess calories Serious obesity comorbidity presence: unspecified whether serious comorbidity present Qualified Code(s): E66.01 - Morbid (severe) obesity due to excess calories; Z68.41 - Body mass index [BMI]40.0-44.9, adult Plan: Eating healthy and keeping active Plan History of Present Illness The patient is a 48-year-old male presenting for a follow-up of alcoholic liver disease with cirrhosis and portal hypertension. The history reveals previous hepatic encephalopathy managed with lactulose. Current issues include persistent leg swelling exacerbated by alcohol-related hepatopathy. Anemia was identified with significant thrombocytopenia. Imaging showed cholelithiasis with gallbladder edema. The patient has been recommended to abstain from alcohol, and compliance is being monitored. Severe edema persists, previously addressed with spironolactone, pending reassessment. His anxiety disorder, managed with sertraline, adds to his stress regarding his health condition. Lifestyle improvements are emphasized, including dietary changes aimed at liver support. Health Maintenance - Encouraged cessation of alcohol consumption to aid in liver regeneration - Discussed importance of a balanced diet rich in vegetables and protein to manage portal hypertension and edema - Reviewed vaccination history; patient is up to date with pneumococcal and tetanus vaccinations - Emphasized exercise and leg elevation to manage edema Social History - History of significant alcohol use; currently attempting to abstain from alcohol - No current employment reported; experiencing financial difficulties due to medical condition - Participates in telephonic support groups for substance use - Reports a supportive family environment with assistance from his mother Review of Systems - Constitutional: Reports fatigue - Gastrointestinal: Reports abdominal bloating, denies nausea or vomiting - Musculoskeletal: Reports leg swelling - Neurological: Denies confusion or recent changes in mental status - Psychiatric: Reports anxiety, denies depression Physical Exam Results - Labs: Anemia with hemoglobin at 8.0 g/dL; platelet count at 64 x10^3/?L; mildly low sodium levels - Ultrasound: Cholelithiasis with gallbladder wall thickening and edema; cirrhotic liver with reversal flow in the main portal vein Plan Patient will continue current medication regimen focusing on liver function optimization and fluid management. Spironolactone is adjusted to manage ascites. Regular lab work to monitor hematologic status and electrolytes. Abstinence from alcohol is critical and will be supported with ongoing encouragement. Diet modifications, such as increased protein intake, are emphasized. Continued use of support groups and psychiatric care will address the patient's anxiety. Coordination with case management social worker to address financial and disability support needs. Assiduous follow-up is advised for blood work and hepatic diagnostics. Patient was informed and verbally consented to the use of an ambient scribe for clinic note documentation during this visit. Discussion Notes During the visit, I discussed the importance of abstaining from alcohol as the most crucial step in managing his liver condition and preventing further deterioration. I explained the benefits of spironolactone for reducing ascites and emphasized the necessity of regularly monitoring blood work to track his anemia and liver function. We reviewed the need for dietary changes to support liver health and reduce edema. I addressed the potential side effects of diuretics and the importance of compliance with his current psychiatric medication for anxiety. The patient was informed about the risks of liver failure and the rationale behind recommended lifestyle modifications. Compression stockings were discussed as a non-pharmacological intervention for edema, and patient consent for ongoing management strategies was documented. Follow-up plans were established, and the benefits of continued engagement in telephonic support groups to improve his mental health and compliance with alcohol cessation were emphasized. Patient Instructions - Take spironolactone as prescribed and follow up with lab tests regularly. - Abstain from alcohol entirely to protect your liver. - Follow a low-sodium, high-protein diet and eat plenty of vegetables. - Wear compression stockings to help with leg swelling. - Continue with current sertraline dose for anxiety management. - Stay engaged with phone support groups for sobriety and mental health. - Elevate legs when sitting to reduce swelling. - Keep all upcoming appointments for follow-up and lab work. - Reach out if experiencing any new symptoms or if conditions worsen. Orders: Orders Complete Blood Count Auto Diff Today L03.90 - Cellulitis, unspecified Comprehensive Met. Panel Today L03.90 - Cellulitis, unspecified Medications: New jakob.stocking,knee,reg,xlrg As directed 20-30 mm HG 12 ea 0RF M79.89 - Other specified soft tissue disorders Changed From furosemide 20 mg (1/2 x 40 mg) PO DAILY 90 tabs 1RF K70.11 - Alcoholic hepatitis with ascites To furosemide 20 mg PO DAILY 90 tabs 1RF K70.11 - Alcoholic hepatitis with ascites
--- OUTSIDE RECORDS SUMMARY | 2024-07-24 14:59 | XMS_ITS | Patient Health Record ---
Author Organization [facility] Address [address] [place] [id number] Care Team Providers Care Research Soil Scientist Name Role Phone Heidy Mojica MD Primary [...] Problem Status W/U Status Risk Notes Problem [id number] Alcoholic hepatitis with ascites (K70.11) Active confirmed [...] Insured Coverage Start Date Coverage End Date [facility] [address] [address] [place], [place] [phone] [id number] ANA TREJO Self - patient is the insured Medical (General) History Medical History History ICD Code alcoholic hepatitis with ascites nephrolithiasis childhood asthma Neuropathy Surgical History Surgery Date(Month/Year) susan put in shoulder right 2011
--- OUTSIDE RECORDS SUMMARY | 2024-07-24 14:59 | XMS_ITS | Clinical Summary ---
Author Organization [facility] Address [address] [place] [address] Phone Care Team Providers Care Galvanometer Assembler Name Role Phone Heidy Mojica MD Primary Care Provider [phone] Social History Tobacco Use Types Packs/Day Years [...] - 2023-2 5 season) 2023 Influenza Vaccine (Season Ended) 2024 HIB Vaccines Aged Out No longer eligi [...] age to complete this topic Meningococcal B Vaccine Aged Out No l onger eligible based on patient's age to complete [...] patient's age to complete this topic Insurance [facility] Care Teams Galvanometer Assembler Relationship Specialty Start Date End Date Heidy Mojica MD [address] [place] [address] [address] [facility] [place] [address] PCP - General Internal Medicine 03/31/24
== END 2024-07-24 15:23 | disposition home or self-care (01) ==
PROVIDERS: PCP Internal Medicine; Visit Provider Internal Medicine
DX: K70.31 Alcoholic cirrhosis of liver with ascites (principal); F10.20 Alcohol dependence, uncomplicated; E66.01 Morbid (severe) obesity due to excess calories; Z68.41 Body mass index [BMI] 40.0-44.9, adult; F41.1 Generalized anxiety disorder; D64.9 Anemia, unspecified; Z72.0 Tobacco use

== ENCOUNTER → 2024-07-24 14:46 | Outpatient (BNVA) | payer OTHER, SELFPAY | PROVIDERS: PCP Internal Medicine; Visit Provider Internal Medicine | DX: F10.20 Alcohol dependence, uncomplicated (principal); K70.31 Alcoholic cirrhosis of liver with ascites; F41.1 Generalized anxiety disorder; D64.9 Anemia, unspecified; E66.01 Morbid (severe) obesity due to excess calories; Z68.41 Body mass index [BMI] 40.0-44.9, adult; Z72.0 Tobacco use; Z71.3 Dietary counseling and surveillance | CPT/HCPCS: 99212 ==

== ENCOUNTER 2024-08-14 11:37 | Outpatient (AMB) | payer OTHER, SELFPAY ==
--- NOTE | 2024-08-14 11:46 | MHC.PC.OV ---
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 Accompanied by: Self / Same As Patient Allergies No Known Allergies Allergy (Verified 08/14/24 11:47) Medication List - Last Reconciled 08/14/24 by Heidy Mojica MD comp.[email or web address],thigh,long,large As directed [email or web address],knee,reg,xlrg As directed 20-30 mm HG cyanocobalamin (vitamin B-12) 1,000 mcg PO FR folic acid 1 mg PO DAILY furosemide 20 mg PO DAILY gabapentin 300 mg PO TID lactulose 20 grams (30 mL) PO BID multivitamin 1 tab PO DAILY nicotine 1 patch transdermal DAILY sertraline 25 mg PO DAILY spironolactone 25 mg PO DAILY sumatriptan succinate (Imitrex) 100 mg orally QD PRN; 30 days Tobacco use date assessed: 08/14/24 Dental Screening Dental Screen Date: 08/14/24 Did you have a dental visit in the last 12 months?: No Did you have a dental problem in the last 6 months where you did not have access to dental care?: No Was dental information given to patient?: No HPI Left foot swelling HPI Details History of Present Illness The patient is a 48-year-old male presenting for follow-up regarding his chronic health issues. His past medical history is significant for chronic alcohol use disorder, obstructive sleep apnea, hepatic encephalopathy, generalized anxiety disorder, recurrent depression, glucose intolerance, cholelithiasis, and liver cirrhosis. Recent laboratory tests indicated anemia, hyponatremia, and thrombocytopenia, with established liver dysfunction evidenced by increased bilirubin and AST levels. In June, imaging studies including a nuclear gallbladder scan showed biliary dyskinesia, while liver imaging confirmed cirrhosis with portal hypertension and trace ascites. The patient is currently on diuretics, including furosemide and spironolactone, and sertraline for mental health management. A significant emphasis during this visit is placed on the patient's weight gain, alcohol use, and the need for continued behavioral health intervention. Health Maintenance - Advised on alcohol cessation to prevent further hepatic damage. - Recommendation for weight management through diet and exercise. - Encouraged engagement with gastroenterology for ongoing liver disease monitoring. - Continued monitoring of glucose intolerance, suggesting dietary adjustments. Social History - Chronic alcohol use disorder, with a strong emphasis on abstaining from alcohol. - Smoker, advised cessation. - Noted weight gain, currently weighs 115 pounds compared to a prior weight of 108 pounds. Review of Systems - General: Reports weight gain. - Gastrointestinal: Reports history of hepatic encephalopathy, cholelithiasis. - Endocrine: Reports imperfect glucose tolerance. - Respiratory: Reports obstructive sleep apnea. - Psychiatric: Reports generalized anxiety disorder, recurrent depression. Physical Exam Results - Labs: Anemia with hemoglobin 8 g/dL, thrombocytopenia with platelet count 64 x 10^3/?L, hyponatremia at 134 mmol/L. - Liver Function Test: Bilirubin 3.8 mg/dL and AST 50 U/L. - Nuclear Scan: Low gallbladder ejection fraction compatible with biliary dyskinesia. - Imaging: Cirrhotic liver with reversal flow in the main portal vein and trace ascites. Plan The patient will continue abstaining from alcohol, a necessity emphasized due to the risk to his liver from ongoing alcohol use. Current medications, including diuretics for hepatic function and sertraline for mental health, will be maintained. Dietary adjustments emphasizing a low-fat composition will support glucose management and weight loss. Continued engagement with gastroenterology is requisite for ongoing liver disease management and to monitor anemias, liver function, and electrolyte changes. Advice for smoking cessation and vital lifestyle changes was given. Patient was informed and verbally consented to the use of an ambient scribe for clinic note documentation during this visit. Discussion Notes During our discussion, I reviewed the patient's chronic health conditions and emphasized the essential need for alcohol abstinence due to existing liver cirrhosis and its complications, including encephalopathy and portal vein changes. We discussed the strategic continuation of his current medications and the importance of dietary adjustments to support glucose intolerance and potentially aid weight management. I reinforced the value of the patient's strong engagement with our plan and their action for scheduling follow-ups with gastroenterology to assess liver function and disease progression. Additionally, the patient was advised to stop smoking and to implement lifestyle changes. Patient Instructions - Stop drinking alcohol immediately. - Take all medications as prescribed, including furosemide, spironolactone, and sertraline. - Follow a low-fat diet. - Exercise regularly to manage weight. - Stop smoking as soon as possible. - Schedule and attend follow-up appointments with gastroenterology. - Watch for any new or worsening symptoms of liver disease and report them immediately. [facility] Medical History Abdominal pain Lower extremity edema Tinea pedis Chemical burn Cellulitis of right leg Right leg swelling Swelling of left hip joint Right groin pain Tobacco abuse Obesity Surgical History No pertinent past surgical history Family History Maternal Grandfather CVA (cerebral vascular accident) Maternal Grandmother Pancreatic cancer Social History Household Members: Family Housing: House Do you presently have visiting nurse or other home services: No Alcohol intake: current Alcohol intake frequency: 3 or more drinks per day Alcohol type: hard liquor Comment: pt refuses bed alarm Patient Tobacco Use Status: Current everyday Tobacco user Tobacco use type: Cigarette Cigarette Packs Per Day: 0.5 Cigarettes Per Day: 7 Years Smoked: smoking since 20 years old Packs Per Year: 0 Packs per year/per ci.00 e-Cigarette/Vaping Use: Never Used Second Hand Smoke Exposure: Yes Substance Use Type: Marijuana service: No Current occupational status: unemployed Cognitive needs: No Hearing needs: No Vision needs: No Questionnaire PHQ-9 Over the last 2 weeks, how often have you been bothered by any of the following problems? 1. Little interest or pleasure in doing things: more than half the days 2. Feeling down, depressed, or hopeless: several days 3. Trouble falling or staying asleep, or sleeping too much: more than half the days 4. Feeling tired or having little energy: more than half the days 5. Poor appetite or overeating: several days 6. Feeling bad about yourself - or that you are a failure or have let yourself or your family down: more than half the days 7. Trouble concentrating on things, such as reading the newspaper or watching television: several days 8. Moving or speaking so slowly that other people could have noticed. Or the opposite - being so fidgety or restless that you have been moving around a lot more than usual: not at all 9. Thoughts that you would be better off or of hurting yourself in some way: not at all Total score: 11 Source: Developed by Drs. Errol Hull, Morenita Harrison, Lance Kothari and colleagues, with an educational edward from [employer]. Thrive Questionnaire Date Thrive assessed: 08/14/24 I am a: Patient What is your living situation today?: I choose not to answer this question Within the past 12 months, did the food you bought not last and you didn't have the money to get more?: Often true Within the past 12 months, did you worry whether your food would run out before you got money to buy more?: Often true Do you have trouble paying for medicines?: Yes Do you have trouble getting transportation to medical appointments?: I choose not to answer this question Do you have trouble paying your heating and electricity bill?: I choose not to answer this question Do you have trouble taking care of your child, family member or friend?: I choose not to answer this question Do you have trouble with day-to-day activities such as bathing, preparing meals, shopping, managing finances, etc.?: I choose not to answer this question Are you currently unemployed and looking for a job?: Yes Are you interested in more education?: Yes Please select the resources that you would like help with: None Currently or been in a relationship where the following occur: I choose not to answer THRIVE Score: 2 AUDIT C Alcohol Use Questionnaire (AUDIT-C) 1. How often do you have a drink containing alcohol?: Never 3. How often do you have six or more drinks on one occasion?: Never Total Score: 0 WINIFRED-7 AMB Questionnaire WINIFRED-7 Date WINIFRED - 7 assessed: 08/14/24 Feeling nervous, anxious, or on edge: 1 = Several days Not being able to stop or control worryin = More than half the days Worrying too much about different things: 2 = More than half the days Trouble relaxin = More than half the days Being so restless that it is hard to sit still: 2 = More than half the days Becoming easily annoyed or irritable: 2 = More than half the days Feeling afraid as if something awful might happen: 1 = Several days Total WINIFRED-7 score (0-4 normal; 5-9 mild; 10-14 moderate; 15-21 severe): 12 Source: Developed by Drs. Errol Hull, Morenita Harrison, Lance Kothari and colleagues, with an educational edward from [employer]. Physical exam (Primary Care) Vital Signs: Last Vital Signs Pulse 89 08/14/24 11:47 BP 106/52 L 08/14/24 11:47 Pulse Ox 98 08/14/24 11:47 Oxygen Delivery Method Room Air 08/14/24 11:47 BMI result Body Mass Index 37.0 Tobacco/Smoking Status: Tobacco use Status Tobacco use date assessed 08/14/24 08/14/24 11:52 Patient Tobacco Use Status Current everyday Tobacco 08/14/24 11:52 Tobacco use type Cigarette 08/14/24 11:52 e-Cigarette/Vaping Use Never Used 08/14/24 11:52 PHQ-9: PHQ-9 Score PHQ-9: Total score 11 08/14/24 11:58 Thrive Assessment: Date of Thrive Assessment Date Thrive assessed 08/14/24 08/14/24 11:52 Currently or been in a relationship where the following occur: I choose not to answer Const General: alert; No acute distress Eyes Conjunctivae: conjunctivae normal Resp Auscultation: clear to auscultation bilaterally Cardio Rate: regular rate Rhythm: regular rhythm GI Inspection: Yes normal to inspection Extrem Other: Plus three edema bilateral lower extremity with a 3 cm blister on the left foot that is draining. Coding Level of Care Code Est Pt Level 4 (19237) Complex EM visit Add On G2211 Diagnoses Alcohol use disorder, severe, dependence F10.20 Alcoholic hepatitis K70.11 Ascites presence: with ascites Leg edema R60.0 Thrombocytopenia D69.6 Alcoholic cirrhosis of liver with ascites K70.31 Ascites presence: with ascites Hepatic cirrhosis type: alcoholic cirrhosis Recurrent depression F33.9 Impaired fasting blood sugar R73.01 Calculus of gallbladder without cholecystitis without obstruction K80.20 Biliary obstruction: without biliary obstruction Cholecystitis presence: without cholecystitis Cholelithiasis location: gallbladder Anemia D64.9 Ascites K70.11 Ascites type: due to alcoholic hepatitis Tobacco abuse Z72.0 Class 3 severe obesity due to excess calories with body mass index (BMI) of 40.0 to 44.9 in adult, unspecified whether serious comorbidity present E66.01; Z68.41 Body mass index: BMI 40.0-44.9 Obesity classification: adult class 3 (BMI >= 40) Obesity type: due to excess calories Serious obesity comorbidity presence: unspecified whether serious comorbidity present Neuropathy of left lower extremity G57.92 Assessment & Plan Assessment & Plan (1) Alcohol use disorder, severe, dependence: Code(s): F10.20 - Alcohol dependence, uncomplicated Category: Medical Plan: Patient has to abstain from alcohol (2) Alcoholic hepatitis: Code(s): K70.10 - Alcoholic hepatitis without ascites Category: Medical Qualifiers: Ascites presence: with ascites Qualified Code(s): K70.11 - Alcoholic hepatitis with ascites Plan: Patient has to abstain from alcohol (3) Leg edema: Code(s): R60.0 - Localized edema Category: Medical Plan: Patient has to abstain from alcohol (4) Thrombocytopenia: Code(s): D69.6 - Thrombocytopenia, unspecified Category: Medical Plan: Patient has to abstain from alcohol on furosemide and spironolactone. (5) Cirrhosis: Code(s): K74.60 - Unspecified cirrhosis of liver Category: Medical Qualifiers: Ascites presence: with ascites Hepatic cirrhosis type: alcoholic cirrhosis Qualified Code(s): K70.31 - Alcoholic cirrhosis of liver with ascites Plan: Patient has to abstain from alcohol on furosemide and spironolactone on lactulose (6) Recurrent depression: Code(s): F33.9 - Major depressive disorder, recurrent, unspecified Category: Medical Plan: Continuing with sertraline 25 mg once a day (7) Impaired fasting blood sugar: Code(s): R73.01 - Impaired fasting glucose Category: Medical Plan: Decrease the amount of carbohydrate intake, pasta, bread, rice and potatoes are all sugar and that is aside from all the sweet stuff, remember that fruits are good but they are Sweet also. (8) Cholelithiasis: Code(s): K80.20 - Calculus of gallbladder without cholecystitis without obstruction Category: Medical Qualifiers: Biliary obstruction: without biliary obstruction Cholecystitis presence: without cholecystitis Cholelithiasis location: gallbladder Qualified Code(s): K80.20 - Calculus of gallbladder without cholecystitis without obstruction Plan: Low-fat diet and following up with Gastroenterology (9) Anemia: Code(s): D64.9 - Anemia, unspecified Category: Medical Plan: Continue to follow-up advised to abstain from alcohol (10) Ascites: Code(s): R18.8 - Other ascites Category: Medical Qualifiers: Ascites type: due to alcoholic hepatitis Qualified Code(s): K70.11 - Alcoholic hepatitis with ascites Plan: Patient is strongly advised to abstain from alcohol. Continue with spironolactone and furosemide (11) Tobacco abuse: Code(s): Z72.0 - Tobacco use Category: Medical Plan: Patient is advised to stop smoking! (12) Obesity: Code(s): E66.9 - Obesity, unspecified Category: Medical Qualifiers: Body mass index: BMI 40.0-44.9 Obesity classification: adult class 3 (BMI >= 40) Obesity type: due to excess calories Serious obesity comorbidity presence: unspecified whether serious comorbidity present Qualified Code(s): E66.01 - Morbid (severe) obesity due to excess calories; Z68.41 - Body mass index [BMI]40.0-44.9, adult Plan: Diet and exercise (13) Neuropathy of left lower extremity: Code(s): G57.92 - Unspecified mononeuropathy of left lower limb Category: Medical Plan History of Present Illness The patient is a 48-year-old male presenting with the management of fluid retention and associated symptoms. He has experienced severe leg and foot edema, reporting a 32-pound weight gain due to fluid accumulation. Diagnosed with liver cirrhosis, he had been using half doses of furosemide but was unable to increase this medication due to low blood pressure. Persists with clear urine output but continues to manage significant swelling, especially around the lower extremities, paired with an apparent blister of concern. Discomfort in legs and feet involves cramps and burning sensations, exacerbated by a lack of appropriate medication during his recent hospital stay where gabapentin wasn't dispensed, attributing to worsening neuropathy symptoms. The patient quit alcohol consumption five weeks prior, which has played a role in worsening anxiety. Dietary proteins are lacking, which impairs hepatic compensatory mechanisms for reducing intravascular leakage of fluids. Existing gallbladder stones add complexity to his condition. Efforts are being made to balance diuretic use while considering nutritional adjustments essential for liver recovery. His lifestyle has been challenged by heightened anxiety and inadequate dietary practices. The patient is a 48-year-old male presenting for follow-up regarding his chronic health issues. His past medical history is significant for chronic alcohol use disorder, obstructive sleep apnea, hepatic encephalopathy, generalized anxiety disorder, recurrent depression, glucose intolerance, cholelithiasis, and liver cirrhosis. Recent laboratory tests indicated anemia, hyponatremia, and thrombocytopenia, with established liver dysfunction evidenced by increased bilirubin and AST levels. In June, imaging studies including a nuclear gallbladder scan showed biliary dyskinesia, while liver imaging confirmed cirrhosis with portal hypertension and trace ascites. The patient is currently on diuretics, including furosemide and spironolactone, and sertraline for mental health management. A significant emphasis during this visit is placed on the patient's weight gain, alcohol use, and the need for continued behavioral health intervention. Health Maintenance - Discussions around high-protein diet adaptation - Continued abstinence from alcohol since hospitalization - Monitoring and adjustments of diuretic therapy regarding hypertension management - Ongoing assessment of liver function and fluid volume - Advised on alcohol cessation to prevent further hepatic damage. - Recommendation for weight management through diet and exercise. - Encouraged engagement with gastroenterology for ongoing liver disease monitoring. - Continued monitoring of glucose intolerance, suggesting dietary adjustments. Social History - Five-week cessation from alcohol indicated an attempt to improve liver health - Reports poor dietary habits with insufficient high-protein intake - Anxiety has significantly increased since stopping alcohol consumption - Limited mobility due to edema and discomfort in lower extremities - Chronic alcohol use disorder, with a strong emphasis on abstaining from alcohol. - Smoker, advised cessation. - Noted weight gain, currently weighs 115 pounds compared to a prior weight of 108 pounds. Review of Systems - Cardiovascular: Reports low blood pressure - Gastrointestinal: Reports liver dysfunction and history of gallbladder stones - Musculoskeletal: Reports tightness in thighs, significant edema - Neurological: Reports severe burning, cramps, tingling in legs and feet - Psychiatric: Reports worsened anxiety and panic attacks post-alcohol cessation - Genitourinary: Reports clear urine output, despite diuretic use - General: Reports weight gain. - Gastrointestinal: Reports history of hepatic encephalopathy, cholelithiasis. - Endocrine: Reports imperfect glucose tolerance. - Respiratory: Reports obstructive sleep apnea. - Psychiatric: Reports generalized anxiety disorder, recurrent depression. Physical Exam - Vitals- Blood pressure recorded at 106/40 - Lower Extremities- +3 edema bilateral with a 3 cm blister on the left foot Results - Labs: Anemia with hemoglobin 8 g/dL, thrombocytopenia with platelet count 64 x 10^3/?L, hyponatremia at 134 mmol/L. - Liver Function Test: Bilirubin 3.8 mg/dL and AST 50 U/L. - Nuclear Scan: Low gallbladder ejection fraction compatible with biliary dyskinesia. - Imaging: Cirrhotic liver with reversal flow in the main portal vein and trace ascites. Plan Management of fluid retention in light of liver cirrhosis, focusing on diuretic titration considering low blood pressure parameters. Encouragement of a higher protein dietary regimen to aid hepatic improvements. Emphasis on resolving anxiety that has escalated with ongoing gabapentin therapy and potential adjustment of sertraline. A plan is in place for cautiously monitoring liver function and fluid conditions, coordinating an ultrasound to quantify potential hepatobiliary complications with gallbladder stones recognized. Electrolyte balance remains a priority, with active engagement in patient education regarding sequential steps in home care and understanding prospective outcomes based on lifestyle alterations. The patient will continue abstaining from alcohol, a necessity emphasized due to the risk to his liver from ongoing alcohol use. Current medications, including diuretics for hepatic function and sertraline for mental health, will be maintained. Dietary adjustments emphasizing a low-fat composition will support glucose management and weight loss. Continued engagement with gastroenterology is requisite for ongoing liver disease management and to monitor anemias, liver function, and electrolyte changes. Advice for smoking cessation and vital lifestyle changes was given. Patient was informed and verbally consented to the use of an ambient scribe for clinic note documentation during this visit. Discussion Notes I discussed with the patient the significance of maintaining high protein intake to support liver regenerative processes. The challenges of navigating his complex fluid management with current liver status were addressed. I emphasized the need for careful titration of his diuretic medications to prevent blood pressure complications while managing edema. The patient was informed of the plan to pursue an updated abdominal ultrasound to verify changes in fluid dynamics. Anxiety care continuation with gabapentin was explored, with the adjustment of sertraline to improve neurological distress. Consent to adhere to these recommendations was secured, and arrangement details with the gastrointestinal team regarding gallstone review were communicated. During our discussion, I reviewed the patient's chronic health conditions and emphasized the essential need for alcohol abstinence due to existing liver cirrhosis and its complications, including encephalopathy and portal vein changes. We discussed the strategic continuation of his current medications and the importance of dietary adjustments to support glucose intolerance and potentially aid weight management. I reinforced the value of the patient's strong engagement with our plan and their action for scheduling follow-ups with gastroenterology to assess liver function and disease progression. Additionally, the patient was advised to stop smoking and to implement lifestyle changes. Patient Instructions - Continue taking prescribed diuretics but do not increase doses without consultation. - Maintain a high-protein diet to assist liver recovery. - Elevate legs whenever possible to reduce swelling. - Monitor for changes in fluid retention and notify if significant changes occur. - Attend scheduled gastroenterology follow-up appointments. - Stay compliant with prescribed gabapentin and monitor anxiety symptoms. - Obtain lab tests as discussed. - Seek medical attention if symptoms worsen or new ones arise. - Follow up promptly if further issues with medication access occur. - Stop drinking alcohol immediately. - Take all medications as prescribed, including furosemide, spironolactone, and sertraline. - Follow a low-fat diet. - Exercise regularly to manage weight. - Stop smoking as soon as possible. - Schedule and attend follow-up appointments with gastroenterology. - Watch for any new or worsening symptoms of liver disease and report them immediately. Orders: Orders Magnesium Today K70.31 - Alcoholic cirrhosis of liver with ascites Prothrombin Time INR Today K70.31 - Alcoholic cirrhosis of liver with ascites US abdomen complete Today K70.31 - Alcoholic cirrhosis of liver with ascites, R79.89 - Other specified abnormal findings of blood chemistry Referrals Gastroenterology Referral K70.31 - Alcoholic cirrhosis of liver with ascites Medications: New gabapentin 300 mg PO TID 90 caps 1RF G57.92 - Unspecified mononeuropathy of left lower limb Changed From sertraline 25 mg PO DAILY 30 tabs 3RF F41.1 - Generalized anxiety disorder To sertraline 50 mg PO DAILY 30 tabs 3RF F41.1 - Generalized anxiety disorder
[2024-08-14 11:47] VITALS: BP 106/52; PULSE 89; O2SAT 98; BMI 37.0
--- OUTSIDE RECORDS SUMMARY | 2024-08-14 12:35 | XMS_ITS | Clinical Summary ---
Author Organization [facility] Address [address] [place] [address] Phone Care Team Providers Care Culvert Installer Name Role Phone Heidy Mojica MD Primary Care Provider [phone] Social History Tobacco Use Types Packs/Day Years [...] patient's age to complete this topic Insurance [facility] Care Teams Culvert Installer Relationship Specialty Start Date End Date Heidy oMjica MD [address] [place] [address] [address] [facility] [place] [address] PCP - General Internal Medicine 03/31/24
--- OUTSIDE RECORDS SUMMARY | 2024-08-14 12:35 | XMS_ITS | Patient Health Record ---
Author Organization [facility] Address [address] [place] [address] Care Team Providers Care Java Software Architect Name Role Phone Heidy Mojica MD Primary [...] Problem Status W/U Status Risk Notes Problem [id number] Alcoholic hepatitis with ascites (K70.11) Active confirmed [...] Insured Coverage Start Date Coverage End Date [facility] [address] [address] [place], [place] [id number] ANA TREJO Self - patient is the insured Medical (General) History Medical History History ICD Code alcoholic hepatitis with ascites nephrolithiasis childhood asthma Neuropathy Surgical History Surgery Date(Month/Year) susan put in shoulder right 2011
== END 2024-08-14 12:23 | disposition home or self-care (01) ==
LOC: HO.HMCH 11:38
PROVIDERS: PCP Internal Medicine; Visit Provider Internal Medicine
DX: K70.11 Alcoholic hepatitis with ascites (principal); F10.20 Alcohol dependence, uncomplicated; E66.01 Morbid (severe) obesity due to excess calories; Z68.41 Body mass index [BMI] 40.0-44.9, adult; K70.31 Alcoholic cirrhosis of liver with ascites; R60.0 Localized edema; D69.6 Thrombocytopenia, unspecified; F33.9 Major depressive disorder, recurrent, unspecified; R73.01 Impaired fasting glucose; K80.20 Calculus of gallbladder without cholecystitis without obstruction; D64.9 Anemia, unspecified; Z72.0 Tobacco use

== ENCOUNTER → 2024-08-14 11:37 | Outpatient (BNVA) | payer OTHER, SELFPAY | PROVIDERS: PCP Internal Medicine; Visit Provider Internal Medicine | DX: F41.1 Generalized anxiety disorder (principal); F17.210 Nicotine dependence, cigarettes, uncomplicated; F10.20 Alcohol dependence, uncomplicated; G47.33 Obstructive sleep apnea (adult) (pediatric); K76.6 Portal hypertension; K70.11 Alcoholic hepatitis with ascites; R60.0 Localized edema; D69.6 Thrombocytopenia, unspecified; K70.31 Alcoholic cirrhosis of liver with ascites; F33.9 Major depressive disorder, recurrent, unspecified; R73.01 Impaired fasting glucose; K80.20 Calculus of gallbladder without cholecystitis without obstruction; D64.9 Anemia, unspecified; E66.01 Morbid (severe) obesity due to excess calories; G57.92 Unspecified mononeuropathy of left lower limb; Z68.41 Body mass index [BMI] 40.0-44.9, adult | CPT/HCPCS: 99212 ==

== ENCOUNTER 2024-09-04 11:38 | Outpatient (REF) | payer OTHER, SELFPAY ==
--- NOTE | ~2024-09-04 | US_ITS ---
CLINICAL HISTORY: R79.89 - Other specified abnormal findings of blood chemistry --- Additional Notes or Special Instructions: Alcoholic cirrhosis of liver US abdomen complete with duplex and color Doppler Comparison: US - US ABDOMEN LIMITED - 07/03/24 18:03 EDT US/SR - US ABDOMEN COMP W ELASTOGRAPHY - 01/05/22 10:00 EDT Findings: Heterogeneous echotexture of the pancreas with peripancreatic varices that are patent. No focal pancreatic lesions. Normal caliber abdominal aorta. Patent IVC. Liver normal size with coarsened echotexture. Right lobe 17.7 cm length. No focal hepatic masses. Common duct 8.1. Mm diameter. Borderline gallbladder hydrops.Layering gallstones.Equivocal gallbladder wall thickening.Sonographic Oliveira's sign. Main portal vein antegrade. Right kidney normal size, 11.3 cm in length. Normal cortical width and echotexture. No solid or cystic renal masses. No nephrolithiasis or hydronephrosis. Left kidney normal, 12.3 cm in length. Normal cortical width and echotexture. No solid or cystic renal masses. No nephrolithiasis or hydronephrosis. Spleen measures 15.9 cm. No splenic masses. Mild lymphadenopathy in the tai hepatis. Trace ascites. Impression: 1. Borderline enlarged liver with coarse hepatic echotexture reflecting hepatic steatosis or diffuse hepatocellular disease. Mild lymphadenopathy in the tai hepatis. Hepatopetal flow portal vein. Peripancreatic varices are patent. 2. Cholelithiasis. Borderline gallbladder hydrops. Equivocal gallbladder wall thickening. Dilated common bile duct. Positive sonographic Oliveira's sign. 3. Trace ascites. Splenomegaly. 4. MRI of the abdomen with contrast may be of further diagnostic value. This document has been electronically signed by: Kaushik Chavez MD on 09/05/2024 15:52:01
--- OUTSIDE RECORDS SUMMARY | 2024-09-04 11:40 | XMS_ITS | Patient Health Record ---
Author Organization [facility] Address [address] [place] [address] Care Team Providers Care Heart Coordinator Name Role Phone Heidy Mojica MD Primary Care Provider Wilber Prater Jr Unavailable Allergies No Known Allergies Reason For Referral No Information Medications Medication SIG (Take, Route, Fr equency, Duration) Notes Start Date End Date Status Gabapentin 300 MG TAKE 1 CAPSULE BY MO DEH TWICE A DAY Oral three times a day Act julia Multivitamin Adults - as directed Orally Active Spironolactone 25 MG 1 tablet Orally for 30 day(s) Active Furosemide 20 MG 1 tablet Orally Once a day for 30 days Active Sertraline HCl 25 MG TAKE 1 TAB ORALLY D AILY Oral for 30 Days Active Folic Acid 1 MG TAKE 1 [...] Problem Status W/U Status Risk Notes Problem [id number] Alcoholic hepatitis with ascites (K70.11) Active confirmed Problem Cirrhotic ([id number]) Cirrhosis (K74.60) Active confirmed Vital Signs Blood pressure diastolic 77 mm Hg 09/02/2024 Height 71 in 09/02/2024 Blood pressure systolic 111 mm Hg 09/02/2024 Weight 270 lbs 09/02/2024 BMI 37.65 kg/m2 09/02/2024 Encounters Encounter Location Date Provider Diagnosis [facility] [address] [place] [address] 09/02/2024 Wilbernir Castillo Jr Alcoholic hepatitis with ascites K70.11 and Cirrhosis K74.60 Assessments Encounter Date Diagnosis (ICD Code) Assessment Notes Treatment Notes Treatment Clinical Notes Section Notes 09/02/2024 Alcoholic hepatitis with ascites (ICD-10 - K70.11) We discussed cirrhosis with ascites today. We discussed alcoholic liver disease. We recommended avoidance of alcohol. He will continue his diuretics, and these can be adjusted upwards pending the results of his blood work on Saturday. We will await the results of his ultrasound. We discussed salt avoidance and limiting intake of fluids with a goal of urine output more than 500 cc greater than intake. 30 minutes was spent on today's visit. He will have iron testing and can start iron in the short run to see if this helps his anemia. He does need upper endoscopy and colonoscopy when his liver disease is under better control. 09/02/2024 Cirrhosis (ICD-10 - K74.60) We discussed cirrhosis with ascites today. We discussed alcoholic liver disease. We recommended avoidance of alcohol. He will continue his diuretics, and these can be adjusted upwards pending the results of his blood work on Saturday. We will await the results of his ultrasound. We discussed salt avoidance and limiting intake of fluids with a goal of urine output more than 500 cc greater than intake. 30 minutes was spent on today's visit. He will have iron testing and can start iron in the short run to see if this helps his anemia. He does need upper endoscopy and colonoscopy when his liver disease is under better control. Plan Of Treatment Pending Test Test Name Order Date CHEM 7 PROFILE 11/16/2021 LIVER PROFILE 11/16/2021 IRON + IBC (FE) 09/02/2024 FERRITIN 09/02/2024 CBC with MANUAL DIFFERENTIAL 11/16/2021 CBC w/o DIFF 07/13/2020 PROTHROMBIN TIME (PT, INR) 07/13/2020 PROTHROMBIN TIME (PT, INR) 11/16/2021 HEMOCHROMATOSIS (C282Y) 11/16/2021 PARACENTESIS W GUIDANCE 07/13/2020 US ABDOMEN COMP WITH ELASTOGRAPHY 2021 Liver Fibrosis Pnl 11/16/2021 Next Appt Details Provider Name:Wilber Benjamin Tony oliver Jr, 03/04/2025 02:55:00 PM, [address] [facility], [address], [place], [address], Insurance Providers Payer Name Payer Address Payer Phone Subscriber Number Group Number Insured Name Patient Relationship to Insured Coverage Start Date Coverage End Date [facility] [address] [address] [place], [place] [id number] ANA TREJO Self - patient is the insured Medical (General) History Medical History History ICD Code alcoholic hepatitis with ascites. Cirrho sis nephrolithiasis childhood asthma Neuropathy Surgical History Surgery Date(Month/Year) Right shoulder surgery 2011
[2024-09-04 16:24] LABS: MANUAL DIFF FLAG NO
[2024-09-04 16:38] LABS: Basophils Absolute Auto 0.1 X10*3/uL (0.0-0.2); Basophils Percent Auto 0.7 % (0-2); Eosinophils Absolute Auto 0.1 X10*3/uL (0.0-0.4); Eosinophils Percent Auto 1.4 % (0-4); Hematocrit 29.1 % (42.0-52.0); Hemoglobin 9.9 g/dl (14.0-18.0); Imm Gran Abs Auto 0.03 X10*3/uL (0.00-0.03); Imm Gran Pct Auto 0.4 % (0.0-0.4); Lymphocytes Absolute Auto 2.2 X10*3/uL (1.2-4.9); Lymphocytes Percent Auto 28.2 % (20-40); Mean Corpuscular Hemoglobin 34.6 pg (27.0-33.0); Mean Corpuscular Volume 101.7 fL (80.0-98.0); Monocytes Absolute Auto 0.8 X10*3/uL (0.1-1.2); Monocytes Percent Auto 10.4 % (2-11); Neutrophils Absolute Auto 4.5 x10*3/uL (2.0-8.3); Neutrophils Percent Auto 58.9 % (45-73); Platelet Count 110 X10*3/uL (160-400); Red Blood Count 2.86 X10*6/uL (4.60-5.80); Red Cell Distribution Width 15.2 % (11.0-16.0); White Blood Count 7.7 X10*3/uL (4.8-10.8)
[2024-09-04 16:43] LABS: INTERNATIONAL NORM RATIO 1.6 (0.9-1.1); Prothrombin Time 18.5 SEC (10.9-12.4)
[2024-09-04 17:02] LABS: Iron 53 mcg/dL (45-160); Percent Iron Saturation 37 % (15-50); Total Iron Binding Capacity 143 mcg/dL (228-428); Unsaturated Iron Binding 90 ug/dL
[2024-09-04 17:06] LABS: Estimated Average Glucose 85 mg/dL; Hemoglobin A1C 70.2192 umol/L; Hemoglobin A1c % 4.6 % (<6.0); Total Hemoglobin (HGBA1C) 2627.9563 umol/L
[2024-09-04 17:19] LABS: Ferritin 411 ng/mL (20-250)
[2024-09-04 17:21] LABS: Alanine Aminotransferase < 6 U/L (0-40); Albumin Level 2.4 g/dL (3.5-5.0); Alkaline Phosphatase 88 U/L (39-117); Anion Gap 14 (12-20); Aspartate Amino Transferase 43 U/L (5-37); Bilirubin Total 2.3 mg/dL (0.0-1.0); Blood Urea Nitrogen 6 mg/dL (9-16); Calcium 8.1 mg/dL (8.4-10.2); Carbon Dioxide 20 mmol/L (22-29); Chloride 109 mmol/L (96-108); Estimated Glomerular Filt Rate > 60; Glucose Random 85 mg/dL (60-115); Magnesium 1.7 mg/dL (1.6-2.6); Potassium 3.8 mmol/L (3.3-5.1); Sodium 139 mmol/L (135-145); Total Protein 7.1 g/dL (6.5-8.0)
[2024-09-04 17:27] LABS: Free T4 (Free Thyroxine) 1.15 ng/dL (0.71-1.85); Thyroid Stimulating Hormone 0.03 uIU/mL (0.32-4.0)
[2024-09-04 17:34] LABS: Folate 7.7 ng/mL (> or = 4.0); Vitamin B12 > 2000 pg/mL (200-900)
== END 2024-09-04 11:39 | disposition home or self-care (01) ==
LOC: HO.HMGCX 11:38
PROVIDERS: PCP Internal Medicine; Referring Provider Internal Medicine Gastroenterology; Visit Provider Internal Medicine
DX: K70.11 Alcoholic hepatitis with ascites (principal); K70.31 Alcoholic cirrhosis of liver with ascites; R79.89 Other specified abnormal findings of blood chemistry; L03.90 Cellulitis, unspecified
CPT/HCPCS: 36415; 76700; 80053; 82607; 82728; 82746; 83036; 83540; 83735; 84439; 84443; 85025; 85610

== ENCOUNTER → 2024-09-04 11:39 | Outpatient (BNV) | payer OTHER, SELFPAY | PROVIDERS: PCP Internal Medicine; Referring Provider Internal Medicine Gastroenterology; Visit Provider Radiology Diagnostic Radiology | DX: K80.20 Calculus of gallbladder without cholecystitis without obstruction (principal); K82.8 Other specified diseases of gallbladder; R59.0 Localized enlarged lymph nodes; R16.1 Splenomegaly, not elsewhere classified | CPT/HCPCS: 76700 ==

== ENCOUNTER 2024-10-09 14:35 | Outpatient (AMB) | payer OTHER, SELFPAY ==
[2024-10-09 14:37] VITALS: BP 106/74; PULSE 86; TEMP 36.4; O2SAT 96; BMI 31.1
--- NOTE | 2024-10-09 14:37 | MHC.PC.OV ---
Vital Signs 10/09/24 14:37 Height 5 ft 11 in Weight 223 lb 4 oz BMI 31.1 BP 106/74 Blood Pressure Location Lt brachial Position Sitting Pulse 86 Pulse Source Pulse Oximeter Temp 97.5 F Temp Source Temporal Artery Scan Pulse Oximetry (%) 96 Oxygen Delivery Method Room Air Intake Visit Reasons: [facility] 09/14 inflammation of the legs Shipping Coordinator Required: No Accompanied by: Self / Same As Patient Allergies No Known Allergies Allergy (Verified 10/09/24 14:43) Medication List - Last Reconciled 10/09/24 by Jennifer Dhillon NP [email or web address],thigh,long,large As directed [email or web address],[email or web address],xlrg As directed 20-30 mm HG cyanocobalamin (vitamin B-12) 1,000 mcg PO FR Held on 07/10/24. Instructions: b12 level high, hold until follow up with PCP folic acid 1 mg PO DAILY furosemide 40 mg PO DAILY gabapentin 300 mg PO TID lactulose 20 grams (30 mL) PO BID multivitamin 1 tab PO DAILY nicotine 1 patch transdermal DAILY sertraline 50 mg PO DAILY spironolactone 50 mg PO DAILY sumatriptan succinate (Imitrex) 100 mg orally QD PRN; 30 days Tobacco use date assessed: 08/14/24 Dental Screening Dental Screen Date: 08/14/24 HPI HPI Comments History of Present Illness Details 49 y/o Male patient who presents to the clinic for HDF. He was admitted at [facility] on 09/07 - 09/14 for an evaluation and treatment of Decompensated Hepatic cirrhosis and B/L LE Cellulitis. He was treated with IV Abx for Cellulitis of B/L LE and advised to f/u with wound care. Pt with h/o Hepatitis B and alcohol use - Abd U/S showed minimal ascites. Lasix and Spironolactone were increased. Pt has GI and will f/u with them. [facility] Medical History Abdominal pain Lower extremity edema Tinea pedis Chemical burn Cellulitis of right leg Right leg swelling Swelling of left hip joint Right groin pain Tobacco abuse Obesity Surgical History No pertinent past surgical history Family History Maternal Grandfather CVA (cerebral vascular accident) Maternal Grandmother Pancreatic cancer Social History Household Members: Family Housing: House Do you presently have visiting nurse or other home services: No Alcohol intake: current Alcohol intake frequency: 3 or more drinks per day Alcohol type: hard liquor Comment: pt refuses bed alarm Patient Tobacco Use Status: Current everyday Tobacco user Tobacco use type: Cigarette Cigarette Packs Per Day: 0.5 Cigarettes Per Day: 7 Years Smoked: smoking since 20 years old e-Cigarette/Vaping Use: Never Used Second Hand Smoke Exposure: Yes Substance Use Type: Marijuana service: No Current occupational status: unemployed Cognitive needs: No Hearing needs: No Vision needs: No Questionnaire Thrive Questionnaire Date Thrive assessed: 10/09/24 I am a: Patient What is your living situation today?: I choose not to answer this question Within the past 12 months, did the food you bought not last and you didn't have the money to get more?: Often true Within the past 12 months, did you worry whether your food would run out before you got money to buy more?: Often true Do you have trouble paying for medicines?: Yes Do you have trouble getting transportation to medical appointments?: I choose not to answer this question Do you have trouble paying your heating and electricity bill?: I choose not to answer this question Do you have trouble taking care of your child, family member or friend?: I choose not to answer this question Do you have trouble with day-to-day activities such as bathing, preparing meals, shopping, managing finances, etc.?: I choose not to answer this question Are you currently unemployed and looking for a job?: Yes Are you interested in more education?: Yes Please select the resources that you would like help with: None Currently or been in a relationship where the following occur: I choose not to answer THRIVE Score: 2 WINIFRED-7 AMB Questionnaire WINIFRED-7 Date WINIFRED - 7 assessed: 08/14/24 Source: Developed by Drs. Errol Hull, Morenita Harrison, Lance Kothari and colleagues, with an educational edward from [employer]. Physical exam (Primary Care) Vital Signs: Last Vital Signs Temp 97.5 F 10/09/24 14:37 Pulse 86 10/09/24 14:37 BP 106/74 10/09/24 14:37 Pulse Ox 96 10/09/24 14:37 Oxygen Delivery Method Room Air 10/09/24 14:37 BMI result Body Mass Index 31.1 Tobacco/Smoking Status: Tobacco use Status Tobacco use date assessed 08/14/24 10/09/24 14:45 Patient Tobacco Use Status Current everyday Tobacco 10/09/24 14:45 Tobacco use type Cigarette 10/09/24 14:45 e-Cigarette/Vaping Use Never Used 10/09/24 14:45 Thrive Assessment: Date of Thrive Assessment Date Thrive assessed 10/09/24 10/09/24 14:45 Currently or been in a relationship where the following occur: I choose not to answer Const General: no acute distress, patient obtunded and poor hygiene Nutritional Appearance: overweight Orientation/consciousness: patient oriented x3 and patient obtunded Resp Effort & Inspection: normal respiratory effort Auscultation: clear to auscultation bilaterally Cardio Heart sounds: S1 normal heart sound present and S2 normal heart sound present Neuro General: patient oriented x3, gait normal, moves all extremities and patient obtunded Extrem Right lower extremity: lower leg Details: erythema and pitting edema Details: 3+ Left lower extremity: lower leg Details: erythema and pitting edema Details: 3+ Psych Appearance: disheveled Coding Level of Care Code Est Pt Level 4 (64454) Diagnoses Alcoholic cirrhosis of liver with ascites K70.31 Ascites presence: with ascites Hepatic cirrhosis type: alcoholic cirrhosis Cellulitis of lower extremity, unspecified laterality L03.119 Laterality: unspecified laterality Site of cellulitis: extremity Site of cellulitis of extremity: lower extremity Time Spent (min) 20 Assessment & Plan Assessment & Plan (1) Cirrhosis: Code(s): K74.60 - Unspecified cirrhosis of liver Category: Medical Qualifiers: Ascites presence: with ascites Hepatic cirrhosis type: alcoholic cirrhosis Qualified Code(s): K70.31 - Alcoholic cirrhosis of liver with ascites Plan: Managed by GI (2) Cellulitis: Code(s): L03.90 - Cellulitis, unspecified Category: Medical Qualifiers: Laterality: unspecified laterality Site of cellulitis: extremity Site of cellulitis of extremity: lower extremity Qualified Code(s): L03.119 - Cellulitis of unspecified part of limb Plan: Resolved, completed Abx F/u with Wound clinic as scheduled. Medications: Changed From spironolactone 50 mg PO BID K70.11 - Alcoholic hepatitis with ascites To spironolactone 50 mg PO DAILY K70.11 - Alcoholic hepatitis with ascites
--- OUTSIDE RECORDS SUMMARY | 2024-10-09 14:56 | XMS_ITS | Patient Health Record ---
Author Organization [facility] Address [address] [place] [address] Care Team Providers Care Buckle Frame Shaper Name Role Phone Heidy Mojica MD Primary Care Provider Wilber Prater Jr [phone] Allergies No Known Allergies Results Component Value Reference Range Notes IRON PROFILE Reviewed date:09/08/2024 12:36:14 PM Interpretation: Performing Lab:[facility], [address] [place] [id number] Notes/Report: Iron 53 45-160 mcg/dL Total Iron Binding Capacity 143 228-428 mcg/d L Percent Iron Saturation 37 15-50 % Unsaturated Iron Binding 90 Ferritin Reviewed date:09/08/2024 12:36:23 PM Interpretation: Performing Lab:[facility], [address] [place] [phone] Notes/Report: Ferritin 411 20-250 ng/mL Reason For Referral No Information Medications Medication [...] many cigarettes a day do you smoke? 03-04 Alcohol Screen Question Answer Notes Did you have a drink containing alcohol in the p ast year? No Points 0 Interpretation Negative Problems Problem Type SNOMED Code ICD Code Onset Dates Problem Status W/U Status Risk Notes Problem [id number] Alcoholic hepatitis with ascites (K70.11) Active confirmed Problem Cirrhotic (636859112) Cirrhosis (K74.60) Active confirmed Vital Signs Blood pressure diastolic 77 mm Hg 09/02/2024 Height 71 in 09/02/2024 Blood pressure systolic 111 mm Hg 09/02/2024 Weight 270 lbs 09/02/2024 BMI 37.65 kg/m2 09/02/2024 Encounters Encounter Location Date Provider Diagnosis [facility] [address] [place] [address] 09/02/2024 Wilber Castillo Jr Alcoholic hepatitis with ascites K70.11 and Cirrhosis K74.60 [facility] [address] [place] [phone] 09/08/2024 Wilber Castillo Jr Assessments Encounter Date Diagnosis (ICD Code) Assessment [...] Pnl 11/16/2021 Next Appt Details Provider Name:Wilber oliver Jr, 03/04/2025 02:55:00 PM, [address] [place] [address], [address], [place], [address], Insurance Providers Payer Name Payer Address Payer Phone Subscriber Number Group Number Insured Name Patient Relationship to Insured Coverage Start Date Coverage End Date [facility] [address] [address] [place], [place] [id number] ANA TREJO Self - patient is the insured Medical (General) History Medical History History ICD Code alcoholic hepatitis with ascites. Cirrho sis nephrolithiasis childhood asthma Neuropathy Surgical History Surgery Date(Month/Year) Right shoulder surgery 2011
== END 2024-10-09 15:21 | disposition home or self-care (01) ==
LOC: HO.HMCH 14:36
PROVIDERS: PCP Internal Medicine; Visit Provider Nurse Practitioner Family
DX: K70.31 Alcoholic cirrhosis of liver with ascites (principal); L03.119 Cellulitis of unspecified part of limb

== ENCOUNTER → 2024-10-09 14:35 | Outpatient (BNVA) | payer OTHER, SELFPAY | PROVIDERS: PCP Internal Medicine; Visit Provider Nurse Practitioner Family | DX: K70.31 Alcoholic cirrhosis of liver with ascites (principal); K70.11 Alcoholic hepatitis with ascites; L03.116 Cellulitis of left lower limb; L03.115 Cellulitis of right lower limb | CPT/HCPCS: 99212 ==